=== PATIENT | female | born 1995 | race American Indian/Alaskan Native ===

== ENCOUNTER 2016-10-14 19:41 | Emergency (ER) | payer MEDICAID ==
[2016-10-14 19:52] VITALS: BP 118/74
[2016-10-14] MEDS ORDERED: Sodium Chloride 0.9% 1,000 ML IV ONE (19:52)
--- NOTE | 2016-10-14 19:59 | EDM.PDOC ---
ED HPI GENERAL MEDICAL PROBLEM - General Chief Complaint: Gastrointestinal Problem Stated Complaint: GALLBLADDER, OTHER PERSONAL Time Seen by Provider: 10/14/16 19:51 Source of Information: Reports: Patient History Limitations: Reports: No limitations - History of Present Illness INITIAL COMMENTS - FREE TEXT/NARRATIVE: 21 yo white female c/o RUQ pain since yesterday ( PMHx. GallBladder Problems) Also, patient states she passed large blood clot per vagina yesterday and she had a postitive home test Onset: gradual Onset Date: 10/09/16 Onset Time: 12:00 Duration: Day(s): Location: Reports: abdomen Quality: Reports: Ache Severity: moderate Improves with: Reports: None Worsens with: Reports: None Context: Reports: Other (PMHx. GallBladder problems) Associated Symptoms: Reports: other (vaginal blood clot) Epigastric Pain Score (Numeric/FACES): 7 - Related Data Allergies Allergy/AdvReac Type Severity Reaction Status Date / Time No Known Allergies Allergy Verified 10/14/16 19:53 Home Meds: Home Meds Acetaminophen [Tylenol] 2 tab PO Q8H 08/01/16 [History] Albuterol [IJD: Albuterol HFA] 2 puff INH Q6H 08/01/16 [History] Past Medical History - Past Health History Medical/Surgical History: Denies Medical/Surgical History HEENT History: Reports: Impaired vision Other HEENT History: HAS PRESCRIBED CORRECTIVE LENSES; DOES NOT WEAR THEM Cardiovascular History: Reports: None Respiratory History: Reports: None Gastrointestinal History: Reports: Cholelithiasis, GERD Genitourinary History: Reports: UTI, recurrent 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 Musculoskeletal History: Reports: Fracture Other Musculoskeletal History: HX OF WRIST & ANKLE FRACTURE Neurological History: Reports: Headaches, chronic, Migraines Psychiatric History: Reports: Anxiety Endocrine/Metabolic History: Reports: Obesity/BMI 30+ Hematologic History: Reports: None Immunologic History: Reports: None Oncologic (Cancer) History: Reports: None Dermatologic History: Reports: None - Infectious Disease History Infectious Disease History: Reports: Chicken pox - Past Surgical History Head Surgeries/Procedures: Reports: None HEENT Surgical History: Reports: Adenoidectomy, Oral surgery, Tonsillectomy Other HEENT Surgeries/Procedures: WISDOM TEETH EXTRACTION Cardiovascular Surgical History: Reports: None Respiratory Surgical History: Reports: None GI Surgical History: Reports: EGD Female Surgical History: Reports: Other (see below) Other Female Surgeries/Procedures: IUD INSERTION-REMOVED Endocrine Surgical History: Reports: None Neurological Surgical History: Reports: None Musculoskeletal Surgical History: Reports: None Oncologic Surgical History: Reports: None Dermatological Surgical History: Reports: None Social & Family History - Family History Family Medical History: Noncontributory - Tobacco Use Smoking Status *Q: Never Smoker Second Hand Smoke Exposure: No - Caffeine Use Caffeine Use: Reports: Coffee, Tea - Alcohol Use Days Per Week of Alcohol Use: 0 - Recreational Drug Use Recreational Drug Use: No Drug Use in Last 12 Months: No - Sexual History Sexual History: Reports: Sexually active - Living Situation & Occupation Living situation: Reports: with family Occupation: unemployed ED ROS GENERAL - Review of Systems Review Of Systems: See Below Constitutional: Reports: no symptoms HEENT: Reports: No symptoms Respiratory: Reports: No Symptoms Cardiovascular: Reports: No symptoms Endocrine: Reports: no symptoms GI/Abdominal: Reports: Abdominal pain (RUQ pain) : Reports: other (vaginal blood clot ( size of golf ball)) Musculoskeletal: Reports: no symptoms Skin: Reports: no symptoms Neurological: Reports: No Symptoms Psychiatric: Reports: No symptoms Hematologic/Lymphatic: Reports: no symptoms Immunologic: Reports: no symptoms ED EXAM, GENERAL - Physical Exam Exam: See Below Exam Limited By: No limitations General Appearance: alert, no apparent distress, obese Eye Exam: bilateral eye: PERRL Ears: normal external exam Ear Exam: bilateral ear: TM normal Nose: normal inspection Throat/Mouth: Normal inspection Head: atraumatic Neck: normal inspection Respiratory/Chest: no respiratory distress, lungs clear Cardiovascular: normal peripheral pulses, regular rate, rhythm GI/Abdominal: normal bowel sounds, tender (Right Upper Quadrant) (Female) Exam: Normal external exam, Other (min dark blood in vagina w/o active bleeding w/ mucs plug and os closed) Extremities: normal inspection Neurological: alert, oriented, CN II-XII intact Psychiatric: normal affect, normal mood Skin Exam: Warm, Intact Lymphatic: no adenopathy Course - Vital Signs Last Recorded V/S: Last Vital Signs Temp 36.0 C 10/14/16 19:49 Pulse 106 H 10/14/16 19:49 Resp 16 10/14/16 19:49 BP 118/74 10/14/16 19:49 Pulse Ox 99 10/14/16 19:49 - Orders/Labs/Meds Orders: Active Orders 24 hr Category Date Time Status CULTURE URINE [RM] Stat Lab 10/14/16 20:15 Received cefTRIAXone [Rocephin] 1 gm Med 10/14/16 21:07 Active Sodium Chloride 0.9% [Normal Saline] 50 ml IV ONETIME Medication Orders Ceftriaxone Sodium 1 gm/ (Sodium Chloride) 50 mls @ 100 mls/hr IV ONETIME ONE Stop: 10/14/16 21:36 Labs: Laboratory Tests 10/14/16 10/14/16 10/14/16 Range/Units 19:58 19:58 20:15 WBC 10.5 H (5.0-10.0) 10^3/uL RBC 4.44 (4.2-5.4) 10^6/uL Hgb 13.0 (12.0-16.0) g/dL Hct 39.2 (37.0-47.0) % MCV 88.3 (80-100) fL MCH 29.3 (27.0-34.0) pg MCHC 33.2 (33.0-35.0) g/dL Plt Count 345 (150-450) 10^3/uL Neut % (Auto) 64.2 (42.2-75.2) % Lymph % (Auto) 27.8 (20.5-50.1) % [place] % (Auto) 6.9 (2-8) % Eos % (Auto) 0.7 L (1.0-3.0) % Baso % (Auto) 0.4 (0.0-1.0) % Sodium 139 (135-145) mmol/L Potassium 3.9 (3.6-5.0) mmol/L Chloride 103 (101-111) mmol/L Carbon Dioxide 27.0 (21.0-31.0) mmol/L Anion Gap 12.9 BUN 11 (7-18) mg/dL Creatinine 0.7 (0.6-1.3) mg/dL Est Cr Clr Drug Dosing 100.55 mL/min Estimated GFR (MDRD) > 60 BUN/Creatinine Ratio 15.71 Glucose 115 H (74-105) mg/dL Calcium 9.0 (8.4-10.2) mg/dl Total Bilirubin 0.2 (0.2-1.0) mg/dL AST 29 (10-42) IU/L ALT 41 (10-60) IU/L Alkaline Phosphatase 107 (42-121) IU/L Total Protein 6.8 (6.7-8.2) g/dl Albumin 3.7 (3.2-5.5) g/dl Globulin 3.1 Albumin/Globulin Ratio 1.19 Amylase 20 L (28-100) U/L HCG, Qual Negative Urine Color Yellow (YELLOW) Urine Appearance Turbid (CLEAR) Urine pH 7.5 (5.0-9.0) Ur Specific [place] 1.020 (1.005-1.030) Urine Protein Negative (NEGATIVE) Urine Glucose (UA) Negative (NEGATIVE) Urine Ketones Negative (NEGATIVE) Urine Occult Blood Large H (NEGATIVE) Urine Nitrite Negative (NEGATIVE) Urine Bilirubin Negative (NEGATIVE) Urine Urobilinogen 2.0 H (0.2-1.0) mg/dL Ur Leukocyte Esterase Trace H (NEGATIVE) Urine RBC 0-5 /HPF Urine WBC 0-5 (0-5/HPF) /HPF Ur Epithelial Cells Few /HPF Amorphous Sediment Many H (0/HPF) /HPF Urine Bacteria Moderate H (0-FEW/HPF) /HPF Urinalysis Comment Meds: Medications Generic Name Dose Route Start Last Admin Trade Name Freq PRN Reason Stop Dose Admin Ceftriaxone Sodium 1 gm/ 50 mls @ 100 mls/hr 10/14/16 21:07 Sodium Chloride IV 10/14/16 21:36 ONETIME ONE Discontinued Medications Generic Name Dose Route Start Last Admin Trade Name Freq PRN Reason Stop Dose Admin Sodium Chloride 1,000 mls @ 999 mls/hr 10/14/16 19:52 10/14/16 20:09 Normal Saline IV 10/14/16 20:52 999 mls/hr .BOLUS ONE Administration Departure - Departure Time of Disposition: 21:16 Disposition: Home, Self-Care 01 Condition: good Clinical Impression: UTI (urinary tract infection) Qualifiers: Urinary tract infection type: acute cystitis Hematuria presence: with hematuria Qualified Code(s): N30.01 - Acute cystitis with hematuria Forms: ED Department Discharge Additional Instructions: Increase intake of Water /Cranberry Juice Take Medication as prescribed and complete: Amoxil 500mg BID # 20 Pyridium 100mg TID # 9 F/U w/ PCP - My Orders Last 24 Hours: My Active Orders 10/14/16 20:15 CULTURE URINE [RM] Stat 10/14/16 21:07 cefTRIAXone [Rocephin] 1 gm Sodium Chloride 0.9% [Normal Saline] 50 ml IV ONETIME - Assessment/Plan Last 24 Hours: My Active Orders 10/14/16 20:15 CULTURE URINE [RM] Stat 10/14/16 21:07 cefTRIAXone [Rocephin] 1 gm Sodium Chloride 0.9% [Normal Saline] 50 ml IV ONETIME
[2016-10-14 20:24] LABS: CHLORIDE,CL 103 mmol/L (101-111); SODIUM,NA 139 mmol/L (135-145)
[2016-10-14] MEDS ORDERED: cefTRIAXone 1 GM in Sodium Chloride 0.9% 50 ML IV ONE (21:07)
== END 2016-10-14 21:55 | disposition home or self-care (01) ==
LOC: DL.ED 19:41
DX: O23.40 Unspecified infection of urinary tract in pregnancy, unspecified trimester (principal); O20.9 Hemorrhage in early pregnancy, unspecified; E66.9 Obesity, unspecified; Z86.19 Personal history of other infectious and parasitic diseases; F41.9 Anxiety disorder, unspecified
CPT/HCPCS: 36415; 80053; 81001; 82150; 84703; 85025; 87086; 87210; 96361; 96365; 99284; J0696; J7030; J7050

== ENCOUNTER 2017-03-04 00:04 | Emergency (ER) | payer MEDICAID ==
[2017-03-04 01:21] LABS: CHLORIDE,CL 105 mmol/L (101-111); SODIUM,NA 139 mmol/L (135-145)
[2017-03-04] MEDS ORDERED: Iopamidol 612 MG/ML 50 ML SDV IVPUSH ONE (01:41)
[2017-03-04] MEDS ORDERED: Iopamidol 612 MG/ML 75 ML Bottle IVPUSH ONE (01:42)
--- NOTE | 2017-03-04 02:56 | EDM.PDOC ---
ED HPI GENERAL MEDICAL PROBLEM - General Chief Complaint: Gastrointestinal Problem Stated Complaint: GALLBLADDER Time Seen by Provider: 03/04/17 00:30 Source of Information: Reports: Patient History Limitations: Reports: No Limitations - History of Present Illness INITIAL COMMENTS - FREE TEXT/NARRATIVE: c/o "gall bladder pain" points mid epigastric. Notes ahs had similar episodes in past and recently seen by surgeon was told would need ultrasound. Has not heard results. Ate apporximately 1 hour prior to onset of pain. Abdominal Pain Score (Numeric/FACES): 8 - Related Data Allergies Allergy/AdvReac Type Severity Reaction Status Date / Time No Known Allergies Allergy Verified 10/14/16 19:53 Home Meds: Home Meds Acetaminophen [Tylenol] 2 tab PO Q8H 08/01/16 [History] Albuterol [IJD: Albuterol HFA] 2 puff INH Q6H 08/01/16 [History] Past Medical History - Past Health History Medical/Surgical History: Denies Medical/Surgical History HEENT History: Reports: Impaired Vision Other HEENT History: HAS PRESCRIBED CORRECTIVE LENSES; DOES NOT WEAR THEM Cardiovascular History: Reports: None Respiratory History: Reports: None Gastrointestinal History: Reports: Cholelithiasis, GERD Genitourinary History: Reports: UTI, Recurrent 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 Musculoskeletal History: Reports: Fracture Other Musculoskeletal History: HX OF WRIST & ANKLE FRACTURE Neurological History: Reports: Headaches, Chronic, Migraines Psychiatric History: Reports: Anxiety Endocrine/Metabolic History: Reports: Obesity/BMI 30+ Hematologic History: Reports: None Immunologic History: Reports: None Oncologic (Cancer) History: Reports: None Dermatologic History: Reports: None - Infectious Disease History Infectious Disease History: Reports: Chicken Pox - Past Surgical History Head Surgeries/Procedures: Reports: None HEENT Surgical History: Reports: Adenoidectomy, Oral Surgery, Tonsillectomy Cardiovascular Surgical History: Reports: None Respiratory Surgical History: Reports: None GI Surgical History: Reports: EGD Female Surgical History: Reports: Other (See Below) Endocrine Surgical History: Reports: None Musculoskeletal Surgical History: Reports: None Oncologic Surgical History: Reports: None Dermatological Surgical History: Reports: None Social & Family History - Family History Family Medical History: Noncontributory - Tobacco Use Smoking Status *Q: Never Smoker Second Hand Smoke Exposure: No - Caffeine Use Caffeine Use: Reports: Soda - Alcohol Use Days Per Week of Alcohol Use: 0 - Recreational Drug Use Recreational Drug Use: No Drug Use in Last 12 Months: No - Sexual History Sexual History: Reports: Sexually Active - Living Situation & Occupation Living situation: Reports: with Family Occupation: Unemployed ED ROS GENERAL - Review of Systems Review Of Systems: See Below Constitutional: Denies: Fever, Chills HEENT: Reports: No Symptoms Respiratory: Reports: No Symptoms Cardiovascular: Reports: No Symptoms Endocrine: Reports: No Symptoms GI/Abdominal: Reports: Abdominal Pain, Decreased Appetite, Nausea. Denies: Bloody Stool, Diarrhea, Distension, Vomiting : Reports: No Symptoms Musculoskeletal: Reports: No Symptoms Skin: Reports: No Symptoms Neurological: Reports: No Symptoms ED EXAM, GI/ABD - Physical Exam Exam: See Below Exam Limited By: No Limitations General Appearance: Alert, Mild Distress, Obese Ears: Normal External Exam, Normal Canal, Normal TMs Nose: Normal Inspection Throat/Mouth: Normal Inspection Head: Atraumatic, Normocephalic Neck: Normal Inspection Respiratory/Chest: No Respiratory Distress, Lungs Clear Cardiovascular: Normal Peripheral Pulses, Regular Rate, Rhythm, No Edema, No Murmur GI/Abdominal Exam: Normal Bowel Sounds, Soft, Non-Tender Back Exam: Normal Inspection Extremities: Normal Inspection Neurological: Alert, Oriented Psychiatric: Normal Affect, Normal Mood Skin Exam: Warm, Dry, Intact, Normal Color Course - Vital Signs Last Recorded V/S: Last Vital Signs Temp 97.6 F 03/04/17 03:03 Pulse 101 H 03/04/17 03:03 Resp 20 03/04/17 03:03 BP 118/71 03/04/17 03:03 Pulse Ox 100 03/04/17 03:03 - Orders/Labs/Meds Labs: Laboratory Tests 03/04/17 03/04/17 03/04/17 Range/Units 00:45 00:45 00:45 WBC 10.8 H (5.0-10.0) 10^3/uL RBC 4.52 (4.2-5.4) 10^6/uL Hgb 13.1 (12.0-16.0) g/dL Hct 39.8 (37.0-47.0) % MCV 88.1 (80-100) fL MCH 29.0 (27.0-34.0) pg MCHC 32.9 L (33.0-35.0) g/dL Plt Count 321 (150-450) 10^3/uL Neut % (Auto) 66.3 (42.2-75.2) % Lymph % (Auto) 26.2 (20.5-50.1) % [place] % (Auto) 6.0 (2-8) % Eos % (Auto) 1.1 (1.0-3.0) % Baso % (Auto) 0.4 (0.0-1.0) % Sodium 139 (135-145) mmol/L Potassium 3.7 (3.6-5.0) mmol/L Chloride 105 (101-111) mmol/L Carbon Dioxide 25.0 (21.0-31.0) mmol/L Anion Gap 12.7 BUN 13 (7-18) mg/dL Creatinine 0.7 (0.6-1.3) mg/dL Est Cr Clr Drug Dosing 95.93 mL/min Estimated GFR (MDRD) > 60 BUN/Creatinine Ratio 18.57 Glucose 112 H (74-105) mg/dL Lactic Acid 1.0 (0.5-2.2) mmol/L Calcium 9.0 (8.4-10.2) mg/dl Total Bilirubin 0.5 (0.2-1.0) mg/dL AST 25 (10-42) IU/L ALT 32 (10-60) IU/L Alkaline Phosphatase 89 (42-121) IU/L Total Protein 7.1 (6.7-8.2) g/dl Albumin 3.7 (3.2-5.5) g/dl Globulin 3.4 Albumin/Globulin Ratio 1.09 Amylase 18 L (28-100) U/L Lipase 18 L (22-51) U/L HCG, Qual Negative Urine Color (YELLOW) Urine Appearance (CLEAR) Urine pH (5.0-9.0) Ur Specific [place] (1.005-1.030) Urine Protein (NEGATIVE) Urine Glucose (UA) (NEGATIVE) Urine Ketones (NEGATIVE) Urine Occult Blood (NEGATIVE) Urine Nitrite (NEGATIVE) Urine Bilirubin (NEGATIVE) Urine Urobilinogen (0.2-1.0) mg/dL Ur Leukocyte Esterase (NEGATIVE) Urine RBC /HPF Urine WBC (0-5/HPF) /HPF Ur Epithelial Cells /HPF Urine Bacteria (0-FEW/HPF) /HPF Urine Mucus /LPF 03/04/17 Range/Units 02:17 WBC (5.0-10.0) 10^3/uL RBC (4.2-5.4) 10^6/uL Hgb (12.0-16.0) g/dL Hct (37.0-47.0) % MCV (80-100) fL MCH (27.0-34.0) pg MCHC (33.0-35.0) g/dL Plt Count (150-450) 10^3/uL Neut % (Auto) (42.2-75.2) % Lymph % (Auto) (20.5-50.1) % [place] % (Auto) (2-8) % Eos % (Auto) (1.0-3.0) % Baso % (Auto) (0.0-1.0) % Sodium (135-145) mmol/L Potassium (3.6-5.0) mmol/L Chloride (101-111) mmol/L Carbon Dioxide (21.0-31.0) mmol/L Anion Gap BUN (7-18) mg/dL Creatinine (0.6-1.3) mg/dL Est Cr Clr Drug Dosing mL/min Estimated GFR (MDRD) BUN/Creatinine Ratio Glucose (74-105) mg/dL Lactic Acid (0.5-2.2) mmol/L Calcium (8.4-10.2) mg/dl Total Bilirubin (0.2-1.0) mg/dL AST (10-42) IU/L ALT (10-60) IU/L Alkaline Phosphatase (42-121) IU/L Total Protein (6.7-8.2) g/dl Albumin (3.2-5.5) g/dl Globulin Albumin/Globulin Ratio Amylase (28-100) U/L Lipase (22-51) U/L HCG, Qual Urine Color Dark yellow (YELLOW) Urine Appearance Slightly cloudy (CLEAR) Urine pH 6.0 (5.0-9.0) Ur Specific [place] 1.025 (1.005-1.030) Urine Protein Negative (NEGATIVE) Urine Glucose (UA) Negative (NEGATIVE) Urine Ketones Negative (NEGATIVE) Urine Occult Blood Trace-intact H (NEGATIVE) Urine Nitrite Negative (NEGATIVE) Urine Bilirubin Small H (NEGATIVE) Urine Urobilinogen 4.0 H (0.2-1.0) mg/dL Ur Leukocyte Esterase Trace H (NEGATIVE) Urine RBC 0-5 /HPF Urine WBC 0-5 (0-5/HPF) /HPF Ur Epithelial Cells Moderate H /HPF Urine Bacteria Moderate H (0-FEW/HPF) /HPF Urine Mucus Few H /LPF Meds: Medications Discontinued Medications Generic Name Dose Route Start Last Admin Trade Name Nurys PRN Reason Stop Dose Admin Iopamidol 50 ml 03/04/17 01:41 03/04/17 01:45 Isovue-300 (61%) IVPUSH 03/04/17 01:42 50 ml ONETIME ONE Administration Iopamidol 75 ml 03/04/17 01:42 03/04/17 01:45 Isovue-300 (61%) IVPUSH 03/04/17 01:43 75 ml ONETIME ONE Administration Ondansetron HCl Confirm 03/04/17 02:59 03/04/17 03:07 Zofran Odt Administered 03/04/17 03:00 Not Given Dose 8 mg .ROUTE .STK-MED ONE Ondansetron HCl 8 mg 03/04/17 02:59 Zofran Odt PO 03/04/17 03:00 .STK-MED ONE Oxycodone/Acetaminophen Confirm 03/04/17 02:59 03/04/17 03:07 Percocet 325-5 Mg Administered 03/04/17 03:00 Not Given Dose 1 tab .ROUTE .STK-MED ONE Oxycodone/Acetaminophen 1 tab 03/04/17 02:59 Percocet 325-5 Mg PO 03/04/17 03:00 .STK-MED ONE - Radiology Interpretation Free Text/Narrative:: CT abdomen, possible gallstones, no ductal dilation Departure - Departure Time of Disposition: 02:51 Disposition: Home, Self-Care 01 Condition: Fair Clinical Impression: Nausea Abdominal pain Qualifiers: Abdominal location: right upper quadrant Qualified Code(s): R10.11 - Right upper quadrant pain - Discharge Information Instructions: Abdominal Pain, Adult, [id number] Forms: ED Department Discharge Additional Instructions: zofran 4mg ODT one at bed, may repeat one time in 4 hours Percocet 5/325 one at bed follow up in clinic in am low fat, low acid diet no soda, no caffeine
[2017-03-04] MEDS ORDERED: Acetaminophen/oxyCODONE 325-5 MG Tab PO ONE (02:59)
[2017-03-04] MEDS ORDERED: Acetaminophen/oxyCODONE 325-5 MG Tab ONE (02:59)
[2017-03-04] MEDS ORDERED: Ondansetron 4 MG Tab.DIS ONE (02:59)
[2017-03-04] MEDS ORDERED: Ondansetron 4 MG Tab.DIS PO ONE (02:59)
[2017-03-04 03:03] VITALS: BP 118/71
== END 2017-03-04 03:08 | disposition home or self-care (01) ==
LOC: DL.ED 00:04
DX: R10.11 Right upper quadrant pain (principal); R11.0 Nausea; K21.9 Gastro-esophageal reflux disease without esophagitis; E66.9 Obesity, unspecified; Z87.440 Personal history of urinary (tract) infections; Z98.890 Other specified postprocedural states; Z68.43 Body mass index [BMI] 50.0-59.9, adult
CPT/HCPCS: 36415; 74177; 80053; 81001; 82150; 83605; 83690; 84703; 85025; 99284; A9270; Q9967

== ENCOUNTER 2017-03-19 06:26 | Emergency (ER) | payer MEDICAID ==
[2017-03-19 06:38] VITALS: BP 108/63
--- NOTE | 2017-03-19 06:50 | EDM.PDOC ---
<Fernando Campuzano - Last Filed: 03/19/17 06:52> ED HPI GENERAL MEDICAL PROBLEM - General Chief Complaint: Abdominal Pain Stated Complaint: CRAMPING, VOMITING Time Seen by Provider: 03/19/17 06:47 Source of Information: Reports: Patient History Limitations: Reports: No Limitations - History of Present Illness INITIAL COMMENTS - FREE TEXT/NARRATIVE: 2 days h/o abd' pain with h/o GB problems. been vomiting now nauseous. states had GB US done and waiting for her to schedule HIDA scan but hadn't had time. Abdomen Pain Score (Numeric/FACES): 7 - Related Data Allergies Allergy/AdvReac Type Severity Reaction Status Date / Time No Known Allergies Allergy Verified 03/19/17 06:38 Home Meds: Home Meds Acetaminophen [Tylenol] 2 tab PO Q8H 08/01/16 [History] Albuterol [IJD: Albuterol HFA] 2 puff INH Q6H 08/01/16 [History] Past Medical History - Past Health History Medical/Surgical History: Denies Medical/Surgical History HEENT History: Reports: Impaired Vision Other HEENT History: HAS PRESCRIBED CORRECTIVE LENSES; DOES NOT WEAR THEM Cardiovascular History: Reports: None Respiratory History: Reports: None Gastrointestinal History: Reports: Cholelithiasis, GERD Genitourinary History: Reports: UTI, Recurrent 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 Musculoskeletal History: Reports: Fracture Other Musculoskeletal History: HX OF WRIST & ANKLE FRACTURE Neurological History: Reports: Headaches, Chronic, Migraines Psychiatric History: Reports: Anxiety Endocrine/Metabolic History: Reports: Obesity/BMI 30+ Hematologic History: Reports: None Immunologic History: Reports: None Oncologic (Cancer) History: Reports: None Dermatologic History: Reports: None - Infectious Disease History Infectious Disease History: Reports: Chicken Pox - Past Surgical History Head Surgeries/Procedures: Reports: None HEENT Surgical History: Reports: Adenoidectomy, Oral Surgery, Tonsillectomy Cardiovascular Surgical History: Reports: None Respiratory Surgical History: Reports: None GI Surgical History: Reports: EGD Female Surgical History: Reports: Other (See Below) Endocrine Surgical History: Reports: None Musculoskeletal Surgical History: Reports: None Oncologic Surgical History: Reports: None Dermatological Surgical History: Reports: None Social & Family History - Family History Family Medical History: Noncontributory - Tobacco Use Smoking Status *Q: Never Smoker Second Hand Smoke Exposure: No - Caffeine Use Caffeine Use: Reports: Soda, Tea - Alcohol Use Days Per Week of Alcohol Use: 0 - Recreational Drug Use Recreational Drug Use: No Drug Use in Last 12 Months: No - Sexual History Sexual History: Reports: Sexually Active - Living Situation & Occupation Living situation: Reports: with Family Occupation: Unemployed ED ROS GENERAL - Review of Systems Review Of Systems: ROS reveals no pertinent complaints other than HPI. ED EXAM, GI/ABD - Physical Exam Exam: See Below Exam Limited By: No Limitations General Appearance: Alert, WD/WN, Mild Distress, Other (discomfort) Ears: Hearing Grossly Normal Throat/Mouth: Normal Voice, No Airway Compromise Head: Atraumatic Neck: Non-Tender, Full Range of Motion Respiratory/Chest: No Respiratory Distress Cardiovascular: Regular Rate, Rhythm GI/Abdominal Exam: Soft, Tender, Other (epiG region). No: Guarding, Rigid, Rebound Neurological: Alert, Oriented, Normal Cognition, Normal Gait, No Motor/Sensory Deficits Psychiatric: Normal Affect, Normal Mood Skin Exam: Warm, Dry, Normal Color Lymphatic: No Adenopathy Course - Vital Signs Last Recorded V/S: Last Vital Signs Temp 36.1 C 03/19/17 06:30 Pulse 109 H 03/19/17 06:30 Resp 19 03/19/17 06:30 BP 108/63 03/19/17 06:30 Pulse Ox 100 03/19/17 06:30 - Orders/Labs/Meds Orders: Active Orders 24 hr Category Date Time Status HCG QUALITATIVE,URINE [URCHEM] Stat Lab 03/19/17 06:39 Uncollected UA W/MICROSCOPIC [URIN] Stat Lab 03/19/17 06:39 Uncollected Sodium Chloride 0.9% [Normal Saline] 1,000 ml Med 03/19/17 07:14 Active IV .BOLUS Medication Orders Sodium Chloride (Normal Saline) 1,000 mls @ 999 mls/hr IV .BOLUS ONE Stop: 03/19/17 08:14 Last Admin: 03/19/17 07:22 Dose: 999 mls/hr Labs: Laboratory Tests 03/19/17 03/19/17 Range/Units 07:04 07:04 WBC 12.9 H (5.0-10.0) 10^3/uL RBC 4.59 (4.2-5.4) 10^6/uL Hgb 13.1 (12.0-16.0) g/dL Hct 40.0 (37.0-47.0) % MCV 87.1 (80-100) fL MCH 28.5 (27.0-34.0) pg MCHC 32.8 L (33.0-35.0) g/dL Plt Count 347 (150-450) 10^3/uL Neut % (Auto) 68.9 (42.2-75.2) % Lymph % (Auto) 23.0 (20.5-50.1) % [place] % (Auto) 6.3 (2-8) % Eos % (Auto) 1.4 (1.0-3.0) % Baso % (Auto) 0.4 (0.0-1.0) % Sodium 141 (135-145) mmol/L Potassium 3.5 L (3.6-5.0) mmol/L Chloride 106 (101-111) mmol/L Carbon Dioxide 22.0 (21.0-31.0) mmol/L Anion Gap 16.5 BUN 13 (7-18) mg/dL Creatinine 0.7 (0.6-1.3) mg/dL Est Cr Clr Drug Dosing 95.93 mL/min Estimated GFR (MDRD) > 60 BUN/Creatinine Ratio 18.57 Glucose 139 H (74-105) mg/dL Calcium 9.0 (8.4-10.2) mg/dl Total Bilirubin 0.4 (0.2-1.0) mg/dL AST 41 (10-42) IU/L ALT 69 H (10-60) IU/L Alkaline Phosphatase 106 (42-121) IU/L Total Protein 7.2 (6.7-8.2) g/dl Albumin 3.9 (3.2-5.5) g/dl Globulin 3.3 Albumin/Globulin Ratio 1.18 Amylase 18 L (28-100) U/L Lipase 17 L (22-51) U/L HCG, Qual Positive Meds: Medications Generic Name Dose Route Start Last Admin Trade Name Freq PRN Reason Stop Dose Admin Sodium Chloride 1,000 mls @ 999 mls/hr 03/19/17 07:14 03/19/17 07:22 Normal Saline IV 03/19/17 08:14 999 mls/hr .BOLUS ONE Administration Discontinued Medications Generic Name Dose Route Start Last Admin Trade Name Nurys PRN Reason Stop Dose Admin Ondansetron HCl 4 mg 03/19/17 07:14 03/19/17 07:22 Zofran IV 03/19/17 07:15 4 mg ONETIME ONE Administration Departure - Departure Disposition: Home, Self-Care 01 Clinical Impression: state, incidental, Recurrent biliary colic - Discharge Information Forms: ED Department Discharge Additional Instructions: Follow up in clinic with Dr. Rodriguez for evaluation. Low fat diet to avoid gallbladder pain. - My Orders Last 24 Hours: My Active Orders 03/19/17 07:14 Sodium Chloride 0.9% [Normal Saline] 1,000 ml IV .BOLUS - Assessment/Plan Last 24 Hours: My Active Orders 03/19/17 07:14 Sodium Chloride 0.9% [Normal Saline] 1,000 ml IV .BOLUS <Rasheed Shaver - Last Filed: 03/19/17 07:54> ED HPI GENERAL MEDICAL PROBLEM - History of Present Illness INITIAL COMMENTS - FREE TEXT/NARRATIVE: Assumed care of pt at 0700HR shift change with lab results pending. Pt reports feeling better. Duration: Recurring Location: Reports: Abdomen, Generalized Quality: Reports: Ache Severity: Moderate Improves with: Reports: None Worsens with: Reports: Eating Associated Symptoms: Reports: No Other Symptoms ED EXAM, GI/ABD - Physical Exam Text/Narrative:: No changes to exam as documented by Dr. Campuzano for this encounter. Departure - Departure Time of Disposition: 07:52 Condition: Good
[2017-03-19] MEDS ORDERED: Ondansetron 4 MG/2 ML SDV IV ONE (07:14)
[2017-03-19] MEDS ORDERED: Sodium Chloride 0.9% 1,000 ML IV ONE (07:14)
[2017-03-19 07:32] LABS: CHLORIDE,CL 106 mmol/L (101-111); SODIUM,NA 141 mmol/L (135-145)
== END 2017-03-19 08:17 | disposition home or self-care (01) ==
LOC: DL.ED 06:26
DX: Z33.1 Pregnant state, incidental (principal); K80.51 Calculus of bile duct without cholangitis or cholecystitis with obstruction; K21.9 Gastro-esophageal reflux disease without esophagitis; G43.909 Migraine, unspecified, not intractable, without status migrainosus; E66.9 Obesity, unspecified; Z98.890 Other specified postprocedural states; Z87.440 Personal history of urinary (tract) infections
CPT/HCPCS: 36415; 80053; 82150; 83690; 84703; 85025; 96365; 99284; J2405; J7030

== ENCOUNTER 2017-03-30 01:53 | Emergency (ER) | payer MEDICAID ==
[2017-03-30 04:25] LABS: CHLORIDE,CL 104 mmol/L (101-111); SODIUM,NA 142 mmol/L (135-145)
== END 2017-03-30 04:12 | disposition home or self-care (01) ==
LOC: DL.ED 01:53
DX: O99.89 Other specified diseases and conditions complicating pregnancy, childbirth and the puerperium (principal); R10.9 Unspecified abdominal pain
CPT/HCPCS: 36415; 80053; 84702; 84703; 85025; 99283

== ENCOUNTER 2017-04-04 00:20 | Emergency (ER) | payer MEDICAID ==
[2017-04-04 00:30] VITALS: BP 125/72
--- NOTE | 2017-04-04 00:38 | EDM.PDOC ---
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 Time Seen by Provider: 04/04/17 00:35 Source of Information: Reports: Patient History Limitations: Reports: No Limitations - History of Present Illness INITIAL COMMENTS - FREE TEXT/NARRATIVE: told was but not how far along and been having serial hcg told to go to ER for any problems. 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 Pain Score (Numeric/FACES): 6 - Related Data Allergies Allergy/AdvReac Type Severity Reaction Status Date / Time No Known Allergies Allergy Verified 04/04/17 00:30 Home Meds: Home Meds Acetaminophen [Tylenol] 2 tab PO Q8H 08/01/16 [History] PNV95/Ferrous Fumarate/FA [ Formula] 1 each PO DAILY 04/04/17 [History] Ranitidine HCl 150 mg PO BID 04/04/17 [History] Past Medical History - Past Health History Medical/Surgical History: Denies Medical/Surgical History HEENT History: Reports: Impaired Vision Other HEENT History: HAS PRESCRIBED CORRECTIVE LENSES; DOES NOT WEAR THEM Cardiovascular History: Reports: None Respiratory History: Reports: None Gastrointestinal History: Reports: Cholelithiasis, GERD Genitourinary History: Reports: UTI, Recurrent Other Genitourinary History: [employer] 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 Musculoskeletal History: Reports: Fracture Other Musculoskeletal History: HX OF WRIST & ANKLE FRACTURE Neurological History: Reports: Headaches, Chronic, Migraines Psychiatric History: Reports: Anxiety Endocrine/Metabolic History: Reports: Obesity/BMI 30+ Hematologic History: Reports: None Immunologic History: Reports: None Oncologic (Cancer) History: Reports: None Dermatologic History: Reports: None - Infectious Disease History Infectious Disease History: Reports: Chicken Pox - Past Surgical History Head Surgeries/Procedures: Reports: None HEENT Surgical History: Reports: Adenoidectomy, Oral Surgery, Tonsillectomy Cardiovascular Surgical History: Reports: None Respiratory Surgical History: Reports: None GI Surgical History: Reports: EGD Female Surgical History: Reports: Other (See Below) Endocrine Surgical History: Reports: None Musculoskeletal Surgical History: Reports: None Oncologic Surgical History: Reports: None Dermatological Surgical History: Reports: None Social & Family History - Family History Family Medical History: Noncontributory - Tobacco Use Smoking Status *Q: Never Smoker Second Hand Smoke Exposure: No - Caffeine Use Caffeine Use: Reports: Soda, Tea - Alcohol Use Days Per Week of Alcohol Use: 0 - Recreational Drug Use Recreational Drug Use: No Drug Use in Last 12 Months: No - Sexual History Sexual History: Reports: Sexually Active - Living Situation & Occupation Living situation: Reports: with Family Occupation: Unemployed ED ROS GENERAL - Review of Systems Review Of Systems: ROS reveals no pertinent complaints other than HPI. ED EXAM - Physical Exam Exam: See Below Exam Limited By: No Limitations General Appearance: Alert, WD/WN, Mild Distress, Other (distraught) Ears: Hearing Grossly Normal Throat/Mouth: Normal Voice, No Airway Compromise Head: Atraumatic Neck: Non-Tender, Full Range of Motion Respiratory/Chest: No Respiratory Distress Cardiovascular: Regular Rate, Rhythm GI/Abdominal Exam: Soft, Non-Tender Neurological: Alert, Oriented, Normal Cognition, Normal Gait, No Motor/Sensory Deficits Psychiatric: Tearful Skin Exam: Warm, Dry, Normal Color Lymphatic: No Adenopathy Course - Vital Signs Last Recorded V/S: Last Vital Signs Temp 35.8 C 04/04/17 00:24 Pulse 83 04/04/17 00:24 Resp 18 04/04/17 00:24 BP 125/72 04/04/17 00:24 Pulse Ox 99 04/04/17 00:24 - Orders/Labs/Meds Orders: Active Orders 24 hr Category Date Time Status Acetaminophen/HYDROcodone [[place] 325-10 MG] Med 04/04/17 01:49 Once 1 tab PO ONETIME ONE Medication Orders Hydrocodone Bitart/Acetaminophen ([place] 325-10 Mg) 1 tab PO ONETIME ONE Stop: 04/04/17 01:50 Labs: Laboratory Tests 04/04/17 04/04/17 04/04/17 Range/Units 00:41 00:41 00:41 WBC 10.3 H (5.0-10.0) 10^3/uL RBC 4.46 (4.2-5.4) 10^6/uL Hgb 13.0 (12.0-16.0) g/dL Hct 39.6 (37.0-47.0) % MCV 88.8 (80-100) fL MCH 29.1 (27.0-34.0) pg MCHC 32.8 L (33.0-35.0) g/dL Plt Count 338 (150-450) 10^3/uL Neut % (Auto) 60.3 (42.2-75.2) % Lymph % (Auto) 31.7 (20.5-50.1) % [place] % (Auto) 5.9 (2-8) % Eos % (Auto) 1.8 (1.0-3.0) % Baso % (Auto) 0.3 (0.0-1.0) % Sodium 141 (135-145) mmol/L Potassium 3.9 (3.6-5.0) mmol/L Chloride 105 (101-111) mmol/L Carbon Dioxide 25.0 (21.0-31.0) mmol/L Anion Gap 14.9 BUN 11 (7-18) mg/dL Creatinine 0.6 (0.6-1.3) mg/dL Est Cr Clr Drug Dosing 111.92 mL/min Estimated GFR (MDRD) > 60 BUN/Creatinine Ratio 18.33 Glucose 106 H (74-105) mg/dL Calcium 8.9 (8.4-10.2) mg/dl Total Bilirubin 0.3 (0.2-1.0) mg/dL AST 29 (10-42) IU/L ALT 43 (10-60) IU/L Alkaline Phosphatase 90 (42-121) IU/L Total Protein 6.8 (6.7-8.2) g/dl Albumin 3.6 (3.2-5.5) g/dl Globulin 3.2 Albumin/Globulin Ratio 1.13 HCG, Quant 15 (0-25) mIU/ml Beta HCG, Quant TNP Meds: Medications Generic Name Dose Route Start Last Admin Trade Name Freq PRN Reason Stop Dose Admin Hydrocodone Bitart/Acetaminophen 1 tab 04/04/17 01:49 [place] 325-10 Mg PO 04/04/17 01:50 ONETIME ONE - Re-Assessments/Exams Free Text/Narrative Re-Assessment/Exam: 04/04/17 01:50 case discussed with Pt. Departure - Departure Time of Disposition: 01:50 Disposition: Home, Self-Care 01 Condition: Good Clinical Impression: Incomplete - Discharge Information Forms: ED Department Discharge Additional Instructions: 1) rest 2) avoid bending lifting straining 3) follow up with Dr Rodriguez Wednesday 4) recheck if there is any change or concern - My Orders Last 24 Hours: My Active Orders 04/04/17 01:49 Acetaminophen/HYDROcodone [[place] 325-10 MG] 1 tab PO ONETIME ONE - Assessment/Plan Last 24 Hours: My Active Orders 04/04/17 01:49 Acetaminophen/HYDROcodone [[place] 325-10 MG] 1 tab PO ONETIME ONE
[2017-04-04 01:13] LABS: CHLORIDE,CL 105 mmol/L (101-111); SODIUM,NA 141 mmol/L (135-145)
[2017-04-04] MEDS ORDERED: Acetaminophen/HYDROcodone 325-10 MG Tab PO ONE (01:49)
== END 2017-04-04 02:00 | disposition home or self-care (01) ==
LOC: DL.ED 00:20
DX: O03.4 Incomplete spontaneous abortion without complication (principal); Z98.890 Other specified postprocedural states; E66.9 Obesity, unspecified; Z68.43 Body mass index [BMI] 50.0-59.9, adult
CPT/HCPCS: 36415; 80053; 84702; 85025; 99284; A9270

== ENCOUNTER 2017-04-08 22:46 | Emergency (ER) | payer MEDICAID ==
[2017-04-08 22:54] VITALS: BP 110/62
[2017-04-09] LABS: CHLORIDE,CL 102 mmol/L (101-111); SODIUM,NA 138 mmol/L (135-145)
[2017-04-09] MEDS ORDERED: Ondansetron 4 MG Tab.DIS PO ONE (00:37)
--- NOTE | 2017-04-09 00:41 | EDM.PDOC ---
ED HPI GENERAL MEDICAL PROBLEM - General Chief Complaint: Abdominal Pain Stated Complaint: GALLBLADDER Time Seen by Provider: 04/09/17 00:37 Source of Information: Reports: Patient History Limitations: Reports: No Limitations - History of Present Illness INITIAL COMMENTS - FREE TEXT/NARRATIVE: c/o 2 days h/o on off N/V been Dx with GB problem was suppose to have HIDA but since being she can't. 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 - Related Data Allergies Allergy/AdvReac Type Severity Reaction Status Date / Time No Known Allergies Allergy Verified 04/08/17 22:50 Home Meds: Home Meds Acetaminophen [Tylenol] 2 tab PO Q8H 08/01/16 [History] PNV95/Ferrous Fumarate/FA [ Formula] 1 each PO DAILY 04/04/17 [History] Ranitidine HCl 150 mg PO BID 04/04/17 [History] Past Medical History - Past Health History Medical/Surgical History: Denies Medical/Surgical History HEENT History: Reports: Impaired Vision Other HEENT History: HAS PRESCRIBED CORRECTIVE LENSES; DOES NOT WEAR THEM Cardiovascular History: Reports: None Respiratory History: Reports: None Gastrointestinal History: Reports: Cholelithiasis, GERD Genitourinary History: Reports: UTI, Recurrent Other Genitourinary History: [employer] History: Reports: None Musculoskeletal History: Reports: Fracture Other Musculoskeletal History: HX OF WRIST & ANKLE FRACTURE Neurological History: Reports: Headaches, Chronic, Migraines Psychiatric History: Reports: Anxiety Endocrine/Metabolic History: Reports: Obesity/BMI 30+ Hematologic History: Reports: None Immunologic History: Reports: None Oncologic (Cancer) History: Reports: None Dermatologic History: Reports: None - Infectious Disease History Infectious Disease History: Reports: Chicken Pox - Past Surgical History Head Surgeries/Procedures: Reports: None HEENT Surgical History: Reports: Adenoidectomy, Oral Surgery, Tonsillectomy Cardiovascular Surgical History: Reports: None Respiratory Surgical History: Reports: None GI Surgical History: Reports: EGD Endocrine Surgical History: Reports: None Musculoskeletal Surgical History: Reports: None Oncologic Surgical History: Reports: None Dermatological Surgical History: Reports: None Social & Family History - Family History Family Medical History: Noncontributory - Tobacco Use Smoking Status *Q: Never Smoker Second Hand Smoke Exposure: No - Caffeine Use Caffeine Use: Reports: Tea - Alcohol Use Days Per Week of Alcohol Use: 0 - Recreational Drug Use Recreational Drug Use: No Drug Use in Last 12 Months: No - Sexual History Sexual History: Reports: Sexually Active - Living Situation & Occupation Living situation: Reports: with Family Occupation: Unemployed ED ROS GENERAL - Review of Systems Review Of Systems: ROS reveals no pertinent complaints other than HPI. ED EXAM, GI/ABD - Physical Exam Exam: See Below Exam Limited By: No Limitations General Appearance: Alert, WD/WN, Mild Distress, Other (upset) Ears: Hearing Grossly Normal Throat/Mouth: Normal Voice, No Airway Compromise Head: Atraumatic Neck: Non-Tender, Full Range of Motion Respiratory/Chest: No Respiratory Distress Cardiovascular: Regular Rate, Rhythm GI/Abdominal Exam: Soft, Other (minimal epiG discomfort, Pt feeloing better presently). No: Distended, Guarding, Rigid, Rebound, Tender Neurological: Alert, Oriented, Normal Cognition, Normal Gait, No Motor/Sensory Deficits Psychiatric: Normal Affect, Normal Mood Skin Exam: Warm, Dry, Normal Color Lymphatic: No Adenopathy Course - Vital Signs Last Recorded V/S: Last Vital Signs Temp 36.3 C 04/08/17 22:56 Pulse 94 04/08/17 22:56 Resp 20 04/08/17 22:56 BP 110/62 04/08/17 22:56 Pulse Ox 98 04/08/17 22:56 - Orders/Labs/Meds Orders: Active Orders 24 hr Category Date Time Status UA W/MICROSCOPIC [URIN] Stat Lab 04/09/17 00:07 Received Ondansetron [Zofran ODT] Med 04/09/17 00:37 Once 4 mg PO ONETIME ONE Labs: Laboratory Tests 04/08/17 04/08/17 04/09/17 Range/Units 23:20 23:20 00:00 WBC 11.0 H (5.0-10.0) 10^3/uL RBC 4.53 (4.2-5.4) 10^6/uL Hgb 13.1 (12.0-16.0) g/dL Hct 40.2 (37.0-47.0) % MCV 88.7 (80-100) fL MCH 28.9 (27.0-34.0) pg MCHC 32.6 L (33.0-35.0) g/dL Plt Count 351 (150-450) 10^3/uL Neut % (Auto) 62.2 (42.2-75.2) % Lymph % (Auto) 30.1 (20.5-50.1) % [place] % (Auto) 6.1 (2-8) % Eos % (Auto) 1.3 (1.0-3.0) % Baso % (Auto) 0.3 (0.0-1.0) % Sodium 138 (135-145) mmol/L Potassium 4.0 (3.6-5.0) mmol/L Chloride 102 (101-111) mmol/L Carbon Dioxide 24.0 (21.0-31.0) mmol/L Anion Gap 16.0 BUN 17 (7-18) mg/dL Creatinine 0.7 (0.6-1.3) mg/dL Est Cr Clr Drug Dosing TNP Estimated GFR (MDRD) > 60 BUN/Creatinine Ratio 24.28 Glucose 124 H (74-105) mg/dL Calcium 8.9 (8.4-10.2) mg/dl Total Bilirubin 0.5 (0.2-1.0) mg/dL AST 33 (10-42) IU/L ALT 44 (10-60) IU/L Alkaline Phosphatase 95 (42-121) IU/L Total Protein 7.3 (6.7-8.2) g/dl Albumin 3.8 (3.2-5.5) g/dl Globulin 3.5 Albumin/Globulin Ratio 1.09 Amylase 17 L (28-100) U/L Lipase 20 L (22-51) U/L HCG, Qual Positive Departure - Departure Time of Disposition: 00:39 Disposition: Home, Self-Care 01 Condition: Good Clinical Impression: Recurrent biliary colic Abdominal pain Qualifiers: Abdominal location: right upper quadrant Qualified Code(s): R10.11 - Right upper quadrant pain - Discharge Information Instructions: Cholelithiasis, [id number] Additional Instructions: 1) follow up with family doctor 2) recheck as needed rx given; zofran 4mg ODT bid prn x 6 - My Orders Last 24 Hours: My Active Orders 04/09/17 00:07 UA W/MICROSCOPIC [URIN] Stat 04/09/17 00:37 Ondansetron [Zofran ODT] 4 mg PO ONETIME ONE - Assessment/Plan Last 24 Hours: My Active Orders 04/09/17 00:07 UA W/MICROSCOPIC [URIN] Stat 04/09/17 00:37 Ondansetron [Zofran ODT] 4 mg PO ONETIME ONE
== END 2017-04-09 00:51 | disposition home or self-care (01) ==
LOC: DL.ED 22:46
DX: K80.50 Calculus of bile duct without cholangitis or cholecystitis without obstruction (principal); K21.9 Gastro-esophageal reflux disease without esophagitis; E66.9 Obesity, unspecified; Z87.440 Personal history of urinary (tract) infections
CPT/HCPCS: 36415; 80053; 81001; 82150; 83690; 84703; 85025; 99284; A9270

== ENCOUNTER 2017-04-24 20:47 | Emergency (ER) | payer MEDICAID ==
--- NOTE | 2017-04-24 21:21 | EDM.PDOC ---
ED HPI GENERAL MEDICAL PROBLEM - General Stated Complaint: 6 WEEKS BLEADING [id number] Time Seen by Provider: 04/24/17 21:04 Source of Information: Reports: Patient History Limitations: Reports: No Limitations - History of Present Illness INITIAL COMMENTS - FREE TEXT/NARRATIVE: Ed with c/o vaginal bleeding, one episode prior to arrival , saturated on epad then stopped. Estimates approximately 7 weeks with LMP 8/19. Notes hx of PCOS and periords irregular. Has had HCG quant in past that were low noting with first also low with #'s never reaching above 600. Reports no pain or craming. Nothing in vagina in last 24 hours. No urinary sx. Patient has been in previously for spotting. Has not seen OB yet was planning to go to [facility] in am for US. Onset: Today Duration: Resolved Prior to Arrival - Related Data Allergies Allergy/AdvReac Type Severity Reaction Status Date / Time No Known Allergies Allergy Verified 04/08/17 22:50 Home Meds: Home Meds Acetaminophen [Tylenol] 2 tab PO Q8H 08/01/16 [History] PNV95/Ferrous Fumarate/FA [ Formula] 1 each PO DAILY 04/04/17 [History] Ranitidine HCl 150 mg PO BID 04/04/17 [History] Past Medical History - Past Health History Medical/Surgical History: Denies Medical/Surgical History HEENT History: Reports: Impaired Vision Other HEENT History: HAS PRESCRIBED CORRECTIVE LENSES; DOES NOT WEAR THEM Cardiovascular History: Reports: None Respiratory History: Reports: None Gastrointestinal History: Reports: Cholelithiasis, GERD Genitourinary History: Reports: UTI, Recurrent 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 Musculoskeletal History: Reports: Fracture Other Musculoskeletal History: HX OF WRIST & ANKLE FRACTURE Neurological History: Reports: Headaches, Chronic, Migraines Psychiatric History: Reports: Anxiety Endocrine/Metabolic History: Reports: Obesity/BMI 30+ Hematologic History: Reports: None Immunologic History: Reports: None Oncologic (Cancer) History: Reports: None Dermatologic History: Reports: None - Infectious Disease History Infectious Disease History: Reports: Chicken Pox - Past Surgical History Head Surgeries/Procedures: Reports: None HEENT Surgical History: Reports: Adenoidectomy, Oral Surgery, Tonsillectomy Cardiovascular Surgical History: Reports: None Respiratory Surgical History: Reports: None GI Surgical History: Reports: EGD Endocrine Surgical History: Reports: None Musculoskeletal Surgical History: Reports: None Oncologic Surgical History: Reports: None Dermatological Surgical History: Reports: None Social & Family History - Family History Family Medical History: Noncontributory - Tobacco Use Smoking Status *Q: Never Smoker Second Hand Smoke Exposure: No - Caffeine Use Caffeine Use: Reports: Tea - Alcohol Use Days Per Week of Alcohol Use: 0 - Recreational Drug Use Recreational Drug Use: No Drug Use in Last 12 Months: No - Sexual History Sexual History: Reports: Sexually Active - Living Situation & Occupation Living situation: Reports: with Family Occupation: Unemployed ED ROS GENERAL - Review of Systems Review Of Systems: ROS reveals no pertinent complaints other than HPI. ED EXAM - Physical Exam Exam: See Below Exam Limited By: No Limitations General Appearance: Alert, No Apparent Distress, Obese Eye Exam: Bilateral Eye: EOMI Ears: Normal External Exam Throat/Mouth: Normal Inspection Head: Atraumatic Neck: Normal Inspection Respiratory/Chest: No Respiratory Distress, Lungs Clear Cardiovascular: Normal Peripheral Pulses, Regular Rate, Rhythm GI/Abdominal Exam: Soft (Female) Exam: Deferred for Placenta Previa Back Exam: Normal Inspection Extremities: Normal Inspection Neurological: Oriented, Normal Cognition Psychiatric: Normal Affect, Normal Mood Skin Exam: Warm, Dry, Intact, Normal Color Course - Vital Signs Last Recorded V/S: Last Vital Signs Temp 96.5 F 04/24/17 22:57 Pulse 86 04/24/17 22:57 Resp 14 04/24/17 22:57 BP 114/49 L 04/24/17 22:57 Pulse Ox 99 04/24/17 22:57 - Orders/Labs/Meds Labs: Laboratory Tests 04/24/17 04/24/17 Range/Units 21:10 21:13 HCG, Quant 10 (0-25) mIU/ml Beta HCG, Quant < 1050 mIU/ml Urine Color Yellow (YELLOW) Urine Appearance Slightly cloudy (CLEAR) Urine pH 6.0 (5.0-9.0) Ur Specific [place] >= 1.030 (1.005-1.030) Urine Protein Trace H (NEGATIVE) Urine Glucose (UA) Negative (NEGATIVE) Urine Ketones Negative (NEGATIVE) Urine Occult Blood Trace-intact H (NEGATIVE) Urine Nitrite Negative (NEGATIVE) Urine Bilirubin Negative (NEGATIVE) Urine Urobilinogen 0.2 (0.2-1.0) mg/dL Ur Leukocyte Esterase Trace H (NEGATIVE) Urine RBC 0-5 /HPF Urine WBC 5-10 H (0-5/HPF) /HPF Ur Epithelial Cells Many H /HPF Urine Bacteria Many H (0-FEW/HPF) /HPF Urine Mucus Moderate H /LPF Urine Other See note Urine Yeast Few H (0/HPF) /HPF - Radiology Interpretation Free Text/Narrative:: OB: No product of conception or pole noted. Departure - Departure Time of Disposition: 22:48 Disposition: Home, Self-Care 01 Condition: Good Clinical Impression: Vaginal bleeding, Low maternal serum human chorionic gonadotropin (hCG) - Discharge Information Instructions: Vaginal Bleeding During , First Trimester Forms: ED Department Discharge Additional Instructions: rest follow up with PCP this week Recommend repeat ultrasound 2-3 weeks
[2017-04-24 22:58] VITALS: BP 114/49
== END 2017-04-24 23:00 | disposition home or self-care (01) ==
LOC: DL.ED 20:47
DX: O20.9 Hemorrhage in early pregnancy, unspecified (principal); O99.89 Other specified diseases and conditions complicating pregnancy, childbirth and the puerperium; R79.89 Other specified abnormal findings of blood chemistry; O99.211 Obesity complicating pregnancy, first trimester; Z90.49 Acquired absence of other specified parts of digestive tract; Z98.890 Other specified postprocedural states; Z87.440 Personal history of urinary (tract) infections; Z3A.01 Less than 8 weeks gestation of pregnancy
CPT/HCPCS: 36415; 76817; 81001; 84702; 99284

== ENCOUNTER 2017-10-03 01:18 | Emergency (ER) | payer MEDICAID ==
[2017-10-03] MEDS ORDERED: Ondansetron 4 MG/2 ML SDV IV ONE (01:39)
[2017-10-03] MEDS ORDERED: Ketorolac 30 MG/ML SDV IVPUSH ONE (01:39)
[2017-10-03] MEDS ORDERED: Sodium Chloride 0.9% 1,000 ML IV ONE (01:39)
--- NOTE | 2017-10-03 01:43 | EDM.PDOC ---
ED HPI GENERAL MEDICAL PROBLEM - General Chief Complaint: Gastrointestinal Problem Stated Complaint: RIVER [id number] Time Seen by Provider: 10/03/17 01:40 Source of Information: Reports: Patient History Limitations: Reports: No Limitations - History of Present Illness INITIAL COMMENTS - FREE TEXT/NARRATIVE: onset abd pain yesterday been vomiting all day only had small amount liquids. h/ o GB problems. Right Upper Abdomen Pain Score (Numeric/FACES): 9 - Related Data Allergies Allergy/AdvReac Type Severity Reaction Status Date / Time No Known Allergies Allergy Verified 10/03/17 01:33 Home Meds: Home Meds Acetaminophen [Tylenol] 2 tab PO Q8H 08/01/16 [History] Ranitidine HCl 150 mg PO BID 04/04/17 [History] Past Medical History - Past Health History Medical/Surgical History: Denies Medical/Surgical History HEENT History: Reports: Impaired Vision Other HEENT History: HAS PRESCRIBED CORRECTIVE LENSES; DOES NOT WEAR THEM Cardiovascular History: Reports: None Respiratory History: Reports: None Gastrointestinal History: Reports: Cholelithiasis, GERD Genitourinary History: Reports: UTI, Recurrent 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 Musculoskeletal History: Reports: Fracture Other Musculoskeletal History: HX OF WRIST & ANKLE FRACTURE Neurological History: Reports: Headaches, Chronic, Migraines Psychiatric History: Reports: Anxiety Endocrine/Metabolic History: Reports: Obesity/BMI 30+ Hematologic History: Reports: None Immunologic History: Reports: None Oncologic (Cancer) History: Reports: None Dermatologic History: Reports: None - Infectious Disease History Infectious Disease History: Reports: Chicken Pox - Past Surgical History Head Surgeries/Procedures: Reports: None HEENT Surgical History: Reports: Adenoidectomy, Oral Surgery, Tonsillectomy Cardiovascular Surgical History: Reports: None Respiratory Surgical History: Reports: None GI Surgical History: Reports: EGD Endocrine Surgical History: Reports: None Musculoskeletal Surgical History: Reports: None Oncologic Surgical History: Reports: None Dermatological Surgical History: Reports: None Social & Family History - Family History Family Medical History: Noncontributory - Tobacco Use Smoking Status *Q: Never Smoker Second Hand Smoke Exposure: No - Caffeine Use Caffeine Use: Reports: None - Alcohol Use Days Per Week of Alcohol Use: 0 - Recreational Drug Use Recreational Drug Use: No Drug Use in Last 12 Months: No - Sexual History Sexual History: Reports: Sexually Active - Living Situation & Occupation Living situation: Reports: with Family Occupation: Unemployed ED ROS GENERAL - Review of Systems Review Of Systems: ROS reveals no pertinent complaints other than HPI. ED EXAM, GI/ABD - Physical Exam Exam: See Below Exam Limited By: No Limitations General Appearance: Alert, WD/WN, Mild Distress, Other (pain) Ears: Hearing Grossly Normal Throat/Mouth: Normal Voice, No Airway Compromise Head: Atraumatic Neck: Non-Tender, Full Range of Motion Respiratory/Chest: No Respiratory Distress Cardiovascular: Regular Rate, Rhythm GI/Abdominal Exam: Tender, Other (epiG-RUQ). No: Guarding, Rigid, Rebound (Female) Exam: Normal External Exam (epiG-RQU area) Neurological: Alert, Oriented, Normal Cognition, Normal Gait, No Motor/Sensory Deficits Psychiatric: Flat Affect Skin Exam: Warm, Dry, Normal Color Lymphatic: No Adenopathy Course - Vital Signs Last Recorded V/S: Last Vital Signs Temp 37.1 C 10/03/17 01:27 Pulse 72 10/03/17 01:27 Resp 16 10/03/17 01:27 BP 85/68 L 10/03/17 01:27 Pulse Ox 99 10/03/17 01:27 - Orders/Labs/Meds Orders: Active Orders 24 hr Category Date Time Status Sodium Chloride 0.9% [Normal Saline] 1,000 ml Med 10/03/17 01:39 Active IV .BOLUS Medication Orders Sodium Chloride (Normal Saline) 1,000 mls @ 999 mls/hr IV .BOLUS ONE Stop: 10/03/17 02:39 Last Admin: 10/03/17 01:56 Dose: 999 mls/hr Labs: Laboratory Tests 10/03/17 10/03/17 Range/Units 01:55 01:55 WBC 11.1 H (5.0-10.0) 10^3/uL RBC 4.24 (4.2-5.4) 10^6/uL Hgb 12.2 (12.0-16.0) g/dL Hct 37.0 (37.0-47.0) % MCV 87.3 (80-100) fL MCH 28.8 (27.0-34.0) pg MCHC 33.0 (33.0-35.0) g/dL Plt Count 336 (150-450) 10^3/uL Neut % (Auto) 57.8 (42.2-75.2) % Lymph % (Auto) 33.7 (20.5-50.1) % [place] % (Auto) 7.0 (2-8) % Eos % (Auto) 1.2 (1.0-3.0) % Baso % (Auto) 0.3 (0.0-1.0) % Sodium 136 (135-145) mmol/L Potassium 3.3 L (3.6-5.0) mmol/L Chloride 103 (101-111) mmol/L Carbon Dioxide 25.0 (21.0-31.0) mmol/L Anion Gap 11.3 BUN 11 (7-18) mg/dL Creatinine 0.7 (0.6-1.3) mg/dL Est Cr Clr Drug Dosing 90.55 mL/min Estimated GFR (MDRD) > 60 BUN/Creatinine Ratio 15.71 Glucose 109 H (74-105) mg/dL Calcium 8.4 (8.4-10.2) mg/dl Total Bilirubin 0.3 (0.2-1.0) mg/dL AST 26 (10-42) IU/L ALT 32 (10-60) IU/L Alkaline Phosphatase 83 (42-121) IU/L Total Protein 6.5 L (6.7-8.2) g/dl Albumin 3.2 (3.2-5.5) g/dl Globulin 3.3 Albumin/Globulin Ratio 0.97 Amylase 21 L (28-100) U/L Lipase 11 L (22-51) U/L Meds: Medications Generic Name Dose Route Start Last Admin Trade Name Freq PRN Reason Stop Dose Admin Sodium Chloride 1,000 mls @ 999 mls/hr 10/03/17 01:39 10/03/17 01:56 Normal Saline IV 10/03/17 02:39 999 mls/hr .BOLUS ONE Administration Discontinued Medications Generic Name Dose Route Start Last Admin Trade Name Freq PRN Reason Stop Dose Admin Ketorolac Tromethamine 15 mg 10/03/17 01:39 10/03/17 01:59 Toradol IVPUSH 10/03/17 01:40 15 mg ONETIME ONE Administration Ondansetron HCl 4 mg 10/03/17 01:39 10/03/17 01:57 Zofran IV 10/03/17 01:40 4 mg ONETIME ONE Administration - Re-Assessments/Exams Free Text/Narrative Re-Assessment/Exam: 10/03/17 02:38 results discussed with pt who is better s/p IV Rx. Departure - Departure Time of Disposition: 02:39 Disposition: Home, Self-Care 01 Condition: Good Clinical Impression: Abdominal pain in female patient - Discharge Information Instructions: Abdominal Pain, Adult, [id number] Forms: ED Department Discharge Additional Instructions: 1) avoid solid foods next 48 hours 2) have liquids, jello, broth 3) see clinic Wednesday for GALL BLADDER ULTRASOUND 4) recheck as needed rx given; zofran 4mg ODT bid prn x 6 - My Orders Last 24 Hours: My Active Orders 10/03/17 01:39 Sodium Chloride 0.9% [Normal Saline] 1,000 ml IV .BOLUS - Assessment/Plan Last 24 Hours: My Active Orders 10/03/17 01:39 Sodium Chloride 0.9% [Normal Saline] 1,000 ml IV .BOLUS
[2017-10-03 02:25] LABS: ANION GAP 11.3; CHLORIDE,CL 103 mmol/L (101-111); SODIUM,NA 136 mmol/L (135-145)
[2017-10-03] MEDS ORDERED: LORazepam 1 MG Tab PO ONE (02:45)
[2017-10-03 02:57] VITALS: BP 122/63
== END 2017-10-03 02:53 | disposition home or self-care (01) ==
LOC: DL.ED 01:18
DX: R10.11 Right upper quadrant pain (principal)
CPT/HCPCS: 36415; 80053; 82150; 83690; 85025; 96361; 96374; 99284; A9270; J1885; J2405; J7030

== ENCOUNTER 2017-10-15 00:24 | Emergency (ER) | payer MEDICAID ==
[2017-10-15] MEDS ORDERED: LORazepam 1 MG Tab PO ONE (00:25)
[2017-10-15] MEDS ORDERED: Ondansetron 4 MG/2 ML SDV IV ONE (00:35)
[2017-10-15] MEDS ORDERED: Ketorolac 30 MG/ML SDV IVPUSH ONE (00:35)
[2017-10-15] MEDS ORDERED: Sodium Chloride 0.9% 1,000 ML IV ONE (00:35)
--- NOTE | 2017-10-15 00:38 | EDM.PDOC ---
ED HPI GENERAL MEDICAL PROBLEM - General Chief Complaint: Abdominal Pain Stated Complaint: GALLBLADDER PAINS [id number] Time Seen by Provider: 10/15/17 00:36 Source of Information: Reports: Patient History Limitations: Reports: No Limitations - History of Present Illness INITIAL COMMENTS - FREE TEXT/NARRATIVE: GUILLERMO flared up tonight. been trying to get appt by it always conflicted with her work schedule which is more important right now. Abdomen Pain Score (Numeric/FACES): 9 - Related Data Allergies Allergy/AdvReac Type Severity Reaction Status Date / Time No Known Allergies Allergy Verified 10/03/17 01:33 Home Meds: Home Meds Acetaminophen [Tylenol] 2 tab PO Q8H 08/01/16 [History] Ranitidine HCl 150 mg PO BID 04/04/17 [History] Past Medical History - Past Health History Medical/Surgical History: Denies Medical/Surgical History HEENT History: Reports: Impaired Vision Other HEENT History: HAS PRESCRIBED CORRECTIVE LENSES; DOES NOT WEAR THEM Cardiovascular History: Reports: None Respiratory History: Reports: None Gastrointestinal History: Reports: Cholelithiasis, GERD Genitourinary History: Reports: UTI, Recurrent 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 Musculoskeletal History: Reports: Fracture Other Musculoskeletal History: HX OF WRIST & ANKLE FRACTURE Neurological History: Reports: Headaches, Chronic, Migraines Psychiatric History: Reports: Anxiety Endocrine/Metabolic History: Reports: Obesity/BMI 30+ Hematologic History: Reports: None Immunologic History: Reports: None Oncologic (Cancer) History: Reports: None Dermatologic History: Reports: None - Infectious Disease History Infectious Disease History: Reports: Chicken Pox - Past Surgical History Head Surgeries/Procedures: Reports: None HEENT Surgical History: Reports: Adenoidectomy, Oral Surgery, Tonsillectomy Cardiovascular Surgical History: Reports: None Respiratory Surgical History: Reports: None GI Surgical History: Reports: EGD Endocrine Surgical History: Reports: None Musculoskeletal Surgical History: Reports: None Oncologic Surgical History: Reports: None Dermatological Surgical History: Reports: None Social & Family History - Family History Family Medical History: Noncontributory - Tobacco Use Smoking Status *Q: Never Smoker Second Hand Smoke Exposure: No - Caffeine Use Caffeine Use: Reports: None - Alcohol Use Days Per Week of Alcohol Use: 0 - Recreational Drug Use Recreational Drug Use: No Drug Use in Last 12 Months: No - Sexual History Sexual History: Reports: Sexually Active - Living Situation & Occupation Living situation: Reports: with Family Occupation: Unemployed ED ROS GENERAL - Review of Systems Review Of Systems: ROS reveals no pertinent complaints other than HPI. ED EXAM, GI/ABD - Physical Exam Exam: See Below Exam Limited By: No Limitations General Appearance: Alert, WD/WN, Mild Distress, Other (discomfort) Ears: Hearing Grossly Normal Throat/Mouth: Normal Voice, No Airway Compromise Head: Atraumatic Neck: Non-Tender, Full Range of Motion Respiratory/Chest: No Respiratory Distress Cardiovascular: Regular Rate, Rhythm GI/Abdominal Exam: Tender, Other (RUQ). No: Guarding, Rigid, Rebound Neurological: Alert, Oriented, Normal Cognition, Normal Gait, No Motor/Sensory Deficits Psychiatric: Tearful Skin Exam: Warm, Dry, Normal Color Lymphatic: No Adenopathy Course - Vital Signs Last Recorded V/S: Last Vital Signs Temp 36.6 C 10/15/17 00:40 Pulse 93 10/15/17 00:40 Resp 20 10/15/17 00:40 BP 117/65 10/15/17 00:40 Pulse Ox 100 10/15/17 00:40 - Orders/Labs/Meds Labs: Laboratory Tests 10/15/17 10/15/17 10/15/17 Range/Units 00:54 00:54 01:58 WBC 12.3 H (5.0-10.0) 10^3/uL RBC 4.50 (4.2-5.4) 10^6/uL Hgb 13.1 (12.0-16.0) g/dL Hct 39.3 (37.0-47.0) % MCV 87.3 (80-100) fL MCH 29.1 (27.0-34.0) pg MCHC 33.3 (33.0-35.0) g/dL Plt Count 358 (150-450) 10^3/uL Neut % (Auto) 60.8 (42.2-75.2) % Lymph % (Auto) 31.2 (20.5-50.1) % [place] % (Auto) 6.7 (2-8) % Eos % (Auto) 1.0 (1.0-3.0) % Baso % (Auto) 0.3 (0.0-1.0) % Sodium 138 (135-145) mmol/L Potassium 3.4 L (3.6-5.0) mmol/L Chloride 102 (101-111) mmol/L Carbon Dioxide 27.0 (21.0-31.0) mmol/L Anion Gap 12.4 BUN 11 (7-18) mg/dL Creatinine 0.7 (0.6-1.3) mg/dL Est Cr Clr Drug Dosing 95.13 mL/min Estimated GFR (MDRD) > 60 BUN/Creatinine Ratio 15.71 Glucose 91 (74-105) mg/dL Calcium 8.6 (8.4-10.2) mg/dl Total Bilirubin 0.3 (0.2-1.0) mg/dL AST 27 (10-42) IU/L ALT 31 (10-60) IU/L Alkaline Phosphatase 96 (42-121) IU/L Total Protein 7.4 (6.7-8.2) g/dl Albumin 3.7 (3.2-5.5) g/dl Globulin 3.7 Albumin/Globulin Ratio 1.00 Amylase 20 L (28-100) U/L Lipase 8 L (22-51) U/L Urine Color Yellow (YELLOW) Urine Appearance Slightly cloudy (CLEAR) Urine pH 7.0 (5.0-9.0) Ur Specific [place] 1.010 (1.005-1.030) Urine Protein Negative (NEGATIVE) Urine Glucose (UA) Negative (NEGATIVE) Urine Ketones Negative (NEGATIVE) Urine Occult Blood Negative (NEGATIVE) Urine Nitrite Negative (NEGATIVE) Urine Bilirubin Negative (NEGATIVE) Urine Urobilinogen 0.2 (0.2-1.0) mg/dL Ur Leukocyte Esterase Small H (NEGATIVE) Urine HCG, Qual Urine Opiates Screen (NEGATIVE) Ur Oxycodone Screen (NEGATIVE) Urine Methadone Screen (NEGATIVE) Ur Barbiturates Screen (NEGATIVE) U Tricyclic Antidepress (NEGATIVE) Ur Phencyclidine Scrn (NEGATIVE) Ur Amphetamine Screen (NEGATIVE) U Methamphetamines Scrn (NEGATIVE) Urine MDMA Screen (NEGATIVE) U Benzodiazepines Scrn (NEGATIVE) Urine Cocaine Screen (NEGATIVE) U Marijuana (THC) Screen (NEGATIVE) 10/15/17 10/15/17 Range/Units 01:58 01:58 WBC (5.0-10.0) 10^3/uL RBC (4.2-5.4) 10^6/uL Hgb (12.0-16.0) g/dL Hct (37.0-47.0) % MCV (80-100) fL MCH (27.0-34.0) pg MCHC (33.0-35.0) g/dL Plt Count (150-450) 10^3/uL Neut % (Auto) (42.2-75.2) % Lymph % (Auto) (20.5-50.1) % [place] % (Auto) (2-8) % Eos % (Auto) (1.0-3.0) % Baso % (Auto) (0.0-1.0) % Sodium (135-145) mmol/L Potassium (3.6-5.0) mmol/L Chloride (101-111) mmol/L Carbon Dioxide (21.0-31.0) mmol/L Anion Gap BUN (7-18) mg/dL Creatinine (0.6-1.3) mg/dL Est Cr Clr Drug Dosing mL/min Estimated GFR (MDRD) BUN/Creatinine Ratio Glucose (74-105) mg/dL Calcium (8.4-10.2) mg/dl Total Bilirubin (0.2-1.0) mg/dL AST (10-42) IU/L ALT (10-60) IU/L Alkaline Phosphatase (42-121) IU/L Total Protein (6.7-8.2) g/dl Albumin (3.2-5.5) g/dl Globulin Albumin/Globulin Ratio Amylase (28-100) U/L Lipase (22-51) U/L Urine Color (YELLOW) Urine Appearance (CLEAR) Urine pH (5.0-9.0) Ur Specific [place] (1.005-1.030) Urine Protein (NEGATIVE) Urine Glucose (UA) (NEGATIVE) Urine Ketones (NEGATIVE) Urine Occult Blood (NEGATIVE) Urine Nitrite (NEGATIVE) Urine Bilirubin (NEGATIVE) Urine Urobilinogen (0.2-1.0) mg/dL Ur Leukocyte Esterase (NEGATIVE) Urine HCG, Qual Negative Urine Opiates Screen Negative (NEGATIVE) Ur Oxycodone Screen Negative (NEGATIVE) Urine Methadone Screen Negative (NEGATIVE) Ur Barbiturates Screen Negative (NEGATIVE) U Tricyclic Antidepress Negative (NEGATIVE) Ur Phencyclidine Scrn Negative (NEGATIVE) Ur Amphetamine Screen Negative (NEGATIVE) U Methamphetamines Scrn Negative (NEGATIVE) Urine MDMA Screen Negative (NEGATIVE) U Benzodiazepines Scrn Negative (NEGATIVE) Urine Cocaine Screen Negative (NEGATIVE) U Marijuana (THC) Screen Negative (NEGATIVE) Meds: Medications Discontinued Medications Generic Name Dose Route Start Last Admin Trade Name Nurys PRN Reason Stop Dose Admin Sodium Chloride 1,000 mls @ 999 mls/hr 10/15/17 00:35 10/15/17 00:56 Normal Saline IV 10/15/17 01:35 999 mls/hr .BOLUS ONE Administration Ketorolac Tromethamine 15 mg 10/15/17 00:35 10/15/17 00:59 Toradol IVPUSH 10/15/17 00:36 15 mg ONETIME ONE Administration Ondansetron HCl 4 mg 10/15/17 00:35 10/15/17 00:57 Zofran IV 10/15/17 00:36 4 mg ONETIME ONE Administration - Re-Assessments/Exams Free Text/Narrative Re-Assessment/Exam: 10/15/17 02:26 results discussed with pt Departure - Departure Time of Disposition: 02:26 Disposition: Home, Self-Care 01 Condition: Good Clinical Impression: Abdominal pain Qualifiers: Abdominal location: right upper quadrant Qualified Code(s): R10.11 - Right upper quadrant pain - Discharge Information Instructions: Abdominal Pain, Adult, [id number] Forms: ED Department Discharge Additional Instructions: 1) avoid fried fatty oily foods 2) see family doctor or clinic tomorrow for SURGICAL REFERRAL for GALL BLADDER PROBLEM
[2017-10-15 00:46] VITALS: BP 117/65
[2017-10-15 01:48] LABS: CHLORIDE,CL 102 mmol/L (101-111); SODIUM,NA 138 mmol/L (135-145)
[2017-10-15] MEDS ORDERED: LORazepam 1 MG Tab ONE (02:28)
== END 2017-10-15 02:44 | disposition home or self-care (01) ==
LOC: DL.ED 00:24
DX: R10.11 Right upper quadrant pain (principal); Z79.899 Other long term (current) drug therapy
CPT/HCPCS: 36415; 80053; 80305; 81003; 81025; 82150; 83690; 85025; 96361; 96374; 96375; 99284; A9270; J1885; J2405; J7030

== ENCOUNTER 2017-10-15 20:33 | Emergency (ER) | payer MEDICAID ==
[2017-10-15] MEDS ORDERED: LORazepam 1 MG Tab PO ONE (20:34)
[2017-10-15 20:47] VITALS: BP 113/62
[2017-10-15] MEDS ORDERED: Ondansetron 4 MG Tab.DIS PO ONE (21:03)
--- NOTE | 2017-10-15 21:12 | EDM.PDOC ---
ED HPI GENERAL MEDICAL PROBLEM - General Chief Complaint: Abdominal Pain Stated Complaint: [id number] GALBLADDER Time Seen by Provider: 10/15/17 21:07 Source of Information: Reports: Patient History Limitations: Reports: No Limitations - History of Present Illness INITIAL COMMENTS - FREE TEXT/NARRATIVE: returned crying states gall bladder pain came back today and called PMD but never got return call. unable to eat anything due to nausea & pain. - Related Data Allergies Allergy/AdvReac Type Severity Reaction Status Date / Time No Known Allergies Allergy Verified 10/15/17 20:47 Home Meds: Home Meds Acetaminophen [Tylenol] 2 tab PO Q8H 08/01/16 [History] Ranitidine HCl 150 mg PO BID 04/04/17 [History] Past Medical History - Past Health History Medical/Surgical History: Denies Medical/Surgical History HEENT History: Reports: Impaired Vision Other HEENT History: HAS PRESCRIBED CORRECTIVE LENSES; DOES NOT WEAR THEM Cardiovascular History: Reports: None Respiratory History: Reports: None Gastrointestinal History: Reports: Cholelithiasis, GERD Genitourinary History: Reports: UTI, Recurrent 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 Musculoskeletal History: Reports: Fracture Other Musculoskeletal History: HX OF WRIST & ANKLE FRACTURE Neurological History: Reports: Headaches, Chronic, Migraines Psychiatric History: Reports: Anxiety Endocrine/Metabolic History: Reports: Obesity/BMI 30+ Hematologic History: Reports: None Immunologic History: Reports: None Oncologic (Cancer) History: Reports: None Dermatologic History: Reports: None - Infectious Disease History Infectious Disease History: Reports: Chicken Pox - Past Surgical History Head Surgeries/Procedures: Reports: None HEENT Surgical History: Reports: Adenoidectomy, Oral Surgery, Tonsillectomy Cardiovascular Surgical History: Reports: None Respiratory Surgical History: Reports: None GI Surgical History: Reports: EGD Endocrine Surgical History: Reports: None Musculoskeletal Surgical History: Reports: None Oncologic Surgical History: Reports: None Dermatological Surgical History: Reports: None Social & Family History - Family History Family Medical History: Noncontributory - Tobacco Use Smoking Status *Q: Never Smoker Second Hand Smoke Exposure: No - Caffeine Use Caffeine Use: Reports: None - Alcohol Use Days Per Week of Alcohol Use: 0 - Recreational Drug Use Recreational Drug Use: No Drug Use in Last 12 Months: No - Sexual History Sexual History: Reports: Sexually Active - Living Situation & Occupation Living situation: Reports: with Family Occupation: Unemployed ED ROS GENERAL - Review of Systems Review Of Systems: ROS reveals no pertinent complaints other than HPI. ED EXAM, GI/ABD - Physical Exam Exam: See Below Exam Limited By: No Limitations General Appearance: Alert, WD/WN, Mild Distress, Other (crying) Ears: Hearing Grossly Normal Throat/Mouth: Normal Voice, No Airway Compromise Head: Atraumatic Neck: Non-Tender, Full Range of Motion Respiratory/Chest: No Respiratory Distress Cardiovascular: Regular Rate, Rhythm GI/Abdominal Exam: Tender, Other (RUQ discomfort). No: Distended, Guarding, Rigid, Rebound Neurological: Alert, Oriented, Normal Cognition, Normal Gait, No Motor/Sensory Deficits Psychiatric: Tearful Skin Exam: Warm, Dry, Normal Color Lymphatic: No Adenopathy Course - Vital Signs Last Recorded V/S: Last Vital Signs Temp 36.6 C 10/15/17 20:44 Pulse 111 H 10/15/17 20:44 Resp 18 10/15/17 20:44 BP 113/62 10/15/17 20:44 Pulse Ox 99 10/15/17 20:44 - Orders/Labs/Meds Labs: Laboratory Tests 10/15/17 10/15/17 Range/Units 21:15 21:15 WBC 9.6 (5.0-10.0) 10^3/uL RBC 4.30 (4.2-5.4) 10^6/uL Hgb 12.4 (12.0-16.0) g/dL Hct 37.9 (37.0-47.0) % MCV 88.1 (80-100) fL MCH 28.8 (27.0-34.0) pg MCHC 32.7 L (33.0-35.0) g/dL Plt Count 343 (150-450) 10^3/uL Neut % (Auto) 61.3 (42.2-75.2) % Lymph % (Auto) 30.4 (20.5-50.1) % [place] % (Auto) 7.0 (2-8) % Eos % (Auto) 1.0 (1.0-3.0) % Baso % (Auto) 0.3 (0.0-1.0) % Sodium 139 (135-145) mmol/L Potassium 3.7 (3.6-5.0) mmol/L Chloride 104 (101-111) mmol/L Carbon Dioxide 28.0 (21.0-31.0) mmol/L Anion Gap 10.7 BUN 8 (7-18) mg/dL Creatinine 0.6 (0.6-1.3) mg/dL Est Cr Clr Drug Dosing 110.98 mL/min Estimated GFR (MDRD) > 60 BUN/Creatinine Ratio 13.33 Glucose 117 H (74-105) mg/dL Calcium 8.5 (8.4-10.2) mg/dl Total Bilirubin 0.3 (0.2-1.0) mg/dL AST 25 (10-42) IU/L ALT 32 (10-60) IU/L Alkaline Phosphatase 97 (42-121) IU/L Total Protein 6.9 (6.7-8.2) g/dl Albumin 3.4 (3.2-5.5) g/dl Globulin 3.5 Albumin/Globulin Ratio 0.97 Amylase 18 L (28-100) U/L Lipase 19 L (22-51) U/L HCG, Qual Negative Meds: Medications Discontinued Medications Generic Name Dose Route Start Last Admin Trade Name Freq PRN Reason Stop Dose Admin Lorazepam Confirm 10/15/17 22:12 Ativan Administered 10/15/17 22:13 Dose 1 mg .ROUTE .STK-MED ONE Ondansetron HCl 4 mg 10/15/17 21:03 10/15/17 21:07 Zofran Odt PO 10/15/17 21:04 4 mg ONETIME ONE Administration - Re-Assessments/Exams Free Text/Narrative Re-Assessment/Exam: 10/15/17 22:09 results discussed with pt Departure - Departure Time of Disposition: 22:10 Disposition: Home, Self-Care 01 Condition: Good Clinical Impression: Abdominal pain Qualifiers: Abdominal location: right upper quadrant Qualified Code(s): R10.11 - Right upper quadrant pain - Discharge Information Instructions: Abdominal Pain, Adult, [id number] Forms: ED Department Discharge Additional Instructions: 1) follow up at clinic or recheck as needed rx togo; ativan 1.0mg x 1
[2017-10-15 21:41] LABS: CHLORIDE,CL 104 mmol/L (101-111); SODIUM,NA 139 mmol/L (135-145)
[2017-10-15] MEDS ORDERED: LORazepam 1 MG Tab ONE (22:12)
== END 2017-10-15 22:39 | disposition home or self-care (01) ==
LOC: DL.ED 20:33
DX: R10.11 Right upper quadrant pain (principal); Z79.899 Other long term (current) drug therapy
CPT/HCPCS: 36415; 80053; 82150; 83690; 84703; 85025; 99284; A9270

== ENCOUNTER 2017-11-21 00:28 | Emergency (ER) | payer MEDICAID ==
[2017-11-21 00:48] VITALS: BP 119/71
[2017-11-21] MEDS ORDERED: Acetaminophen/HYDROcodone 325-10 MG Tab PO ONE (01:46)
--- NOTE | 2017-11-21 01:54 | EDM.PDOC ---
ED HPI GENERAL MEDICAL PROBLEM - General Chief Complaint: Abdominal Pain Stated Complaint: ABD CRAMPING [id number] Time Seen by Provider: 11/21/17 01:46 Source of Information: Reports: Patient History Limitations: Reports: No Limitations - History of Present Illness INITIAL COMMENTS - FREE TEXT/NARRATIVE: onset low abd pain 3 days had 4x pos preg tests then started period and preg test turned neg. denies dysuria. Lower Abdomen Pain Score (Numeric/FACES): 7 - Related Data Allergies Allergy/AdvReac Type Severity Reaction Status Date / Time No Known Allergies Allergy Verified 11/21/17 00:48 Home Meds: Home Meds Ranitidine HCl 150 mg PO BID 04/04/17 [History] Past Medical History - Past Health History Medical/Surgical History: Denies Medical/Surgical History HEENT History: Reports: Impaired Vision Other HEENT History: HAS PRESCRIBED CORRECTIVE LENSES; DOES NOT WEAR THEM Cardiovascular History: Reports: None Respiratory History: Reports: None Gastrointestinal History: Reports: Cholelithiasis, GERD Genitourinary History: Reports: UTI, Recurrent 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 Musculoskeletal History: Reports: Fracture Other Musculoskeletal History: HX OF WRIST & ANKLE FRACTURE Neurological History: Reports: Headaches, Chronic, Migraines Psychiatric History: Reports: Anxiety Endocrine/Metabolic History: Reports: Obesity/BMI 30+ Hematologic History: Reports: None Immunologic History: Reports: None Oncologic (Cancer) History: Reports: None Dermatologic History: Reports: None - Infectious Disease History Infectious Disease History: Reports: Chicken Pox - Past Surgical History Head Surgeries/Procedures: Reports: None HEENT Surgical History: Reports: Adenoidectomy, Oral Surgery, Tonsillectomy Cardiovascular Surgical History: Reports: None Respiratory Surgical History: Reports: None GI Surgical History: Reports: EGD Endocrine Surgical History: Reports: None Musculoskeletal Surgical History: Reports: None Oncologic Surgical History: Reports: None Dermatological Surgical History: Reports: None Social & Family History - Family History Family Medical History: Noncontributory - Tobacco Use Smoking Status *Q: Never Smoker Second Hand Smoke Exposure: No - Caffeine Use Caffeine Use: Reports: None - Alcohol Use Days Per Week of Alcohol Use: 0 - Recreational Drug Use Recreational Drug Use: No Drug Use in Last 12 Months: No - Sexual History Sexual History: Reports: Sexually Active - Living Situation & Occupation Living situation: Reports: with Family Occupation: Unemployed ED ROS GENERAL - Review of Systems Review Of Systems: ROS reveals no pertinent complaints other than HPI. ED EXAM, GI/ABD - Physical Exam Exam: See Below Exam Limited By: No Limitations General Appearance: Alert, WD/WN, No Apparent Distress, Anxious Ears: Hearing Grossly Normal Throat/Mouth: Normal Voice, No Airway Compromise Head: Atraumatic Neck: Non-Tender, Full Range of Motion Respiratory/Chest: No Respiratory Distress Cardiovascular: Regular Rate, Rhythm GI/Abdominal Exam: Soft, Non-Tender, Other (minimal suprapub discomfort) Neurological: Alert, Oriented, Normal Cognition, Normal Gait, No Motor/Sensory Deficits Psychiatric: Flat Affect Skin Exam: Warm, Dry, Normal Color Lymphatic: No Adenopathy Course - Vital Signs Last Recorded V/S: Last Vital Signs Temp 36.3 C 11/21/17 00:43 Pulse 93 11/21/17 00:43 Resp 16 11/21/17 00:43 BP 119/71 11/21/17 00:43 Pulse Ox 99 11/21/17 00:43 - Orders/Labs/Meds Labs: Laboratory Tests 11/21/17 11/21/17 Range/Units 01:10 01:10 Urine Color Yellow (YELLOW) Urine Appearance Clear (CLEAR) Urine pH 7.0 (5.0-9.0) Ur Specific [place] 1.020 (1.005-1.030) Urine Protein 30 H (NEGATIVE) Urine Glucose (UA) Negative (NEGATIVE) Urine Ketones Negative (NEGATIVE) Urine Occult Blood Negative (NEGATIVE) Urine Nitrite Negative (NEGATIVE) Urine Bilirubin Negative (NEGATIVE) Urine Urobilinogen 4.0 H (0.2-1.0) mg/dL Ur Leukocyte Esterase Negative (NEGATIVE) Urine RBC Not seen /HPF Urine WBC 0-5 (0-5/HPF) /HPF Ur Epithelial Cells Occasional /HPF Urine Bacteria Few (0-FEW/HPF) /HPF Urine Mucus Moderate H /LPF Urine HCG, Qual Negative Departure - Departure Time of Disposition: 01:48 Disposition: Home, Self-Care 01 Clinical Impression: Dysmenorrhea - Discharge Information Instructions: Dysmenorrhea, [id number] Additional Instructions: 1) rest 2) see clinic Wednesday for pelvic ultrasound 3) recheck as needed 4) take tylenol or motrin as needed for discomfort
== END 2017-11-21 02:03 | disposition home or self-care (01) ==
LOC: DL.ED 00:28
DX: N94.6 Dysmenorrhea, unspecified (principal)
CPT/HCPCS: 81001; 81025; 99284; A9270

== ENCOUNTER 2018-01-11 10:15 | Emergency (ER) | payer MEDICAID ==
[2018-01-11] MEDS ORDERED: Sodium Chloride 0.9% 1,000 ML IV ONE (10:57)
[2018-01-11 11:39] LABS: CHLORIDE,CL 103 mmol/L (101-111); SODIUM,NA 137 mmol/L (135-145)
[2018-01-11] MEDS ORDERED: Ketorolac 30 MG/ML SDV IVPUSH ONE (12:32)
--- NOTE | 2018-01-11 12:36 | EDM.PDOC ---
ED HPI GENERAL MEDICAL PROBLEM - General Chief Complaint: Headache Stated Complaint: MIGRAINE Time Seen by Provider: 01/11/18 11:20 Source of Information: Reports: Patient History Limitations: Reports: No Limitations - History of Present Illness INITIAL COMMENTS - FREE TEXT/NARRATIVE: This 22 yo female patient reports to the ED with a 3 day history of a headache. The patient reports that she has tried "everything in the books" for her headache with no relief. The patient states she took Tylenol, Tylenol PM, Ibuprofen and Excedrin with no symptom relief. 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: Acetaminophen, Aspirin, NSAIDS Bilateral Upper Face Pain Score (Numeric/FACES): 9 - Related Data Allergies Allergy/AdvReac Type Severity Reaction Status Date / Time No Known Allergies Allergy Verified 11/21/17 00:48 Past Medical History - Past Health History Medical/Surgical History: Denies Medical/Surgical History HEENT History: Reports: Impaired Vision Other HEENT History: HAS PRESCRIBED CORRECTIVE LENSES; DOES NOT WEAR THEM Cardiovascular History: Reports: None Respiratory History: Reports: None Gastrointestinal History: Reports: Cholelithiasis, GERD Genitourinary History: Reports: UTI, Recurrent Other Genitourinary History: CHLAMYDIA GOLD MINER History: Reports: None, , Other (See Below) Other OB/BYN History: 2 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 Musculoskeletal History: Reports: Fracture Other Musculoskeletal History: HX OF WRIST & ANKLE FRACTURE Neurological History: Reports: Headaches, Chronic, Migraines Psychiatric History: Reports: Anxiety Endocrine/Metabolic History: Reports: Obesity/BMI 30+ Hematologic History: Reports: None Immunologic History: Reports: None Oncologic (Cancer) History: Reports: None Dermatologic History: Reports: None - Infectious Disease History Infectious Disease History: Reports: Chicken Pox - Past Surgical History Head Surgeries/Procedures: Reports: None HEENT Surgical History: Reports: Adenoidectomy, Oral Surgery, Tonsillectomy Cardiovascular Surgical History: Reports: None Respiratory Surgical History: Reports: None GI Surgical History: Reports: EGD Endocrine Surgical History: Reports: None Musculoskeletal Surgical History: Reports: None Oncologic Surgical History: Reports: None Dermatological Surgical History: Reports: None Social & Family History - Family History Family Medical History: Noncontributory - Tobacco Use Smoking Status *Q: Never Smoker - Caffeine Use Caffeine Use: Reports: Coffee, Soda - Recreational Drug Use Recreational Drug Use: No - Sexual History Sexual History: Reports: Sexually Active - Living Situation & Occupation Living situation: Reports: with Family Occupation: Unemployed ED ROS GENERAL - Review of Systems Review Of Systems: ROS reveals no pertinent complaints other than HPI. - Physical Exam Exam: See Below Exam Limited By: No Limitations General Appearance: Alert, WD/WN, Moderate Distress, Obese Eye Exam: Bilateral Eye: EOMI, Normal Inspection, PERRL Ears: Normal External Exam, Normal Canal, Hearing Grossly Normal, Normal TMs Nose: Normal Inspection, Normal Mucosa, No Blood Throat/Mouth: Normal Inspection, Normal Lips, Normal Teeth, Normal Gums, Normal Oropharynx, Normal Voice, No Airway Compromise Head Exam: Atraumatic, Normocephalic Neck: Normal Inspection, Supple, Non-Tender, Full Range of Motion Respiratory/Chest: No Respiratory Distress, Lungs Clear, Normal Breath Sounds, No Accessory Muscle Use, Chest Non-Tender Cardiovascular: Normal Peripheral Pulses, Regular Rate, Rhythm, No Edema, No Gallop, No JVD, No Murmur, No Rub GI/Abdominal: Normal Bowel Sounds, Soft, Non-Tender, No Organomegaly, No Distention, No Abnormal Bruit, No Mass, Other (obese) (Female) Exam: Deferred Rectal (Female) Exam: Deferred Neuro Exam (Abbreviated): Alert, Oriented, CN II-XII Intact, Normal Cognition, Normal Gait Back Exam: Normal Inspection, Full Range of Motion, NT Extremities: Normal Inspection, Normal Range of Motion, Non-Tender, No Pedal Edema, Normal Capillary Refill Psychiatric: Normal Affect, Normal Mood Skin Exam: Warm, Dry, Intact, Normal Color, No Rash Course - Vital Signs Last Recorded V/S: Last Vital Signs Temp 36.8 C 01/11/18 10:30 Pulse 91 01/11/18 12:44 Resp 18 01/11/18 12:44 BP 104/51 L 01/11/18 12:44 Pulse Ox 99 01/11/18 12:44 - Orders/Labs/Meds Orders: Active Orders 24 hr Category Date Time Status DRUG SCREEN URINE BIORAD [URCHEM] Stat Lab 01/11/18 10:54 Ordered HCG QUALITATIVE,URINE [URCHEM] Stat Lab 01/11/18 10:54 Ordered UA W/MICROSCOPIC [URIN] Stat Lab 01/11/18 10:54 Ordered Labs: Laboratory Tests 01/11/18 01/11/18 01/11/18 Range/Units 10:54 10:54 10:54 WBC (5.0-10.0) 10^3/uL RBC (4.2-5.4) 10^6/uL Hgb (12.0-16.0) g/dL Hct (37.0-47.0) % MCV (80-100) fL MCH (27.0-34.0) pg MCHC (33.0-35.0) g/dL Plt Count (150-450) 10^3/uL Neut % (Auto) (42.2-75.2) % Lymph % (Auto) (20.5-50.1) % [place] % (Auto) (2-8) % Eos % (Auto) (1.0-3.0) % Baso % (Auto) (0.0-1.0) % Sodium (135-145) mmol/L Potassium (3.6-5.0) mmol/L Chloride (101-111) mmol/L Carbon Dioxide (21.0-31.0) mmol/L Anion Gap BUN (7-18) mg/dL Creatinine (0.6-1.3) mg/dL Est Cr Clr Drug Dosing mL/min Estimated GFR (MDRD) BUN/Creatinine Ratio Glucose (74-105) mg/dL Calcium (8.4-10.2) mg/dl Total Bilirubin (0.2-1.0) mg/dL AST (10-42) IU/L ALT (10-60) IU/L Alkaline Phosphatase (42-121) IU/L Total Protein (6.7-8.2) g/dl Albumin (3.2-5.5) g/dl Globulin Albumin/Globulin Ratio Urine Color Yellow (YELLOW) Urine Appearance Slightly cloudy (CLEAR) Urine pH 7.0 (5.0-9.0) Ur Specific Thorpe 1.010 (1.005-1.030) Urine Protein Negative (NEGATIVE) Urine Glucose (UA) Negative (NEGATIVE) Urine Ketones Negative (NEGATIVE) Urine Occult Blood Negative (NEGATIVE) Urine Nitrite Negative (NEGATIVE) Urine Bilirubin Negative (NEGATIVE) Urine Urobilinogen 0.2 (0.2-1.0) mg/dL Ur Leukocyte Esterase Negative (NEGATIVE) Urine RBC Not seen /HPF Urine WBC 0-5 (0-5/HPF) /HPF Ur Epithelial Cells Occasional /HPF Urine Bacteria Occasional (0-FEW/HPF) /HPF Urine HCG, Qual Negative Urine Opiates Screen Negative (NEGATIVE) Ur Oxycodone Screen Negative (NEGATIVE) Urine Methadone Screen Negative (NEGATIVE) Ur Barbiturates Screen Negative (NEGATIVE) U Tricyclic Antidepress Negative (NEGATIVE) Ur Phencyclidine Scrn Negative (NEGATIVE) Ur Amphetamine Screen Negative (NEGATIVE) U Methamphetamines Scrn Negative (NEGATIVE) Urine MDMA Screen Negative (NEGATIVE) U Benzodiazepines Scrn Negative (NEGATIVE) Urine Cocaine Screen Negative (NEGATIVE) U Marijuana (THC) Screen Negative (NEGATIVE) 01/11/18 01/11/18 Range/Units 11:14 11:14 WBC 9.6 (5.0-10.0) 10^3/uL RBC 4.46 (4.2-5.4) 10^6/uL Hgb 12.9 (12.0-16.0) g/dL Hct 39.2 (37.0-47.0) % MCV 87.9 (80-100) fL MCH 28.9 (27.0-34.0) pg MCHC 32.9 L (33.0-35.0) g/dL Plt Count 330 (150-450) 10^3/uL Neut % (Auto) 65.8 (42.2-75.2) % Lymph % (Auto) 26.7 (20.5-50.1) % [place] % (Auto) 5.7 (2-8) % Eos % (Auto) 1.5 (1.0-3.0) % Baso % (Auto) 0.3 (0.0-1.0) % Sodium 137 (135-145) mmol/L Potassium 3.9 (3.6-5.0) mmol/L Chloride 103 (101-111) mmol/L Carbon Dioxide 25.0 (21.0-31.0) mmol/L Anion Gap 12.9 BUN 10 (7-18) mg/dL Creatinine 0.6 (0.6-1.3) mg/dL Est Cr Clr Drug Dosing 110.98 mL/min Estimated GFR (MDRD) > 60 BUN/Creatinine Ratio 16.66 Glucose 119 H (74-105) mg/dL Calcium 8.9 (8.4-10.2) mg/dl Total Bilirubin 0.5 (0.2-1.0) mg/dL AST 27 (10-42) IU/L ALT 32 (10-60) IU/L Alkaline Phosphatase 82 (42-121) IU/L Total Protein 6.9 (6.7-8.2) g/dl Albumin 3.5 (3.2-5.5) g/dl Globulin 3.4 Albumin/Globulin Ratio 1.03 Urine Color (YELLOW) Urine Appearance (CLEAR) Urine pH (5.0-9.0) Ur Specific Thor[place] (1.005-1.030) Urine Protein (NEGATIVE) Urine Glucose (UA) (NEGATIVE) Urine Ketones (NEGATIVE) Urine Occult Blood (NEGATIVE) Urine Nitrite (NEGATIVE) Urine Bilirubin (NEGATIVE) Urine Urobilinogen (0.2-1.0) mg/dL Ur Leukocyte Esterase (NEGATIVE) Urine RBC /HPF Urine WBC (0-5/HPF) /HPF Ur Epithelial Cells /HPF Urine Bacteria (0-FEW/HPF) /HPF Urine HCG, Qual Urine Opiates Screen (NEGATIVE) Ur Oxycodone Screen (NEGATIVE) Urine Methadone Screen (NEGATIVE) Ur Barbiturates Screen (NEGATIVE) U Tricyclic Antidepress (NEGATIVE) Ur Phencyclidine Scrn (NEGATIVE) Ur Amphetamine Screen (NEGATIVE) U Methamphetamines Scrn (NEGATIVE) Urine MDMA Screen (NEGATIVE) U Benzodiazepines Scrn (NEGATIVE) Urine Cocaine Screen (NEGATIVE) U Marijuana (THC) Screen (NEGATIVE) Meds: Medications Discontinued Medications Generic Name Dose Route Start Last Admin Trade Name Freq PRN Reason Stop Dose Admin Butorphanol Tartrate 2 mg 01/11/18 13:19 Stadol IVPUSH 01/11/18 13:20 ONETIME ONE Sodium Chloride 1,000 mls @ 999 mls/hr 01/11/18 10:57 01/11/18 11:31 Normal Saline IV 01/11/18 11:57 999 mls/hr .BOLUS ONE Administration Ketorolac Tromethamine 30 mg 01/11/18 12:32 01/11/18 12:44 Toradol IVPUSH 01/11/18 12:33 30 mg ONETIME ONE Administration Departure - Departure Time of Disposition: 13:57 Disposition: Home, Self-Care 01 Condition: Fair Clinical Impression: Migraine - Discharge Information Instructions: Migraine Headache, [id number] Forms: ED Department Discharge Care Plan Goals: The patient was advised of the examination and lab results during the visit. The patient was encouraged to increase her oral fluid intake. If the patient has any additional symptoms or concerns, the patient should follow-up with her primary care facility or return to the emergency department. - My Orders Last 24 Hours: My Active Orders 01/11/18 10:54 DRUG SCREEN URINE BIORAD [URCHEM] Stat HCG QUALITATIVE,URINE [URCHEM] Stat UA W/MICROSCOPIC [URIN] Stat - Assessment/Plan Last 24 Hours: My Active Orders 01/11/18 10:54 DRUG SCREEN URINE BIORAD [URCHEM] Stat HCG QUALITATIVE,URINE [URCHEM] Stat UA W/MICROSCOPIC [URIN] Stat
[2018-01-11 12:45] VITALS: BP 104/51
[2018-01-11] MEDS ORDERED: Butorphanol 2 MG/ML SDV IVPUSH ONE (13:19)
== END 2018-01-11 14:09 | disposition home or self-care (01) ==
LOC: DL.ED 10:15
DX: G43.909 Migraine, unspecified, not intractable, without status migrainosus (principal)
CPT/HCPCS: 36415; 80053; 80305; 81001; 81025; 85025; 96361; 96374; 96375; 99282; J0595; J1885; J7030

== ENCOUNTER 2018-01-16 01:57 | Emergency (ER) | payer MEDICAID ==
[2018-01-16 02:02] VITALS: BP 124/90
[2018-01-16] MEDS ORDERED: Promethazine 25 MG/ML SDV IM ONE (02:17)
[2018-01-16] MEDS ORDERED: Butorphanol 2 MG/ML SDV IM ONE (02:17)
--- NOTE | 2018-01-16 02:21 | EDM.PDOC ---
ED HPI GENERAL MEDICAL PROBLEM - General Chief Complaint: Headache Stated Complaint: EYE PAIN [id number] Time Seen by Provider: 01/16/18 02:18 Source of Information: Reports: Patient History Limitations: Reports: No Limitations - History of Present Illness INITIAL COMMENTS - FREE TEXT/NARRATIVE: gives h/o migraines been doing well for a long time then was [place] [employer] yesterday and it jolted her neck and had some neck spasms which went away then developed migraine with throbbing pain and even noise and light made her worse. Headache Pain Score (Numeric/FACES): 8 - Related Data Allergies Allergy/AdvReac Type Severity Reaction Status Date / Time No Known Allergies Allergy Verified 01/16/18 02:02 Home Meds: Home Meds . [No Known Home Meds] 01/16/18 [History] Past Medical History - Past Health History Medical/Surgical History: Denies Medical/Surgical History HEENT History: Reports: Impaired Vision Other HEENT History: HAS PRESCRIBED CORRECTIVE LENSES; DOES NOT WEAR THEM Cardiovascular History: Reports: None Respiratory History: Reports: None Gastrointestinal History: Reports: Cholelithiasis, GERD Genitourinary History: Reports: UTI, Recurrent Other Genitourinary History: CHLAMYDIA EMT INTERMEDIATE History: Reports: None, , Other (See Below) Other EMT INTERMEDIATE History: 2 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 Musculoskeletal History: Reports: Fracture Other Musculoskeletal History: HX OF WRIST & ANKLE FRACTURE Neurological History: Reports: Headaches, Chronic, Migraines Psychiatric History: Reports: Anxiety Endocrine/Metabolic History: Reports: Obesity/BMI 30+ Hematologic History: Reports: None Immunologic History: Reports: None Oncologic (Cancer) History: Reports: None Dermatologic History: Reports: None - Infectious Disease History Infectious Disease History: Reports: Chicken Pox - Past Surgical History Head Surgeries/Procedures: Reports: None HEENT Surgical History: Reports: Adenoidectomy, Oral Surgery, Tonsillectomy Cardiovascular Surgical History: Reports: None Respiratory Surgical History: Reports: None GI Surgical History: Reports: EGD Endocrine Surgical History: Reports: None Musculoskeletal Surgical History: Reports: None Oncologic Surgical History: Reports: None Dermatological Surgical History: Reports: None Social & Family History - Family History Family Medical History: Noncontributory - Tobacco Use Smoking Status *Q: Never Smoker Second Hand Smoke Exposure: No - Caffeine Use Caffeine Use: Reports: Coffee, Soda - Recreational Drug Use Recreational Drug Use: No - Sexual History Sexual History: Reports: Sexually Active - Living Situation & Occupation Living situation: Reports: with Family Occupation: Unemployed ED ROS GENERAL - Review of Systems Review Of Systems: ROS reveals no pertinent complaints other than HPI. - Physical Exam Exam: See Below Exam Limited By: No Limitations General Appearance: Alert, WD/WN, Mild Distress, Other (headache) Eye Exam: Bilateral Eye: PERRL (pupils ER @ 4mm) Ears: Hearing Grossly Normal Throat/Mouth: Normal Voice, No Airway Compromise Head Exam: Atraumatic Neck: Non-Tender, Full Range of Motion Respiratory/Chest: No Respiratory Distress Cardiovascular: Regular Rate, Rhythm GI/Abdominal: Soft, Non-Tender Neuro Exam (Abbreviated): Alert, Oriented, Normal Cognition, Normal Gait, No Motor/Sensory Deficits Psychiatric: Tearful Skin Exam: Warm, Dry, Normal Color Course - Vital Signs Last Recorded V/S: Last Vital Signs Temp 36.9 C 01/16/18 01:59 Pulse 100 01/16/18 01:59 Resp 18 01/16/18 01:59 BP 124/90 01/16/18 01:59 Pulse Ox 99 01/16/18 01:59 - Orders/Labs/Meds Orders: Active Orders 24 hr Category Date Time Status UA W/MICROSCOPIC [URIN] Stat Lab 01/16/18 02:10 Results Labs: Laboratory Tests 01/16/18 01/16/18 01/16/18 Range/Units 02:10 02:10 02:10 Urine Color Yellow (YELLOW) Urine Appearance Slightly cloudy (CLEAR) Urine pH 6.0 (5.0-9.0) Ur Specific Justin 1.025 (1.005-1.030) Urine Protein Negative (NEGATIVE) Urine Glucose (UA) Negative (NEGATIVE) Urine Ketones Negative (NEGATIVE) Urine Occult Blood Moderate H (NEGATIVE) Urine Nitrite Negative (NEGATIVE) Urine Bilirubin Negative (NEGATIVE) Urine Urobilinogen 1.0 (0.2-1.0) mg/dL Ur Leukocyte Esterase Trace H (NEGATIVE) Urine HCG, Qual Negative Urine Opiates Screen Negative (NEGATIVE) Ur Oxycodone Screen Negative (NEGATIVE) Urine Methadone Screen Negative (NEGATIVE) Ur Barbiturates Screen Negative (NEGATIVE) U Tricyclic Antidepress Negative (NEGATIVE) Ur Phencyclidine Scrn Negative (NEGATIVE) Ur Amphetamine Screen Negative (NEGATIVE) U Methamphetamines Scrn Negative (NEGATIVE) Urine MDMA Screen Negative (NEGATIVE) U Benzodiazepines Scrn Negative (NEGATIVE) Urine Cocaine Screen Negative (NEGATIVE) U Marijuana (THC) Screen Negative (NEGATIVE) Meds: Medications Discontinued Medications Generic Name Dose Route Start Last Admin Trade Name Nurys PRN Reason Stop Dose Admin Butorphanol Tartrate 2 mg 01/16/18 02:17 01/16/18 02:26 Stadol IM 01/16/18 02:18 2 mg ONETIME ONE Administration Promethazine HCl 25 mg 01/16/18 02:17 01/16/18 02:28 Phenergan IM 01/16/18 02:18 25 mg ONETIME ONE Administration - Re-Assessments/Exams Free Text/Narrative Re-Assessment/Exam: 01/16/18 02:32 results discussed with pt. Departure - Departure Time of Disposition: 02:32 Disposition: Home, Self-Care 01 Condition: Good Clinical Impression: Migraine Qualifiers: Migraine type: without aura Status migrainosus presence: without status migrainosus Intractability: not intractable Qualified Code(s): G43.009 - Migraine without aura, not intractable, without status migrainosus - Discharge Information Instructions: Migraine Headache, [id number] Forms: ED Department Discharge Additional Instructions: 1) rest as much as possible 2) follow up at clinic - My Orders Last 24 Hours: My Active Orders 01/16/18 02:10 UA W/MICROSCOPIC [URIN] Stat - Assessment/Plan Last 24 Hours: My Active Orders 01/16/18 02:10 UA W/MICROSCOPIC [URIN] Stat
== END 2018-01-16 02:41 | disposition home or self-care (01) ==
LOC: DL.ED 01:57
DX: G43.009 Migraine without aura, not intractable, without status migrainosus (principal); K21.9 Gastro-esophageal reflux disease without esophagitis
CPT/HCPCS: 80305; 81001; 81025; 96372; 99283; J0595; J2550

== ENCOUNTER 2018-02-05 02:06 | Emergency (ER) | payer MEDICAID ==
[2018-02-05 02:15] VITALS: BP 118/98
[2018-02-05] MEDS ORDERED: Promethazine 25 MG/ML SDV IM ONE (02:32)
[2018-02-05] MEDS ORDERED: Butorphanol 2 MG/ML SDV IM ONE (02:32)
--- NOTE | 2018-02-05 02:37 | EDM.PDOC ---
ED HPI GENERAL MEDICAL PROBLEM - General Chief Complaint: ENT Problem Stated Complaint: EAR ISSUES, DIZZY, HEADACHES, NAUSEA [id number] Time Seen by Provider: 02/05/18 02:32 Source of Information: Reports: Patient History Limitations: Reports: No Limitations - History of Present Illness INITIAL COMMENTS - FREE TEXT/NARRATIVE: onset both ear hurting past 3 days got worse tonight with nausea and exac her migraine problem. Bilateral Ear Pain Score (Numeric/FACES): 8 - Related Data Allergies Allergy/AdvReac Type Severity Reaction Status Date / Time No Known Allergies Allergy Verified 02/05/18 02:16 Home Meds: Home Meds . 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 Musculoskeletal History: Reports: Fracture Other Musculoskeletal History: HX OF WRIST & ANKLE FRACTURE Neurological History: Reports: Headaches, Chronic, Migraines Psychiatric History: Reports: Anxiety Endocrine/Metabolic History: Reports: Obesity/BMI 30+ Hematologic History: Reports: None Immunologic History: Reports: None Oncologic (Cancer) History: Reports: None Dermatologic History: Reports: None - Infectious Disease History Infectious Disease History: Reports: Chicken Pox - Past Surgical History Head Surgeries/Procedures: Reports: None HEENT Surgical History: Reports: Adenoidectomy, Oral Surgery, Tonsillectomy Cardiovascular Surgical History: Reports: None Respiratory Surgical History: Reports: None GI Surgical History: Reports: EGD Endocrine Surgical History: Reports: None Musculoskeletal Surgical History: Reports: None Oncologic Surgical History: Reports: None Dermatological Surgical History: Reports: None Social & Family History - Family History Family Medical History: Noncontributory - Tobacco Use Smoking Status *Q: Never Smoker - Caffeine Use Caffeine Use: Reports: None - Recreational Drug Use Recreational Drug Use: No - Sexual History Sexual History: Reports: Sexually Active - Living Situation & Occupation Living situation: Reports: with Family Occupation: Unemployed ED ROS ENT - Review of Systems Review Of Systems: ROS reveals no pertinent complaints other than HPI. ED EXAM, ENT - Physical Exam Exam: See Below Exam Limited By: No Limitations General Appearance: Alert, WD/WN, Mild Distress, Other (discomfort) Eye Exam: Bilateral Eye: PERRL (pupils ER @ 4mm) Ears: Normal External Exam, Normal Canal, Hearing Grossly Normal, Normal TMs Nose: Normal Inspection Mouth/Throat: Normal Inspection, Other (palpable tenderness @ TMJ) Head: Atraumatic Neck: Non-Tender, Full Range of Motion Respiratory/Chest: No Respiratory Distress Cardiovascular: Regular Rate, Rhythm GI/Abdominal: Soft, Non-Tender Neurological: Alert, Oriented, Normal Cognition, No Motor/Sensory Deficits Psychiatric: Tearful Skin: Warm, Dry, Normal Color Lymphatic: No Adenopathy Course - Vital Signs Last Recorded V/S: Last Vital Signs Temp 37.1 C 02/05/18 02:10 Pulse 118 H 02/05/18 02:10 Resp 16 02/05/18 02:10 BP 118/98 H 02/05/18 02:10 Pulse Ox 99 02/05/18 02:10 - Orders/Labs/Meds Meds: Medications Discontinued Medications Generic Name Dose Route Start Last Admin Trade Name Freq PRN Reason Stop Dose Admin Butorphanol Tartrate 2 mg 02/05/18 02:32 02/05/18 02:39 Stadol IM 02/05/18 02:33 2 mg ONETIME ONE Administration Promethazine HCl 25 mg 02/05/18 02:32 02/05/18 02:38 Phenergan IM 02/05/18 02:33 25 mg ONETIME ONE Administration Departure - Departure Time of Disposition: 03:00 Disposition: Home, Self-Care 01 Condition: Good Clinical Impression: Migraine Qualifiers: Migraine type: without aura Status migrainosus presence: without status migrainosus Intractability: not intractable Qualified Code(s): G43.009 - Migraine without aura, not intractable, without status migrainosus TMJ arthralgia Qualifiers: Laterality: bilateral Qualified Code(s): M26.623 - Arthralgia of bilateral temporomandibular joint - Discharge Information Instructions: Temporomandibular Joint Syndrome Forms: ED Department Discharge Additional Instructions: 1) avoid solid foods next 48 hours 2) see DENTIST and ENT REFERRAL Wednesday
== END 2018-02-05 03:02 | disposition home or self-care (01) ==
LOC: DL.ED 02:06
DX: G43.009 Migraine without aura, not intractable, without status migrainosus (principal); M26.623 Arthralgia of bilateral temporomandibular joint
CPT/HCPCS: 96372; 99283; J0595; J2550

== ENCOUNTER 2018-03-01 03:18 | Emergency (ER) | payer MEDICAID ==
[2018-03-01] MEDS ORDERED: Promethazine 25 MG/ML SDV IM ONE (03:41)
[2018-03-01] MEDS ORDERED: Butorphanol 2 MG/ML SDV IM ONE (03:41)
== END 2018-03-01 03:55 | disposition home or self-care (01) ==
LOC: DL.ED 03:18
DX: G43.909 Migraine, unspecified, not intractable, without status migrainosus (principal)
CPT/HCPCS: 96372; 99283; J0595; J2550

== ENCOUNTER 2018-04-01 00:29 | Emergency (ER) | payer MEDICAID ==
[2018-04-01 01:40] LABS: ANION GAP 12.4; CHLORIDE,CL 104 mmol/L (101-111); SODIUM,NA 137 mmol/L (135-145)
[2018-04-01] MEDS ORDERED: Dicyclomine 10 MG Cap PO ONE (03:46)
--- NOTE | 2018-04-01 03:51 | EDM.PDOC ---
ED HPI GENERAL MEDICAL PROBLEM - General Chief Complaint: Abdominal Pain Stated Complaint: BURNING PAIN IN STOMACH [id number] Time Seen by Provider: 04/01/18 03:47 Source of Information: Reports: Patient History Limitations: Reports: No Limitations - History of Present Illness INITIAL COMMENTS - FREE TEXT/NARRATIVE: c/o recurrent epig-RUQ pain with h/o gall stones. Right Upper Abdominal Pain Score (Numeric/FACES): 8 - Related Data Allergies Allergy/AdvReac Type Severity Reaction Status Date / Time No Known Allergies Allergy Verified 04/01/18 00:45 Home Meds: Home Meds Ibuprofen [Ibu] 600 mg PO BID PRN 02/12/18 [History] Omeprazole 20 mg PO DAILY 04/01/18 [History] Past Medical History - Past Health History Medical/Surgical History: Denies Medical/Surgical History HEENT History: Reports: Impaired Vision Other HEENT History: HAS PRESCRIBED CORRECTIVE LENSES; DOES NOT WEAR THEM Cardiovascular History: Reports: None Respiratory History: Reports: None Gastrointestinal History: Reports: Cholelithiasis, GERD Genitourinary History: Reports: UTI, Recurrent Other Genitourinary History: 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 Musculoskeletal History: Reports: Fracture Other Musculoskeletal History: HX OF WRIST & ANKLE FRACTURE Neurological History: Reports: Headaches, Chronic, Migraines Psychiatric History: Reports: Anxiety Endocrine/Metabolic History: Reports: Obesity/BMI 30+ Hematologic History: Reports: None Immunologic History: Reports: None Oncologic (Cancer) History: Reports: None Dermatologic History: Reports: None - Infectious Disease History Infectious Disease History: Reports: Chicken Pox - Past Surgical History Head Surgeries/Procedures: Reports: None HEENT Surgical History: Reports: Adenoidectomy, Oral Surgery, Tonsillectomy Cardiovascular Surgical History: Reports: None Respiratory Surgical History: Reports: None GI Surgical History: Reports: EGD Endocrine Surgical History: Reports: None Musculoskeletal Surgical History: Reports: None Oncologic Surgical History: Reports: None Dermatological Surgical History: Reports: None Social & Family History - Family History Family Medical History: Noncontributory - Tobacco Use Smoking Status *Q: Current Every Day Smoker Years of Tobacco use: 7 Packs/Tins Daily: 0.5 - Caffeine Use Caffeine Use: Reports: Coffee, Soda - Recreational Drug Use Recreational Drug Use: No - Sexual History Sexual History: Reports: Sexually Active - Living Situation & Occupation Living situation: Reports: with Family Occupation: Unemployed ED ROS GENERAL - Review of Systems Review Of Systems: ROS reveals no pertinent complaints other than HPI. ED EXAM, GI/ABD - Physical Exam Exam: See Below Exam Limited By: No Limitations General Appearance: Alert, WD/WN, Mild Distress, Other (discomfort) Ears: Hearing Grossly Normal Throat/Mouth: Normal Voice, No Airway Compromise Head: Atraumatic Neck: Non-Tender, Full Range of Motion Respiratory/Chest: No Respiratory Distress Cardiovascular: Regular Rate, Rhythm GI/Abdominal Exam: Tender, Other (epiG-RUQ). No: Distended, Guarding, Rigid, Rebound Neurological: Alert, Oriented, Normal Cognition, Normal Gait, No Motor/Sensory Deficits Psychiatric: Normal Affect, Normal Mood Skin Exam: Warm, Dry, Normal Color Lymphatic: No Adenopathy Course - Vital Signs Last Recorded V/S: Last Vital Signs Temp 36.4 C 04/01/18 00:46 Pulse 97 04/01/18 00:46 Resp 18 04/01/18 00:46 BP 108/69 04/01/18 00:46 Pulse Ox 99 04/01/18 00:46 - Orders/Labs/Meds Orders: Active Orders 24 hr Category Date Time Status Dicyclomine [Bentyl] Med 04/01/18 03:46 Once 20 mg PO ONETIME ONE Labs: Laboratory Tests 04/01/18 04/01/18 Range/Units 01:11 01:11 WBC 9.4 (5.0-10.0) 10^3/uL RBC 4.38 (4.2-5.4) 10^6/uL Hgb 12.3 (12.0-16.0) g/dL Hct 38.7 (37.0-47.0) % MCV 88.4 (80-100) fL MCH 28.1 (27.0-34.0) pg MCHC 31.8 L (33.0-35.0) g/dL Plt Count 307 (150-450) 10^3/uL Neut % (Auto) 61.1 (42.2-75.2) % Lymph % (Auto) 29.2 (20.5-50.1) % [place] % (Auto) 7.1 (2-8) % Eos % (Auto) 2.3 (1.0-3.0) % Baso % (Auto) 0.3 (0.0-1.0) % Sodium 137 (135-145) mmol/L Potassium 3.4 L (3.6-5.0) mmol/L Chloride 104 (101-111) mmol/L Carbon Dioxide 24.0 (21.0-31.0) mmol/L Anion Gap 12.4 BUN 12 (7-18) mg/dL Creatinine 0.7 (0.6-1.3) mg/dL Est Cr Clr Drug Dosing 95.13 mL/min Estimated GFR (MDRD) > 60 BUN/Creatinine Ratio 17.14 Glucose 117 H (74-105) mg/dL Calcium 8.7 (8.4-10.2) mg/dl Total Bilirubin 0.4 (0.2-1.0) mg/dL AST 28 (10-42) IU/L ALT 34 (10-60) IU/L Alkaline Phosphatase 74 (42-121) IU/L Total Protein 6.9 (6.7-8.2) g/dl Albumin 3.5 (3.2-5.5) g/dl Globulin 3.4 Albumin/Globulin Ratio 1.03 Amylase 20 L (28-100) U/L Lipase 19 L (22-51) U/L HCG, Qual Negative - Re-Assessments/Exams Free Text/Narrative Re-Assessment/Exam: 04/01/18 03:48 results discussed with pt and case consulted with Dr Thapa. Departure - Departure Time of Disposition: 03:49 Disposition: Home, Self-Care 01 Condition: Good Clinical Impression: Abdominal pain Qualifiers: Abdominal location: right upper quadrant Qualified Code(s): R10.11 - Right upper quadrant pain Cholelithiases Qualifiers: Cholelithiasis location: gallbladder Cholecystitis presence: without cholecystitis Biliary obstruction: without biliary obstruction Qualified Code(s) : K80.20 - Calculus of gallbladder without cholecystitis without obstruction - Discharge Information Instructions: Gallbladder Eating Plan Additional Instructions: 1) CALL "[facility]" FOR APPOINTMENT TO SEE DR THAPA ON April FOR GALL BLADDER SURGERY. 2) avoid fatty fried foods 3) recheck as needed - My Orders Last 24 Hours: My Active Orders 04/01/18 03:46 Dicyclomine [Bentyl] 20 mg PO ONETIME ONE - Assessment/Plan Last 24 Hours: My Active Orders 04/01/18 03:46 Dicyclomine [Bentyl] 20 mg PO ONETIME ONE
[2018-04-01 04:01] VITALS: BP 125/61
== END 2018-04-01 04:02 | disposition home or self-care (01) ==
LOC: DL.ED 00:29
DX: K80.20 Calculus of gallbladder without cholecystitis without obstruction (principal); E66.9 Obesity, unspecified; F17.210 Nicotine dependence, cigarettes, uncomplicated
CPT/HCPCS: 36415; 80053; 82150; 83690; 84703; 85025; 99284; A9270

== ENCOUNTER 2018-04-05 18:10 | Emergency (ER) | payer MEDICAID ==
[2018-04-05 18:22] VITALS: BP 130/61
--- NOTE | 2018-04-05 18:39 | EDM.PDOC ---
ED HPI GENERAL MEDICAL PROBLEM - General Chief Complaint: Abdominal Pain Stated Complaint: GALLBLADDER/SOB [phone] Time Seen by Provider: 04/05/18 18:33 Source of Information: Reports: Patient History Limitations: Reports: No Limitations - History of Present Illness INITIAL COMMENTS - FREE TEXT/NARRATIVE: This 22 yo female patient reports to the ED with intermittent right sided abdominal pain and left lower rib pain. The patient reports her left lower rib pain started after she was decorating for Halloween. The patient reports she has gallbladder surgery scheduled for next month. The patient reports she started to get more worried with the pain starting on the left lower ribs. The patient reports that she ate Mac and Cheese today. Onset: Today Duration: Getting Worse, Intermittent Location: Reports: Chest (left lower ribs), Abdomen (right upper abdomen) Quality: Reports: Ache, Sharp Severity: Moderate Improves with: Reports: None Worsens with: Reports: None Left Lower Chest Pain Score (Numeric/FACES): 8 - Related Data Allergies Allergy/AdvReac Type Severity Reaction Status Date / Time No Known Allergies Allergy Verified 04/05/18 18:13 Home Meds: Home Meds Ibuprofen [Ibu] 600 mg PO BID PRN 02/12/18 [History] Omeprazole 20 mg PO DAILY 04/01/18 [History] Acetaminophen/Caffeine [Excedrin Tension Headache Cplt] 1 tab PO ASDIRECTED PRN 04/05/18 [History] Past Medical History - Past Health History Medical/Surgical History: Denies Medical/Surgical History HEENT History: Reports: Impaired Vision Other HEENT History: HAS PRESCRIBED CORRECTIVE LENSES; DOES NOT WEAR THEM Cardiovascular History: Reports: None Respiratory History: Reports: None Gastrointestinal History: Reports: Cholelithiasis, GERD Genitourinary History: Reports: UTI, Recurrent Other Genitourinary History: 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 Musculoskeletal History: Reports: Fracture Other Musculoskeletal History: HX OF WRIST & ANKLE FRACTURE Neurological History: Reports: Headaches, Chronic, Migraines Psychiatric History: Reports: Anxiety Endocrine/Metabolic History: Reports: Obesity/BMI 30+ Hematologic History: Reports: None Immunologic History: Reports: None Oncologic (Cancer) History: Reports: None Dermatologic History: Reports: None - Infectious Disease History Infectious Disease History: Reports: Chicken Pox - Past Surgical History Head Surgeries/Procedures: Reports: None HEENT Surgical History: Reports: Adenoidectomy, Oral Surgery, Tonsillectomy Cardiovascular Surgical History: Reports: None Respiratory Surgical History: Reports: None GI Surgical History: Reports: EGD Endocrine Surgical History: Reports: None Musculoskeletal Surgical History: Reports: None Oncologic Surgical History: Reports: None Dermatological Surgical History: Reports: None Social & Family History - Family History Family Medical History: Noncontributory - Tobacco Use Smoking Status *Q: Unknown Ever Smoked - Caffeine Use Caffeine Use: Reports: Coffee, Soda - Recreational Drug Use Recreational Drug Use: No - Sexual History Sexual History: Reports: Sexually Active - Living Situation & Occupation Living situation: Reports: with Family Occupation: Unemployed ED ROS GENERAL - Review of Systems Review Of Systems: ROS reveals no pertinent complaints other than HPI. ED EXAM, GI/ABD - Physical Exam Exam: See Below Exam Limited By: No Limitations General Appearance: Alert, WD/WN, Moderate Distress Eyes: Bilateral: Normal Appearance, EOMI Ears: Normal External Exam, Normal Canal, Hearing Grossly Normal, Normal TMs Nose: Normal Inspection, Normal Mucosa, No Blood Throat/Mouth: Normal Inspection, Normal Lips, Normal Teeth, Normal Gums, Normal Oropharynx, Normal Voice, No Airway Compromise Head: Atraumatic, Normocephalic Neck: Normal Inspection, Supple, Non-Tender, Full Range of Motion Respiratory/Chest: No Respiratory Distress, Lungs Clear, Normal Breath Sounds, No Accessory Muscle Use, Chest Non-Tender Cardiovascular: Normal Peripheral Pulses, Regular Rate, Rhythm, No Edema, No Gallop, No JVD, No Murmur, No Rub GI/Abdominal Exam: Normal Bowel Sounds, Soft, No Organomegaly, No Distention, No Abnormal Bruit, No Mass, Pelvis Stable, Tender (RUQ), Other (morbid obesity) (Female) Exam: Deferred Rectal (Female) Exam: Deferred Back Exam: Normal Inspection, Full Range of Motion, NT Extremities: Normal Inspection, Normal Range of Motion, Non-Tender, Normal Capillary Refill, No Pedal Edema Neurological: Alert, Oriented, CN II-XII Intact, Normal Cognition, Normal Gait, Normal Reflexes, No Motor/Sensory Deficits Psychiatric: Normal Affect, Normal Mood Skin Exam: Warm, Dry, Intact, Normal Color, No Rash Lymphatic: No Adenopathy Course - Vital Signs Last Recorded V/S: Last Vital Signs Temp 36.0 C 04/05/18 18:18 Pulse 98 04/05/18 18:18 Resp 16 04/05/18 18:18 BP 130/61 04/05/18 18:18 Pulse Ox 99 04/05/18 18:18 - Orders/Labs/Meds Labs: Laboratory Tests 04/05/18 04/05/18 04/05/18 Range/Units 18:34 18:34 18:38 WBC 11.2 H (5.0-10.0) 10^3/uL RBC 4.51 (4.2-5.4) 10^6/uL Hgb 12.9 (12.0-16.0) g/dL Hct 39.9 (37.0-47.0) % MCV 88.5 (80-100) fL MCH 28.6 (27.0-34.0) pg MCHC 32.3 L (33.0-35.0) g/dL Plt Count 337 (150-450) 10^3/uL Neut % (Auto) 71.6 (42.2-75.2) % Lymph % (Auto) 20.8 (20.5-50.1) % [place] % (Auto) 5.5 (2-8) % Eos % (Auto) 1.7 (1.0-3.0) % Baso % (Auto) 0.4 (0.0-1.0) % Sodium 138 (135-145) mmol/L Potassium 3.6 (3.6-5.0) mmol/L Chloride 104 (101-111) mmol/L Carbon Dioxide 26.0 (21.0-31.0) mmol/L Anion Gap 11.6 BUN 8 (7-18) mg/dL Creatinine 0.6 (0.6-1.3) mg/dL Est Cr Clr Drug Dosing 116.32 mL/min Estimated GFR (MDRD) > 60 BUN/Creatinine Ratio 13.33 Glucose 108 H (74-105) mg/dL Calcium 8.7 (8.4-10.2) mg/dl Total Bilirubin 0.4 (0.2-1.0) mg/dL AST 31 (10-42) IU/L ALT 42 (10-60) IU/L Alkaline Phosphatase 93 (42-121) IU/L Total Protein 6.9 (6.7-8.2) g/dl Albumin 3.6 (3.2-5.5) g/dl Globulin 3.3 Albumin/Globulin Ratio 1.09 Amylase 17 L (28-100) U/L Lipase 17 L (22-51) U/L Urine Color Yellow (YELLOW) Urine Appearance Slightly cloudy (CLEAR) Urine pH 7.0 (5.0-9.0) Ur Specific [place] 1.020 (1.005-1.030) Urine Protein Negative (NEGATIVE) Urine Glucose (UA) Negative (NEGATIVE) Urine Ketones Negative (NEGATIVE) Urine Occult Blood Moderate H (NEGATIVE) Urine Nitrite Negative (NEGATIVE) Urine Bilirubin Negative (NEGATIVE) Urine Urobilinogen 0.2 (0.2-1.0) mg/dL Ur Leukocyte Esterase Trace H (NEGATIVE) Urine RBC 5-10 H /HPF Urine WBC 0-5 (0-5/HPF) /HPF Ur Epithelial Cells Few /HPF Amorphous Sediment Few (0/HPF) /HPF Urine Bacteria Few (0-FEW/HPF) /HPF Urine Mucus Rare /LPF Urine Opiates Screen (NEGATIVE) Ur Oxycodone Screen (NEGATIVE) Urine Methadone Screen (NEGATIVE) Ur Barbiturates Screen (NEGATIVE) U Tricyclic Antidepress (NEGATIVE) Ur Phencyclidine Scrn (NEGATIVE) Ur Amphetamine Screen (NEGATIVE) U Methamphetamines Scrn (NEGATIVE) Urine MDMA Screen (NEGATIVE) U Benzodiazepines Scrn (NEGATIVE) Urine Cocaine Screen (NEGATIVE) U Marijuana (THC) Screen (NEGATIVE) 04/05/18 Range/Units 18:38 WBC (5.0-10.0) 10^3/uL RBC (4.2-5.4) 10^6/uL Hgb (12.0-16.0) g/dL Hct (37.0-47.0) % MCV (80-100) fL MCH (27.0-34.0) pg MCHC (33.0-35.0) g/dL Plt Count (150-450) 10^3/uL Neut % (Auto) (42.2-75.2) % Lymph % (Auto) (20.5-50.1) % [place] % (Auto) (2-8) % Eos % (Auto) (1.0-3.0) % Baso % (Auto) (0.0-1.0) % Sodium (135-145) mmol/L Potassium (3.6-5.0) mmol/L Chloride (101-111) mmol/L Carbon Dioxide (21.0-31.0) mmol/L Anion Gap BUN (7-18) mg/dL Creatinine (0.6-1.3) mg/dL Est Cr Clr Drug Dosing mL/min Estimated GFR (MDRD) BUN/Creatinine Ratio Glucose (74-105) mg/dL Calcium (8.4-10.2) mg/dl Total Bilirubin (0.2-1.0) mg/dL AST (10-42) IU/L ALT (10-60) IU/L Alkaline Phosphatase (42-121) IU/L Total Protein (6.7-8.2) g/dl Albumin (3.2-5.5) g/dl Globulin Albumin/Globulin Ratio Amylase (28-100) U/L Lipase (22-51) U/L Urine Color (YELLOW) Urine Appearance (CLEAR) Urine pH (5.0-9.0) Ur Specific [place] (1.005-1.030) Urine Protein (NEGATIVE) Urine Glucose (UA) (NEGATIVE) Urine Ketones (NEGATIVE) Urine Occult Blood (NEGATIVE) Urine Nitrite (NEGATIVE) Urine Bilirubin (NEGATIVE) Urine Urobilinogen (0.2-1.0) mg/dL Ur Leukocyte Esterase (NEGATIVE) Urine RBC /HPF Urine WBC (0-5/HPF) /HPF Ur Epithelial Cells /HPF Amorphous Sediment (0/HPF) /HPF Urine Bacteria (0-FEW/HPF) /HPF Urine Mucus /LPF Urine Opiates Screen Negative (NEGATIVE) Ur Oxycodone Screen Negative (NEGATIVE) Urine Methadone Screen Negative (NEGATIVE) Ur Barbiturates Screen Negative (NEGATIVE) U Tricyclic Antidepress Negative (NEGATIVE) Ur Phencyclidine Scrn Negative (NEGATIVE) Ur Amphetamine Screen Negative (NEGATIVE) U Methamphetamines Scrn Negative (NEGATIVE) Urine MDMA Screen Negative (NEGATIVE) U Benzodiazepines Scrn Negative (NEGATIVE) Urine Cocaine Screen Negative (NEGATIVE) U Marijuana (THC) Screen Positive H (NEGATIVE) Departure - Departure Time of Disposition: 19:18 Disposition: Home, Self-Care 01 Condition: Fair Clinical Impression: Cholelithiases Qualifiers: Cholelithiasis location: gallbladder Cholecystitis presence: without cholecystitis Biliary obstruction: without biliary obstruction Qualified Code(s) : K80.20 - Calculus of gallbladder without cholecystitis without obstruction Intercostal muscle strain Qualifiers: Encounter type: initial encounter Qualified Code(s): S29.011A - Strain of muscle and tendon of front wall of thorax, initial encounter - Discharge Information *PRESCRIPTION DRUG MONITORING PROGRAM REVIEWED*: Not Applicable *COPY OF PRESCRIPTION DRUG MONITORING REPORT IN PATIENT RILEY: Not Applicable Instructions: Gallbladder Eating Plan Forms: ED Department Discharge Care Plan Goals: The patient was advised of the examination and lab results during the visit. The patient was given a list of foods that would be appropriate for gallbladder problems. The patient may continue to take Tylenol or ibuprofen as directed for temporary symptom relief. If the patient has any additional symptoms or concerns , the patient should visit her primary care facility or return to the emergency department.
[2018-04-05 18:58] LABS: ANION GAP 11.6; CHLORIDE,CL 104 mmol/L (101-111); SODIUM,NA 138 mmol/L (135-145)
== END 2018-04-05 19:30 | disposition home or self-care (01) ==
LOC: DL.ED 18:10
DX: K80.20 Calculus of gallbladder without cholecystitis without obstruction (principal); S29.011A Strain of muscle and tendon of front wall of thorax, initial encounter; Z79.899 Other long term (current) drug therapy; X50.9XXA Other and unspecified overexertion or strenuous movements or postures, initial encounter
CPT/HCPCS: 36415; 80053; 80305-QW; 81001; 82150; 83690; 85025; 99283

== ENCOUNTER 2018-08-13 00:07 | Emergency (ER) | payer MEDICAID | END 2018-08-13 00:43 | disposition left against medical advice (07) | LOC: DL.ED 00:07 | DX: Z53.21 Procedure and treatment not carried out due to patient leaving prior to being seen by health care provider (principal) ==

== ENCOUNTER 2018-08-20 21:12 | Emergency (ER) | payer MEDICAID ==
[2018-08-20] MEDS ORDERED: Amoxicillin/Clavulanate K 500-125 MG Tab PO ONE (21:13)
[2018-08-20 22:00] VITALS: BP 125/79
[2018-08-20] MEDS ORDERED: Amoxicillin/Clavulanate K 875-125 MG Tab PO ONE (23:23)
[2018-08-20] MEDS ORDERED: Amoxicillin/Clavulanate K 500-125 MG Tab ONE (23:27)
--- NOTE | 2018-08-20 23:28 | EDM.PDOC ---
ED HPI GENERAL MEDICAL PROBLEM - General Chief Complaint: Headache Stated Complaint: SINUS PAIN/CHEST PAINS/HEADACHE Time Seen by Provider: 08/20/18 23:20 Source of Information: Reports: Patient History Limitations: Reports: No Limitations - History of Present Illness INITIAL COMMENTS - FREE TEXT/NARRATIVE: This 22 yo female patient reports to the ED with a 1 week history of sinus pressure. The patient reports she attempted to be seen earlier, but has not gotten into the clinic yet. Duration: Week(s):, Constant, Getting Worse Location: Reports: Head, Face Quality: Reports: Ache, Dull Severity: Moderate Improves with: Reports: None Worsens with: Reports: None Associated Symptoms: Reports: No Other Symptoms Face/Facial Pain Score (Numeric/FACES): 9 - Related Data Allergies Allergy/AdvReac Type Severity Reaction Status Date / Time fentanyl Allergy Rash Verified 07/12/18 23:11 Home Meds: Home Meds Omeprazole 20 mg PO DAILY 04/01/18 [History] Acetaminophen/Caffeine [Excedrin Tension Headache Cplt] 1 tab PO ASDIRECTED PRN 04/05/18 [History] Cholecalciferol (Vitamin D3) [Vitamin D] 5,000 unit PO DAILY 04/25/18 [History] metFORMIN HCl [Metformin HCl] 1 tab PO DAILY 05/05/18 [History] Past Medical History - Past Health History Medical/Surgical History: Denies Medical/Surgical History HEENT History: Reports: Impaired Vision Other HEENT History: HAS PRESCRIBED CORRECTIVE LENSES; DOES NOT WEAR THEM Cardiovascular History: Reports: None Respiratory History: Reports: None Gastrointestinal History: Reports: Cholelithiasis, GERD Genitourinary History: Reports: UTI, Recurrent Other 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 Musculoskeletal History: Reports: Fracture Other Musculoskeletal History: HX OF WRIST & ANKLE FRACTURE Neurological History: Reports: Headaches, Chronic, Migraines Psychiatric History: Reports: Anxiety Endocrine/Metabolic History: Reports: Obesity/BMI 30+ Hematologic History: Reports: None Immunologic History: Reports: None Oncologic (Cancer) History: Reports: None Dermatologic History: Reports: None - Infectious Disease History Infectious Disease History: Reports: Chicken Pox - Past Surgical History Head Surgeries/Procedures: Reports: None HEENT Surgical History: Reports: Adenoidectomy, Oral Surgery, Tonsillectomy Other HEENT Surgeries/Procedures: WISDOM TEETH EXTRACTION Cardiovascular Surgical History: Reports: None Respiratory Surgical History: Reports: None GI Surgical History: Reports: EGD Female Surgical History: Reports: Other (See Below) Other Female Surgeries/Procedures: IUD INSERTION-REMOVED; PATIENT STATES IT WAS EXPELLED FROM BODY Endocrine Surgical History: Reports: None Neurological Surgical History: Reports: None Musculoskeletal Surgical History: Reports: None Oncologic Surgical History: Reports: None Dermatological Surgical History: Reports: None Social & Family History - Family History Family Medical History: Noncontributory - Tobacco Use Smoking Status *Q: Never Smoker - Caffeine Use Caffeine Use: Reports: None - Recreational Drug Use Recreational Drug Use: No - Sexual History Sexual History: Reports: Sexually Active - Living Situation & Occupation Living situation: Reports: with Family Occupation: Unemployed ED ROS ENT - Review of Systems Review Of Systems: ROS reveals no pertinent complaints other than HPI. ED EXAM, ENT - Physical Exam Exam: See Below Exam Limited By: No Limitations General Appearance: Alert, WD/WN, Moderate Distress Eye Exam: Bilateral Eye: EOMI, Normal Inspection, PERRL Ears: Normal External Exam, Normal Canal, Hearing Grossly Normal, Normal TMs Nose: Normal Inspection, Normal Mucousa, No Blood Mouth/Throat: Normal Inspection, Normal Gums, Normal Lips, Normal Oropharynx, Normal Teeth Head: Sinus Tenderness Neck: Normal Inspection, Supple, Non-Tender, Full Range of Motion Respiratory/Chest: No Respiratory Distress, Lungs Clear, Normal Breath Sounds, No Accessory Muscle Use, Chest Non-Tender Cardiovascular: Normal Peripheral Pulses, Regular Rate, Rhythm, No Edema, No Gallop, No JVD, No Murmur, No Rub GI/Abdominal: Normal Bowel Sounds, Other (morbid obesity) (Female) Exam: Deferred Rectal (Female) Exam: Deferred Back: Normal Inspection, Full Range of Motion Extremities: Normal Inspection, Normal Range of Motion, Non-Tender, No Pedal Edema, Normal Capillary Refill Neurological: Alert, Oriented, CN II-XII Intact, Normal Cognition, Normal Gait, Normal Reflexes, No Motor/Sensory Deficits Psychiatric: Normal Affect, Normal Mood Skin: Warm, Dry, Intact, Normal Color, No Rash Lymphatic: No Adenopathy Course - Vital Signs Last Recorded V/S: Last Vital Signs Temp 37.3 C 02/02/19 22:00 Pulse 101 H 08/20/18 22:00 Resp 18 08/20/18 22:00 BP 125/79 08/20/18 22:00 Pulse Ox 99 08/20/18 22:00 - Orders/Labs/Meds Meds: Medications Discontinued Medications Generic Name Dose Route Start Last Admin Trade Name Nurys PRN Reason Stop Dose Admin Amoxicillin/Clavulanate Potassium 1 tab 08/20/18 23:23 Augmentin 875 Mg/125 Mg PO 08/20/18 23:24 ONETIME ONE Departure - Departure Time of Disposition: 23:25 Disposition: Home, Self-Care 01 Condition: Fair Clinical Impression: Acute sinusitis Qualifiers: Sinusitis location: maxillary Recurrence: non-recurrent Qualified Code(s): J01.00 - Acute maxillary sinusitis, unspecified - Discharge Information *PRESCRIPTION DRUG MONITORING PROGRAM REVIEWED*: Not Applicable *COPY OF PRESCRIPTION DRUG MONITORING REPORT IN PATIENT RILEY: Not Applicable Instructions: Sinusitis, Adult, [id number] Forms: ED Department Discharge Care Plan Goals: The patient was advised of the examination results during the visit. The patient was given an oral dose of Augmentin while in the ED. The patient was discharged with a dose of Augmentin (500/125) to take in the morning and a script for Augmentin (500/125) to take 1 by mouth 2 times per day for 10 days. If the patient has any additional symptoms or concerns, the patient should either return to the emergency department or visit his primary care facility.
== END 2018-08-20 23:33 | disposition home or self-care (01) ==
LOC: DL.ED 21:12
DX: J01.00 Acute maxillary sinusitis, unspecified (principal); K21.9 Gastro-esophageal reflux disease without esophagitis; Z79.899 Other long term (current) drug therapy; Z88.8 Allergy status to other drugs, medicaments and biological substances
CPT/HCPCS: 99282; A9270

== ENCOUNTER 2018-09-11 21:09 | Emergency (ER) | payer MEDICAID ==
[2018-09-11 21:22] VITALS: BP 126/87
[2018-09-11] MEDS ORDERED: Ketorolac 30 MG/ML SDV IVPUSH ONE (21:34)
[2018-09-11] MEDS ORDERED: Sodium Chloride 0.9% 10 ML Syringe FLUSH PRN (21:34)
[2018-09-11] MEDS ORDERED: Dexamethasone 4 MG/ML SDV IVPUSH ONE (21:34)
[2018-09-11] MEDS ORDERED: diphenhydrAMINE 50 MG/ML SDV IVPUSH ONE ×2 (21:34→22:05)
[2018-09-11] MEDS ORDERED: Lactated Ringers 1,000 ML IV ONE (21:34)
[2018-09-11] MEDS ORDERED: Metoclopramide 10 MG/2 ML SDV IVPUSH ONE (21:34)
--- NOTE | 2018-09-11 21:39 | EDM.PDOC ---
ED HPI GENERAL MEDICAL PROBLEM - General Chief Complaint: Headache Stated Complaint: MIGRAINE Time Seen by Provider: 09/11/18 21:30 Source of Information: Reports: Patient History Limitations: Reports: No Limitations - History of Present Illness INITIAL COMMENTS - FREE TEXT/NARRATIVE: Controversy department today with complaints of a migraine. She has a migraine almost every day. This is typical for her migraines. No recent falls or head trauma. No fever no chills. No neck pain. This is not the worst migraine she ever had. She uses Excedrin migraine Tylenol or ibuprofen every day for her migraines. Otherwise she is a regular in the emergency department for her migraine management. She does not see her primary care for chronic management of her migraines. She does complain of photophobia no phonophobia. No weakness dizziness lightheadedness. No paresthesias. No change in the functionality of her upper or lower extremities. No chest pain no shortness of breath weakness dizziness lightheadedness. Headache Pain Score (Numeric/FACES): 8 - Related Data Allergies Allergy/AdvReac Type Severity Reaction Status Date / Time fentanyl Allergy Rash Verified 09/11/18 21:17 Home Meds: Home Meds Omeprazole 20 mg PO DAILY 04/01/18 [History] Acetaminophen/Caffeine [Excedrin Tension Headache Cplt] 1 tab PO ASDIRECTED PRN 04/05/18 [History] Cholecalciferol (Vitamin D3) [Vitamin D] 5,000 unit PO DAILY 04/25/18 [History] metFORMIN HCl [Metformin HCl] 1 tab PO DAILY 05/05/18 [History] Past Medical History - Past Health History Medical/Surgical History: Denies Medical/Surgical History HEENT History: Reports: Impaired Vision Other HEENT History: HAS PRESCRIBED CORRECTIVE LENSES; DOES NOT WEAR THEM Cardiovascular History: Reports: None Respiratory History: Reports: None Gastrointestinal History: Reports: Cholelithiasis, GERD Genitourinary History: Reports: UTI, Recurrent Other Genitourinary History: 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 Musculoskeletal History: Reports: Fracture Other Musculoskeletal History: HX OF WRIST & ANKLE FRACTURE Neurological History: Reports: Headaches, Chronic, Migraines Psychiatric History: Reports: Anxiety Endocrine/Metabolic History: Reports: Obesity/BMI 30+ Hematologic History: Reports: None Immunologic History: Reports: None Oncologic (Cancer) History: Reports: None Dermatologic History: Reports: None - Infectious Disease History Infectious Disease History: Reports: Chicken Pox - Past Surgical History Head Surgeries/Procedures: Reports: None HEENT Surgical History: Reports: Adenoidectomy, Oral Surgery, Tonsillectomy Other HEENT Surgeries/Procedures: WISDOM TEETH EXTRACTION Cardiovascular Surgical History: Reports: None Respiratory Surgical History: Reports: None GI Surgical History: Reports: EGD Female Surgical History: Reports: Other (See Below) Other Female Surgeries/Procedures: IUD INSERTION-REMOVED; PATIENT STATES IT WAS EXPELLED FROM BODY Endocrine Surgical History: Reports: None Neurological Surgical History: Reports: None Musculoskeletal Surgical History: Reports: None Oncologic Surgical History: Reports: None Dermatological Surgical History: Reports: None Social & Family History - Family History Family Medical History: Noncontributory - Tobacco Use Smoking Status *Q: Never Smoker - Caffeine Use Caffeine Use: Reports: None - Recreational Drug Use Recreational Drug Use: No - Sexual History Sexual History: Reports: Sexually Active - Living Situation & Occupation Living situation: Reports: with Family Occupation: Unemployed ED ROS GENERAL - Review of Systems Review Of Systems: ROS reveals no pertinent complaints other than HPI. - Physical Exam Exam: See Below Exam Limited By: No Limitations General Appearance: Alert, WD/WN, No Apparent Distress Eye Exam: Bilateral Eye: EOMI, Normal Inspection, PERRL Ears: Normal External Exam, Normal TMs Nose: Normal Inspection, Normal Mucosa, No Blood Throat/Mouth: Normal Inspection, Normal Lips, Normal Oropharynx Head Exam: Atraumatic, Normocephalic Neck: Normal Inspection, Supple, Non-Tender Respiratory/Chest: No Respiratory Distress, Lungs Clear, Normal Breath Sounds, No Accessory Muscle Use Cardiovascular: Normal Peripheral Pulses, Regular Rate, Rhythm GI/Abdominal: Normal Bowel Sounds, Soft (Female) Exam: Deferred Rectal (Female) Exam: Deferred Neuro Exam (Abbreviated): Alert, Oriented, CN II-XII Intact, Normal Cognition, No Motor/Sensory Deficits Back Exam: Normal Inspection Extremities: Normal Inspection, Normal Capillary Refill Psychiatric: Normal Affect Skin Exam: Warm, Dry, Intact, Normal Color Course - Vital Signs Last Recorded V/S: Last Vital Signs Temp 35.9 C 09/11/18 21:21 Pulse 89 09/11/18 21:21 Resp 16 09/11/18 21:21 BP 126/87 09/11/18 21:21 Pulse Ox 100 09/11/18 21:21 - Orders/Labs/Meds Orders: Active Orders 24 hr Category Date Time Status Peripheral IV Care [RC] . DIRECTED Care 09/11/18 21:34 Active Sodium Chloride 0.9% [Saline Flush] Med 09/11/18 21:34 Active 10 ml FLUSH ASDIRECTED PRN Peripheral IV Insertion Adult [OM.PC] Stat Oth 09/11/18 21:34 Ordered Medication Orders Sodium Chloride (Saline Flush) 10 ml FLUSH ASDIRECTED PRN PRN Reason: Keep Vein Open Last Admin: 09/11/18 21:52 Dose: 10 ml Meds: Medications Generic Name Dose Route Start Last Admin Trade Name Freq PRN Reason Stop Dose Admin Sodium Chloride 10 ml 09/11/18 21:34 09/11/18 21:52 Saline Flush FLUSH 10 ml ASDIRECTED PRN Administration Keep Vein Open Discontinued Medications Generic Name Dose Route Start Last Admin Trade Name Freq PRN Reason Stop Dose Admin Dexamethasone 10 mg 09/11/18 21:34 09/11/18 21:49 Dexamethasone IVPUSH 09/11/18 21:35 10 mg ONETIME ONE Administration Diphenhydramine HCl 25 mg 09/11/18 21:34 09/11/18 21:50 Benadryl IVPUSH 09/11/18 21:35 25 mg ONETIME ONE Administration Diphenhydramine HCl 25 mg 09/11/18 22:05 09/11/18 22:09 Benadryl IVPUSH 09/11/18 22:06 25 mg ONETIME ONE Administration Lactated Ringer's 1,000 mls @ 1,000 mls/hr 09/11/18 21:34 09/11/18 21:49 Ringers, Lactated IV 09/11/18 22:33 1,000 mls/hr .BOLUS ONE Administration Ketorolac Tromethamine 30 mg 09/11/18 21:34 09/11/18 21:51 Toradol IVPUSH 09/11/18 21:35 30 mg ONETIME ONE Administration Metoclopramide HCl 10 mg 09/11/18 21:34 09/11/18 21:52 Reglan IVPUSH 09/11/18 21:35 10 mg ONETIME ONE Administration - Re-Assessments/Exams Free Text/Narrative Re-Assessment/Exam: 09/11/18 21:40 IV LR 1 L. Ketorolac 30 mg IV push. Benadryl 25 mg IV push. Metoclopramide 10 mg IV push. Dexamethasone 10 mg IV I did speak at length with the patient at length about my concerns of medication overuse headache. Someone that has has migraines more than 15 days a month meets daily prophylaxis for migraine. She really needs to see her primary care provider for long-term management of her migraines. I really do have concerns as narcotics and butalbital and Excedrin Migraine have been well studied and proven to cause recurrent migraines on their use on a frequent basis. She uses Excedrin Migraine Tylenol and ibuprofen almost every day she reports. 09/11/18 22:43 Patient did develop some dystonia most likely from the Reglan. We repeated the Benadryl her dystonia resolved. She is observed over the next period of time and she feels much better. Her headache is resolved. Her nausea is resolved as well as the photophobia. We'll discharge her home today. I did once again reminded her the importance of medication overuse headaches and to try to refrain from overusage of sedative medications. I will send her home with some Phenergan which has been well proven to not cause medication overuse migraines or headaches. She is comfortable with this plan and her questions are answered. She must see her primary care provider for the chronic management of this chronic illness. Departure - Departure Time of Disposition: 22:30 Disposition: Home, Self-Care 01 Clinical Impression: Chronic migraine, Medication overuse headache - Discharge Information Instructions: Recurrent Migraine Headache, [id number] Forms: ED Department Discharge Additional Instructions: REALLY TRY TO DECREASE THE USAGE OF OTC headache medication especially the Excedrin migraine these have been well proven when used daily to cause recurrence of migraine. In the mean time, Time phenergan, 1 tablet every 6 hrs as needed for migraine. Will cause drowsiness. No driving or drinking alcohol while taking. RX given to the patient. Go home rest your brain and decrease stimulation. No Ipads phones or TVs for tonight and especially before going to bed to decrease stimulation. Return to the ED if new or worsening symptoms. YOU MUST FOLLOW UP WITH YOUR PCP in the next week to discuss [facility] management of your migraines. - My Orders Last 24 Hours: My Active Orders 09/11/18 21:34 Peripheral IV Care [RC] . DIRECTED Sodium Chloride 0.9% [Saline Flush] 10 ml FLUSH ASDIRECTED PRN Peripheral IV Insertion Adult [OM.PC] Stat - Assessment/Plan Last 24 Hours: My Active Orders 09/11/18 21:34 Peripheral IV Care [RC] . DIRECTED Sodium Chloride 0.9% [Saline Flush] 10 ml FLUSH ASDIRECTED PRN Peripheral IV Insertion Adult [OM.PC] Stat Assessment:: Chronic migraine, Medication overuse migraine Plan: REALLY TRY TO DECREASE THE USAGE OF OTC headache medication especially the Excedrin migraine these have been well proven when used daily to cause recurrence of migraine. In the mean time, Time phenergan, 1 tablet every 6 hrs as needed for migraine. Will cause drowsiness. No driving or drinking alcohol while taking. RX given to the patient. Go home rest your brain and decrease stimulation. No Ipads phones or TVs for tonight and especially before going to bed to decrease stimulation. Return to the ED if new or worsening symptoms. YOU MUST FOLLOW UP WITH YOUR PCP in the next week to discuss chcf management of your migraines.
== END 2018-09-11 22:48 | disposition home or self-care (01) ==
LOC: DL.ED 21:09
DX: G43.909 Migraine, unspecified, not intractable, without status migrainosus (principal); T39.1X5A Adverse effect of 4-Aminophenol derivatives, initial encounter; Z98.890 Other specified postprocedural states; E66.9 Obesity, unspecified; Z79.84 Long term (current) use of oral hypoglycemic drugs; Z88.8 Allergy status to other drugs, medicaments and biological substances; Z79.899 Other long term (current) drug therapy
CPT/HCPCS: 96365; 96375; 99283; J1100; J1200; J1885; J2765; J7120

== ENCOUNTER 2018-09-28 22:08 | Emergency (ER) | payer MEDICAID ==
[2018-09-28] MEDS ORDERED: Amoxicillin/Clavulanate K 875-125 MG Tab PO ONE (22:09)
[2018-09-28] MEDS ORDERED: diphenhydrAMINE 50 MG Cap PO ONE (22:09)
[2018-09-28] MEDS ORDERED: Acetaminophen/HYDROcodone 325-10 MG Tab PO ONE (22:09)
[2018-09-28] MEDS ORDERED: Acetaminophen/HYDROcodone 325-10 MG Tab ONE (23:26)
[2018-09-28] MEDS ORDERED: diphenhydrAMINE 50 MG Cap ONE (23:27)
[2018-09-28] MEDS ORDERED: Amoxicillin/Clavulanate K 875-125 MG Tab ONE (23:27)
--- NOTE | 2018-09-28 23:28 | EDM.PDOC ---
ED HPI GENERAL MEDICAL PROBLEM - General Chief Complaint: ENT Problem Stated Complaint: BAD EAR INFECTION,HEADACHE [id number] Time Seen by Provider: 09/28/18 22:30 Source of Information: Reports: Patient History Limitations: Reports: No Limitations - History of Present Illness INITIAL COMMENTS - FREE TEXT/NARRATIVE: c/o frontal headache unable to sleep sinus pressure posterior drainage, yellow, chills. Recent hospitalization in , discharged earlier today for otitis externa Ear drops prescribed, unavailable today at pharmacy. On IV antibiotics in hospital. Throat sore, Able to drink. No nausea. Right ear pain and pain behind ear. 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 Right Ear Pain Score (Numeric/FACES): 6 - Related Data Allergies Allergy/AdvReac Type Severity Reaction Status Date / Time fentanyl Allergy Rash Verified 09/28/18 22:48 Home Meds: Home Meds Omeprazole 20 mg PO DAILY 04/01/18 [History] Acetaminophen/Caffeine [Excedrin Tension Headache Cplt] 1 tab PO ASDIRECTED PRN 04/05/18 [History] Cholecalciferol (Vitamin D3) [Vitamin D] 5,000 unit PO DAILY 04/25/18 [History] metFORMIN HCl [Metformin HCl] 1 tab PO DAILY 05/05/18 [History] Past Medical History - Past Health History Medical/Surgical History: Denies Medical/Surgical History HEENT History: Reports: Impaired Vision Other HEENT History: HAS PRESCRIBED CORRECTIVE LENSES; DOES NOT WEAR THEM Cardiovascular History: Reports: None Respiratory History: Reports: None Gastrointestinal History: Reports: Cholelithiasis, GERD Genitourinary History: Reports: UTI, Recurrent Other Genitourinary History: 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 Musculoskeletal History: Reports: Fracture Other Musculoskeletal History: HX OF WRIST & ANKLE FRACTURE Neurological History: Reports: Headaches, Chronic, Migraines Psychiatric History: Reports: Anxiety Endocrine/Metabolic History: Reports: Obesity/BMI 30+ Hematologic History: Reports: None Immunologic History: Reports: None Oncologic (Cancer) History: Reports: None Dermatologic History: Reports: None - Infectious Disease History Infectious Disease History: Reports: Chicken Pox - Past Surgical History Head Surgeries/Procedures: Reports: None HEENT Surgical History: Reports: Adenoidectomy, Oral Surgery, Tonsillectomy Other HEENT Surgeries/Procedures: WISDOM TEETH EXTRACTION Cardiovascular Surgical History: Reports: None Respiratory Surgical History: Reports: None GI Surgical History: Reports: EGD Female Surgical History: Reports: Other (See Below) Other Female Surgeries/Procedures: IUD INSERTION-REMOVED; PATIENT STATES IT WAS EXPELLED FROM BODY Endocrine Surgical History: Reports: None Neurological Surgical History: Reports: None Musculoskeletal Surgical History: Reports: None Oncologic Surgical History: Reports: None Dermatological Surgical History: Reports: None Social & Family History - Family History Family Medical History: Noncontributory - Tobacco Use Smoking Status *Q: Never Smoker Second Hand Smoke Exposure: No - Caffeine Use Caffeine Use: Reports: Soda, Tea - Recreational Drug Use Recreational Drug Use: No - Sexual History Sexual History: Reports: Sexually Active - Living Situation & Occupation Living situation: Reports: with Family Occupation: Unemployed ED ROS ENT - Review of Systems Review Of Systems: ROS reveals no pertinent complaints other than HPI. ED EXAM, ENT - Physical Exam Exam: See Below Exam Limited By: No Limitations General Appearance: Alert, Mild Distress, Obese Eye Exam: Bilateral Eye: EOMI Ears: Normal Canal (left,), Normal TMs (left), Mastoid Tenderness (right), Other (right ear canal swollen unable to visualize right TM ) Nose: Normal Inspection Mouth/Throat: Normal Inspection, Tonsillar Swelling Head: Normocephalic, Sinus Tenderness (frontal, maxillary ethmoid) Respiratory/Chest: No Respiratory Distress, Lungs Clear Cardiovascular: Normal Peripheral Pulses, Regular Rate, Rhythm Extremities: Normal Range of Motion Neurological: Alert, Oriented, Normal Cognition Psychiatric: Normal Affect, Normal Mood Skin: Warm, Dry, Intact, Normal Color Course - Vital Signs Last Recorded V/S: Last Vital Signs Temp 98 F 09/28/18 23:35 Pulse 99 09/28/18 23:35 Resp 19 09/28/18 23:35 BP 120/89 09/28/18 23:35 Pulse Ox 99 09/28/18 23:35 - Orders/Labs/Meds Orders: Active Orders 24 hr Category Date Time Status CULTURE STREP A CONFIRMATION [RM] Stat Lab 09/28/18 22:18 Results STREP SCRN A RAPID W CULT CONF [RM] Stat Lab 09/28/18 22:18 Results Meds: Medications Discontinued Medications Generic Name Dose Route Start Last Admin Trade Name Freq PRN Reason Stop Dose Admin Hydrocodone Bitart/Acetaminophen Confirm 09/28/18 23:26 09/28/18 23:34 Aurora 325-10 Mg Administered 09/28/18 23:27 Not Given Dose 2 tab .ROUTE .STK-MED ONE Amoxicillin/Clavulanate Potassium Confirm 09/28/18 23:27 09/28/18 23:34 Augmentin 875 Mg/125 Mg Administered 09/28/18 23:28 Not Given Dose 3 tab .ROUTE .STK-MED ONE Diphenhydramine HCl Confirm 09/28/18 23:27 09/28/18 23:34 Benadryl Administered 09/28/18 23:28 Not Given Dose 50 mg .ROUTE .STK-MED ONE Departure - Departure Time of Disposition: 23:24 Disposition: Home, Self-Care 01 Condition: Good Clinical Impression: Headache in front of head Otitis externa Qualifiers: Otitis externa type: unspecified type Chronicity: acute Laterality: right Qualified Code(s): H60.501 - Unspecified acute noninfective otitis externa, right ear Sinusitis Qualifiers: Sinusitis location: pansinusitis Chronicity: acute Recurrence: not specified as recurrent Qualified Code(s): J01.40 - Acute pansinusitis, unspecified Mastoid pain Qualifiers: Laterality: right Qualified Code(s): H92.01 - Otalgia, right ear - Discharge Information *PRESCRIPTION DRUG MONITORING PROGRAM REVIEWED*: Yes *COPY OF PRESCRIPTION DRUG MONITORING REPORT IN PATIENT RILEY: No Instructions: Sinusitis, Adult, [id number] Referrals: Lowell Rodriguez MD [Primary Care Provider] - Forms: ED Department Discharge Additional Instructions: increase fluid intake benadryl 50mg at bedtime as needed hydrocodone 10/325 one at bed nightly as needed #2 augmentin 875mg one twice daily for 10 days follow up in clinic with primary care on wednesday for recheck ENT follow up as scheduled - My Orders Last 24 Hours: My Active Orders 09/28/18 22:18 CULTURE STREP A CONFIRMATION [RM] Stat STREP SCRN A RAPID W CULT CONF [] Stat - Assessment/Plan Last 24 Hours: My Active Orders 09/28/18 22:18 CULTURE STREP A CONFIRMATION [RM] Stat STREP SCRN A RAPID W CULT CONF [RM] Stat
[2018-09-28 23:36] VITALS: BP 120/89
== END 2018-09-28 23:35 | disposition home or self-care (01) ==
LOC: DL.ED 22:08
DX: J01.40 Acute pansinusitis, unspecified (principal); H92.01 Otalgia, right ear; H60.501 Unspecified acute noninfective otitis externa, right ear; Z88.8 Allergy status to other drugs, medicaments and biological substances; Z79.899 Other long term (current) drug therapy
CPT/HCPCS: 87081; 87430; 99283; A9270; Q0163

== ENCOUNTER 2018-10-05 22:18 | Emergency (ER) | payer MEDICAID ==
[2018-10-05 22:29] VITALS: BP 108/85
[2018-10-06] MEDS ORDERED: Codeine/guaiFENesin 100-10 MG/5 ML Syrup 5 ML Cup PO ONE (00:25)
[2018-10-06] MEDS ORDERED: methylPREDNISolone Sodium Succinate 125 MG/2 ML SDV IM ONE (00:25)
--- NOTE | 2018-10-06 00:37 | EDM.PDOC ---
ED HPI GENERAL MEDICAL PROBLEM - General Chief Complaint: Respiratory Problem Stated Complaint: SICK [id number] Time Seen by Provider: 10/06/18 00:25 Source of Information: Reports: Patient History Limitations: Reports: No Limitations - History of Present Illness INITIAL COMMENTS - FREE TEXT/NARRATIVE: This 23 yo female patient reports to the ED with an increased cough since she was discharged from [facility] in [place]. The patient reports she was in [facility] for an ear infection, but began to develop a cough just prior to discharge. The patient is currently on cipro ear drops and levaquin. Duration: Day(s):, Constant, Getting Worse Location: Reports: Chest Quality: Reports: Other Severity: Moderate Improves with: Reports: None Worsens with: Reports: None Associated Symptoms: Reports: Cough, Nausea/Vomiting Chest Pain Score (Numeric/FACES): 7 - Related Data Allergies Allergy/AdvReac Type Severity Reaction Status Date / Time fentanyl Allergy Rash Verified 10/05/18 22:24 Home Meds: Home Meds Omeprazole 20 mg PO DAILY 04/01/18 [History] Acetaminophen/Caffeine [Excedrin Tension Headache Cplt] 1 tab PO ASDIRECTED PRN 04/05/18 [History] Cholecalciferol (Vitamin D3) [Vitamin D] 5,000 unit PO DAILY 04/25/18 [History] metFORMIN HCl [Metformin HCl] 1 tab PO DAILY 05/05/18 [History] Past Medical History - Past Health History Medical/Surgical History: Denies Medical/Surgical History HEENT History: Reports: Impaired Vision, Otitis Media Other HEENT History: HAS PRESCRIBED CORRECTIVE LENSES; DOES NOT WEAR THEM Cardiovascular History: Reports: None Respiratory History: Reports: None Gastrointestinal History: Reports: Cholelithiasis, GERD Genitourinary History: Reports: UTI, Recurrent Other Genitourinary History: 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 Musculoskeletal History: Reports: Fracture Other Musculoskeletal History: HX OF WRIST & ANKLE FRACTURE Neurological History: Reports: Headaches, Chronic, Migraines Psychiatric History: Reports: Anxiety Endocrine/Metabolic History: Reports: Obesity/BMI 30+ Hematologic History: Reports: None Immunologic History: Reports: None Oncologic (Cancer) History: Reports: None Dermatologic History: Reports: None - Infectious Disease History Infectious Disease History: Reports: Chicken Pox - Past Surgical History Head Surgeries/Procedures: Reports: None HEENT Surgical History: Reports: Adenoidectomy, Oral Surgery, Tonsillectomy Other HEENT Surgeries/Procedures: WISDOM TEETH EXTRACTION Cardiovascular Surgical History: Reports: None Respiratory Surgical History: Reports: None GI Surgical History: Reports: EGD Female Surgical History: Reports: Other (See Below) Other Female Surgeries/Procedures: IUD INSERTION-REMOVED; PATIENT STATES IT WAS EXPELLED FROM BODY Endocrine Surgical History: Reports: None Neurological Surgical History: Reports: None Musculoskeletal Surgical History: Reports: None Oncologic Surgical History: Reports: None Dermatological Surgical History: Reports: None Social & Family History - Family History Family Medical History: Noncontributory - Tobacco Use Smoking Status *Q: Never Smoker - Caffeine Use Caffeine Use: Reports: Soda, Tea - Recreational Drug Use Recreational Drug Use: No - Sexual History Sexual History: Reports: Sexually Active - Living Situation & Occupation Living situation: Reports: with Family Occupation: Unemployed ED ROS GENERAL - Review of Systems Review Of Systems: ROS reveals no pertinent complaints other than HPI. ED EXAM, GENERAL - Physical Exam Exam: See Below Exam Limited By: No Limitations General Appearance: Alert, WD/WN, Moderate Distress, Obese (morbid) Eye Exam: Bilateral Eye: EOMI, Normal Inspection, PERRL Ears: Normal External Exam, Other (canals are partially occluded with cerumen) Nose: Normal Inspection, Normal Mucosa, No Blood Head: Atraumatic, Normocephalic Neck: Normal Inspection, Supple, Non-Tender, Full Range of Motion Respiratory/Chest: No Respiratory Distress, Lungs Clear, Normal Breath Sounds, No Accessory Muscle Use, Chest Non-Tender Cardiovascular: Normal Peripheral Pulses, Regular Rate, Rhythm, No Edema, No Gallop, No JVD, No Murmur, No Rub GI/Abdominal: Normal Bowel Sounds, Soft, Non-Tender, No Organomegaly, No Distention, No Abnormal Bruit, No Mass, Pelvis Stable, Other (obese) (Female) Exam: Deferred Rectal (Female) Exam: Deferred Back Exam: Normal Inspection, Full Range of Motion, NT Extremities: Normal Inspection, Normal Range of Motion, Non-Tender, Normal Capillary Refill, No Pedal Edema Neurological: Alert, Oriented, CN II-XII Intact, Normal Cognition, Normal Gait, Normal Reflexes, No Motor/Sensory Deficits Psychiatric: Normal Affect, Normal Mood Skin Exam: Warm, Dry, Intact, Normal Color, No Rash Lymphatic: No Adenopathy Course - Vital Signs Last Recorded V/S: Last Vital Signs Temp 37.1 C 10/05/18 22:25 Pulse 100 10/05/18 22:25 Resp 22 H 10/05/18 22:25 BP 108/85 10/05/18 22:25 Pulse Ox 99 10/05/18 22:25 - Orders/Labs/Meds Labs: Laboratory Tests 10/05/18 10/05/18 Range/Units 22:57 22:57 WBC 10.0 (5.0-10.0) 10^3/uL RBC 4.59 (4.2-5.4) 10^6/uL Hgb 13.1 (12.0-16.0) g/dL Hct 40.4 (37.0-47.0) % MCV 88.0 (80-100) fL MCH 28.5 (27.0-34.0) pg MCHC 32.4 L (33.0-35.0) g/dL Plt Count 319 D (150-450) 10^3/uL Neut % (Auto) 65.0 (42.2-75.2) % Lymph % (Auto) 27.5 (20.5-50.1) % Arthur % (Auto) 5.3 (2-8) % Eos % (Auto) 1.8 (1.0-3.0) % Baso % (Auto) 0.4 (0.0-1.0) % Monoscreen Negative Meds: Medications Discontinued Medications Generic Name Dose Route Start Last Admin Trade Name Nobleq PRN Reason Stop Dose Admin Guaifenesin/Codeine Phosphate 5 ml 10/06/18 00:25 Robitussin Ac PO 10/06/18 00:26 ONETIME ONE Methylprednisolone Sodium Succinate 125 mg 10/06/18 00:25 Solu-Medrol IM 10/06/18 00:26 ONETIME ONE Departure - Departure Time of Disposition: 00:31 Disposition: Home, Self-Care 01 Condition: Fair Clinical Impression: Bronchitis - Discharge Information *PRESCRIPTION DRUG MONITORING PROGRAM REVIEWED*: Not Applicable *COPY OF PRESCRIPTION DRUG MONITORING REPORT IN PATIENT RILEY: Not Applicable Instructions: Upper Respiratory Infection, Adult, [id number] Forms: ED Department Discharge Care Plan Goals: The patient was advised of the examination and lab results during the visit. The patient was given an oral dose of Robitussin AC and an injection of SoluMedrol while in the ED. The patient was discharged with a script for Robitussin AC #100 mL to take 10 mL by mouth at bedtime and Prednisone (20 mg) # 10 to take 2 by mouth daily for 5 days. The patient was encouraged to finish her current antibiotics as prescribed. The patient was also encouraged to use a humidifier in her bedroom. If the patient has any additional symptoms or concerns, the patient should either return to the emergency department or visit her primary care facility.
== END 2018-10-06 01:00 | disposition home or self-care (01) ==
LOC: DL.ED 22:18
DX: J40 Bronchitis, not specified as acute or chronic (principal); K21.9 Gastro-esophageal reflux disease without esophagitis; F41.9 Anxiety disorder, unspecified; Z79.899 Other long term (current) drug therapy; Z88.8 Allergy status to other drugs, medicaments and biological substances
CPT/HCPCS: 36415; 85025; 86308; 87804; 96372; 99283; A9270; J2930

== ENCOUNTER 2018-10-12 19:17 | Emergency (ER) | payer MEDICAID | END 2018-10-12 20:54 | disposition left against medical advice (07) | LOC: DL.ED 19:17 | DX: Z53.21 Procedure and treatment not carried out due to patient leaving prior to being seen by health care provider (principal) ==

== ENCOUNTER 2018-10-23 21:55 | Emergency (ER) | payer MEDICAID ==
[2018-10-23 22:29] VITALS: BP 158/94
[2018-10-24 00:23] LABS: CHLORIDE,CL 100 mmol/L (101-111); SODIUM,NA 136 mmol/L (135-145)
[2018-10-24] MEDS ORDERED: Benzonatate 100 MG Cap PO ONE (00:41)
[2018-10-24] MEDS ORDERED: Ketorolac 30 MG/ML SDV IM ONE (00:41)
[2018-10-24] MEDS ORDERED: Levofloxacin 500 MG Tab PO ONE (00:41)
--- NOTE | 2018-10-24 00:47 | EDM.PDOC ---
ED HPI GENERAL MEDICAL PROBLEM - General Chief Complaint: Abdominal Pain Stated Complaint: SHORTNESS OF BREATH [id number] Time Seen by Provider: 10/24/18 00:30 Source of Information: Reports: Patient History Limitations: Reports: No Limitations - History of Present Illness INITIAL COMMENTS - FREE TEXT/NARRATIVE: This 23 yo female patient reports to the ED with a cough, fever/chills and left posterior rib pain. The patient reports she has had this cough for the past month and has been on antibiotics, but continues to cough and feel terrible. 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 Left Flank Pain Score (Numeric/FACES): 4 - Related Data Allergies Allergy/AdvReac Type Severity Reaction Status Date / Time fentanyl Allergy Rash Verified 10/05/18 22:24 Home Meds: Home Meds Omeprazole 20 mg PO DAILY 04/01/18 [History] Acetaminophen/Caffeine [Excedrin Tension Headache Cplt] 1 tab PO ASDIRECTED PRN 04/05/18 [History] Cholecalciferol (Vitamin D3) [Vitamin D] 5,000 unit PO DAILY 04/25/18 [History] metFORMIN HCl [Metformin HCl] 1 tab PO DAILY 05/05/18 [History] Past Medical History - Past Health History Medical/Surgical History: Denies Medical/Surgical History HEENT History: Reports: Impaired Vision, Otitis Media Other HEENT History: HAS PRESCRIBED CORRECTIVE LENSES; DOES NOT WEAR THEM Cardiovascular History: Reports: None Respiratory History: Reports: None Gastrointestinal History: Reports: Cholelithiasis, GERD Genitourinary History: Reports: UTI, Recurrent Other Genitourinary History: 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 Musculoskeletal History: Reports: Fracture Other Musculoskeletal History: HX OF WRIST & ANKLE FRACTURE Neurological History: Reports: Headaches, Chronic, Migraines Psychiatric History: Reports: Anxiety Endocrine/Metabolic History: Reports: Obesity/BMI 30+ Hematologic History: Reports: None Immunologic History: Reports: None Oncologic (Cancer) History: Reports: None Dermatologic History: Reports: None - Infectious Disease History Infectious Disease History: Reports: Chicken Pox - Past Surgical History Head Surgeries/Procedures: Reports: None HEENT Surgical History: Reports: Adenoidectomy, Oral Surgery, Tonsillectomy Other HEENT Surgeries/Procedures: WISDOM TEETH EXTRACTION Cardiovascular Surgical History: Reports: None Respiratory Surgical History: Reports: None GI Surgical History: Reports: EGD Female Surgical History: Reports: Other (See Below) Other Female Surgeries/Procedures: IUD INSERTION-REMOVED; PATIENT STATES IT WAS EXPELLED FROM BODY Endocrine Surgical History: Reports: None Neurological Surgical History: Reports: None Musculoskeletal Surgical History: Reports: None Oncologic Surgical History: Reports: None Dermatological Surgical History: Reports: None Social & Family History - Family History Family Medical History: Noncontributory - Caffeine Use Caffeine Use: Reports: Coffee, Soda - Recreational Drug Use Recreational Drug Use: No - Sexual History Sexual History: Reports: Sexually Active - Living Situation & Occupation Living situation: Reports: with Family Occupation: Unemployed ED ROS GENERAL - Review of Systems Review Of Systems: ROS reveals no pertinent complaints other than HPI. ED EXAM, GENERAL - Physical Exam Exam: See Below Exam Limited By: No Limitations General Appearance: Alert, WD/WN, Moderate Distress Eye Exam: Bilateral Eye: EOMI, Normal Inspection, PERRL Ears: Normal External Exam, Normal Canal, Hearing Grossly Normal, Normal TMs Nose: Normal Inspection, Normal Mucosa, No Blood Throat/Mouth: Normal Inspection, Normal Lips, Normal Teeth, Normal Gums, Normal Oropharynx, Normal Voice, No Airway Compromise Head: Atraumatic, Normocephalic Neck: Normal Inspection, Supple, Non-Tender, Full Range of Motion Respiratory/Chest: Rhonchi (diffuse lower lobes) Cardiovascular: Normal Peripheral Pulses, Regular Rate, Rhythm, No Edema, No Gallop, No JVD, No Murmur, No Rub GI/Abdominal: Normal Bowel Sounds, Soft, Non-Tender, No Organomegaly, No Distention, No Abnormal Bruit, No Mass, Other (morbid obesity) (Female) Exam: Deferred Rectal (Female) Exam: Deferred Back Exam: Normal Inspection, Full Range of Motion, NT Extremities: Normal Inspection, Normal Range of Motion, Non-Tender, Normal Capillary Refill, No Pedal Edema Neurological: Alert, Oriented, CN II-XII Intact, Normal Cognition, Normal Gait, Normal Reflexes, No Motor/Sensory Deficits Psychiatric: Normal Affect, Normal Mood Skin Exam: Warm, Dry, Intact, Normal Color, No Rash Lymphatic: No Adenopathy Course - Vital Signs Last Recorded V/S: Last Vital Signs Temp 36.2 C 10/23/18 22:25 Pulse 116 H 10/23/18 22:25 Resp 22 H 10/23/18 22:25 BP 158/94 H 10/23/18 22:25 Pulse Ox 100 10/23/18 22:25 - Orders/Labs/Meds Orders: Active Orders 24 hr Category Date Time Status CBC WITH AUTO DIFF [HEME] Urgent Lab 10/24/18 00:29 Ordered Benzonatate [Tessalon Perles] Med 10/24/18 00:41 Once 200 mg PO ONETIME ONE Ketorolac [Toradol] Med 10/24/18 00:41 Once 30 mg IM ONETIME ONE levoFLOXacin [Levaquin] Med 10/24/18 00:41 Once 500 mg PO ONETIME ONE Medication Orders Benzonatate (Tessalon Perles) 200 mg PO ONETIME ONE Stop: 10/24/18 00:42 Ketorolac Tromethamine (Toradol) 30 mg IM ONETIME ONE Stop: 10/24/18 00:42 Levofloxacin (Levaquin) 500 mg PO ONETIME ONE Stop: 10/24/18 00:42 Labs: Laboratory Tests 10/23/18 10/23/18 10/23/18 Range/Units 23:55 23:55 23:55 WBC Cancelled 13.0 H RBC Cancelled 4.78 Hgb Cancelled 13.9 Hct Cancelled 42.7 MCV Cancelled 89.3 MCH Cancelled 29.1 MCHC Cancelled 32.6 L Plt Count Cancelled 283 Neut % (Auto) 67.9 (42.2-75.2) % Lymph % (Auto) 24.9 (20.5-50.1) % [place] % (Auto) 5.3 (2-8) % Eos % (Auto) 1.5 (1.0-3.0) % Baso % (Auto) 0.4 (0.0-1.0) % Add Manual Diff Yes Sodium 136 (135-145) mmol/L Potassium 4.0 (3.6-5.0) mmol/L Chloride 100 L (101-111) mmol/L Carbon Dioxide 23.0 (21.0-31.0) mmol/L Anion Gap 17.0 BUN 10 (7-18) mg/dL Creatinine 0.7 (0.6-1.3) mg/dL Est Cr Clr Drug Dosing 98.86 mL/min Estimated GFR (MDRD) > 60 BUN/Creatinine Ratio 14.28 Glucose 167 H (74-105) mg/dL Calcium 9.3 (8.4-10.2) mg/dl Total Bilirubin 0.4 (0.2-1.0) mg/dL AST 49 H (10-42) IU/L ALT 49 (10-60) IU/L Alkaline Phosphatase 86 (42-121) IU/L Total Protein 7.2 (6.7-8.2) g/dl Albumin 3.5 (3.2-5.5) g/dl Globulin 3.7 Albumin/Globulin Ratio 0.95 Meds: Medications Generic Name Dose Route Start Last Admin Trade Name Freq PRN Reason Stop Dose Admin Benzonatate 200 mg 10/24/18 00:41 Tessalon Perles PO 10/24/18 00:42 ONETIME ONE Ketorolac Tromethamine 30 mg 10/24/18 00:41 Toradol IM 10/24/18 00:42 ONETIME ONE Levofloxacin 500 mg 10/24/18 00:41 Levaquin PO 10/24/18 00:42 ONETIME ONE Departure - Departure Time of Disposition: 00:47 Disposition: Home, Self-Care 01 Condition: Fair Clinical Impression: Acute bronchitis Qualifiers: Bronchitis organism: unspecified organism Qualified Code(s): J20.9 - Acute bronchitis, unspecified Chest wall muscle strain Qualifiers: Encounter type: initial encounter Qualified Code(s): S29.011A - Strain of muscle and tendon of front wall of thorax, initial encounter - Discharge Information *PRESCRIPTION DRUG MONITORING PROGRAM REVIEWED*: Not Applicable *COPY OF PRESCRIPTION DRUG MONITORING REPORT IN PATIENT RILEY: Not Applicable Instructions: Acute Bronchitis, Adult, [id number], Muscle Strain, Easy-to- Read Referrals: Lowell Rodriguez MD [Primary Care Provider] - Care Plan Goals: The patient was advised of the examination, lab and x-ray results during the visit. The patient was given an injection of Toradol, an oral dose of Levaquin and an oral dose of Tessalon Pearles while in the ED. The patient was discharged with a script for Levaquin (500 mg) #6 to take 1 by mouth daily and Tessalon Pearles (200 mg) #30 to take 1 by mouth 4 times per day as needed. If the patient has any additional symptoms or concerns, the patient should either return to the emergency department or visit her primary care facility. - My Orders Last 24 Hours: My Active Orders 10/24/18 00:29 CBC WITH AUTO DIFF [HEME] Urgent 10/24/18 00:41 Benzonatate [Tessalon Perles] 200 mg PO ONETIME ONE Ketorolac [Toradol] 30 mg IM ONETIME ONE levoFLOXacin [Levaquin] 500 mg PO ONETIME ONE - Assessment/Plan Last 24 Hours: My Active Orders 10/24/18 00:29 CBC WITH AUTO DIFF [HEME] Urgent 10/24/18 00:41 Benzonatate [Tessalon Perles] 200 mg PO ONETIME ONE Ketorolac [Toradol] 30 mg IM ONETIME ONE levoFLOXacin [Levaquin] 500 mg PO ONETIME ONE
== END 2018-10-24 00:55 | disposition home or self-care (01) ==
LOC: DL.ED 21:55
DX: J20.9 Acute bronchitis, unspecified (principal); S29.011A Strain of muscle and tendon of front wall of thorax, initial encounter; F41.9 Anxiety disorder, unspecified; K21.9 Gastro-esophageal reflux disease without esophagitis; Z79.899 Other long term (current) drug therapy; Z88.8 Allergy status to other drugs, medicaments and biological substances; X58.XXXA Exposure to other specified factors, initial encounter
CPT/HCPCS: 36415; 71046; 80053; 85025; 96372; 99283; A9270; J1885

== ENCOUNTER 2018-10-30 23:51 | Emergency (ER) | payer MEDICAID ==
[2018-10-31 00:12] VITALS: BP 137/93
[2018-10-31] MEDS ORDERED: Ketorolac 30 MG/ML SDV IVPUSH ONE (00:36)
[2018-10-31] MEDS ORDERED: Promethazine 25 MG/ML SDV IM ONE (00:36)
--- NOTE | 2018-10-31 00:42 | EDM.PDOC ---
ED HPI GENERAL MEDICAL PROBLEM - General Chief Complaint: Back Pain or Injury Stated Complaint: MUSCLE SPASMS [id number] Time Seen by Provider: 10/31/18 00:37 Source of Information: Reports: Patient History Limitations: Reports: No Limitations - History of Present Illness INITIAL COMMENTS - FREE TEXT/NARRATIVE: c/o pain under left rib area of back for a month. been getting more and more uncomfortable, tried ice/heat but '0'. tonight it suddenly went into spasm. denies injury. states is localized and doesn't radiate. 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, Cold Therapy, NSAIDS, Other (see below) Other Treatments REFINERY SUPERINTENDENT: icy-hot, heating pack Left Middle Posterior Chest Pain Score (Numeric/FACES): 10 - Related Data Allergies Allergy/AdvReac Type Severity Reaction Status Date / Time fentanyl Allergy Rash Verified 10/31/18 00:36 Home Meds: Home Meds Omeprazole 20 mg PO DAILY 04/01/18 [History] Acetaminophen/Caffeine [Excedrin Tension Headache Cplt] 1 tab PO ASDIRECTED PRN 04/05/18 [History] Cholecalciferol (Vitamin D3) [Vitamin D] 5,000 unit PO DAILY 04/25/18 [History] metFORMIN HCl [Metformin HCl] 1 tab PO DAILY 05/05/18 [History] Past Medical History - Past Health History Medical/Surgical History: Denies Medical/Surgical History HEENT History: Reports: Impaired Vision, Otitis Media Other HEENT History: HAS PRESCRIBED CORRECTIVE LENSES; DOES NOT WEAR THEM Cardiovascular History: Reports: None Respiratory History: Reports: None Gastrointestinal History: Reports: Cholelithiasis, GERD Genitourinary History: Reports: UTI, Recurrent Other Genitourinary History: 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 Musculoskeletal History: Reports: Fracture Other Musculoskeletal History: HX OF WRIST & ANKLE FRACTURE Neurological History: Reports: Headaches, Chronic, Migraines Psychiatric History: Reports: Anxiety Endocrine/Metabolic History: Reports: Obesity/BMI 30+ Hematologic History: Reports: None Immunologic History: Reports: None Oncologic (Cancer) History: Reports: None Dermatologic History: Reports: None - Infectious Disease History Infectious Disease History: Reports: Chicken Pox - Past Surgical History Head Surgeries/Procedures: Reports: None HEENT Surgical History: Reports: Adenoidectomy, Oral Surgery, Tonsillectomy Other HEENT Surgeries/Procedures: WISDOM TEETH EXTRACTION Cardiovascular Surgical History: Reports: None Respiratory Surgical History: Reports: None GI Surgical History: Reports: EGD Female Surgical History: Reports: Other (See Below) Other Female Surgeries/Procedures: IUD INSERTION-REMOVED; PATIENT STATES IT WAS EXPELLED FROM BODY Endocrine Surgical History: Reports: None Neurological Surgical History: Reports: None Musculoskeletal Surgical History: Reports: None Oncologic Surgical History: Reports: None Dermatological Surgical History: Reports: None Social & Family History - Family History Family Medical History: Noncontributory - Tobacco Use Smoking Status *Q: Never Smoker Second Hand Smoke Exposure: No - Caffeine Use Caffeine Use: Reports: None - Recreational Drug Use Recreational Drug Use: No - Sexual History Sexual History: Reports: Sexually Active - Living Situation & Occupation Living situation: Reports: with Family Occupation: Unemployed ED ROS GENERAL - Review of Systems Review Of Systems: ROS reveals no pertinent complaints other than HPI. ED EXAM,LOWER BACK PAIN/INJURY - Physical Exam Exam: See Below Exam Limited By: No Limitations General Appearance: Alert, WD/WN, Mild Distress, Other (crying) Ears: Hearing Grossly Normal Throat/Mouth: Normal Voice, No Airway Compromise Head: Atraumatic Neck: Non-Tender, Full Range of Motion Respiratory/Chest: No Respiratory Distress, Lungs Clear, Normal Breath Sounds Cardiovascular: Regular Rate, Rhythm GI/Abdominal: Soft, Non-Tender Back Exam: Muscle Spasm, Paraspinal Tenderness, Other (left L2-3-4 region without radiculitis, gait limted to pain.). No: CVA Tenderness (L), CVA Tenderness (R) Neurological: Alert, No Motor/Sensory Deficits, Oriented x 3 Psychiatric: Tearful Skin Exam: Warm, Dry, Normal Color Lymphatic: No Adenopathy Course - Vital Signs Last Recorded V/S: Last Vital Signs Temp 37.1 C 10/31/18 00:05 Pulse 138 H 10/31/18 00:05 Resp 32 H 10/31/18 00:05 BP 137/93 H 10/31/18 00:05 Pulse Ox 100 10/31/18 00:05 - Orders/Labs/Meds Meds: Medications Discontinued Medications Generic Name Dose Route Start Last Admin Trade Name Freq PRN Reason Stop Dose Admin Ketorolac Tromethamine 30 mg 10/31/18 00:36 10/31/18 00:46 Toradol IVPUSH 10/31/18 00:37 30 mg ONETIME ONE Administration Orphenadrine Citrate 60 mg 10/31/18 00:45 10/31/18 00:48 Norflex IM Not Given Q12H LEROY Orphenadrine Citrate 60 mg 10/31/18 00:40 10/31/18 00:47 Norflex IM 10/31/18 00:41 60 mg ONETIME ONE Administration Promethazine HCl 25 mg 10/31/18 00:36 10/31/18 00:46 Phenergan IM 10/31/18 00:37 25 mg ONETIME ONE Administration - Re-Assessments/Exams Free Text/Narrative Re-Assessment/Exam: 10/31/18 00:59 re-exam; s/p IM Rx = much better. Departure - Departure Time of Disposition: 00:59 Disposition: Home, Self-Care 01 Condition: Good Clinical Impression: Lumbar paraspinal muscle spasm - Discharge Information Instructions: Muscle Cramps and Spasms, [id number] Forms: ED Department Discharge Additional Instructions: 1) avoid bending lifting straining 2) follow up at clinic rx given; flexeril 10mg bid prn x 12
== END 2018-10-31 01:05 | disposition home or self-care (01) ==
LOC: DL.ED 23:51
DX: M62.830 Muscle spasm of back (principal); K21.9 Gastro-esophageal reflux disease without esophagitis; Z88.8 Allergy status to other drugs, medicaments and biological substances; Z79.899 Other long term (current) drug therapy; Z79.84 Long term (current) use of oral hypoglycemic drugs
CPT/HCPCS: 96372; 99282; J1885; J2360; J2550

== ENCOUNTER 2018-11-06 20:57 | Emergency (ER) | payer MEDICAID ==
[2018-11-06 21:14] VITALS: BP 119/74
[2018-11-06] MEDS ORDERED: traMADol 50 MG Tab PO ONE (22:19)
--- NOTE | 2018-11-06 22:24 | EDM.PDOC ---
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 Left Posterior Back Pain Score (Numeric/FACES): 8 - Related Data Allergies Allergy/AdvReac Type Severity Reaction Status Date / Time fentanyl Allergy Rash Verified 10/31/18 00:36 Home Meds: Home Meds Omeprazole 20 mg PO DAILY 04/01/18 [History] Acetaminophen/Caffeine [Excedrin Tension Headache Cplt] 1 tab PO ASDIRECTED PRN 04/05/18 [History] Cholecalciferol (Vitamin D3) [Vitamin D] 5,000 unit PO DAILY 04/25/18 [History] metFORMIN HCl [Metformin HCl] 1 tab PO DAILY 05/05/18 [History] Past Medical History - Past Health History Medical/Surgical History: Denies Medical/Surgical History HEENT History: Reports: Impaired Vision, Otitis Media Other HEENT History: HAS PRESCRIBED CORRECTIVE LENSES; DOES NOT WEAR THEM Cardiovascular History: Reports: None Respiratory History: Reports: None Gastrointestinal History: Reports: Cholelithiasis, GERD Genitourinary History: Reports: UTI, Recurrent Other Genitourinary History: 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 Musculoskeletal History: Reports: Fracture Other Musculoskeletal History: HX OF WRIST & ANKLE FRACTURE Neurological History: Reports: Headaches, Chronic, Migraines Psychiatric History: Reports: Anxiety Endocrine/Metabolic History: Reports: Obesity/BMI 30+ Hematologic History: Reports: None Immunologic History: Reports: None Oncologic (Cancer) History: Reports: None Dermatologic History: Reports: None - Infectious Disease History Infectious Disease History: Reports: Chicken Pox - Past Surgical History Head Surgeries/Procedures: Reports: None HEENT Surgical History: Reports: Adenoidectomy, Oral Surgery, Tonsillectomy Other HEENT Surgeries/Procedures: WISDOM TEETH EXTRACTION Cardiovascular Surgical History: Reports: None Respiratory Surgical History: Reports: None GI Surgical History: Reports: EGD Female Surgical History: Reports: Other (See Below) Other Female Surgeries/Procedures: IUD INSERTION-REMOVED; PATIENT STATES IT WAS EXPELLED FROM BODY Endocrine Surgical History: Reports: None Neurological Surgical History: Reports: None Musculoskeletal Surgical History: Reports: None Oncologic Surgical History: Reports: None Dermatological Surgical History: Reports: None Social & Family History - Family History Family Medical History: Noncontributory - Caffeine Use Caffeine Use: Reports: None - Sexual History Sexual History: Reports: Sexually Active - Living Situation & Occupation Living situation: Reports: with Family Occupation: Unemployed Review of Systems - Review of Systems Review Of Systems: ROS reveals no pertinent complaints other than HPI. ED EXAM, GENERAL - Physical Exam Exam: See Below Exam Limited By: No Limitations General Appearance: Alert, WD/WN, Mild Distress, Other (tearful) Ears: Hearing Grossly Normal Throat/Mouth: Normal Voice, No Airway Compromise Head: Atraumatic Neck: Non-Tender, Full Range of Motion Respiratory/Chest: No Respiratory Distress, No Accessory Muscle Use, Other ( tender right subcoatal, no E/C) Cardiovascular: Regular Rate, Rhythm GI/Abdominal: Soft, Non-Tender Neurological: Alert, Oriented, Normal Cognition, Normal Gait, No Motor/Sensory Deficits Psychiatric: Tearful Skin Exam: Warm, Dry, Normal Color Lymphatic: No Adenopathy Course - Vital Signs Last Recorded V/S: Last Vital Signs Temp 37.1 C 11/06/18 21:11 Pulse 104 H 11/06/18 21:11 Resp 19 11/06/18 21:11 BP 119/74 11/06/18 21:11 Pulse Ox 97 11/06/18 21:11 - Orders/Labs/Meds Orders: Active Orders 24 hr Category Date Time Status Ribs 2V w Chest Lt [CR] Urgent Exams 11/06/18 21:16 Taken traMADol [Ultram] Med 11/06/18 22:19 Once 50 mg PO ONETIME ONE Departure - Departure Time of Disposition: 22:22 Disposition: Home, Self-Care 01 Condition: Good Clinical Impression: Intercostal muscle strain Qualifiers: Encounter type: initial encounter Qualified Code(s): S29.011A - Strain of muscle and tendon of front wall of thorax, initial encounter - Discharge Information Instructions: Muscle Strain, [id number] Additional Instructions: 1) rest 2) avoid bending lifting straining next 48 hours 3) try ice or heat to sore areas 4) follow up at clinic - My Orders Last 24 Hours: My Active Orders 11/06/18 21:16 Ribs 2V w Chest Lt [CR] Urgent 11/06/18 22:19 traMADol [Ultram] 50 mg PO ONETIME ONE - Assessment/Plan Last 24 Hours: My Active Orders 11/06/18 21:16 Ribs 2V w Chest Lt [CR] Urgent 11/06/18 22:19 traMADol [Ultram] 50 mg PO ONETIME ONE
== END 2018-11-06 22:28 | disposition home or self-care (01) ==
LOC: DL.ED 20:57
DX: S29.011A Strain of muscle and tendon of front wall of thorax, initial encounter (principal); E66.9 Obesity, unspecified; Z88.5 Allergy status to narcotic agent; Z79.899 Other long term (current) drug therapy; Z79.84 Long term (current) use of oral hypoglycemic drugs; X50.9XXA Other and unspecified overexertion or strenuous movements or postures, initial encounter; Z68.43 Body mass index [BMI] 50.0-59.9, adult
CPT/HCPCS: 71101; 99283; A9270

== ENCOUNTER 2018-12-12 23:50 | Emergency (ER) | payer MEDICAID, OTHER ==
[2018-12-13 02:00] VITALS: BP 115/53; PULSE 88
[2018-12-13] MEDS ORDERED: Ketorolac 30 MG/ML SDV IM ONE (02:10)
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
== END 2018-12-13 02:20 | disposition home or self-care (01) ==
LOC: DL.ED 23:50
DX: R51 Headache (principal); K21.9 Gastro-esophageal reflux disease without esophagitis; Z79.899 Other long term (current) drug therapy; Z88.8 Allergy status to other drugs, medicaments and biological substances; V86.99XA Unspecified occupant of other special all-terrain or other off-road motor vehicle injured in nontraffic accident, initial encounter
CPT/HCPCS: 96372; 99283; J1885

== ENCOUNTER 2019-04-06 08:23 | Emergency (ER) | payer MEDICAID ==
[2019-04-06 08:46] VITALS: BP 116/78; PULSE 84
[2019-04-06] MEDS ORDERED: Ketorolac 30 MG/ML SDV IM ONE (08:58)
[2019-04-06] MEDS ORDERED: Promethazine 25 MG/ML SDV IM ONE (08:59)
--- NOTE | 2019-04-06 09:15 | EDM.PDOC ---
ED HPI GENERAL MEDICAL PROBLEM - General Chief Complaint: Headache Stated Complaint: MIGRAINE Time Seen by Provider: 04/06/19 09:00 Source of Information: Reports: Patient, RN, RN Notes Reviewed History Limitations: Reports: No Limitations - History of Present Illness INITIAL COMMENTS - FREE TEXT/NARRATIVE: Pt to ER with c/o migraine headache. States she normally goes to the clinic for her migraines, but she is unable to get in until late afternoon today. States the headache began about 7pm last night. Was up all night. States she cut some of her hair to relieve the pressure. States sensitivity to light and sound. States she was nauseated last night, but not this morning. Admits to hx of migraines. No recent trauma or hitting her head. Used Tylenol at home with minimal relief. Onset: Gradual Duration: Constant, Getting Worse Location: Reports: Head Treatments CONCRETE TESTER: Reports: Acetaminophen, NSAIDS Headache Pain Score (Numeric/FACES): 8 - Related Data Allergies Allergy/AdvReac Type Severity Reaction Status Date / Time fentanyl Allergy Rash Verified 04/06/19 09:08 Home Meds: Home Meds Omeprazole 20 mg PO DAILY 04/01/18 [History] Acetaminophen/Caffeine [Excedrin Tension Headache Cplt] 1 tab PO ASDIRECTED PRN 04/05/18 [History] Past Medical History - Past Health History Medical/Surgical History: Denies Medical/Surgical History HEENT History: Reports: Impaired Vision, Otitis Media Other HEENT History: HAS PRESCRIBED CORRECTIVE LENSES; DOES NOT WEAR THEM Cardiovascular History: Reports: None Respiratory History: Reports: None Gastrointestinal History: Reports: Cholelithiasis, GERD Genitourinary History: Reports: STD, UTI, Recurrent Other Genitourinary History: CHLAMYDIA MENTAL HEALTH COUNSELOR History: Reports: , Other (See Below) Other MENTAL HEALTH COUNSELOR History: 2 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 Musculoskeletal History: Reports: Fracture, Other (See Below) Other Musculoskeletal History: HX OF WRIST & ANKLE FRACTURE. history of carpal tunnel - states has had nerve stimulation for this Neurological History: Reports: Headaches, Chronic, Migraines Psychiatric History: Reports: Anxiety Endocrine/Metabolic History: Reports: Obesity/BMI 30+ Hematologic History: Reports: None Immunologic History: Reports: None Oncologic (Cancer) History: Reports: None Dermatologic History: Reports: None - Infectious Disease History Infectious Disease History: Reports: Chicken Pox - Past Surgical History Head Surgeries/Procedures: Reports: None HEENT Surgical History: Reports: Adenoidectomy, Oral Surgery, Tonsillectomy Other HEENT Surgeries/Procedures: WISDOM TEETH EXTRACTION Cardiovascular Surgical History: Reports: None Respiratory Surgical History: Reports: None GI Surgical History: Reports: EGD, Other (See Below) Other GI Surgeries/Procedures: Gallbladder surgery Female Surgical History: Reports: Other (See Below) Other Female Surgeries/Procedures: IUD INSERTION-REMOVED; PATIENT STATES IT WAS EXPELLED FROM BODY Endocrine Surgical History: Reports: None Neurological Surgical History: Reports: None Musculoskeletal Surgical History: Reports: None Oncologic Surgical History: Reports: None Dermatological Surgical History: Reports: None Social & Family History - Family History Family Medical History: Noncontributory - Tobacco Use Smoking Status *Q: Never Smoker Second Hand Smoke Exposure: No - Caffeine Use Caffeine Use: Reports: Tea - Recreational Drug Use Recreational Drug Use: No - Sexual History Sexual History: Reports: Sexually Active - Living Situation & Occupation Living situation: Reports: with Family Occupation: Unemployed ED ROS GENERAL - Review of Systems Review Of Systems: ROS reveals no pertinent complaints other than HPI. - Physical Exam Exam: See Below Exam Limited By: No Limitations General Appearance: Alert, WD/WN, No Apparent Distress Eye Exam: Bilateral Eye: EOMI, Normal Inspection Ears: Normal External Exam, Hearing Grossly Normal Nose: Normal Inspection Throat/Mouth: Normal Inspection, Normal Voice, No Airway Compromise Head Exam: Atraumatic, Normocephalic Neck: Normal Inspection, Supple, Non-Tender, Full Range of Motion Respiratory/Chest: No Respiratory Distress, Lungs Clear, Normal Breath Sounds, No Accessory Muscle Use, Chest Non-Tender Cardiovascular: Normal Peripheral Pulses, Regular Rate, Rhythm, No Edema, No Gallop, No JVD, No Murmur, No Rub GI/Abdominal: Normal Bowel Sounds, Soft, Non-Tender (Female) Exam: Deferred Rectal (Female) Exam: Deferred Neuro Exam (Abbreviated): Alert, Oriented, CN II-XII Intact, Normal Cognition, Normal Gait, Normal Reflexes, No Motor/Sensory Deficits Back Exam: Normal Inspection, Full Range of Motion, NT Extremities: Normal Inspection, Normal Range of Motion, Non-Tender, No Pedal Edema, Normal Capillary Refill Psychiatric: Normal Affect, Normal Mood Skin Exam: Warm, Dry, Intact, Normal Color, No Rash Course - Vital Signs Last Recorded V/S: Last Vital Signs Temp 96.9 F 04/06/19 08:40 Pulse 84 04/06/19 08:40 Resp 16 04/06/19 08:40 BP 116/78 04/06/19 08:40 Pulse Ox 100 04/06/19 08:40 - Orders/Labs/Meds Meds: Medications Discontinued Medications Generic Name Dose Route Start Last Admin Trade Name Nurys PRN Reason Stop Dose Admin Ketorolac Tromethamine 30 mg 04/06/19 08:58 04/06/19 09:10 Toradol IM 04/06/19 08:59 30 mg ONETIME ONE Administration Promethazine HCl 25 mg 04/06/19 08:59 04/06/19 09:10 Phenergan IM 04/06/19 09:00 25 mg ONETIME ONE Administration Departure - Departure Time of Disposition: 09:14 Disposition: Home, Self-Care 01 Condition: Fair Clinical Impression: Migraine - Discharge Information *PRESCRIPTION DRUG MONITORING PROGRAM REVIEWED*: No *COPY OF PRESCRIPTION DRUG MONITORING REPORT IN PATIENT RILEY: No Instructions: Migraine Headache, [id number], Recurrent Migraine Headache, [id number] Additional Instructions: Drink plenty of fluids Rest in a quiet, dark room Follow up with your primary care facility if no improvement May use Tylenol and/or Ibuprofen as directed for pain
== END 2019-04-06 09:19 | disposition home or self-care (01) ==
LOC: DL.ED 08:23
DX: G43.909 Migraine, unspecified, not intractable, without status migrainosus (principal); E66.9 Obesity, unspecified; Z98.890 Other specified postprocedural states; Z88.8 Allergy status to other drugs, medicaments and biological substances
CPT/HCPCS: 96372; 99282; J1885; J2550

== ENCOUNTER 2019-07-09 21:05 | Emergency (ER) | payer SELFPAY ==
[2019-07-09 21:21] VITALS: BP 128/42; PULSE 112
--- NOTE | 2019-07-09 21:56 | EDM.PDOC ---
ED HPI GENERAL MEDICAL PROBLEM - General Chief Complaint: Back Pain or Injury Stated Complaint: PAIN IN RIB CAGE AND BY STOMACH. BAD COUGH Time Seen by Provider: 07/09/19 21:51 Source of Information: Reports: Patient History Limitations: Reports: No Limitations - History of Present Illness INITIAL COMMENTS - FREE TEXT/NARRATIVE: gives 1 month h/o on-off mid back pain. last night sat up from sitting with baby and felt sharp pain mid back which finally went away then happen again tonight. states gets hot and sweaty and SOB when the pain comes on. right now feels ok but back still hurts. denies injury to area. states been coughing on- off past week. no known fever but feels hot and sweaty sometimes. hadn't taken anything for it since it goes away. - Related Data Allergies Allergy/AdvReac Type Severity Reaction Status Date / Time fentanyl Allergy Rash Verified 07/09/19 21:24 Home Meds: Home Meds Omeprazole 20 mg PO DAILY 04/01/18 [History] Acetaminophen/Caffeine [Excedrin Tension Headache Cplt] 1 tab PO ASDIRECTED PRN 04/05/18 [History] Past Medical History - Past Health History Medical/Surgical History: Denies Medical/Surgical History HEENT History: Reports: Impaired Vision, Otitis Media Other HEENT History: HAS PRESCRIBED CORRECTIVE LENSES; DOES NOT WEAR THEM Cardiovascular History: Reports: None Respiratory History: Reports: None Gastrointestinal History: Reports: Cholelithiasis, GERD Genitourinary History: Reports: STD, UTI, Recurrent Other Genitourinary History: CHLAMYDIA PEARL PELLER History: Reports: , Other (See Below) Other PEARL PELLER History: 2 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 Musculoskeletal History: Reports: Fracture, Other (See Below) Other Musculoskeletal History: HX OF WRIST & ANKLE FRACTURE. history of carpal tunnel - states has had nerve stimulation for this Neurological History: Reports: Headaches, Chronic, Migraines Psychiatric History: Reports: Anxiety Endocrine/Metabolic History: Reports: Obesity/BMI 30+ Hematologic History: Reports: None Immunologic History: Reports: None Oncologic (Cancer) History: Reports: None Dermatologic History: Reports: None - Infectious Disease History Infectious Disease History: Reports: Chicken Pox - Past Surgical History Head Surgeries/Procedures: Reports: None HEENT Surgical History: Reports: Adenoidectomy, Oral Surgery, Tonsillectomy Other HEENT Surgeries/Procedures: WISDOM TEETH EXTRACTION Cardiovascular Surgical History: Reports: None Respiratory Surgical History: Reports: None GI Surgical History: Reports: EGD, Other (See Below) Other GI Surgeries/Procedures: Gallbladder surgery Female Surgical History: Reports: Other (See Below) Other Female Surgeries/Procedures: IUD INSERTION-REMOVED; PATIENT STATES IT WAS EXPELLED FROM BODY Endocrine Surgical History: Reports: None Neurological Surgical History: Reports: None Musculoskeletal Surgical History: Reports: None Oncologic Surgical History: Reports: None Dermatological Surgical History: Reports: None Social & Family History - Family History Family Medical History: Noncontributory - Tobacco Use Smoking Status *Q: Never Smoker Second Hand Smoke Exposure: No - Caffeine Use Caffeine Use: Reports: Tea - Recreational Drug Use Recreational Drug Use: No - Sexual History Sexual History: Reports: Sexually Active - Living Situation & Occupation Living situation: Reports: with Family Occupation: Unemployed ED ROS GENERAL - Review of Systems Review Of Systems: Comprehensive ROS is negative, except as noted in HPI. ED EXAM, UPPER BACK/NECK PAIN - Physical Exam Exam: See Below Exam Limited By: No Limitations General Appearance: Alert, WD/WN, Mild Distress, Other (upset) Ears Exam: Hearing Grossly Normal Throat/Mouth Exam: Normal Voice, No Airway Compromise Head Exam: Atraumatic Neck Exam: Non-Tender, Full Range of Motion Nexus Criteria: No: Posterior, Midline Cervical Tenderness, Evidence of Intoxication, Altered Level of Consciousness, Focal Neurological Deficit, Painful Distraction Injuries Cardiovascular/Respiratory: Regular Rate, Rhythm, No Respiratory Distress GI/Abdominal: Soft, Non-Tender Back Exam: CVA Tenderness (L), CVA Tenderness (R), Muscle Spasm, Paraspinal Tenderness, Other ([id number] region without radiculitis). No: Decreased Range of Motion Neurologic: No Motor/Sensory Deficits, Alert, Normal Mood/Affect, Oriented x 3 Psychiatric: Flat Affect Skin Exam: Normal Color, Warm/Dry Lymphatic: No Adenopathy Course - Vital Signs Last Recorded V/S: Last Vital Signs Temp 36.3 C 07/09/19 21:18 Pulse 112 H 07/09/19 21:18 Resp 18 07/09/19 21:18 BP 128/42 L 07/09/19 21:18 Pulse Ox 98 07/09/19 21:18 - Orders/Labs/Meds Orders: Active Orders 24 hr Category Date Time Status LORazepam [Ativan] Med 07/09/19 23:01 Once 1 mg PO ONETIME ONE Labs: Laboratory Tests 07/09/19 07/09/19 07/09/19 Range/Units 21:37 21:37 21:37 WBC (5.0-10.0) 10^3/uL RBC (4.2-5.4) 10^6/uL Hgb (12.0-16.0) g/dL Hct (37.0-47.0) % MCV (80-100) fL MCH (27.0-34.0) pg MCHC (33.0-35.0) g/dL Plt Count (150-450) 10^3/uL Neut % (Auto) (42.2-75.2) % Lymph % (Auto) (20.5-50.1) % [place] % (Auto) (2-8) % Eos % (Auto) (1.0-3.0) % Baso % (Auto) (0.0-1.0) % Sodium (135-145) mmol/L Potassium (3.6-5.0) mmol/L Chloride (101-111) mmol/L Carbon Dioxide (21.0-31.0) mmol/L Anion Gap BUN (7-18) mg/dL Creatinine (0.6-1.3) mg/dL Est Cr Clr Drug Dosing mL/min Estimated GFR (MDRD) BUN/Creatinine Ratio Glucose (74-105) mg/dL Calcium (8.4-10.2) mg/dl Total Bilirubin (0.2-1.0) mg/dL AST (10-42) IU/L ALT (10-60) IU/L Alkaline Phosphatase (42-121) IU/L Total Protein (6.7-8.2) g/dl Albumin (3.2-5.5) g/dl Globulin Albumin/Globulin Ratio Urine Color Yellow (YELLOW) Urine Appearance Clear (CLEAR) Urine pH 5.5 (5.0-9.0) Ur Specific Jerome >= 1.030 (1.005-1.030) Urine Protein 30 H (NEGATIVE) Urine Glucose (UA) Negative (NEGATIVE) Urine Ketones Negative (NEGATIVE) Urine Occult Blood Trace-lysed H (NEGATIVE) Urine Nitrite Negative (NEGATIVE) Urine Bilirubin Negative (NEGATIVE) Urine Urobilinogen 1.0 (0.2-1.0) mg/dL Ur Leukocyte Esterase Negative (NEGATIVE) Urine RBC 5-10 H /HPF Urine WBC 5-10 H (0-5/HPF) /HPF Ur Epithelial Cells Moderate H (NOT SEEN) /HPF Calcium Oxalate Crystal Few H (NOT SEEN) /HPF Urine Bacteria Moderate H (0-FEW/HPF) /HPF Urine Mucus Few H (NOT SEEN) /LPF Urine HCG, Qual Negative Urine Opiates Screen Negative (NEGATIVE) Ur Oxycodone Screen Negative (NEGATIVE) Urine Methadone Screen Negative (NEGATIVE) Ur Barbiturates Screen Negative (NEGATIVE) U Tricyclic Antidepress Negative (NEGATIVE) Ur Phencyclidine Scrn Negative (NEGATIVE) Ur Amphetamine Screen Negative (NEGATIVE) U Methamphetamines Scrn Negative (NEGATIVE) Urine MDMA Screen Negative (NEGATIVE) U Benzodiazepines Scrn Negative (NEGATIVE) Urine Cocaine Screen Negative (NEGATIVE) U Marijuana (THC) Screen Positive H (NEGATIVE) 07/09/19 07/09/19 Range/Units 22:08 22:08 WBC 13.6 H (5.0-10.0) 10^3/uL RBC 4.85 (4.2-5.4) 10^6/uL Hgb 13.6 (12.0-16.0) g/dL Hct 41.7 (37.0-47.0) % MCV 86.0 (80-100) fL MCH 28.0 (27.0-34.0) pg MCHC 32.6 L (33.0-35.0) g/dL Plt Count 367 (150-450) 10^3/uL Neut % (Auto) 74.2 (42.2-75.2) % Lymph % (Auto) 19.6 L (20.5-50.1) % [place] % (Auto) 4.9 (2-8) % Eos % (Auto) 1.0 (1.0-3.0) % Baso % (Auto) 0.3 (0.0-1.0) % Sodium 137 (135-145) mmol/L Potassium 3.8 (3.6-5.0) mmol/L Chloride 101 (101-111) mmol/L Carbon Dioxide 27.0 (21.0-31.0) mmol/L Anion Gap 12.8 BUN 11 (7-18) mg/dL Creatinine 0.7 (0.6-1.3) mg/dL Est Cr Clr Drug Dosing 94.32 mL/min Estimated GFR (MDRD) > 60 BUN/Creatinine Ratio 15.71 Glucose 109 H (74-105) mg/dL Calcium 8.9 (8.4-10.2) mg/dl Total Bilirubin 0.6 (0.2-1.0) mg/dL AST 42 (10-42) IU/L ALT 57 (10-60) IU/L Alkaline Phosphatase 96 (42-121) IU/L Total Protein 7.6 (6.7-8.2) g/dl Albumin 3.8 (3.2-5.5) g/dl Globulin 3.8 Albumin/Globulin Ratio 1.00 Urine Color (YELLOW) Urine Appearance (CLEAR) Urine pH (5.0-9.0) Ur Specific Jerome (1.005-1.030) Urine Protein (NEGATIVE) Urine Glucose (UA) (NEGATIVE) Urine Ketones (NEGATIVE) Urine Occult Blood (NEGATIVE) Urine Nitrite (NEGATIVE) Urine Bilirubin (NEGATIVE) Urine Urobilinogen (0.2-1.0) mg/dL Ur Leukocyte Esterase (NEGATIVE) Urine RBC /HPF Urine WBC (0-5/HPF) /HPF Ur Epithelial Cells (NOT SEEN) /HPF Calcium Oxalate Crystal (NOT SEEN) /HPF Urine Bacteria (0-FEW/HPF) /HPF Urine Mucus (NOT SEEN) /LPF Urine HCG, Qual Urine Opiates Screen (NEGATIVE) Ur Oxycodone Screen (NEGATIVE) Urine Methadone Screen (NEGATIVE) Ur Barbiturates Screen (NEGATIVE) U Tricyclic Antidepress (NEGATIVE) Ur Phencyclidine Scrn (NEGATIVE) Ur Amphetamine Screen (NEGATIVE) U Methamphetamines Scrn (NEGATIVE) Urine MDMA Screen (NEGATIVE) U Benzodiazepines Scrn (NEGATIVE) Urine Cocaine Screen (NEGATIVE) U Marijuana (THC) Screen (NEGATIVE) - Re-Assessments/Exams Free Text/Narrative Re-Assessment/Exam: 07/09/19 23:01 results discussed with pt. Departure - Departure Time of Disposition: 23:02 Disposition: Home, Self-Care 01 Condition: Good Clinical Impression: Thoracolumbar back pain - Discharge Information Instructions: Thoracic Strain, [id number] Forms: ED Department Discharge Additional Instructions: 1) avoid bending lifting straining 2) try ice or heat to sore areas 3) take tylenol or motrin as needed for discomfort 4) follow up at clinic for possible MRI SCAN Sepsis Event Note - Evaluation Sepsis Screening Result: No Definite Risk - Focused Exam Vital Signs: Vital Signs Temp Pulse Resp BP Pulse Ox 07/09/19 21:18 36.3 C 112 H 18 128/42 L 98 Date Exam was Performed: 07/09/19 Time Exam was Performed: 23:01 - My Orders Last 24 Hours: My Active Orders 07/09/19 23:01 LORazepam [Ativan] 1 mg PO ONETIME ONE - Assessment/Plan Last 24 Hours: My Active Orders 07/09/19 23:01 LORazepam [Ativan] 1 mg PO ONETIME ONE
[2019-07-09 22:41] LABS: ANION GAP 12.8; CHLORIDE,CL 101 mmol/L (101-111); SODIUM,NA 137 mmol/L (135-145)
[2019-07-09] MEDS ORDERED: LORazepam 1 MG Tab PO ONE (23:01)
== END 2019-07-09 23:15 | disposition home or self-care (01) ==
LOC: DL.ED 21:05
DX: M54.6 Pain in thoracic spine (principal); M54.5 Low back pain; K21.9 Gastro-esophageal reflux disease without esophagitis; G43.909 Migraine, unspecified, not intractable, without status migrainosus; E66.9 Obesity, unspecified; Z68.44 Body mass index [BMI] 60.0-69.9, adult; Z88.5 Allergy status to narcotic agent; Z79.899 Other long term (current) drug therapy
CPT/HCPCS: 36415; 71046; 80053; 80305; 81001; 81025; 85025; 99285; A9270

== ENCOUNTER 2019-07-20 17:04 | Emergency (ER) | payer MEDICAID ==
[2019-07-20 17:39] VITALS: BP 131/69; PULSE 90
[2019-07-20] MEDS ORDERED: Ketorolac 30 MG/ML SDV IM ONE (18:17)
[2019-07-20] MEDS ORDERED: Promethazine 25 MG/ML SDV IM ONE (18:17)
--- NOTE | 2019-07-20 18:48 | EDM.PDOC ---
Scribed by Hailey Cordero 07/20/19 [id number] for Rasheed Shaver MD ED HPI GENERAL MEDICAL PROBLEM - General Chief Complaint: Headache Stated Complaint: MIGRANE/PAIN IN NECK Time Seen by Provider: 07/20/19 18:00 Source of Information: Reports: Patient, RN, RN Notes Reviewed History Limitations: Reports: No Limitations - History of Present Illness INITIAL COMMENTS - FREE TEXT/NARRATIVE: Patient presents to the ER with migraine. She took medication at home that is not helping. She does have some nausea. Light sensitive. The symptoms are exactly the same as her usual migraine headaches. Onset: Today Duration: Getting Worse Location: Reports: Head Quality: Reports: Ache Severity: Moderate Improves with: Reports: None Worsens with: Reports: None Associated Symptoms: Reports: No Other Symptoms Headache Pain Score (Numeric/FACES): 8 - Related Data Allergies Allergy/AdvReac Type Severity Reaction Status Date / Time fentanyl Allergy Rash Verified 07/20/19 17:35 Home Meds: Home Meds Omeprazole 20 mg PO DAILY 04/01/18 [History] Acetaminophen/Caffeine [Excedrin Tension Headache Cplt] 1 tab PO ASDIRECTED PRN 04/05/18 [History] Past Medical History - Past Health History Medical/Surgical History: Denies Medical/Surgical History HEENT History: Reports: Impaired Vision, Otitis Media Other HEENT History: HAS PRESCRIBED CORRECTIVE LENSES; DOES NOT WEAR THEM Cardiovascular History: Reports: None Respiratory History: Reports: None Gastrointestinal History: Reports: Cholelithiasis, GERD Genitourinary History: Reports: STD, UTI, Recurrent Other Genitourinary History: CHLAMYDIA PMP History: Reports: , Other (See Below) Other PMP History: 2 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 Musculoskeletal History: Reports: Fracture, Other (See Below) Other Musculoskeletal History: HX OF WRIST & ANKLE FRACTURE. history of carpal tunnel - states has had nerve stimulation for this Neurological History: Reports: Headaches, Chronic, Migraines Psychiatric History: Reports: Anxiety Endocrine/Metabolic History: Reports: Obesity/BMI 30+ Hematologic History: Reports: None Immunologic History: Reports: None Oncologic (Cancer) History: Reports: None Dermatologic History: Reports: None - Infectious Disease History Infectious Disease History: Reports: Chicken Pox - Past Surgical History Head Surgeries/Procedures: Reports: None HEENT Surgical History: Reports: Adenoidectomy, Oral Surgery, Tonsillectomy Other HEENT Surgeries/Procedures: WISDOM TEETH EXTRACTION Cardiovascular Surgical History: Reports: None Respiratory Surgical History: Reports: None GI Surgical History: Reports: EGD, Other (See Below) Other GI Surgeries/Procedures: Gallbladder surgery Female Surgical History: Reports: Other (See Below) Other Female Surgeries/Procedures: IUD INSERTION-REMOVED; PATIENT STATES IT WAS EXPELLED FROM BODY Endocrine Surgical History: Reports: None Neurological Surgical History: Reports: None Musculoskeletal Surgical History: Reports: None Oncologic Surgical History: Reports: None Dermatological Surgical History: Reports: None Social & Family History - Family History Family Medical History: Noncontributory - Tobacco Use Smoking Status *Q: Never Smoker Second Hand Smoke Exposure: No - Caffeine Use Caffeine Use: Reports: Energy Drinks, Tea - Recreational Drug Use Recreational Drug Use: No - Sexual History Sexual History: Reports: Sexually Active - Living Situation & Occupation Living situation: Reports: with Family Occupation: Unemployed ED ROS GENERAL - Review of Systems Review Of Systems: Comprehensive ROS is negative, except as noted in HPI. - Physical Exam Exam: See Below Exam Limited By: No Limitations General Appearance: Alert, WD/WN, No Apparent Distress Eye Exam: Bilateral Eye: EOMI, PERRL, Other (mild photophobia) Ears: Normal External Exam, Normal Canal, Hearing Grossly Normal, Normal TMs Nose: Normal Inspection, Normal Mucosa, No Blood Throat/Mouth: Normal Inspection, Normal Lips, Normal Teeth, Normal Gums, Normal Oropharynx, Normal Voice, No Airway Compromise Head Exam: Atraumatic, Normocephalic Neck: Normal Inspection, Supple, Non-Tender, Full Range of Motion, Other (No nuchal rigidity). No: Lymphadenopathy (L), Lymphadenopathy (R) Respiratory/Chest: No Respiratory Distress, Lungs Clear, Normal Breath Sounds, No Accessory Muscle Use, Chest Non-Tender Cardiovascular: Regular Rate, Rhythm GI/Abdominal: Normal Bowel Sounds, Other (benign obese abdomen) (Female) Exam: Deferred Rectal (Female) Exam: Deferred Neuro Exam (Abbreviated): Alert, Oriented, CN II-XII Intact, Normal Cognition, Normal Gait, Normal Reflexes, No Motor/Sensory Deficits Back Exam: Normal Inspection, Full Range of Motion. No: CVA Tenderness (L), CVA Tenderness (R) Extremities: Normal Inspection, Normal Range of Motion, Non-Tender, No Pedal Edema, Normal Capillary Refill Psychiatric: Normal Affect, Normal Mood Skin Exam: Warm, Dry, Intact, Normal Color, No Rash Course - Vital Signs Last Recorded V/S: Last Vital Signs Temp 96.7 F 07/20/19 17:36 Pulse 90 07/20/19 17:36 Resp 18 07/20/19 17:36 BP 131/69 07/20/19 17:36 Pulse Ox 99 07/20/19 17:36 - Orders/Labs/Meds Meds: Medications Discontinued Medications Generic Name Dose Route Start Last Admin Trade Name Nurys PRN Reason Stop Dose Admin Ketorolac Tromethamine 60 mg 07/20/19 18:17 Toradol IM 07/20/19 18:18 ONETIME ONE Promethazine HCl 25 mg 07/20/19 18:17 Phenergan IM 07/20/19 18:18 ONETIME ONE Departure - Departure Time of Disposition: 18:47 Disposition: Home, Self-Care 01 Condition: Good Clinical Impression: Migraine Qualifiers: Migraine type: without aura Status migrainosus presence: without status migrainosus Intractability: not intractable Qualified Code(s): G43.009 - Migraine without aura, not intractable, without status migrainosus - Discharge Information *PRESCRIPTION DRUG MONITORING PROGRAM REVIEWED*: No *COPY OF PRESCRIPTION DRUG MONITORING REPORT IN PATIENT RILEY: No Instructions: Migraine Headache, [id number] Forms: ED Department Discharge Additional Instructions: Follow up in clinic if any further problems. Sepsis Event Note - Evaluation Sepsis Screening Result: No Definite Risk - Focused Exam Vital Signs: Vital Signs Temp Pulse Resp BP Pulse Ox 07/20/19 17:36 96.7 F 90 18 131/69 99 Date Exam was Performed: 07/20/19 Time Exam was Performed: 18:46 I have read and agree with the documentation that has been completed regarding this visit. By signing this record, I attest that the documentation was completed in my physical presence and is an accurate record of the encounter.
== END 2019-07-20 21:00 | disposition home or self-care (01) ==
LOC: DL.ED 17:04
DX: G43.009 Migraine without aura, not intractable, without status migrainosus (principal); K21.9 Gastro-esophageal reflux disease without esophagitis; E66.9 Obesity, unspecified; Z79.899 Other long term (current) drug therapy; Z98.890 Other specified postprocedural states; Z88.8 Allergy status to other drugs, medicaments and biological substances
CPT/HCPCS: 96372; 99283; J1885; J2550

== ENCOUNTER 2019-08-19 20:55 | Emergency (ER) | payer MEDICAID, OTHER ==
[2019-08-19 22:06] VITALS: BP 131/81; PULSE 107
[2019-08-19 22:44] LABS: ANION GAP 11.9; CHLORIDE,CL 102 mmol/L (101-111); SODIUM,NA 138 mmol/L (135-145)
[2019-08-19] MEDS ORDERED: diphenhydrAMINE 50 MG/ML SDV IVPUSH ONE (23:20)
[2019-08-19] MEDS ORDERED: HYDROmorphone 0.5 MG/0.5 ML Syringe IVPUSH ONE (23:20)
[2019-08-19] MEDS ORDERED: Lactated Ringers 1,000 ML IV ONE (23:20)
[2019-08-19] MEDS ORDERED: Sodium Chloride 0.9% 10 ML Syringe FLUSH PRN (23:20)
[2019-08-20] MEDS ORDERED: GI Cocktail Oral Solution 30 ML PO ONE (00:20)
[2019-08-20] MEDS ORDERED: HYDROmorphone 0.5 MG/0.5 ML Syringe IVPUSH ONE (00:20)
[2019-08-20] MEDS ORDERED: cefTRIAXone 1 GM in Sodium Chloride 0.9% 50 ML IV ONE (00:37)
[2019-08-20] MEDS ORDERED: Pantoprazole 40 MG Vial IVPUSH ONE (01:23)
--- NOTE | 2019-08-20 01:23 | EDM.PDOC ---
ED HPI GENERAL MEDICAL PROBLEM - General Chief Complaint: Abdominal Pain Stated Complaint: GULLBLADDER Time Seen by Provider: 08/19/19 22:04 Source of Information: Reports: Patient History Limitations: Reports: No Limitations - History of Present Illness INITIAL COMMENTS - FREE TEXT/NARRATIVE: SHE COMES EMERGENCY DEPARTMENT TODAY WITH COMPLAINTS OF EPIGASTRIC AND RIGHT UPPER QUADRANT PAIN. This patient has a long-standing history approximately 2 years of right upper quadrant pain. She has been told that she needs her gallbladder out. She did at one time have a procedure where they were going to remove her gallbladder but they were unable to. This was approximately 1-1/2 years ago. She has regular reoccurrence of the right upper quadrant abdominal pain. She has been seeing her primary care provider and has not been referred back to surgery. Today she developed right upper quadrant abdominal pain that is burning. She could barely eat anything at home with no vomiting. No fever no chills. No pain in her back. No flank pain. Urinary frequency without dysuria. No hematuria. No diarrhea. The patient has had a positive HIDA scan in the past for a dysfunctional gallbladder. Right Upper Abdomen Pain Score (Numeric/FACES): 8 - Related Data Allergies Allergy/AdvReac Type Severity Reaction Status Date / Time fentanyl Allergy Rash Verified 08/19/19 21:58 Home Meds: Home Meds Omeprazole 20 mg PO DAILY 04/01/18 [History] Acetaminophen/Caffeine [Excedrin Tension Headache Cplt] 1 tab PO ASDIRECTED PRN 04/05/18 [History] Past Medical History - Past Health History Medical/Surgical History: Denies Medical/Surgical History HEENT History: Reports: Impaired Vision, Otitis Media Other HEENT History: HAS PRESCRIBED CORRECTIVE LENSES; DOES NOT WEAR THEM Cardiovascular History: Reports: None Respiratory History: Reports: None Gastrointestinal History: Reports: Cholelithiasis, GERD Genitourinary History: Reports: STD, UTI, Recurrent Other Genitourinary History: CHLAMYDIA ADMISSIONS SPECIALIST History: Reports: , Other (See Below) Other ADMISSIONS SPECIALIST History: 2 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 Musculoskeletal History: Reports: Fracture, Other (See Below) Other Musculoskeletal History: HX OF WRIST & ANKLE FRACTURE. history of carpal tunnel - states has had nerve stimulation for this Neurological History: Reports: Headaches, Chronic, Migraines Psychiatric History: Reports: Anxiety Endocrine/Metabolic History: Reports: Obesity/BMI 30+ Hematologic History: Reports: None Immunologic History: Reports: None Oncologic (Cancer) History: Reports: None Dermatologic History: Reports: None - Infectious Disease History Infectious Disease History: Reports: Chicken Pox - Past Surgical History Head Surgeries/Procedures: Reports: None HEENT Surgical History: Reports: Adenoidectomy, Oral Surgery, Tonsillectomy Other HEENT Surgeries/Procedures: WISDOM TEETH EXTRACTION Cardiovascular Surgical History: Reports: None Respiratory Surgical History: Reports: None GI Surgical History: Reports: EGD, Other (See Below) Other GI Surgeries/Procedures: Gallbladder surgery Female Surgical History: Reports: Other (See Below) Other Female Surgeries/Procedures: IUD INSERTION-REMOVED; PATIENT STATES IT WAS EXPELLED FROM BODY Endocrine Surgical History: Reports: None Neurological Surgical History: Reports: None Musculoskeletal Surgical History: Reports: None Oncologic Surgical History: Reports: None Dermatological Surgical History: Reports: None Social & Family History - Family History Family Medical History: Noncontributory - Tobacco Use Smoking Status *Q: Never Smoker Second Hand Smoke Exposure: No - Caffeine Use Caffeine Use: Reports: Energy Drinks, Tea - Recreational Drug Use Recreational Drug Use: No - Sexual History Sexual History: Reports: Sexually Active - Living Situation & Occupation Living situation: Reports: with Family Occupation: Unemployed ED ROS GENERAL - Review of Systems Review Of Systems: Comprehensive ROS is negative, except as noted in HPI. ED EXAM, GI/ABD - Physical Exam Exam: See Below Exam Limited By: No Limitations General Appearance: Alert, WD/WN, No Apparent Distress, Obese (morbidly) Respiratory/Chest: No Respiratory Distress, Lungs Clear, No Accessory Muscle Use Cardiovascular: Normal Peripheral Pulses, Regular Rate, Rhythm, No Edema GI/Abdominal Exam: Normal Bowel Sounds, Soft, Tender (at upper quadrant without rebound some guarding.) Back Exam: Normal Inspection, Full Range of Motion. No: CVA Tenderness (L), CVA Tenderness (R) Extremities: Normal Inspection, Normal Range of Motion, Non-Tender Neurological: Alert, Oriented, Normal Cognition, No Motor/Sensory Deficits Psychiatric: Normal Affect, Normal Mood Skin Exam: Warm, Dry, Intact, Normal Color, No Rash Lymphatic: No Adenopathy Course - Vital Signs Last Recorded V/S: Last Vital Signs Temp 36.7 C 08/19/19 22:03 Pulse 107 H 08/19/19 22:03 Resp 22 H 08/19/19 22:03 BP 131/81 08/19/19 22:03 Pulse Ox 98 08/19/19 22:03 - Orders/Labs/Meds Orders: Active Orders 24 hr Category Date Time Status Peripheral IV Care [RC] . DIRECTED Care 08/19/19 23:20 Active CULTURE URINE [RM] Stat Lab 08/20/19 00:36 Received Sodium Chloride 0.9% [Saline Flush] Med 08/19/19 23:20 Active 10 ml FLUSH ASDIRECTED PRN Peripheral IV Insertion Adult [OM.PC] Stat Oth 08/19/19 23:20 Ordered Medication Orders Sodium Chloride (Saline Flush) 10 ml FLUSH ASDIRECTED PRN PRN Reason: Keep Vein Open Last Admin: 08/19/19 23:35 Dose: 10 ml Labs: Laboratory Tests 08/19/19 08/19/19 08/19/19 Range/Units 22:17 22:17 23:00 WBC 11.9 H (5.0-10.0) 10^3/uL RBC 4.89 (4.2-5.4) 10^6/uL Hgb 13.9 (12.0-16.0) g/dL Hct 42.3 (37.0-47.0) % MCV 86.5 (80-100) fL MCH 28.4 (27.0-34.0) pg MCHC 32.9 L (33.0-35.0) g/dL Plt Count 360 (150-450) 10^3/uL Neut % (Auto) 61.7 (42.2-75.2) % Lymph % (Auto) 30.7 (20.5-50.1) % [place] % (Auto) 5.7 (2-8) % Eos % (Auto) 1.6 (1.0-3.0) % Baso % (Auto) 0.3 (0.0-1.0) % Sodium 138 (135-145) mmol/L Potassium 3.9 (3.6-5.0) mmol/L Chloride 102 (101-111) mmol/L Carbon Dioxide 28.0 (21.0-31.0) mmol/L Anion Gap 11.9 BUN 10 (7-18) mg/dL Creatinine 0.6 (0.6-1.3) mg/dL Est Cr Clr Drug Dosing 115.33 mL/min Estimated GFR (MDRD) > 60 BUN/Creatinine Ratio 16.66 Glucose 94 (74-105) mg/dL Calcium 9.1 (8.4-10.2) mg/dl Total Bilirubin 0.5 (0.2-1.0) mg/dL AST 35 (10-42) IU/L ALT 53 (10-60) IU/L Alkaline Phosphatase 94 (42-121) IU/L Total Protein 7.4 (6.7-8.2) g/dl Albumin 4.0 (3.2-5.5) g/dl Globulin 3.4 Albumin/Globulin Ratio 1.18 Lipase 27 (22-51) U/L Urine Color Yellow (YELLOW) Urine Appearance Slightly cloudy (CLEAR) Urine pH 7.0 (5.0-9.0) Ur Specific [place] 1.020 (1.005-1.030) Urine Protein Negative (NEGATIVE) Urine Glucose (UA) Negative (NEGATIVE) Urine Ketones Negative (NEGATIVE) Urine Occult Blood Trace-lysed H (NEGATIVE) Urine Nitrite Negative (NEGATIVE) Urine Bilirubin Negative (NEGATIVE) Urine Urobilinogen 1.0 (0.2-1.0) mg/dL Ur Leukocyte Esterase Small H (NEGATIVE) Urine RBC 0-5 /HPF Urine WBC 10-20 H (0-5/HPF) /HPF Ur Epithelial Cells Moderate H (NOT SEEN) /HPF Amorphous Sediment Rare (NOT SEEN) /HPF Urine Bacteria Few (0-FEW/HPF) /HPF Urine Mucus Few H (NOT SEEN) /LPF Urine HCG, Qual 08/19/19 Range/Units 23:00 WBC (5.0-10.0) 10^3/uL RBC (4.2-5.4) 10^6/uL Hgb (12.0-16.0) g/dL Hct (37.0-47.0) % MCV (80-100) fL MCH (27.0-34.0) pg MCHC (33.0-35.0) g/dL Plt Count (150-450) 10^3/uL Neut % (Auto) (42.2-75.2) % Lymph % (Auto) (20.5-50.1) % [place] % (Auto) (2-8) % Eos % (Auto) (1.0-3.0) % Baso % (Auto) (0.0-1.0) % Sodium (135-145) mmol/L Potassium (3.6-5.0) mmol/L Chloride (101-111) mmol/L Carbon Dioxide (21.0-31.0) mmol/L Anion Gap BUN (7-18) mg/dL Creatinine (0.6-1.3) mg/dL Est Cr Clr Drug Dosing mL/min Estimated GFR (MDRD) BUN/Creatinine Ratio Glucose (74-105) mg/dL Calcium (8.4-10.2) mg/dl Total Bilirubin (0.2-1.0) mg/dL AST (10-42) IU/L ALT (10-60) IU/L Alkaline Phosphatase (42-121) IU/L Total Protein (6.7-8.2) g/dl Albumin (3.2-5.5) g/dl Globulin Albumin/Globulin Ratio Lipase (22-51) U/L Urine Color (YELLOW) Urine Appearance (CLEAR) Urine pH (5.0-9.0) Ur Specific [place] (1.005-1.030) Urine Protein (NEGATIVE) Urine Glucose (UA) (NEGATIVE) Urine Ketones (NEGATIVE) Urine Occult Blood (NEGATIVE) Urine Nitrite (NEGATIVE) Urine Bilirubin (NEGATIVE) Urine Urobilinogen (0.2-1.0) mg/dL Ur Leukocyte Esterase (NEGATIVE) Urine RBC /HPF Urine WBC (0-5/HPF) /HPF Ur Epithelial Cells (NOT SEEN) /HPF Amorphous Sediment (NOT SEEN) /HPF Urine Bacteria (0-FEW/HPF) /HPF Urine Mucus (NOT SEEN) /LPF Urine HCG, Qual Negative Meds: Medications Generic Name Dose Route Start Last Admin Trade Name Freq PRN Reason Stop Dose Admin Sodium Chloride 10 ml 08/19/19 23:20 08/19/19 23:35 Saline Flush FLUSH 10 ml ASDIRECTED PRN Administration Keep Vein Open Discontinued Medications Generic Name Dose Route Start Last Admin Trade Name Freq PRN Reason Stop Dose Admin Al Hydroxide/Mg Hydroxide 30 ml 08/20/19 00:20 08/20/19 00:27 Gi Cocktail PO 08/20/19 00:21 30 ml ONETIME ONE Administration Diphenhydramine HCl 25 mg 08/19/19 23:20 08/19/19 23:35 Benadryl IVPUSH 08/19/19 23:21 25 mg ONETIME ONE Administration Hydromorphone HCl 0.5 mg 08/19/19 23:20 08/19/19 23:35 Dilaudid IVPUSH 08/19/19 23:21 0.5 mg ONETIME ONE Administration Hydromorphone HCl 0.5 mg 08/20/19 00:20 08/20/19 00:27 Dilaudid IVPUSH 08/20/19 00:21 0.5 mg ONETIME ONE Administration Lactated Ringer's 1,000 mls @ 1,000 mls/hr 08/19/19 23:20 08/19/19 23:34 Ringers, Lactated IV 08/20/19 00:19 1,000 mls/hr .BOLUS ONE Administration Ceftriaxone Sodium 1 gm/ 50 mls @ 50 mls/hr 08/20/19 00:37 08/20/19 00:53 Sodium Chloride IV 08/20/19 01:36 50 mls/hr ONETIME ONE Administration Pantoprazole Sodium 40 mg 08/20/19 01:23 08/20/19 01:30 Protonix Iv IVPUSH 08/20/19 01:24 40 mg ONETIME ONE Administration - Re-Assessments/Exams Free Text/Narrative Re-Assessment/Exam: 08/20/19 fluid bolus as well as benadryl for nausea and Dilaudid for pain. Which resolved the nausea sensation and the sharp shooting pain but she still had a burning sensation in the epigastric region. She was given a GI cocktail with much improvement of the burning sensation. I reviewed her laboratory evaluationwhich is really unremarkable other than a urinary tract infection. She has no elevated white blood cell count she has a normal T bili as well as liver enzymes. she has had an abnormal HIDA scan in the past. She was started on Rocephin for urinary tract infection. Her pain was much improved. This really could be either biliary colic which is chronic for her or GERD or peptic ulcer disease. I will send her home with pain medicine as well as omeprazole. she agrees to seeing her primary care provider on Wednesday and taking a personal stance for her own health to get her gallbladder out. There is no indication at this time for hospitalization or need for emergent gallbladder removal. she is understanding this comfortable with this plan and her questions are answered. She was able to eat and drink prior to discharge without nausea vomiting or pain. 08/20/19 01:40 Departure - Departure Time of Disposition: 01:30 Disposition: Home, Self-Care 01 Clinical Impression: Biliary colic GERD (gastroesophageal reflux disease) Qualifiers: Esophagitis presence: esophagitis presence not specified Qualified Code(s): K21.9 - Gastro-esophageal reflux disease without esophagitis UTI (urinary tract infection) Qualifiers: Urinary tract infection type: acute cystitis Hematuria presence: with hematuria Qualified Code(s): N30.01 - Acute cystitis with hematuria - Discharge Information Instructions: Food Choices for Gastroesophageal Reflux Disease, Adult, Easy-to- Read, Urinary Tract Infection, Adult, [id number], Gallbladder Eating Plan, Gastroesophageal Reflux Disease, Adult, [id number] Forms: ED Department Discharge Additional Instructions: Carafate 1 tablet 4 times a day before meals and bedtime RX given to the patient. Omeprazole 1 capsule daily for the next 28 days. RX given to the patient. Low fat diet see discharge instruction sheet. Zofran 1 tablet every 6 hrs as needed for nausea or vomiting. RX given to the patient. Cefdinir 1 capsule twice daily for the next 5 days. RX given to the patient. If pain not controlled with above. Arnold 1 tablet every 6 hrs as needed for pain. Caution sedation RX given to the patient #12. SEE YOUR PCP ON WEDNESDAY. You need a referral to surgery to get your gallbladder out. You have had a positive HIDA scan and that is enough to get your gallbladder out. Return to the ED if new or worsening symptoms. Sepsis Event Note - Evaluation Sepsis Screening Result: No Definite Risk - Focused Exam Vital Signs: Vital Signs Temp Pulse Resp BP Pulse Ox 08/19/19 22:03 36.7 C 107 H 22 H 131/81 98 Date Exam was Performed: 08/20/19 Time Exam was Performed: 01:40 - My Orders Last 24 Hours: My Active Orders 08/19/19 23:20 Peripheral IV Care [RC] . DIRECTED Sodium Chloride 0.9% [Saline Flush] 10 ml FLUSH ASDIRECTED PRN Peripheral IV Insertion Adult [OM.PC] Stat 08/20/19 00:36 CULTURE URINE [RM] Stat - Assessment/Plan Last 24 Hours: My Active Orders 08/19/19 23:20 Peripheral IV Care [RC] . DIRECTED Sodium Chloride 0.9% [Saline Flush] 10 ml FLUSH ASDIRECTED PRN Peripheral IV Insertion Adult [OM.PC] Stat 08/20/19 00:36 CULTURE URINE [RM] Stat Assessment:: Biliary colic acute on chronic GERD UTI Morbid obesity. Plan: Carafate 1 tablet 4 times a day before meals and bedtime RX given to the patient. Omeprazole 1 capsule daily for the next 28 days. RX given to the patient. Low fat diet see discharge instruction sheet. Zofran 1 tablet every 6 hrs as needed for nausea or vomiting. RX given to the patient. Cefdinir 1 capsule twice daily for the next 5 days. RX given to the patient. If pain not controlled with above. Arnold 1 tablet every 6 hrs as needed for pain. Caution sedation RX given to the patient #12. SEE YOUR PCP ON WEDNESDAY. You need a referral to surgery to get your gallbladder out. You have had a positive HIDA scan and that is enough to get your gallbladder out. Return to the ED if new or worsening symptoms.
== END 2019-08-20 01:50 | disposition home or self-care (01) ==
LOC: DL.ED 20:55
DX: K80.50 Calculus of bile duct without cholangitis or cholecystitis without obstruction (principal); K21.9 Gastro-esophageal reflux disease without esophagitis; N30.01 Acute cystitis with hematuria; E66.01 Morbid (severe) obesity due to excess calories; Z79.899 Other long term (current) drug therapy; Z68.44 Body mass index [BMI] 60.0-69.9, adult; Z88.5 Allergy status to narcotic agent
CPT/HCPCS: 36415; 80053; 81001; 81025; 83690; 85025; 87086; 96361; 96365; 96375; 96376; 99284; A9270; C9113; J0696; J1170; J1200; J7050; J7120

== ENCOUNTER 2019-08-20 21:14 | Emergency (ER) | payer MEDICAID ==
[2019-08-20] MEDS ORDERED: diphenhydrAMINE 50 MG Cap PO ONE (21:15)
[2019-08-20] MEDS ORDERED: GI Cocktail Oral Solution 30 ML PO ONE ×2 (21:15→22:45)
[2019-08-20 21:22] VITALS: BP 138/77; PULSE 88
[2019-08-20] MEDS ORDERED: Ondansetron 4 MG/2 ML SDV IVPUSH ONE (21:31)
[2019-08-20] MEDS ORDERED: Famotidine 20 MG/2 ML SDV IVPUSH ONE (21:31)
[2019-08-20] MEDS ORDERED: HYDROmorphone 1 MG/ML Syringe IVPUSH ONE (21:31)
[2019-08-20] MEDS ORDERED: Sodium Chloride 0.9% 1,000 ML IV ONE (21:31)
[2019-08-20] MEDS ORDERED: Iopamidol 612 MG/ML 100 ML Bottle IVPUSH ONE (22:04)
[2019-08-20] MEDS ORDERED: Iopamidol 612 MG/ML 50 ML SDV IVPUSH ONE (22:12)
[2019-08-20 22:23] LABS: ANION GAP 11.5; CHLORIDE,CL 104 mmol/L (101-111); SODIUM,NA 138 mmol/L (135-145)
--- NOTE | 2019-08-20 23:31 | EDM.PDOC ---
"ED HPI GENERAL MEDICAL PROBLEM - General Chief Complaint: Abdominal Pain Stated Complaint: GALLBLADDER ISSUES Time Seen by Provider: 08/20/19 21:25 Source of Information: Reports: Patient History Limitations: Reports: No Limitations - History of Present Illness INITIAL COMMENTS - FREE TEXT/NARRATIVE: C/o RUQ pain vomiting and diarrhea x 4 today., Seen in Ed last night with similar c/o. Notes sx seemed worse after drinking cranberry juice.. Tried norco , only made her sleepy but didn't really help with pain, describes a burning sensation. Abdomen Pain Score (Numeric/FACES): 8 - Related Data Allergies Allergy/AdvReac Type Severity Reaction Status Date / Time fentanyl Allergy Rash Verified 08/20/19 21:22 Home Meds: Home Meds Omeprazole 20 mg PO DAILY 04/01/18 [History] Acetaminophen/Caffeine [Excedrin Tension Headache Cplt] 1 tab PO ASDIRECTED PRN 04/05/18 [History] Past Medical History - Past Health History Medical/Surgical History: Denies Medical/Surgical History HEENT History: Reports: Impaired Vision, Otitis Media Other HEENT History: HAS PRESCRIBED CORRECTIVE LENSES; DOES NOT WEAR THEM Cardiovascular History: Reports: None Respiratory History: Reports: None Gastrointestinal History: Reports: Cholelithiasis, GERD Genitourinary History: Reports: STD, UTI, Recurrent Other Genitourinary History: 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 Musculoskeletal History: Reports: Fracture, Other (See Below) Other Musculoskeletal History: HX OF WRIST & ANKLE FRACTURE. history of carpal tunnel - states has had nerve stimulation for this Neurological History: Reports: Headaches, Chronic, Migraines Psychiatric History: Reports: Anxiety Endocrine/Metabolic History: Reports: Obesity/BMI 30+ Hematologic History: Reports: None Immunologic History: Reports: None Oncologic (Cancer) History: Reports: None Dermatologic History: Reports: None - Infectious Disease History Infectious Disease History: Reports: Chicken Pox - Past Surgical History Head Surgeries/Procedures: Reports: None HEENT Surgical History: Reports: Adenoidectomy, Oral Surgery, Tonsillectomy Other HEENT Surgeries/Procedures: WISDOM TEETH EXTRACTION Cardiovascular Surgical History: Reports: None Respiratory Surgical History: Reports: None GI Surgical History: Reports: EGD, Other (See Below) Other GI Surgeries/Procedures: Gallbladder surgery Female Surgical History: Reports: Other (See Below) Other Female Surgeries/Procedures: IUD INSERTION-REMOVED; PATIENT STATES IT WAS EXPELLED FROM BODY Endocrine Surgical History: Reports: None Neurological Surgical History: Reports: None Musculoskeletal Surgical History: Reports: None Oncologic Surgical History: Reports: None Dermatological Surgical History: Reports: None Social & Family History - Family History Family Medical History: Noncontributory - Tobacco Use Smoking Status *Q: Never Smoker - Caffeine Use Caffeine Use: Reports: Energy Drinks, Tea - Recreational Drug Use Recreational Drug Use: No - Sexual History Sexual History: Reports: Sexually Active - Living Situation & Occupation Living situation: Reports: with Family Occupation: Unemployed ED ROS GENERAL - Review of Systems Review Of Systems: Comprehensive ROS is negative, except as noted in HPI. ED EXAM, GI/ABD - Physical Exam Exam: See Below Exam Limited By: No Limitations General Appearance: Alert, Mild Distress, Obese Eyes: Bilateral: EOMI Ears: Normal External Exam Nose: Normal Inspection Throat/Mouth: Normal Inspection, No Airway Compromise Head: Atraumatic, Normocephalic Neck: Normal Inspection Respiratory/Chest: No Respiratory Distress, Lungs Clear Cardiovascular: Normal Peripheral Pulses, Regular Rate, Rhythm GI/Abdominal Exam: Normal Bowel Sounds, Soft, Tender (RUQ) Back Exam: Full Range of Motion Extremities: Normal Inspection, Normal Range of Motion Psychiatric: Flat Affect Skin Exam: Warm, Dry, Intact Course - Vital Signs Last Recorded V/S: Last Vital Signs Temp 97.7 F 08/20/19 21:21 Pulse 88 08/20/19 21:21 Resp 16 08/20/19 21:21 BP 138/77 08/20/19 21:21 Pulse Ox 100 08/20/19 21:21 - Orders/Labs/Meds Labs: Laboratory Tests 08/20/19 08/20/19 Range/Units 21:54 21:54 WBC 11.6 H (5.0-10.0) 10^3/uL RBC 4.58 (4.2-5.4) 10^6/uL Hgb 12.9 (12.0-16.0) g/dL Hct 39.5 (37.0-47.0) % MCV 86.2 (80-100) fL MCH 28.2 (27.0-34.0) pg MCHC 32.7 L (33.0-35.0) g/dL Plt Count 354 (150-450) 10^3/uL Neut % (Auto) 62.8 (42.2-75.2) % Lymph % (Auto) 29.8 (20.5-50.1) % [place] % (Auto) 5.6 (2-8) % Eos % (Auto) 1.5 (1.0-3.0) % Baso % (Auto) 0.3 (0.0-1.0) % Sodium 138 (135-145) mmol/L Potassium 3.5 L (3.6-5.0) mmol/L Chloride 104 (101-111) mmol/L Carbon Dioxide 26.0 (21.0-31.0) mmol/L Anion Gap 11.5 BUN 10 (7-18) mg/dL Creatinine 0.7 (0.6-1.3) mg/dL Est Cr Clr Drug Dosing 98.86 mL/min Estimated GFR (MDRD) > 60 BUN/Creatinine Ratio 14.28 Glucose 107 H (74-105) mg/dL Calcium 8.8 (8.4-10.2) mg/dl Total Bilirubin 0.4 (0.2-1.0) mg/dL AST 38 (10-42) IU/L ALT 51 (10-60) IU/L Alkaline Phosphatase 89 (42-121) IU/L Total Protein 7.0 (6.7-8.2) g/dl Albumin 3.7 (3.2-5.5) g/dl Globulin 3.3 Albumin/Globulin Ratio 1.12 Amylase 18 L (28-100) U/L Lipase 26 (22-51) U/L Meds: Medications Discontinued Medications Generic Name Dose Route Start Last Admin Trade Name Freq PRN Reason Stop Dose Admin Al Hydroxide/Mg Hydroxide 30 ml 08/20/19 22:45 08/20/19 22:50 Gi Cocktail PO 08/20/19 22:46 30 ml ONETIME ONE Administration Famotidine 20 mg 08/20/19 21:31 08/20/19 22:03 Pepcid IVPUSH 08/20/19 21:32 20 mg ONETIME ONE Administration Hydromorphone HCl 1 mg 08/20/19 21:31 08/20/19 21:58 Dilaudid IVPUSH 08/20/19 21:32 1 mg ONETIME ONE Administration Sodium Chloride 1,000 mls @ 999 mls/hr 08/20/19 21:31 08/20/19 21:55 Normal Saline IV 08/20/19 22:31 999 mls/hr .BOLUS ONE Administration Iopamidol 100 ml 08/20/19 22:04 08/20/19 22:14 Isovue-300 (61%) IVPUSH 08/20/19 22:05 100 ml ONETIME ONE Administration Iopamidol 50 ml 08/20/19 22:12 08/20/19 22:14 Isovue-300 (61%) IVPUSH 08/20/19 22:13 50 ml ONETIME ONE Administration Ondansetron HCl 4 mg 08/20/19 21:31 08/20/19 22:00 Zofran IVPUSH 08/20/19 21:32 4 mg ONETIME ONE Administration - Radiology Interpretation Free Text/Narrative:: [facility] Final Radiology Report Call: [phone] assistance Online chat: [email or web address] Name: ERVIN CHADWICK Age: 23Years F Date: 08/20/2019 SSN: -- : [id number] Study: CT ABDOMEN/PELVIS W Requesting Physician: LUKE TANNER Images: [id number] Addl Studies: Provided Clinical History: Contrast: With Contrast Medium: [id number] Contrast Amount: 125 mL Contrast Method: left hand Page 1 of 2 PROCEDURE INFORMATION: Exam: CT Abdomen And Pelvis With Contrast Exam date and time: 08/20/2019 10:29 PM Age: 23 years old Clinical indication: Vomiting and other: Ruq pain, wbc 11,600 TECHNIQUE: Imaging protocol: Computed tomography of the abdomen and pelvis with intravenous contrast. Radiation optimization: All CT scans at this facility use at least one of these dose optimization techniques: automated exposure control; mA and/or kV adjustment per patient size (includes targeted exams where dose is matched to clinical indication); or iterative reconstruction. Contrast material: [id number]; Contrast volume: 125 ml; Contrast route: LEFT HAND ; COMPARISON: CT Abdomen Pelvis w Cont 03/04/2017 1:42 AM FINDINGS: Liver: Hepatomegaly, hepatic steatosis. Gallbladder and bile ducts: Normal. No calcified stones. No ductal dilation. Pancreas: Normal. No ductal dilation. Spleen: Normal. No splenomegaly. Adrenals: Normal. No mass. Kidneys and ureters: Normal. No hydronephrosis. Stomach and bowel: Unremarkable. No obstruction. No mucosal thickening. Appendix: No evidence of appendicitis. Intraperitoneal space: Unremarkable. No free air. No significant fluid collection. Vasculature: Unremarkable. No abdominal aortic aneurysm. Lymph nodes: Unremarkable. No enlarged lymph nodes. ERVIN CHADWICK | Final Radiology Report CONFIDENTIALITY STATEMENT This report is intended only for use by the referring physician, and only in accordance with law. If you received this in error, call [phone]. Page 2 of 2 Bladder: Unremarkable as visualized. Reproductive: Unremarkable as visualized. Bones/joints: Unremarkable. No acute fracture. Soft tissues: Unremarkable. IMPRESSION: 1. No acute finding. 2. Hepatomegaly, hepatic steatosis. Thank you for allowing us to participate in the care of your patient. Dictated and Authenticated by: Paty Lieberman MD 08/20/2019 11:19 PM Central Time ([place] & [place]) Departure - Departure Time of Disposition: 23:26 Disposition: Home, Self-Care 01 Condition: Good Clinical Impression: Abdominal pain Qualifiers: Abdominal location: right upper quadrant Qualified Code(s): R10.11 - Right upper quadrant pain Vomiting Qualifiers: Vomiting type: bilious vomiting Nausea presence: with nausea Qualified Code(s) : R11.14 - Bilious vomiting - Discharge Information *PRESCRIPTION DRUG MONITORING PROGRAM REVIEWED*: Not Applicable *COPY OF PRESCRIPTION DRUG MONITORING REPORT IN PATIENT RILEY: Not Applicable Instructions: Abdominal Pain, Adult, [id number] Additional Instructions: bland diet - low acid continue home medications clinic follow up this week Sepsis Event Note - Evaluation Sepsis Screening Result: No Definite Risk - Focused Exam Vital Signs: Vital Signs Temp Pulse Resp BP Pulse Ox 08/20/19 21:21 97.7 F 88 16 138/77 100 Date Exam was Performed: 08/20/19 Time Exam was Performed: 23:26"
[2019-08-20] MEDS ORDERED: GI Cocktail Oral Solution 30 ML ONE (23:32)
[2019-08-20] MEDS ORDERED: diphenhydrAMINE 50 MG Cap ONE (23:34)
== END 2019-08-20 23:39 | disposition home or self-care (01) ==
LOC: DL.ED 21:14
DX: R11.14 Bilious vomiting (principal); R10.11 Right upper quadrant pain; K21.9 Gastro-esophageal reflux disease without esophagitis; E66.9 Obesity, unspecified; Z68.44 Body mass index [BMI] 60.0-69.9, adult; Z79.899 Other long term (current) drug therapy; Z88.6 Allergy status to analgesic agent
CPT/HCPCS: 36415; 74177; 80053; 82150; 83690; 85025; 96361; 96374; 96375; 99284; A9270; J1170; J2405; J3490; J7030; Q0163; Q9967

== ENCOUNTER 2019-08-27 22:57 | Emergency (ER) | payer MEDICAID ==
[2019-08-27 23:07] VITALS: BP 124/67; PULSE 106
[2019-08-27] MEDS ORDERED: Ondansetron 4 MG/2 ML SDV IVPUSH ONE (23:28)
[2019-08-27] MEDS ORDERED: Pantoprazole 40 MG Vial IVPUSH ONE (23:28)
--- NOTE | 2019-08-27 23:34 | EDM.PDOC ---
ED HPI GENERAL MEDICAL PROBLEM - General Chief Complaint: Abdominal Pain Stated Complaint: GULLBLADDER Time Seen by Provider: 08/27/19 23:20 Source of Information: Reports: Patient History Limitations: Reports: No Limitations - History of Present Illness INITIAL COMMENTS - FREE TEXT/NARRATIVE: This 23 yo female patient reports to the ED with right upper quadrant abdominal pain. The patient reports her symptoms have been getting worse over the past 2- 3 days. The patient reports she has an appointment with Dr. Appiah on Wednesday to reassess the need for surgery on her gallbladder. The patient has been seen in the ED multiple times with similar symptoms. The patient reports she has not been able to keep anything down today. The patient reports she did drink some apple juice, cranberry juice and eat some crackers, but believes all of that came up shortly after ingesting it. The patient reports she also has an appointment on September 05 with surgery in [place] to look at removing her gallbladder. Onset Date: 08/25/19 Duration: Constant, Getting Worse Location: Reports: Abdomen (Right upper quadrant) Quality: Reports: Ache, Burning, Sharp Severity: Severe Improves with: Reports: None Worsens with: Reports: None Context: Reports: Other Associated Symptoms: Reports: Nausea/Vomiting Abdomen Pain Score (Numeric/FACES): 8 - Related Data Allergies Allergy/AdvReac Type Severity Reaction Status Date / Time fentanyl Allergy Rash Verified 08/27/19 23:05 Home Meds: Home Meds Omeprazole 20 mg PO DAILY 04/01/18 [History] Acetaminophen/Caffeine [Excedrin Tension Headache Cplt] 1 tab PO ASDIRECTED PRN 04/05/18 [History] Cefdinir [Omnicef] 1 tab PO BID 08/27/19 [History] Hydrocodone/Acetaminophen [Hydrocodon-Acetaminophen 5-325] 1 each PO Q4HR PRN [History] Sucralfate 1 gm PO DAILY 08/27/19 [History] Past Medical History - Past Health History Medical/Surgical History: Denies Medical/Surgical History HEENT History: Reports: Impaired Vision, Otitis Media Other HEENT History: HAS PRESCRIBED CORRECTIVE LENSES; DOES NOT WEAR THEM Cardiovascular History: Reports: None Respiratory History: Reports: None Gastrointestinal History: Reports: Cholelithiasis, GERD Genitourinary History: Reports: STD, UTI, Recurrent Other Genitourinary History: 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 Musculoskeletal History: Reports: Fracture, Other (See Below) Other Musculoskeletal History: HX OF WRIST & ANKLE FRACTURE. history of carpal tunnel - states has had nerve stimulation for this Neurological History: Reports: Headaches, Chronic, Migraines Psychiatric History: Reports: Anxiety Endocrine/Metabolic History: Reports: Obesity/BMI 30+ Hematologic History: Reports: None Immunologic History: Reports: None Oncologic (Cancer) History: Reports: None Dermatologic History: Reports: None - Infectious Disease History Infectious Disease History: Reports: Chicken Pox - Past Surgical History Head Surgeries/Procedures: Reports: None HEENT Surgical History: Reports: Adenoidectomy, Oral Surgery, Tonsillectomy Other HEENT Surgeries/Procedures: WISDOM TEETH EXTRACTION Cardiovascular Surgical History: Reports: None Respiratory Surgical History: Reports: None GI Surgical History: Reports: EGD, Other (See Below) Other GI Surgeries/Procedures: Gallbladder surgery Female Surgical History: Reports: Other (See Below) Other Female Surgeries/Procedures: IUD INSERTION-REMOVED; PATIENT STATES IT WAS EXPELLED FROM BODY Endocrine Surgical History: Reports: None Neurological Surgical History: Reports: None Musculoskeletal Surgical History: Reports: None Oncologic Surgical History: Reports: None Dermatological Surgical History: Reports: None Social & Family History - Family History Family Medical History: Noncontributory - Tobacco Use Smoking Status *Q: Never Smoker Second Hand Smoke Exposure: No - Caffeine Use Caffeine Use: Reports: Energy Drinks, Tea - Recreational Drug Use Recreational Drug Use: No - Sexual History Sexual History: Reports: Sexually Active - Living Situation & Occupation Living situation: Reports: with Family Occupation: Unemployed ED ROS GENERAL - Review of Systems Review Of Systems: Comprehensive ROS is negative, except as noted in HPI. ED EXAM, GI/ABD - Physical Exam Exam: See Below Exam Limited By: No Limitations General Appearance: Alert, WD/WN, Mild Distress, Obese (Morbid obesity) Eyes: Bilateral: Normal Appearance, EOMI Ears: Normal External Exam, Normal Canal, Hearing Grossly Normal, Normal TMs Nose: Normal Inspection, Normal Mucosa, No Blood Throat/Mouth: Normal Inspection, Normal Lips, Normal Teeth, Normal Gums, Normal Oropharynx, Normal Voice, No Airway Compromise Head: Atraumatic, Normocephalic Neck: Normal Inspection, Supple, Non-Tender, Full Range of Motion Respiratory/Chest: No Respiratory Distress, Lungs Clear, Normal Breath Sounds, No Accessory Muscle Use, Chest Non-Tender Cardiovascular: Normal Peripheral Pulses, Regular Rate, Rhythm, No Edema, No Gallop, No JVD, No Murmur, No Rub GI/Abdominal Exam: Normal Bowel Sounds, No Organomegaly, No Distention, No Abnormal Bruit, No Mass, Pelvis Stable, Tender (RUQ and epigastric areas), Other (Obese) (Female) Exam: Deferred Rectal (Female) Exam: Deferred Back Exam: Normal Inspection, Full Range of Motion, NT Extremities: Normal Inspection, Normal Range of Motion, Non-Tender, Normal Capillary Refill, No Pedal Edema Neurological: Alert, Oriented, CN II-XII Intact, Normal Cognition, Normal Gait, Normal Reflexes, No Motor/Sensory Deficits Psychiatric: Normal Affect, Normal Mood Skin Exam: Warm, Dry, Intact, Normal Color, No Rash Lymphatic: No Adenopathy Course - Vital Signs Last Recorded V/S: Last Vital Signs Temp 37.6 C 08/27/19 23:00 Pulse 106 H 08/27/19 23:00 Resp 18 08/27/19 23:00 BP 124/67 08/27/19 23:00 Pulse Ox 98 08/27/19 23:00 - Orders/Labs/Meds Labs: Laboratory Tests 08/27/19 08/27/19 Range/Units 23:35 23:35 WBC 12.7 H (5.0-10.0) 10^3/uL RBC 4.50 (4.2-5.4) 10^6/uL Hgb 12.9 (12.0-16.0) g/dL Hct 38.9 (37.0-47.0) % MCV 86.4 (80-100) fL MCH 28.7 (27.0-34.0) pg MCHC 33.2 (33.0-35.0) g/dL Plt Count 352 (150-450) 10^3/uL Neut % (Auto) 70.5 (42.2-75.2) % Lymph % (Auto) 22.5 (20.5-50.1) % [place] % (Auto) 5.5 (2-8) % Eos % (Auto) 1.2 (1.0-3.0) % Baso % (Auto) 0.3 (0.0-1.0) % Sodium 137 (135-145) mmol/L Potassium 3.5 L (3.6-5.0) mmol/L Chloride 103 (101-111) mmol/L Carbon Dioxide 26.0 (21.0-31.0) mmol/L Anion Gap 11.5 BUN 13 (7-18) mg/dL Creatinine 0.6 (0.6-1.3) mg/dL Est Cr Clr Drug Dosing 115.33 mL/min Estimated GFR (MDRD) > 60 BUN/Creatinine Ratio 21.66 Glucose 116 H (74-105) mg/dL Calcium 8.8 (8.4-10.2) mg/dl Total Bilirubin 0.5 (0.2-1.0) mg/dL AST 27 (10-42) IU/L ALT 39 (10-60) IU/L Alkaline Phosphatase 91 (42-121) IU/L Total Protein 6.8 (6.7-8.2) g/dl Albumin 3.5 (3.2-5.5) g/dl Globulin 3.3 Albumin/Globulin Ratio 1.06 Meds: Medications Discontinued Medications Generic Name Dose Route Start Last Admin Trade Name Freq PRN Reason Stop Dose Admin Al Hydroxide/Mg Hydroxide 30 ml 08/27/19 23:53 08/28/19 00:33 Gi Cocktail PO 08/27/19 23:54 30 ml ONETIME ONE Administration Ondansetron HCl 4 mg 08/27/19 23:28 08/27/19 23:40 Zofran IVPUSH 08/27/19 23:29 4 mg ONETIME ONE Administration Pantoprazole Sodium 40 mg 08/27/19 23:28 08/27/19 23:41 Protonix Iv IVPUSH 08/27/19 23:29 40 mg ONETIME ONE Administration - Re-Assessments/Exams Free Text/Narrative Re-Assessment/Exam: 08/27/19 23:53 The patient reports her nausea is better at this time, but she continues to have burning from her stomach up into her throat. A GI Cocktail was ordered. Departure - Departure Time of Disposition: 00:50 Disposition: Home, Self-Care 01 Condition: Fair Clinical Impression: Nausea Abdominal pain Qualifiers: Abdominal location: right upper quadrant Qualified Code(s): R10.11 - Right upper quadrant pain - Discharge Information *PRESCRIPTION DRUG MONITORING PROGRAM REVIEWED*: Not Applicable *COPY OF PRESCRIPTION DRUG MONITORING REPORT IN PATIENT RILEY: Not Applicable Instructions: Nausea and Vomiting, Adult, [id number], Abdominal Pain, Adult, [id number] Forms: ED Department Discharge Care Plan Goals: The patient was advised of the examination and lab results during the visit. The patient was given IV protonix, IV Zofran and a GI cocktail while in the ED. The patient was encouraged to follow-up with the specialists as arranged. If the patient has any additional symptoms or concerns, the patient should either return to the emergency department or visit her primary care facility. Sepsis Event Note - Evaluation Sepsis Screening Result: No Definite Risk - Focused Exam Vital Signs: Vital Signs Temp Pulse Resp BP Pulse Ox 08/27/19 23:00 37.6 C 106 H 18 124/67 98 Date Exam was Performed: 08/28/19 Time Exam was Performed: 00:50
[2019-08-27] MEDS ORDERED: GI Cocktail Oral Solution 30 ML PO ONE (23:53)
[2019-08-28 00:01] LABS: ANION GAP 11.5; CHLORIDE,CL 103 mmol/L (101-111); SODIUM,NA 137 mmol/L (135-145)
== END 2019-08-28 00:55 | disposition home or self-care (01) ==
LOC: DL.ED 22:57
DX: R10.11 Right upper quadrant pain (principal); R11.0 Nausea; K21.9 Gastro-esophageal reflux disease without esophagitis; E66.9 Obesity, unspecified; Z68.44 Body mass index [BMI] 60.0-69.9, adult; Z88.8 Allergy status to other drugs, medicaments and biological substances; Z79.899 Other long term (current) drug therapy
CPT/HCPCS: 36415; 80053; 85025; 96374; 96375; 99284; A9270; C9113; J2405

== ENCOUNTER 2019-08-29 08:27 | Emergency (ER) | payer MEDICAID ==
[2019-08-29 08:35] VITALS: BP 139/69; PULSE 76
[2019-08-29] MEDS ORDERED: HYDROmorphone 1 MG/ML Syringe IM ONE (08:53)
[2019-08-29] MEDS ORDERED: Promethazine 25 MG/ML SDV IM ONE (08:53)
--- NOTE | 2019-08-29 08:58 | EDM.PDOC ---
<Anatoliy Xie - Last Filed: 08/29/19 09:13> ED HPI GENERAL MEDICAL PROBLEM - General Chief Complaint: Abdominal Pain Stated Complaint: GALLBLADDER Time Seen by Provider: 08/29/19 08:53 Source of Information: Reports: Patient, RN, RN Notes Reviewed History Limitations: Reports: No Limitations - History of Present Illness INITIAL COMMENTS - FREE TEXT/NARRATIVE: 24 y.o F present with RUQ pain that worsened since last night. Patient reports HX of gallbladder issues ongoing x 4 years. Reports having an ultrasound done at the clinic this morning on gallbladder. Patient reports that she was recently seen here in the ER and sent home with medications but she feels like they're not helping. Patient reports nausea, reports some emesis last night. She reports no fevers/chills. Reports diarrhea. She had a workup for similar complaints 2 days ago with all pertinent lab work and imaging, so no lab work was performed today. She has had a laparoscopic procedure to remove her gallbladder in the past but with her obesity it was too hard to visualize the gallbladder and lift the liver and her gallbladder was not removed. She has a consult with a surgeon at 3pm today and an appointment with on Sep 05. Duration: Chronic Location: Reports: Abdomen (RUQ) Quality: Reports: Ache Severity: Moderate Improves with: Reports: None Worsens with: Reports: None Associated Symptoms: Reports: Loss of Appetite, Nausea/Vomiting. Denies: Chest Pain, Cough, Fever/Chills, Headaches, Shortness of Breath, Syncope Right Upper Abdominal Pain Score (Numeric/FACES): 8 - Related Data Allergies Allergy/AdvReac Type Severity Reaction Status Date / Time fentanyl Allergy Rash Verified 08/29/19 08:35 Home Meds: Home Meds Omeprazole 20 mg PO DAILY 04/01/18 [History] Acetaminophen/Caffeine [Excedrin Tension Headache Cplt] 1 tab PO ASDIRECTED PRN 04/05/18 [History] Cefdinir [Omnicef] 1 tab PO BID 08/27/19 [History] Hydrocodone/Acetaminophen [Hydrocodon-Acetaminophen 5-325] 1 each PO Q4HR PRN [History] Sucralfate 1 gm PO DAILY 08/27/19 [History] Ondansetron [Zofran ODT] 4 mg PO ASDIRECTED 08/29/19 [History] Past Medical History - Past Health History Medical/Surgical History: Denies Medical/Surgical History HEENT History: Reports: Impaired Vision, Otitis Media Other HEENT History: HAS PRESCRIBED CORRECTIVE LENSES; DOES NOT WEAR THEM Cardiovascular History: Reports: None Respiratory History: Reports: None Gastrointestinal History: Reports: Cholelithiasis, GERD Genitourinary History: Reports: STD, UTI, Recurrent Other Genitourinary History: CHLAMYDIA 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 Musculoskeletal History: Reports: Fracture, Other (See Below) Other Musculoskeletal History: HX OF WRIST & ANKLE FRACTURE. history of carpal tunnel - states has had nerve stimulation for this Neurological History: Reports: Headaches, Chronic, Migraines Psychiatric History: Reports: Anxiety Endocrine/Metabolic History: Reports: Obesity/BMI 30+ Hematologic History: Reports: None Immunologic History: Reports: None Oncologic (Cancer) History: Reports: None Dermatologic History: Reports: None - Infectious Disease History Infectious Disease History: Reports: Chicken Pox - Past Surgical History Head Surgeries/Procedures: Reports: None HEENT Surgical History: Reports: Adenoidectomy, Oral Surgery, Tonsillectomy Other HEENT Surgeries/Procedures: WISDOM TEETH EXTRACTION Cardiovascular Surgical History: Reports: None Respiratory Surgical History: Reports: None GI Surgical History: Reports: EGD, Other (See Below) Other GI Surgeries/Procedures: Gallbladder surgery Female Surgical History: Reports: Other (See Below) Other Female Surgeries/Procedures: IUD INSERTION-REMOVED; PATIENT STATES IT WAS EXPELLED FROM BODY Endocrine Surgical History: Reports: None Neurological Surgical History: Reports: None Musculoskeletal Surgical History: Reports: None Oncologic Surgical History: Reports: None Dermatological Surgical History: Reports: None Social & Family History - Family History Family Medical History: Noncontributory - Tobacco Use Smoking Status *Q: Never Smoker Second Hand Smoke Exposure: No - Caffeine Use Caffeine Use: Reports: Tea - Recreational Drug Use Recreational Drug Use: No - Sexual History Sexual History: Reports: Sexually Active - Living Situation & Occupation Living situation: Reports: with Family Occupation: Unemployed ED ROS GENERAL - Review of Systems Review Of Systems: See Below Constitutional: Reports: Decreased Appetite. Denies: Fever, Chills, Fatigue HEENT: Reports: No Symptoms Respiratory: Reports: No Symptoms Cardiovascular: Reports: No Symptoms Endocrine: Reports: No Symptoms GI/Abdominal: Reports: Abdominal Pain (RUQ), Diarrhea, Decreased Appetite, Nausea, Vomiting. Denies: Constipation : Reports: No Symptoms Musculoskeletal: Reports: No Symptoms Skin: Reports: No Symptoms Neurological: Reports: No Symptoms Psychiatric: Reports: No Symptoms Hematologic/Lymphatic: Reports: No Symptoms Immunologic: Reports: No Symptoms ED EXAM, GI/ABD - Physical Exam Exam: See Below Exam Limited By: No Limitations General Appearance: Alert, WD/WN, No Apparent Distress Neck: Normal Inspection, Supple, Non-Tender, Full Range of Motion Respiratory/Chest: No Respiratory Distress, Lungs Clear, Normal Breath Sounds, No Accessory Muscle Use, Chest Non-Tender Cardiovascular: Normal Peripheral Pulses, Regular Rate, Rhythm, No Edema, No Gallop, No JVD, No Murmur, No Rub GI/Abdominal Exam: Normal Bowel Sounds, No Distention, No Mass, Guarding, Tender (RUQ). No: Distended, Rebound (Female) Exam: Deferred Rectal (Female) Exam: Deferred Extremities: Normal Inspection, Normal Range of Motion, Non-Tender, Normal Capillary Refill, No Pedal Edema Neurological: Alert, Oriented, CN II-XII Intact, Normal Cognition, Normal Gait, Normal Reflexes, No Motor/Sensory Deficits Psychiatric: Normal Affect, Normal Mood Skin Exam: Warm, Dry, Intact, Normal Color, No Rash Lymphatic: No Adenopathy Course - Vital Signs Last Recorded V/S: Last Vital Signs Temp 95.7 F 08/29/19 08:32 Pulse 76 08/29/19 08:32 Resp 20 08/29/19 08:32 BP 139/69 08/29/19 08:32 Pulse Ox 96 08/29/19 08:32 - Orders/Labs/Meds Meds: Medications Discontinued Medications Generic Name Dose Route Start Last Admin Trade Name Freq PRN Reason Stop Dose Admin Hydromorphone HCl 1 mg 08/29/19 08:53 08/29/19 09:07 Dilaudid IM 08/29/19 08:54 1 mg ONETIME ONE Administration Promethazine HCl 25 mg 08/29/19 08:53 08/29/19 09:07 Phenergan IM 08/29/19 08:54 25 mg ONETIME ONE Administration Departure - Departure Disposition: Home, Self-Care 01 Clinical Impression: Recurrent biliary colic, Chronic cholecystitis, Chronic GERD - Discharge Information Instructions: Biliary Colic, Adult, Gallbladder Eating Plan, Gastroesophageal Reflux Disease, Adult, [id number] Forms: ED Department Discharge Additional Instructions: Follow up with Dr. Appiah today as scheduled. Follow up with your surgeon as planned. Sepsis Event Note - Evaluation Sepsis Screening Result: No Definite Risk - Focused Exam Vital Signs: Vital Signs Temp Pulse Resp BP Pulse Ox 08/29/19 08:32 95.7 F 76 20 139/69 96 Date Exam was Performed: 08/29/19 Time Exam was Performed: 09:13 <Rasheed Shaver - Last Filed: 08/29/19 09:14> Departure - Departure Time of Disposition: 09:09 Condition: Fair - Discharge Information *PRESCRIPTION DRUG MONITORING PROGRAM REVIEWED*: No *COPY OF PRESCRIPTION DRUG MONITORING REPORT IN PATIENT RILEY: No Sepsis Event Note - Focused Exam Date Exam was Performed: 08/29/19 Time Exam was Performed: 09:14
== END 2019-08-29 09:21 | disposition home or self-care (01) ==
LOC: DL.ED 08:27
DX: K80.44 Calculus of bile duct with chronic cholecystitis without obstruction (principal); K21.9 Gastro-esophageal reflux disease without esophagitis; Z88.8 Allergy status to other drugs, medicaments and biological substances; Z98.890 Other specified postprocedural states
CPT/HCPCS: 96372; 99283; J1170; J2550

== ENCOUNTER 2019-08-31 06:27 | Day surgery (SDC) | payer MEDICAID ==
[~2019-08-31 06:27] MED LIST: Dextrose 5%-0.45% NaCl 1,000 ML IV SCH; Midazolam 1 MG/ML 2 ML SDV ONE; Sodium Chloride 0.9% 10 ML Syringe FLUSH PRN
[2019-08-31] MEDS ORDERED: Midazolam 1 MG/ML 2 ML SDV IV ONE ×3 (06:28→07:26)
[2019-08-31] MEDS ORDERED: HYDROmorphone 1 MG/ML Syringe IV ONE ×2 (07:00→07:24)
[2019-08-31] MEDS ORDERED: HYDROmorphone 1 MG/ML Syringe ONE (07:17)
--- NOTE | 2019-08-31 08:26 | OR ---
DATE: 08/31/2019 PROCEDURE: Esophagogastroduodenoscopy and multiple pinch biopsies. INSTRUMENT USED: [id number]-HQ190 Olympus video panendoscope. PREMEDICATIONS: No oral or topical anesthesia used. Dilaudid 0.25 mg intravenous, Versed 2 mg intravenous, nasal O2 cannula. The procedure was done under pulse oximetry, BP recording, and environmental monitoring technician. INDICATION: The patient with persistent upper abdominal pain, unexplained and not responsive to medical measures, on high-dose PPI. Esophagogastroduodenoscopy is performed for detection of any active erosive lesions, Davis esophagus, and/or malignancy also under consideration, H pylori status to be determined, endoscopic hemostasis therapy if needed. DESCRIPTION OF PROCEDURE: The scope was passed with ease. Adequate visualization of the esophagus was made from proximal to distal areas. No upper esophageal lesions identified. No distal esophageal stricture. No uphill or downhill esophageal varices. No Sera-Allan tear. No evidence of erosive esophagitis by Colome criteria. No esophageal polyp or tumor mass identified. Z-line was seen at around 40 cm distal to the oral verge, configuration consistent with grade 1 by ZAP classification. No proximal gastric varices noted. Gastric fundus examination by retroflexion showed no polypoid lesions. No gastric ulcer, malignant mass, or vascular ectasia identified. Duodenal bulb showed no ulcer. Visualized second part of the duodenum was unremarkable. Multiple pinch biopsies were taken from the gastric antrum and proximal body and sent for PyloriTek test for H pylori, and if negative in an hour, the tissue is to be sent for histopathology. No bleeding was noted from any of the visualized areas at the completion of examination. Photographs were taken of the duodenal bulb, gastric antrum, fundus, and distal esophagus. IMPRESSION: Normal study. The patient tolerated the procedure well. [facility] [place] /[id number]
[2019-08-31 15:18] VITALS: BP 137/95; PULSE 94
== END 2019-08-31 09:42 | disposition home or self-care (01) ==
LOC: DL.ENDO 06:27
PROVIDERS: ATTEND Internal Medicine Gastroenterology
DX: R10.10 Upper abdominal pain, unspecified (principal); K21.9 Gastro-esophageal reflux disease without esophagitis; E66.01 Morbid (severe) obesity due to excess calories; Z79.899 Other long term (current) drug therapy; Z68.44 Body mass index [BMI] 60.0-69.9, adult
CPT/HCPCS: 43239; 87077; J1170; J2250; J7042

== ENCOUNTER 2019-08-31 10:09 | Emergency (ER) | payer MEDICAID | END 2019-08-31 12:08 | disposition left against medical advice (07) | LOC: DL.ED 10:09 | DX: Z53.21 Procedure and treatment not carried out due to patient leaving prior to being seen by health care provider (principal) ==

== ENCOUNTER 2019-08-31 12:55 | Emergency (ER) | payer MEDICAID ==
[2019-08-31] MEDS ORDERED: GI Cocktail Oral Solution 30 ML PO ONE ×2 (12:56→17:12)
[2019-08-31 15:26] VITALS: BP 132/99; PULSE 98
[2019-08-31] MEDS ORDERED: Ondansetron 4 MG Tab.DIS PO ONE (17:12)
--- NOTE | 2019-08-31 17:17 | EDM.PDOC ---
<Anatoliy Xie - Last Filed: 08/31/19 17:13> ED HPI GENERAL MEDICAL PROBLEM - General Chief Complaint: Abdominal Pain Stated Complaint: BURNING PAIN IN RUQ Time Seen by Provider: 08/31/19 17:13 Source of Information: Reports: Patient, RN, RN Notes Reviewed History Limitations: Reports: No Limitations - History of Present Illness INITIAL COMMENTS - FREE TEXT/NARRATIVE: Patient arrived today ambulatory stating she had an EGD completed this morning, the procedure and everything was done at 1000. She stated that she was awake for the whole EGD procedure and could feel everything and was gagging during. Patient was triaged here earlier but reports that she didn't want to wait because the ER was really busy so she decided to go to [facility] and get some Mylanta for the burning abdominal pain on the right side which is what the [facility] nurses requested. While in [facility] patient states she became lightheaded and dizzy and decided she should come back to the ED. Patient states she has been nauseated for quite some time does have Zofran at home but took the last dose yesterday. Reports she is afraid to eat or drink anything because she is afraid she will throw up. Patient states after her EGD today she became red in the face with a rash from cheeks to her forehead, denies SOB. VSS. Onset: Today Duration: Constant Location: Reports: Abdomen Quality: Reports: Burning Severity: Moderate Improves with: Reports: None Worsens with: Reports: None Associated Symptoms: Reports: Loss of Appetite, Nausea/Vomiting. Denies: Chest Pain, cough w sputum, Diaphoresis, Headaches, Shortness of Breath, Syncope, Weakness Right Abdomen Pain Score (Numeric/FACES): 8 - Related Data Allergies Allergy/AdvReac Type Severity Reaction Status Date / Time fentanyl Allergy Rash Verified 08/31/19 15:10 Home Meds: Home Meds Omeprazole 20 mg PO DAILY 04/01/18 [History] Acetaminophen/Caffeine [Excedrin Tension Headache Cplt] 1 tab PO Q8HR PRN [History] Cefdinir [Omnicef] 300 mg PO BID 08/27/19 [History] Hydrocodone/Acetaminophen [Hydrocodon-Acetaminophen 5-325] 1 each PO Q4HR PRN [History] Ondansetron [Zofran ODT] 4 mg PO Q6H PRN 08/29/19 [History] Albuterol [Ventolin HFA] 1 - 2 puff INH Q6H PRN 08/30/19 [History] Ibuprofen 600 mg PO Q6H PRN 08/30/19 [History] Past Medical History - Past Health History Medical/Surgical History: Denies Medical/Surgical History HEENT History: Reports: Impaired Vision, Otitis Media Other HEENT History: HAS PRESCRIBED CORRECTIVE LENSES; DOES NOT WEAR THEM Cardiovascular History: Reports: None Respiratory History: Reports: Bronchitis, Recurrent Gastrointestinal History: Reports: Cholelithiasis, Chronic Diarrhea, GERD, Other (See Below) Other Gastrointestinal History: FATTY LIVER. 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 Musculoskeletal History: Reports: Fracture, Other (See Below) Other Musculoskeletal History: HX OF WRIST & ANKLE FRACTURE. history of carpal tunnel - states has had nerve stimulation for this Neurological History: Reports: Headaches, Chronic, Migraines Psychiatric History: Reports: Anxiety Endocrine/Metabolic History: Reports: Obesity/BMI 30+, Other (See Below) Other Endocrine/Metabolic History: HX OF ACIDOSIS Hematologic History: Reports: None Immunologic History: Reports: None Oncologic (Cancer) History: Reports: None Dermatologic History: Reports: None - Infectious Disease History Infectious Disease History: Reports: None - Past Surgical History Head Surgeries/Procedures: Reports: None HEENT Surgical History: Reports: Adenoidectomy, Oral Surgery, Tonsillectomy Other HEENT Surgeries/Procedures: WISDOM TEETH EXTRACTION Cardiovascular Surgical History: Reports: None Respiratory Surgical History: Reports: None GI Surgical History: Reports: Colonoscopy, EGD, Other (See Below) Other GI Surgeries/Procedures: ATTEMPTED GALLBLADDER REMOVAL Female Surgical History: Reports: Other (See Below) Other Female Surgeries/Procedures: IUD INSERTION-REMOVED; PATIENT STATES IT WAS EXPELLED FROM BODY Endocrine Surgical History: Reports: None Neurological Surgical History: Reports: None Musculoskeletal Surgical History: Reports: None Oncologic Surgical History: Reports: None Dermatological Surgical History: Reports: None Social & Family History - Family History Family Medical History: Noncontributory - Tobacco Use Smoking Status *Q: Never Smoker - Caffeine Use Caffeine Use: Reports: Soda Caffeine Use Comment: 20 oz daily - Recreational Drug Use Recreational Drug Use: No - Sexual History Sexual History: Reports: Sexually Active - Living Situation & Occupation Living situation: Reports: with Family Occupation: Unemployed ED ROS GENERAL - Review of Systems Review Of Systems: See Below Constitutional: Reports: No Symptoms HEENT: Reports: No Symptoms Respiratory: Reports: No Symptoms Cardiovascular: Reports: No Symptoms Endocrine: Reports: No Symptoms GI/Abdominal: Reports: Abdominal Pain (RUQ), Diarrhea, Decreased Appetite, Nausea, Vomiting. Denies: Constipation : Reports: No Symptoms Musculoskeletal: Reports: No Symptoms Skin: Reports: No Symptoms Neurological: Reports: Dizziness. Denies: Headache, Syncope, Weakness Psychiatric: Reports: No Symptoms Hematologic/Lymphatic: Reports: No Symptoms Immunologic: Reports: No Symptoms ED EXAM, GI/ABD - Physical Exam Exam: See Below Exam Limited By: No Limitations General Appearance: Alert, Anxious, Mild Distress Throat/Mouth: Normal Inspection, Normal Lips, Normal Teeth, Normal Gums, Normal Oropharynx, Normal Voice, No Airway Compromise Neck: Normal Inspection, Supple, Non-Tender, Full Range of Motion Respiratory/Chest: No Respiratory Distress, Lungs Clear, Normal Breath Sounds, No Accessory Muscle Use, Chest Non-Tender Cardiovascular: Normal Peripheral Pulses, Regular Rate, Rhythm, No Edema, No Gallop, No JVD, No Murmur, No Rub GI/Abdominal Exam: Normal Bowel Sounds, Soft, No Organomegaly, No Distention, No Abnormal Bruit, No Mass, Pelvis Stable, Guarding (RUQ), Tender (RUQ pain with palpation). No: Rigid, Rebound Neurological: Alert, Oriented, CN II-XII Intact, Normal Cognition, Normal Gait, Normal Reflexes, No Motor/Sensory Deficits Psychiatric: Normal Affect, Normal Mood Course - Vital Signs Last Recorded V/S: Last Vital Signs Temp 98.6 F 08/31/19 15:17 Pulse 98 08/31/19 15:17 Resp 20 08/31/19 15:17 BP 132/99 H 08/31/19 15:17 Pulse Ox 99 08/31/19 15:17 - Orders/Labs/Meds Meds: Medications Discontinued Medications Generic Name Dose Route Start Last Admin Trade Name Freq PRN Reason Stop Dose Admin Al Hydroxide/Mg Hydroxide 30 ml 08/31/19 17:12 08/31/19 17:21 Gi Cocktail PO 08/31/19 17:13 30 ml ONETIME ONE Administration Al Hydroxide/Mg Hydroxide Confirm 08/31/19 18:04 Gi Cocktail Administered 08/31/19 18:05 Dose 30 ml .ROUTE .STK-MED ONE Ondansetron HCl 4 mg 08/31/19 17:12 08/31/19 17:21 Zofran Odt PO 08/31/19 17:13 4 mg ONETIME ONE Administration Departure - Departure Disposition: Home, Self-Care 01 Clinical Impression: Recurrent biliary colic - Discharge Information Instructions: Abdominal Pain, Adult, [id number], Gallbladder Eating Plan Forms: ED Department Discharge Additional Instructions: RX: GI Cocktail as needed for burning pain, DO NOT USE TODAY Continue medicine regimen at home Follow up with Dr. Lazo on Wednesday Drink plenty of water [place], soft diet Sepsis Event Note - Evaluation Sepsis Screening Result: No Definite Risk - Focused Exam Date Exam was Performed: 08/31/19 Time Exam was Performed: 17:13 <Lanny Hall - Last Filed: 09/01/19 07:58> Course - Radiology Interpretation Free Text/Narrative:: I personally performed or re-performed the physical examination and medical decision making. I have verified all student documentation or findings, including history, physical exam and/or medical decision making. Departure - Departure Time of Disposition: 17:51 Condition: Fair - Discharge Information *PRESCRIPTION DRUG MONITORING PROGRAM REVIEWED*: No *COPY OF PRESCRIPTION DRUG MONITORING REPORT IN PATIENT RILEY: No Sepsis Event Note - Focused Exam Date Exam was Performed: 09/01/19 Time Exam was Performed: 07:53
[2019-08-31] MEDS ORDERED: GI Cocktail Oral Solution 30 ML ONE (18:04)
== END 2019-08-31 18:10 | disposition home or self-care (01) ==
LOC: DL.ED 12:55
DX: K80.50 Calculus of bile duct without cholangitis or cholecystitis without obstruction (principal); E66.9 Obesity, unspecified; K21.9 Gastro-esophageal reflux disease without esophagitis; Z68.44 Body mass index [BMI] 60.0-69.9, adult; Z88.6 Allergy status to analgesic agent; Z79.899 Other long term (current) drug therapy
CPT/HCPCS: 99283; A9270

== ENCOUNTER 2019-09-30 20:59 | Emergency (ER) | payer MEDICAID ==
[2019-09-30 21:28] VITALS: BP 111/61; PULSE 96
--- NOTE | 2019-09-30 21:38 | EDM.PDOC ---
ED HPI GENERAL MEDICAL PROBLEM - General Chief Complaint: Back Pain or Injury Stated Complaint: LOWER RIGHT SIDE ABOVE BUTTOCKS Time Seen by Provider: 09/30/19 21:40 Source of Information: Reports: Patient History Limitations: Reports: No Limitations - History of Present Illness INITIAL COMMENTS - FREE TEXT/NARRATIVE: ED with c/o right mid to low back pain worse with cough, No SOB Pain since Wednesday. No fever or chills no vomiting. no pain with urination no increased frequency. Recent lap kandice 2 weeks ago. Right Lower Back Pain Score (Numeric/FACES): 7 - Related Data Allergies Allergy/AdvReac Type Severity Reaction Status Date / Time fentanyl Allergy Rash Verified 08/31/19 15:10 Home Meds: Home Meds Omeprazole 20 mg PO DAILY 04/01/18 [History] Acetaminophen/Caffeine [Excedrin Tension Headache Cplt] 1 tab PO Q8HR PRN [History] Cefdinir [Omnicef] 300 mg PO BID 08/27/19 [History] Hydrocodone/Acetaminophen [Hydrocodon-Acetaminophen 5-325] 1 each PO Q4HR PRN [History] Ondansetron [Zofran ODT] 4 mg PO Q6H PRN 08/29/19 [History] Albuterol [Ventolin HFA] 1 - 2 puff INH Q6H PRN 08/30/19 [History] Ibuprofen 600 mg PO Q6H PRN 08/30/19 [History] Past Medical History - Past Health History Medical/Surgical History: Denies Medical/Surgical History HEENT History: Reports: Impaired Vision, Otitis Media Other HEENT History: HAS PRESCRIBED CORRECTIVE LENSES; DOES NOT WEAR THEM Cardiovascular History: Reports: None Respiratory History: Reports: Bronchitis, Recurrent Gastrointestinal History: Reports: Cholelithiasis, Chronic Diarrhea, GERD, Other (See Below) Other Gastrointestinal History: FATTY LIVER. 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 Musculoskeletal History: Reports: Fracture, Other (See Below) Other Musculoskeletal History: HX OF WRIST & ANKLE FRACTURE. history of carpal tunnel - states has had nerve stimulation for this Neurological History: Reports: Headaches, Chronic, Migraines Psychiatric History: Reports: Anxiety Endocrine/Metabolic History: Reports: Obesity/BMI 30+, Other (See Below) Other Endocrine/Metabolic History: HX OF ACIDOSIS Hematologic History: Reports: None Immunologic History: Reports: None Oncologic (Cancer) History: Reports: None Dermatologic History: Reports: None - Infectious Disease History Infectious Disease History: Reports: None - Past Surgical History Head Surgeries/Procedures: Reports: None HEENT Surgical History: Reports: Adenoidectomy, Oral Surgery, Tonsillectomy Other HEENT Surgeries/Procedures: WISDOM TEETH EXTRACTION Cardiovascular Surgical History: Reports: None Respiratory Surgical History: Reports: None GI Surgical History: Reports: Cholecystectomy, Colonoscopy, EGD, Other (See Below) Female Surgical History: Reports: Other (See Below) Other Female Surgeries/Procedures: IUD INSERTION-REMOVED; PATIENT STATES IT WAS EXPELLED FROM BODY Endocrine Surgical History: Reports: None Neurological Surgical History: Reports: None Musculoskeletal Surgical History: Reports: None Oncologic Surgical History: Reports: None Dermatological Surgical History: Reports: None Social & Family History - Family History Family Medical History: Noncontributory - Tobacco Use Smoking Status *Q: Never Smoker Second Hand Smoke Exposure: No - Caffeine Use Caffeine Use: Reports: Tea Caffeine Use Comment: 20 oz daily - Recreational Drug Use Recreational Drug Use: No - Sexual History Sexual History: Reports: Sexually Active - Living Situation & Occupation Living situation: Reports: with Family Occupation: Unemployed ED ROS GENERAL - Review of Systems Review Of Systems: Comprehensive ROS is negative, except as noted in HPI. ED EXAM,LOWER BACK PAIN/INJURY - Physical Exam Exam: See Below Exam Limited By: No Limitations General Appearance: Alert, No Apparent Distress, Obese Eye Exam: Bilateral Eye: EOMI Ears: Normal External Exam, Hearing Grossly Normal Nose: Normal Inspection Throat/Mouth: Normal Inspection Head: Atraumatic, Normocephalic Neck: Normal Inspection Respiratory/Chest: No Respiratory Distress, Lungs Clear, Normal Breath Sounds Cardiovascular: Normal Peripheral Pulses, Regular Rate, Rhythm GI/Abdominal: Normal Bowel Sounds, Soft, Other (surgical incisions healing) Back Exam: Full Range of Motion, Paraspinal Tenderness (right upper lumbar), Vertebral Tenderness. No: CVA Tenderness (L), CVA Tenderness (R) Extremities: Normal Inspection, Normal Range of Motion Neurological: Alert, Normal Mood/Affect Psychiatric: Normal Affect, Normal Mood Skin Exam: Warm, Dry, Intact, Normal Color Course - Vital Signs Last Recorded V/S: Last Vital Signs Temp 96.8 F L 09/30/19 21:21 Pulse 96 09/30/19 21:21 Resp 16 09/30/19 21:21 BP 111/61 09/30/19 21:21 Pulse Ox 100 09/30/19 21:21 Departure - Departure Time of Disposition: 21:35 Disposition: Home, Self-Care 01 Condition: Good Clinical Impression: Muscle spasm, Back pain of thoracolumbar region Back pain Qualifiers: Back pain location: thoracic back pain Chronicity: unspecified Back pain laterality: right Qualified Code(s): M54.6 - Pain in thoracic spine - Discharge Information *PRESCRIPTION DRUG MONITORING PROGRAM REVIEWED*: No *COPY OF PRESCRIPTION DRUG MONITORING REPORT IN PATIENT RILEY: No Instructions: Muscle Cramps and Spasms Referrals: PCP,Unobtain [Primary Care Provider] - Forms: ED Department Discharge Additional Instructions: increase activity humidifier deep breathing exercises continue low fat diet, avoid milk products x 24 hours tylenol for discomfort follow up in clinic next week for recheck Sepsis Event Note - Evaluation Sepsis Screening Result: No Definite Risk - Focused Exam Vital Signs: Vital Signs Temp Pulse Resp BP Pulse Ox 09/30/19 21:21 96.8 F L 96 16 111/61 100 Date Exam was Performed: 10/01/19 Time Exam was Performed: 05:46
== END 2019-09-30 21:42 | disposition home or self-care (01) ==
LOC: DL.ED 20:59
DX: M62.830 Muscle spasm of back (principal); E66.9 Obesity, unspecified; Z88.8 Allergy status to other drugs, medicaments and biological substances; Z79.899 Other long term (current) drug therapy; Z68.44 Body mass index [BMI] 60.0-69.9, adult
CPT/HCPCS: 99283

== ENCOUNTER 2019-10-17 11:10 | Emergency (ER) | payer MEDICAID ==
[2019-10-17 11:19] VITALS: BP 142/87; PULSE 84
--- NOTE | 2019-10-17 11:30 | EDM.PDOC ---
ED HPI GENERAL MEDICAL PROBLEM - General Chief Complaint: Gastrointestinal Problem Stated Complaint: ABDOMINAL PAIN,BLOOD IN STOOL Time Seen by Provider: 10/17/19 11:22 Source of Information: Reports: Patient, Old Records, RN, RN Notes Reviewed History Limitations: Reports: No Limitations - History of Present Illness INITIAL COMMENTS - FREE TEXT/NARRATIVE: Pt presents to ER with c/o diarrhea and abdominal cramping, especially after eating. Pt had a cholecystectomy on 09/21/19 and reports that she has had diarrhea since that time. Pt states she has called the surgeon's office. She came to the ER today because she noticed a small amount of red blood on her stool. Denies fever, chills, N/V, or dysuria. Duration: Week(s): (3+), Constant Location: Reports: Abdomen Quality: Reports: Other (Cramping) Severity: Moderate Improves with: Reports: None Worsens with: Reports: Eating Associated Symptoms: Reports: No Other Symptoms Abdomen Pain Score (Numeric/FACES): 3 - Related Data Allergies Allergy/AdvReac Type Severity Reaction Status Date / Time fentanyl Allergy Rash Verified 08/31/19 15:10 Home Meds: Home Meds Omeprazole 20 mg PO DAILY 04/01/18 [History] Acetaminophen/Caffeine [Excedrin Tension Headache Cplt] 1 tab PO Q8HR PRN [History] Cefdinir [Omnicef] 300 mg PO BID 08/27/19 [History] Hydrocodone/Acetaminophen [Hydrocodon-Acetaminophen 5-325] 1 each PO Q4HR PRN [History] Ondansetron [Zofran ODT] 4 mg PO Q6H PRN 08/29/19 [History] Albuterol [Ventolin HFA] 1 - 2 puff INH Q6H PRN 08/30/19 [History] Ibuprofen 600 mg PO Q6H PRN 08/30/19 [History] Past Medical History - Past Health History Medical/Surgical History: Denies Medical/Surgical History HEENT History: Reports: Impaired Vision, Otitis Media Other HEENT History: HAS PRESCRIBED CORRECTIVE LENSES; DOES NOT WEAR THEM Cardiovascular History: Reports: None Respiratory History: Reports: Bronchitis, Recurrent Gastrointestinal History: Reports: Cholelithiasis, Chronic Diarrhea, GERD, Other (See Below) Other Gastrointestinal History: FATTY LIVER. 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 Musculoskeletal History: Reports: Fracture, Other (See Below) Other Musculoskeletal History: HX OF WRIST & ANKLE FRACTURE. history of carpal tunnel - states has had nerve stimulation for this Neurological History: Reports: Headaches, Chronic, Migraines Psychiatric History: Reports: Anxiety Endocrine/Metabolic History: Reports: Obesity/BMI 30+, Other (See Below) Other Endocrine/Metabolic History: HX OF ACIDOSIS Hematologic History: Reports: None Immunologic History: Reports: None Oncologic (Cancer) History: Reports: None Dermatologic History: Reports: None - Infectious Disease History Infectious Disease History: Reports: None - Past Surgical History Head Surgeries/Procedures: Reports: None HEENT Surgical History: Reports: Adenoidectomy, Oral Surgery, Tonsillectomy Other HEENT Surgeries/Procedures: WISDOM TEETH EXTRACTION Cardiovascular Surgical History: Reports: None Respiratory Surgical History: Reports: None GI Surgical History: Reports: Cholecystectomy, Colonoscopy, EGD, Other (See Below) Female Surgical History: Reports: Other (See Below) Other Female Surgeries/Procedures: IUD INSERTION-REMOVED; PATIENT STATES IT WAS EXPELLED FROM BODY Endocrine Surgical History: Reports: None Neurological Surgical History: Reports: None Musculoskeletal Surgical History: Reports: None Oncologic Surgical History: Reports: None Dermatological Surgical History: Reports: None Social & Family History - Family History Family Medical History: Noncontributory - Tobacco Use Smoking Status *Q: Never Smoker Second Hand Smoke Exposure: No - Caffeine Use Caffeine Use: Reports: Tea Caffeine Use Comment: 20 oz daily - Recreational Drug Use Recreational Drug Use: No - Sexual History Sexual History: Reports: Sexually Active - Living Situation & Occupation Living situation: Reports: with Family Occupation: Unemployed ED ROS GENERAL - Review of Systems Review Of Systems: Comprehensive ROS is negative, except as noted in HPI. ED EXAM, GI/ABD - Physical Exam Exam: See Below Exam Limited By: No Limitations General Appearance: Alert, No Apparent Distress, Obese Eyes: Bilateral: Normal Appearance (No scleral icterus) Nose: Normal Inspection, No Blood Throat/Mouth: Normal Inspection Head: Atraumatic, Normocephalic Neck: Normal Inspection Respiratory/Chest: No Respiratory Distress, Lungs Clear, Normal Breath Sounds, No Accessory Muscle Use, Chest Non-Tender Cardiovascular: Regular Rate, Rhythm GI/Abdominal Exam: Normal Bowel Sounds, Soft, Other (Morbidly obese abdomen) (Female) Exam: Deferred Back Exam: Normal Inspection Extremities: Normal Inspection Neurological: Alert, Oriented, No Motor/Sensory Deficits Psychiatric: Normal Mood Skin Exam: Warm, Dry, Intact, Normal Color, No Rash Course - Vital Signs Last Recorded V/S: Last Vital Signs Temp 96.3 F L 10/17/19 11:15 Pulse 84 10/17/19 11:15 Resp 18 10/17/19 11:15 BP 142/87 H 10/17/19 11:15 Pulse Ox 95 10/17/19 11:15 - Orders/Labs/Meds Orders: Active Orders 24 hr Category Date Time Status CULTURE STOOL [RM] Stat Lab 10/17/19 11:35 Received SHIGA TOXIN 1 & 2 [MREF] Stat Lab 10/17/19 11:35 Received Labs: Laboratory Tests 10/17/19 10/17/19 10/17/19 Range/Units 11:43 11:43 11:43 WBC 11.5 H (5.0-10.0) 10^3/uL RBC 5.07 (4.2-5.4) 10^6/uL Hgb 14.0 (12.0-16.0) g/dL Hct 43.2 (37.0-47.0) % MCV 85.2 (80-100) fL MCH 27.6 (27.0-34.0) pg MCHC 32.4 L (33.0-35.0) g/dL Plt Count 353 (150-450) 10^3/uL Neut % (Auto) 79.9 H (42.2-75.2) % Lymph % (Auto) 14.6 L (20.5-50.1) % [place] % (Auto) 4.5 (2-8) % Eos % (Auto) 0.7 L (1.0-3.0) % Baso % (Auto) 0.3 (0.0-1.0) % Sodium 139 (136-145) mmol/L Potassium 4.1 (3.5-5.1) mmol/L Chloride 101 (98-107) mmol/L Carbon Dioxide 26 (21-32) mmol/L Anion Gap 16.1 H (7-13) mEq/L BUN 11 (7-18) mg/dL Creatinine 0.73 (0.55-1.02) mg/dL Est Cr Clr Drug Dosing 93.98 mL/min Estimated GFR (MDRD) > 60 BUN/Creatinine Ratio 15.1 (No establ ref range) Glucose 117 H (74-99) mg/dL Calcium 8.6 (8.5-10.1) mg/dL Total Bilirubin 0.4 (0.2-1.0) mg/dL AST 36 (15-37) U/L ALT 70 H (14-59) U/L Alkaline Phosphatase 138 H (46-116) U/L Total Protein 7.3 (6.4-8.2) g/dL Albumin 3.5 (3.4-5.0) g/dL Globulin 3.8 Albumin/Globulin Ratio 0.9 HCG, Qual Negative Meds: Medications Discontinued Medications Generic Name Dose Route Start Last Admin Trade Name Freq PRN Reason Stop Dose Admin Dicyclomine HCl 20 mg 10/17/19 11:50 10/17/19 11:56 Bentyl IM 10/17/19 11:51 20 mg ONETIME ONE Administration Ondansetron HCl 8 mg 10/17/19 11:50 10/17/19 11:56 Zofran Odt PO 10/17/19 11:51 8 mg ONETIME ONE Administration - Re-Assessments/Exams Free Text/Narrative Re-Assessment/Exam: 10/17/19 12:20 Given the Hx, exam, and lab findings I see no indication for further studies or imaging in this case. Pt will be educated about Dumping Syndrome following cholecystectomy, and treated conservatively with diet change, antiemetic Rx, Pepcid for the refractory acid reflux, and Bentyl for abdominal cramping. Pt is informed that her stool is heme negative. She is advised to f/u in clinic if she sees any further rectal bleeding. Departure - Departure Time of Disposition: 12:23 Disposition: Home, Self-Care 01 Condition: Good Clinical Impression: Dumping syndrome Nausea & vomiting Qualifiers: Vomiting type: unspecified Vomiting Intractability: non-intractable Qualified Code(s): R11.2 - Nausea with vomiting, unspecified GERD (gastroesophageal reflux disease) Qualifiers: Esophagitis presence: esophagitis presence not specified Qualified Code(s): K21.9 - Gastro-esophageal reflux disease without esophagitis - Discharge Information *PRESCRIPTION DRUG MONITORING PROGRAM REVIEWED*: Not Applicable *COPY OF PRESCRIPTION DRUG MONITORING REPORT IN PATIENT RILEY: Not Applicable Instructions: Dumping Syndrome, Eating Plan for Dumping Syndrome Forms: ED Department Discharge Additional Instructions: Rx: Reglan 10mg (for nausea/vomiting) Rx: Dicyclomine 20mg (for abdominal pain or cramping) Rx: Famotidine 20mg (for acid reflux/heartburn) Follow up in clinic within the next week for recheck if needed. Sepsis Event Note - Evaluation Sepsis Screening Result: No Definite Risk - Focused Exam Vital Signs: Vital Signs Temp Pulse Resp BP Pulse Ox 10/17/19 11:15 96.3 F L 84 18 142/87 H 95 Date Exam was Performed: 10/17/19 Time Exam was Performed: 12:20 - My Orders Last 24 Hours: My Active Orders 10/17/19 11:35 CULTURE STOOL [RM] Stat SHIGA TOXIN 1 & 2 [MREF] Stat - Assessment/Plan Last 24 Hours: My Active Orders 10/17/19 11:35 CULTURE STOOL [RM] Stat SHIGA TOXIN 1 & 2 [MREF] Stat
[2019-10-17] MEDS ORDERED: Dicyclomine 20 MG/2 ML SDV IM ONE (11:50)
[2019-10-17] MEDS ORDERED: Ondansetron 4 MG Tab.DIS PO ONE (11:50)
[2019-10-17 12:12] LABS: ANION GAP 16.1 mEq/L (7-13); CHLORIDE,CL 101 mmol/L (98-107); SODIUM,NA 139 mmol/L (136-145)
== END 2019-10-17 12:31 | disposition home or self-care (01) ==
LOC: DL.ED 11:10
DX: K91.1 Postgastric surgery syndromes (principal); K21.9 Gastro-esophageal reflux disease without esophagitis; E66.9 Obesity, unspecified; Z88.8 Allergy status to other drugs, medicaments and biological substances; Z79.899 Other long term (current) drug therapy; Z68.44 Body mass index [BMI] 60.0-69.9, adult
CPT/HCPCS: 36415; 80053; 82272; 84703; 85025; 87045; 87046; 87899; 96372; 99284; A9270; J0500

== ENCOUNTER 2020-02-12 04:37 | Emergency (ER) | payer MEDICAID ==
[2020-02-12] MEDS ORDERED: Cyclobenzaprine 10 MG Tab PO ONE (04:38)
[2020-02-12 04:50] VITALS: PULSE 82
[2020-02-12] MEDS ORDERED: Acetaminophen/HYDROcodone 325-10 MG Tab PO ONE (04:56)
[2020-02-12] MEDS ORDERED: Cyclobenzaprine 10 MG Tab ONE (04:59)
--- NOTE | 2020-02-12 05:02 | EDM.PDOC ---
ED HPI GENERAL MEDICAL PROBLEM - General Chief Complaint: Back Pain or Injury Stated Complaint: SEVER BACK PAIN AND PAIN THROUGH LEGS Time Seen by Provider: 02/12/20 04:58 Source of Information: Reports: Patient History Limitations: Reports: No Limitations - History of Present Illness INITIAL COMMENTS - FREE TEXT/NARRATIVE: onset LBP few days ago gotten worse after going to [place] yesterday, tonight unable to sleep. denies trauma. 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, Cold Therapy, Heat Therapy, NSAIDS Lower Back Pain Score (Numeric/FACES): 8 - Related Data Allergies Allergy/AdvReac Type Severity Reaction Status Date / Time fentanyl Allergy Rash Verified 02/12/20 04:55 Home Meds: Home Meds Omeprazole 20 mg PO DAILY 04/01/18 [History] Acetaminophen/Caffeine [Excedrin Tension Headache Cplt] 1 tab PO Q8HR PRN 04/05/18 [History] Cefdinir [Omnicef] 300 mg PO BID 08/27/19 [History] Hydrocodone/Acetaminophen [Hydrocodon-Acetaminophen 5-325] 1 each PO Q4HR PRN 08/27/19 [History] Ondansetron [Zofran ODT] 4 mg PO Q6H PRN 08/29/19 [History] Albuterol [Ventolin HFA] 1 - 2 puff INH Q6H PRN 08/30/19 [History] Ibuprofen 600 mg PO Q6H PRN 08/30/19 [History] Past Medical History - Past Health History Medical/Surgical History: Denies Medical/Surgical History HEENT History: Reports: Impaired Vision, Otitis Media Other HEENT History: HAS PRESCRIBED CORRECTIVE LENSES; DOES NOT WEAR THEM Cardiovascular History: Reports: None Respiratory History: Reports: Bronchitis, Recurrent Gastrointestinal History: Reports: Cholelithiasis, Chronic Diarrhea, GERD, Other (See Below) Other Gastrointestinal History: FATTY LIVER. 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 Musculoskeletal History: Reports: Fracture, Other (See Below) Other Musculoskeletal History: HX OF WRIST & ANKLE FRACTURE. history of carpal tunnel - states has had nerve stimulation for this Neurological History: Reports: Headaches, Chronic, Migraines Psychiatric History: Reports: Anxiety Endocrine/Metabolic History: Reports: Obesity/BMI 30+, Other (See Below) Other Endocrine/Metabolic History: HX OF ACIDOSIS Hematologic History: Reports: None Immunologic History: Reports: None Oncologic (Cancer) History: Reports: None Dermatologic History: Reports: None - Infectious Disease History Infectious Disease History: Reports: None - Past Surgical History Head Surgeries/Procedures: Reports: None HEENT Surgical History: Reports: Adenoidectomy, Oral Surgery, Tonsillectomy Other HEENT Surgeries/Procedures: WISDOM TEETH EXTRACTION Cardiovascular Surgical History: Reports: None Respiratory Surgical History: Reports: None GI Surgical History: Reports: Cholecystectomy, Colonoscopy, EGD, Other (See Below) Female Surgical History: Reports: Other (See Below) Other Female Surgeries/Procedures: IUD INSERTION-REMOVED; PATIENT STATES IT WAS EXPELLED FROM BODY Endocrine Surgical History: Reports: None Neurological Surgical History: Reports: None Musculoskeletal Surgical History: Reports: None Oncologic Surgical History: Reports: None Dermatological Surgical History: Reports: None Social & Family History - Family History Family Medical History: Noncontributory - Tobacco Use Smoking Status *Q: Never Smoker Second Hand Smoke Exposure: No - Caffeine Use Caffeine Use: Reports: Soda Caffeine Use Comment: 20 oz daily - Recreational Drug Use Recreational Drug Use: No - Sexual History Sexual History: Reports: Sexually Active - Living Situation & Occupation Living situation: Reports: with Family Occupation: Unemployed ED ROS GENERAL - Review of Systems Review Of Systems: Comprehensive ROS is negative, except as noted in HPI. ED EXAM,LOWER BACK PAIN/INJURY - Physical Exam Exam: See Below Exam Limited By: No Limitations General Appearance: Alert, WD/WN, Mild Distress, Other (tearful) Ears: Hearing Grossly Normal Throat/Mouth: Normal Voice, No Airway Compromise Head: Atraumatic Neck: Non-Tender, Full Range of Motion Respiratory/Chest: No Respiratory Distress Cardiovascular: Regular Rate, Rhythm GI/Abdominal: Soft, Non-Tender Back Exam: Muscle Spasm, Paraspinal Tenderness, Other (L4-5-S1 region with radiculitis, gait limited to pain) Neurological: Alert, No Motor/Sensory Deficits, Oriented x 3 Psychiatric: Tearful Skin Exam: Warm, Dry, Normal Color Lymphatic: No Adenopathy Course - Vital Signs Last Recorded V/S: Last Vital Signs Temp 36.6 C 07/27/20 04:44 Pulse 82 02/12/20 04:44 Resp 19 02/12/20 04:44 BP 134/87 02/12/20 05:02 Pulse Ox 100 02/12/20 04:44 - Orders/Labs/Meds Meds: Medications Discontinued Medications Generic Name Dose Route Start Last Admin Trade Name Nurys PRN Reason Stop Dose Admin Hydrocodone Bitart/Acetaminophen 1 tab 02/12/20 04:56 02/12/20 05:01 Melvern 325-10 Mg PO 02/12/20 04:57 1 tab ONETIME ONE Administration Cyclobenzaprine HCl Confirm 02/12/20 04:59 02/12/20 05:02 Flexeril Administered 02/12/20 05:00 Not Given Dose 10 mg .ROUTE .STK-MED ONE Departure - Departure Time of Disposition: 05:00 Disposition: Home, Self-Care 01 Condition: Good Clinical Impression: Lumbar paraspinal muscle spasm - Discharge Information Instructions: Muscle Strain, [id number] Forms: ED Department Discharge Additional Instructions: 1) see clinic tomorrow for MRI SCAN OF LOWER BACK 2) avoid bending lifting straining 3) use ice or heat to sore areas Sepsis Event Note (ED) - Evaluation Sepsis Screening Result: No Definite Risk - Focused Exam Vital Signs: Vital Signs Temp Pulse Resp BP Pulse Ox 02/12/20 05:02 134/87 02/12/20 04:44 36.6 C 82 19 121/103 H 100
[2020-02-12 05:03] VITALS: BP 134/87
== END 2020-02-12 05:05 | disposition home or self-care (01) ==
LOC: DL.ED 04:37
DX: M62.830 Muscle spasm of back (principal); K21.9 Gastro-esophageal reflux disease without esophagitis; E66.9 Obesity, unspecified; Z90.49 Acquired absence of other specified parts of digestive tract; Z98.890 Other specified postprocedural states; Z88.4 Allergy status to anesthetic agent; Z79.899 Other long term (current) drug therapy
CPT/HCPCS: 99283; A9270

== ENCOUNTER 2020-02-17 21:41 | Emergency (ER) | payer MEDICAID ==
[2020-02-17] MEDS ORDERED: Amoxicillin/Clavulanate K 500-125 MG Tab PO ONE ×2 (21:42→22:42)
[2020-02-17 21:56] VITALS: BP 126/80; PULSE 109
--- NOTE | 2020-02-17 22:45 | EDM.PDOC ---
ED HPI GENERAL MEDICAL PROBLEM - General Chief Complaint: Headache Stated Complaint: MIGRAINE, LEFT EAR SWALLON Time Seen by Provider: 02/17/20 22:30 Source of Information: Reports: Patient History Limitations: Reports: No Limitations - History of Present Illness INITIAL COMMENTS - FREE TEXT/NARRATIVE: This 24 yo female patient reports to the ED with left ear pain for 2 days and a headache that also started 2 days ago. The patient has taken Tylenol and ibuprofen as well as used OTC otic drops in her left ear with no symptom relief. 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 Left Ear Pain Score (Numeric/FACES): 8 - Related Data Allergies Allergy/AdvReac Type Severity Reaction Status Date / Time fentanyl Allergy Unknown Rash Verified 02/17/20 22:11 Home Meds: Home Meds Omeprazole 20 mg PO DAILY 04/01/18 [History] Ondansetron [Zofran ODT] 4 mg PO Q6H PRN 08/29/19 [History] Albuterol [Ventolin HFA] 1 - 2 puff INH Q6H PRN 08/30/19 [History] Ibuprofen 600 mg PO Q6H PRN 08/30/19 [History] Past Medical History - Past Health History Medical/Surgical History: Denies Medical/Surgical History HEENT History: Reports: Impaired Vision, Otitis Media Other HEENT History: HAS PRESCRIBED CORRECTIVE LENSES; DOES NOT WEAR THEM Cardiovascular History: Reports: None Respiratory History: Reports: Bronchitis, Recurrent Gastrointestinal History: Reports: Cholelithiasis, Chronic Diarrhea, GERD, Other (See Below) Other Gastrointestinal History: FATTY LIVER. 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 Musculoskeletal History: Reports: Fracture, Other (See Below) Other Musculoskeletal History: HX OF WRIST & ANKLE FRACTURE. history of carpal tunnel - states has had nerve stimulation for this Neurological History: Reports: Headaches, Chronic, Migraines Psychiatric History: Reports: Anxiety Endocrine/Metabolic History: Reports: Obesity/BMI 30+, Other (See Below) Other Endocrine/Metabolic History: HX OF ACIDOSIS Hematologic History: Reports: None Immunologic History: Reports: None Oncologic (Cancer) History: Reports: None Dermatologic History: Reports: None - Infectious Disease History Infectious Disease History: Reports: None - Past Surgical History Head Surgeries/Procedures: Reports: None HEENT Surgical History: Reports: Adenoidectomy, Oral Surgery, Tonsillectomy Other HEENT Surgeries/Procedures: WISDOM TEETH EXTRACTION Cardiovascular Surgical History: Reports: None Respiratory Surgical History: Reports: None GI Surgical History: Reports: Cholecystectomy, Colonoscopy, EGD, Other (See Below) Female Surgical History: Reports: Other (See Below) Other Female Surgeries/Procedures: IUD INSERTION-REMOVED; PATIENT STATES IT WAS EXPELLED FROM BODY Endocrine Surgical History: Reports: None Neurological Surgical History: Reports: None Musculoskeletal Surgical History: Reports: None Oncologic Surgical History: Reports: None Dermatological Surgical History: Reports: None Social & Family History - Family History Family Medical History: Noncontributory - Tobacco Use Smoking Status *Q: Never Smoker Second Hand Smoke Exposure: No - Caffeine Use Caffeine Use: Reports: Tea Caffeine Use Comment: 20 oz daily - Recreational Drug Use Recreational Drug Use: No - Sexual History Sexual History: Reports: Sexually Active - Living Situation & Occupation Living situation: Reports: with Family Occupation: Unemployed ED ROS ENT - Review of Systems Review Of Systems: Comprehensive ROS is negative, except as noted in HPI. ED EXAM, ENT - Physical Exam Exam: See Below Exam Limited By: No Limitations General Appearance: Alert, WD/WN, Mild Distress, Obese Eye Exam: Bilateral Eye: EOMI, Normal Inspection, PERRL Ears: Canal Swelling, TM Bulging, TM Erythema Nose: Normal Inspection, Normal Mucousa, No Blood Mouth/Throat: Normal Inspection, Normal Gums, Normal Lips, Normal Oropharynx, Normal Teeth Head: Atraumatic, Normocephalic Neck: Normal Inspection, Supple, Non-Tender, Full Range of Motion Respiratory/Chest: No Respiratory Distress, Lungs Clear, Normal Breath Sounds, No Accessory Muscle Use, Chest Non-Tender GI/Abdominal: Normal Bowel Sounds, Soft, Non-Tender, No Organomegaly, No Distention, No Abnormal Bruit, No Mass (Female) Exam: Deferred Rectal (Female) Exam: Deferred Back: Normal Inspection, Full Range of Motion Extremities: Normal Inspection, Normal Range of Motion, Non-Tender, No Pedal Edema, Normal Capillary Refill Neurological: Alert, Oriented, CN II-XII Intact, Normal Cognition, Normal Gait, Normal Reflexes, No Motor/Sensory Deficits Psychiatric: Normal Affect, Normal Mood Skin: Warm, Dry, Intact, Normal Color, No Rash Lymphatic: No Adenopathy Course - Vital Signs Last Recorded V/S: Last Vital Signs Temp 36.8 C 02/17/20 21:55 Pulse 109 H 02/17/20 21:55 Resp 16 02/17/20 21:55 BP 126/80 02/17/20 21:55 Pulse Ox 99 02/17/20 21:55 Departure - Departure Time of Disposition: 22:42 Disposition: Home, Self-Care 01 Condition: Fair Clinical Impression: Otitis media of left ear - Discharge Information Instructions: Otitis Media, Adult, [id number] Care Plan Goals: The patient was advised of the examination results during the visit. The patient was given an oral dose of Augmentin (500/125) while in the ED. The patient was discharged with 1 dose of Augmentin (5000/125) to take in the morning and a script for Augmentin (500/125) #14 to take 1 by mouth 2 times per day for 7 days. The patient may take Tylenol or ibuprofen as directed for temporary symptom relief. If the patient has any additional symptoms or concerns, the patient should visit her primary care facility or return to the emergency department. Sepsis Event Note (ED) - Evaluation Sepsis Screening Result: No Definite Risk - Focused Exam Vital Signs: Vital Signs Temp Pulse Resp BP Pulse Ox 02/17/20 21:55 36.8 C 109 H 16 126/80 99
[2020-02-17] MEDS ORDERED: Amoxicillin/Clavulanate K 500-125 MG Tab ONE (22:47)
== END 2020-02-17 22:54 | disposition home or self-care (01) ==
LOC: DL.ED 21:41
DX: H66.92 Otitis media, unspecified, left ear (principal); K21.9 Gastro-esophageal reflux disease without esophagitis; E66.9 Obesity, unspecified; Z90.49 Acquired absence of other specified parts of digestive tract; Z98.890 Other specified postprocedural states; Z68.44 Body mass index [BMI] 60.0-69.9, adult; Z88.4 Allergy status to anesthetic agent; Z79.899 Other long term (current) drug therapy
CPT/HCPCS: 99283; A9270

== ENCOUNTER 2020-04-19 18:11 | Emergency (ER) | payer MEDICAID ==
[2020-04-19] MEDS ORDERED: Sodium Chloride 0.9% 10 ML Syringe FLUSH PRN (18:23)
[2020-04-19 18:26] VITALS: BP 124/67; PULSE 101
[2020-04-19 19:04] LABS: ANION GAP 15.7 mEq/L (7-13); CHLORIDE,CL 103 mmol/L (98-107); SODIUM,NA 141 mmol/L (136-145)
--- NOTE | 2020-04-19 19:29 | EDM.PDOC ---
ED HPI GENERAL MEDICAL PROBLEM - General Chief Complaint: Flank Pain Stated Complaint: SEVERE PAINS IN RIGHT SIDE Time Seen by Provider: 04/19/20 19:15 Source of Information: Reports: Patient, RN, RN Notes Reviewed History Limitations: Reports: No Limitations - History of Present Illness INITIAL COMMENTS - FREE TEXT/NARRATIVE: Patient presents to ER with complaint of right flank pain that began a couple days ago and has progressively gotten worse. Denies fever chills, admits to nausea, vomiting, diarrhea. LMP mid March, unknown status. No urinary symptoms, frequency, urgency, burning with urination, no blood in urine. Patient states she has had her gallbladder removed, states she still does have her appendix. Onset: Gradual Right Flank Pain Score (Numeric/FACES): 8 - Related Data Allergies Allergy/AdvReac Type Severity Reaction Status Date / Time No Known Allergies Allergy Verified 04/19/20 18:27 Home Meds: Home Meds Omeprazole 20 mg PO DAILY 04/19/20 [History] Pantoprazole Sodium [Protonix] 20 mg PO DAILY 04/19/20 [History] Past Medical History - Past Health History Medical/Surgical History: Denies Medical/Surgical History HEENT History: Reports: Impaired Vision, Otitis Media Other HEENT History: HAS PRESCRIBED CORRECTIVE LENSES; DOES NOT WEAR THEM Cardiovascular History: Reports: None Respiratory History: Reports: Bronchitis, Recurrent Gastrointestinal History: Reports: Cholelithiasis, Chronic Diarrhea, GERD, Other (See Below) Other Gastrointestinal History: FATTY LIVER. 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 Musculoskeletal History: Reports: Fracture, Other (See Below) Other Musculoskeletal History: HX OF WRIST & ANKLE FRACTURE. history of carpal tunnel - states has had nerve stimulation for this Neurological History: Reports: Headaches, Chronic, Migraines Psychiatric History: Reports: Anxiety Endocrine/Metabolic History: Reports: Obesity/BMI 30+, Other (See Below) Other Endocrine/Metabolic History: HX OF ACIDOSIS Hematologic History: Reports: None Immunologic History: Reports: None Oncologic (Cancer) History: Reports: None Dermatologic History: Reports: None - Infectious Disease History Infectious Disease History: Reports: None - Past Surgical History Head Surgeries/Procedures: Reports: None HEENT Surgical History: Reports: Adenoidectomy, Oral Surgery, Tonsillectomy Other HEENT Surgeries/Procedures: WISDOM TEETH EXTRACTION Cardiovascular Surgical History: Reports: None Respiratory Surgical History: Reports: None GI Surgical History: Reports: Cholecystectomy, Colonoscopy, EGD, Other (See Below) Female Surgical History: Reports: Other (See Below) Other Female Surgeries/Procedures: IUD INSERTION-REMOVED; PATIENT STATES IT WAS EXPELLED FROM BODY Endocrine Surgical History: Reports: None Neurological Surgical History: Reports: None Musculoskeletal Surgical History: Reports: None Oncologic Surgical History: Reports: None Dermatological Surgical History: Reports: None Social & Family History - Family History Family Medical History: Noncontributory - Tobacco Use Smoking Status *Q: Never Smoker Second Hand Smoke Exposure: No - Caffeine Use Caffeine Use: Reports: Tea Caffeine Use Comment: 20 oz daily - Recreational Drug Use Recreational Drug Use: No - Sexual History Sexual History: Reports: Sexually Active - Living Situation & Occupation Living situation: Reports: with Family Occupation: Unemployed ED ROS GENERAL - Review of Systems Review Of Systems: Comprehensive ROS is negative, except as noted in HPI. ED EXAM, GI/ABD - Physical Exam Exam: See Below Exam Limited By: No Limitations General Appearance: Alert, WD/WN, No Apparent Distress, Obese Eyes: Bilateral: Normal Appearance, EOMI Ears: Normal External Exam, Hearing Grossly Normal Nose: Normal Inspection, Normal Mucosa, No Blood Throat/Mouth: Normal Inspection, Normal Lips, Normal Teeth, Normal Gums, Normal Oropharynx, Normal Voice, No Airway Compromise Head: Atraumatic, Normocephalic Neck: Normal Inspection, Supple, Non-Tender, Full Range of Motion Respiratory/Chest: No Respiratory Distress, Lungs Clear, Normal Breath Sounds, No Accessory Muscle Use, Chest Non-Tender Cardiovascular: Normal Peripheral Pulses, Regular Rate, Rhythm, No Edema, No Gallop, No JVD, No Murmur, No Rub GI/Abdominal Exam: Normal Bowel Sounds, Soft, Tender (RLQ, RUQ) (Female) Exam: Deferred Rectal (Female) Exam: Deferred Back Exam: Normal Inspection, Full Range of Motion. No: CVA Tenderness (R) Extremities: Normal Inspection, Normal Range of Motion, Non-Tender, Normal Capillary Refill, No Pedal Edema Neurological: Alert, Oriented, CN II-XII Intact, Normal Cognition, Normal Gait, Normal Reflexes, No Motor/Sensory Deficits Psychiatric: Normal Affect, Normal Mood Skin Exam: Warm, Dry, Intact, Normal Color, No Rash Lymphatic: No Adenopathy Course - Vital Signs Last Recorded V/S: Last Vital Signs Temp 97 F 04/19/20 18:23 Pulse 101 H 04/19/20 18:23 Resp 18 04/19/20 18:23 BP 124/67 04/19/20 18:23 Pulse Ox 99 04/19/20 18:23 - Orders/Labs/Meds Orders: Active Orders 24 hr Category Date Time Status Peripheral IV Care [RC] . DIRECTED Care 04/19/20 18:24 Active Sodium Chloride 0.9% [Saline Flush] Med 04/19/20 18:23 Active 10 ml FLUSH ASDIRECTED PRN metroNIDAZOLE Med 04/19/20 21:44 Once 500 mg PO ONETIME ONE Peripheral IV Insertion Adult [OM.PC] Stat Oth 04/19/20 18:24 Ordered Medication Orders Sodium Chloride (Saline Flush) 10 ml FLUSH ASDIRECTED PRN PRN Reason: Keep Vein Open Last Admin: 04/19/20 18:42 Dose: 10 ml Documented by: MATHEW Labs: Laboratory Tests 04/19/20 04/19/20 04/19/20 Range/Units 18:35 18:35 18:41 WBC 12.3 H (5.0-10.0) 10^3/uL RBC 4.75 (4.2-5.4) 10^6/uL Hgb 13.3 (12.0-16.0) g/dL Hct 41.2 (37.0-47.0) % MCV 86.7 (80-100) fL MCH 28.0 (27.0-34.0) pg MCHC 32.3 L (33.0-35.0) g/dL Plt Count 355 (150-450) 10^3/uL Neut % (Auto) 68.2 (42.2-75.2) % Lymph % (Auto) 25.2 (20.5-50.1) % Davison % (Auto) 5.5 (2-8) % Eos % (Auto) 0.7 L (1.0-3.0) % Baso % (Auto) 0.4 (0.0-1.0) % Sodium 141 (136-145) mmol/L Potassium 3.7 (3.5-5.1) mmol/L Chloride 103 (98-107) mmol/L Carbon Dioxide 26 (21-32) mmol/L Anion Gap 15.7 H (7-13) mEq/L BUN 10 (7-18) mg/dL Creatinine 0.71 (0.55-1.02) mg/dL Est Cr Clr Drug Dosing 96.63 mL/min Estimated GFR (MDRD) > 60 BUN/Creatinine Ratio 14.1 (No establ ref range) Glucose 95 (74-99) mg/dL Calcium 8.9 (8.5-10.1) mg/dL Total Bilirubin 0.3 (0.2-1.0) mg/dL AST 41 H (15-37) U/L ALT 78 H (14-59) U/L Alkaline Phosphatase 128 H (46-116) U/L Total Protein 7.4 (6.4-8.2) g/dL Albumin 3.4 (3.4-5.0) g/dL Globulin 4.0 Albumin/Globulin Ratio 0.9 Urine Color (YELLOW) Urine Appearance (CLEAR) Urine pH (5.0-9.0) Ur Specific [place] (1.005-1.030) Urine Protein (NEGATIVE) Urine Glucose (UA) (NEGATIVE) Urine Ketones (NEGATIVE) Urine Occult Blood (NEGATIVE) Urine Nitrite (NEGATIVE) Urine Bilirubin (NEGATIVE) Urine Urobilinogen (0.2-1.0) mg/dL Ur Leukocyte Esterase (NEGATIVE) Urine RBC /HPF Urine WBC (0-5/HPF) /HPF Ur Epithelial Cells (NOT SEEN) /HPF Urine Bacteria (0-FEW/HPF) /HPF Urine Other Urine HCG, Qual Negative 04/19/20 Range/Units 18:41 WBC (5.0-10.0) 10^3/uL RBC (4.2-5.4) 10^6/uL Hgb (12.0-16.0) g/dL Hct (37.0-47.0) % MCV (80-100) fL MCH (27.0-34.0) pg MCHC (33.0-35.0) g/dL Plt Count (150-450) 10^3/uL Neut % (Auto) (42.2-75.2) % Lymph % (Auto) (20.5-50.1) % Davison % (Auto) (2-8) % Eos % (Auto) (1.0-3.0) % Baso % (Auto) (0.0-1.0) % Sodium (136-145) mmol/L Potassium (3.5-5.1) mmol/L Chloride (98-107) mmol/L Carbon Dioxide (21-32) mmol/L Anion Gap (7-13) mEq/L BUN (7-18) mg/dL Creatinine (0.55-1.02) mg/dL Est Cr Clr Drug Dosing mL/min Estimated GFR (MDRD) BUN/Creatinine Ratio (No establ ref range) Glucose (74-99) mg/dL Calcium (8.5-10.1) mg/dL Total Bilirubin (0.2-1.0) mg/dL AST (15-37) U/L ALT (14-59) U/L Alkaline Phosphatase (46-116) U/L Total Protein (6.4-8.2) g/dL Albumin (3.4-5.0) g/dL Globulin Albumin/Globulin Ratio Urine Color Yellow (YELLOW) Urine Appearance Slightly cloudy (CLEAR) Urine pH 7.0 (5.0-9.0) Ur Specific [place] 1.025 (1.005-1.030) Urine Protein Negative (NEGATIVE) Urine Glucose (UA) Negative (NEGATIVE) Urine Ketones Negative (NEGATIVE) Urine Occult Blood Trace-intact H (NEGATIVE) Urine Nitrite Negative (NEGATIVE) Urine Bilirubin Negative (NEGATIVE) Urine Urobilinogen 0.2 (0.2-1.0) mg/dL Ur Leukocyte Esterase Negative (NEGATIVE) Urine RBC 0-5 /HPF Urine WBC 5-10 H (0-5/HPF) /HPF Ur Epithelial Cells Moderate H (NOT SEEN) /HPF Urine Bacteria Moderate H (0-FEW/HPF) /HPF Urine Other See note Urine HCG, Qual Meds: Medications Generic Name Dose Route Start Last Admin Trade Name Freq PRN Reason Stop Dose Admin Sodium Chloride 10 ml 04/19/20 18:23 04/19/20 18:42 Saline Flush FLUSH 10 ml ASDIRECTED PRN Administration Keep Vein Open Discontinued Medications Generic Name Dose Route Start Last Admin Trade Name Freq PRN Reason Stop Dose Admin Iopamidol 100 ml 04/19/20 20:33 04/19/20 20:36 Isovue-300 (61%) IVPUSH 04/19/20 20:34 100 ml ONETIME ONE Administration Iopamidol 50 ml 04/19/20 20:33 04/19/20 20:36 Isovue-300 (61%) IVPUSH 04/19/20 20:34 50 ml ONETIME ONE Administration - Radiology Interpretation Free Text/Narrative:: CT Abd/Pelvis with contrast: PROCEDURE INFORMATION: Exam: CT Abdomen And Pelvis With Contrast Exam date and time: 04/19/2020 8:33 PM Age: 24 years old Clinical indication: Other: Iv blew 1/2 way thru; Additional info: Ruq, rlq pain, wbc 12.3, n/v/d TECHNIQUE: Imaging protocol: Computed tomography of the abdomen and pelvis with intravenous contrast. Radiation optimization: All CT scans at this facility use at least one of these dose optimization techniques: automated exposure control; mA and/or kV adjustment per patient size (includes targeted exams where dose is matched to clinical indication); or iterative reconstruction. Contrast material: [id number]; Contrast volume: 150 ml; Contrast route: INTRAVENOUS (IV); COMPARISON: CT Abdomen Pelvis w Cont 08/20/2019 10:29 PM FINDINGS: Limitations: Please note that the IV line malfunctioned and there is no IV contrast appreciated in the abdomen. Lungs: The visualized portions of the lung bases demonstrate no acute disease. Liver: There is marked enlargement of the liver. There is a diffuse decrease in hepatic parenchymal density, consistent with fatty infiltration. Gallbladder and bile ducts: Patient status post cholecystectomy. No biliary ductal dilation. Pancreas: Normal. No ductal dilation. Spleen: Normal. No splenomegaly. Adrenals: Normal. No mass. Kidneys and ureters: Suggestion of left parapelvic renal cysts. Kidneys appear otherwise unremarkable. Stomach and bowel: Unremarkable. No obstruction. No mucosal thickening. Appendix: No evidence of appendicitis. Intraperitoneal space: Unremarkable. No free air. No significant fluid collection. Vasculature: Unremarkable. No abdominal aortic aneurysm. Lymph nodes: Unremarkable. No enlarged lymph nodes. Urinary bladder: Unremarkable as visualized. Reproductive: Unremarkable as visualized. Bones/joints: Unremarkable. No acute fracture. Soft tissues: Unremarkable. IMPRESSION: Negative for acute abdominopelvic pathology. Thank you for allowing us to participate in the care of your patient. Dictated and Authenticated by: Johann Ko MD 04/19/2020 9:26 PM Central Time ([place] & [place]) See rad report Departure - Departure Time of Disposition: 21:44 Disposition: Home, Self-Care 01 Condition: Fair Clinical Impression: Gastroenteritis, Bacterial vaginosis Abdominal pain Qualifiers: Abdominal location: right upper quadrant Qualified Code(s): R10.11 - Right upper quadrant pain - Discharge Information *PRESCRIPTION DRUG MONITORING PROGRAM REVIEWED*: No *COPY OF PRESCRIPTION DRUG MONITORING REPORT IN PATIENT RILEY: No Instructions: Vaginitis, [id number], Viral Gastroenteritis, Adult, [id number], Food Choices to Help Relieve Diarrhea, Adult, Abdominal Pain, Adult, [id number] Forms: ED Department Discharge Additional Instructions: RX: Flagyl DO NOT DRINK ALCOHOL WHILE TAKING THIS MEDICATION Drink plenty of water Follow up with your primary care facility Clear to full liquid diet until feeling better. Advance diet as tolerated Sepsis Event Note (ED) - Evaluation Sepsis Screening Result: No Definite Risk - Focused Exam Vital Signs: Vital Signs Temp Pulse Resp BP Pulse Ox 04/19/20 18:23 97 F 101 H 18 124/67 99 - My Orders Last 24 Hours: My Active Orders 04/19/20 21:44 metroNIDAZOLE 500 mg PO ONETIME ONE - Assessment/Plan Last 24 Hours: My Active Orders 04/19/20 21:44 metroNIDAZOLE 500 mg PO ONETIME ONE
[2020-04-19] MEDS ORDERED: Iopamidol 612 MG/ML 50 ML SDV IVPUSH ONE (20:33)
[2020-04-19] MEDS ORDERED: Iopamidol 612 MG/ML 100 ML Bottle IVPUSH ONE (20:33)
--- NOTE | 2020-04-19 21:26 | CT ---
PROCEDURE INFORMATION: Exam: CT Abdomen And Pelvis With Contrast Exam date and time: 04/19/2020 8:33 PM Age: 24 years old Clinical indication: Other: Iv blew 1/2 way thru; Additional info: Ruq, rlq pain, wbc 12.3, n/v/d TECHNIQUE: Imaging protocol: Computed tomography of the abdomen and pelvis with intravenous contrast. Radiation optimization: All CT scans at this facility use at least one of these dose optimization techniques: automated exposure control; mA and/or kV adjustment per patient size (includes targeted exams where dose is matched to clinical indication); or iterative reconstruction. Contrast material: [id number]; Contrast volume: 150 ml; Contrast route: INTRAVENOUS (IV); COMPARISON: CT Abdomen Pelvis w Cont 08/20/2019 10:29 PM FINDINGS: Limitations: Please note that the IV line malfunctioned and there is no IV contrast appreciated in the abdomen. Lungs: The visualized portions of the lung bases demonstrate no acute disease. Liver: There is marked enlargement of the liver. There is a diffuse decrease in hepatic parenchymal density, consistent with fatty infiltration. Gallbladder and bile ducts: Patient status post cholecystectomy. No biliary ductal dilation. Pancreas: Normal. No ductal dilation. Spleen: Normal. No splenomegaly. Adrenals: Normal. No mass. Kidneys and ureters: Suggestion of left parapelvic renal cysts. Kidneys appear otherwise unremarkable. Stomach and bowel: Unremarkable. No obstruction. No mucosal thickening. Appendix: No evidence of appendicitis. Intraperitoneal space: Unremarkable. No free air. No significant fluid collection. Vasculature: Unremarkable. No abdominal aortic aneurysm. Lymph nodes: Unremarkable. No enlarged lymph nodes. Urinary bladder: Unremarkable as visualized. Reproductive: Unremarkable as visualized. Bones/joints: Unremarkable. No acute fracture. Soft tissues: Unremarkable. IMPRESSION: Negative for acute abdominopelvic pathology.
[2020-04-19] MEDS ORDERED: metroNIDAZOLE 250 MG Tab PO ONE (21:44)
== END 2020-04-19 21:57 | disposition home or self-care (01) ==
LOC: DL.ED 18:11
DX: N76.0 Acute vaginitis (principal); R10.11 Right upper quadrant pain; K52.9 Noninfective gastroenteritis and colitis, unspecified; K21.9 Gastro-esophageal reflux disease without esophagitis; Z79.899 Other long term (current) drug therapy; E66.9 Obesity, unspecified; Z68.44 Body mass index [BMI] 60.0-69.9, adult
CPT/HCPCS: 36415; 74177; 80053; 81001; 81025; 85025; 99284; A9270; Q9967; 99283

== ENCOUNTER 2020-05-20 09:41 | Emergency (ER) | payer MEDICAID ==
[2020-05-20 09:49] VITALS: BP 131/86; PULSE 100
--- NOTE | 2020-05-20 10:19 | EDM.PDOC ---
ED HPI GENERAL MEDICAL PROBLEM - General Chief Complaint: Abdominal Pain Stated Complaint: SEVERE STOMACH PAIN/HEADACHE Time Seen by Provider: 05/20/20 09:55 Source of Information: Reports: Patient, RN, RN Notes Reviewed History Limitations: Reports: No Limitations - History of Present Illness INITIAL COMMENTS - FREE TEXT/NARRATIVE: Patient presents to the ED via personal vehicle with complaints of midepigastric abdominal pain and diarrhea. Per patient report, the abdominal pain and diarrhea started yesterday (05/19/2020) afternoon and has maintained since that time. She describes the pain to her midepigastric area as colicky in nature, and that is "...takes her breath away" at times. She notes the diarrhea began with the pain. She denies chest pain, shortness of breath, palpitations, dysuria, hematuria, melena, hematochezia, fever, shaking chills, or recent illness. She states she has been nausea, but has not experienced an emesis. Additionally, she voices complaints of headache this morning as she has not slept well through the night. She has taken Pepto Bismol x1 dose, Nyquil, and Tylenol, which have not provided her relief of symptoms. She is unsure of the exact date of her LMP, but believes it to be the second week of April. - Related Data Allergies Allergy/AdvReac Type Severity Reaction Status Date / Time No Known Allergies Allergy Verified 04/19/20 18:27 Home Meds: Home Meds Omeprazole 20 mg PO DAILY 04/19/20 [History] Pantoprazole Sodium [Protonix] 20 mg PO DAILY 04/19/20 [History] Past Medical History - Past Health History Medical/Surgical History: Denies Medical/Surgical History HEENT History: Reports: Impaired Vision, Otitis Media Other HEENT History: HAS PRESCRIBED CORRECTIVE LENSES; DOES NOT WEAR THEM Cardiovascular History: Reports: None Respiratory History: Reports: Bronchitis, Recurrent Gastrointestinal History: Reports: Cholelithiasis, Chronic Diarrhea, GERD, Other (See Below) Other Gastrointestinal History: FATTY LIVER. 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 Musculoskeletal History: Reports: Fracture, Other (See Below) Other Musculoskeletal History: HX OF WRIST & ANKLE FRACTURE. history of carpal tunnel - states has had nerve stimulation for this Neurological History: Reports: Headaches, Chronic, Migraines Psychiatric History: Reports: Anxiety Endocrine/Metabolic History: Reports: Obesity/BMI 30+, Other (See Below) Other Endocrine/Metabolic History: HX OF ACIDOSIS Hematologic History: Reports: None Immunologic History: Reports: None Oncologic (Cancer) History: Reports: None Dermatologic History: Reports: None - Infectious Disease History Infectious Disease History: Reports: None - Past Surgical History Head Surgeries/Procedures: Reports: None HEENT Surgical History: Reports: Adenoidectomy, Oral Surgery, Tonsillectomy Other HEENT Surgeries/Procedures: WISDOM TEETH EXTRACTION Cardiovascular Surgical History: Reports: None Respiratory Surgical History: Reports: None GI Surgical History: Reports: Cholecystectomy, Colonoscopy, EGD, Other (See Below) Female Surgical History: Reports: Other (See Below) Other Female Surgeries/Procedures: IUD INSERTION-REMOVED; PATIENT STATES IT WAS EXPELLED FROM BODY Endocrine Surgical History: Reports: None Neurological Surgical History: Reports: None Musculoskeletal Surgical History: Reports: None Oncologic Surgical History: Reports: None Dermatological Surgical History: Reports: None Social & Family History - Family History Family Medical History: Noncontributory - Tobacco Use Tobacco Use Status *Q: Never Tobacco User Second Hand Smoke Exposure: No - Caffeine Use Caffeine Use: Reports: Soda Caffeine Use Comment: 20 oz daily - Recreational Drug Use Recreational Drug Use: No - Sexual History Sexual History: Reports: Sexually Active - Living Situation & Occupation Living situation: Reports: with Family Occupation: Unemployed ED ROS GENERAL - Review of Systems Review Of Systems: Comprehensive ROS is negative, except as noted in HPI. ED EXAM, GI/ABD - Physical Exam Exam: See Below Exam Limited By: No Limitations General Appearance: Alert, WD/WN, No Apparent Distress Respiratory/Chest: No Respiratory Distress, Lungs Clear, Normal Breath Sounds, No Accessory Muscle Use, Chest Non-Tender Cardiovascular: Normal Peripheral Pulses, Regular Rate, Rhythm, No Edema, No Gallop, No JVD, No Murmur, No Rub GI/Abdominal Exam: Soft, Non-Tender (Tender to palpation in the left, mid upper quadrant), No Organomegaly, No Distention, No Mass, Pelvis Stable, Abnormal Bowel Sounds (Hypoactive) (Female) Exam: Deferred Rectal (Female) Exam: Deferred Back Exam: Normal Inspection, Full Range of Motion. No: CVA Tenderness (L), CVA Tenderness (R) Neurological: Alert, Oriented, CN II-XII Intact, Normal Cognition, Normal Gait, No Motor/Sensory Deficits Psychiatric: Normal Affect, Normal Mood Skin Exam: Warm, Dry, Intact, Normal Color, No Rash. No: Ecchymosis, Erythema, Mottled, Pallor, Petechiae, Rash Course - Vital Signs Last Recorded V/S: Last Vital Signs Temp 97.8 F 05/20/20 09:44 Pulse 100 05/20/20 09:44 Resp 18 05/20/20 09:44 BP 131/86 05/20/20 09:44 Pulse Ox 100 05/20/20 09:44 - Orders/Labs/Meds Orders: Active Orders 24 hr Category Date Time Status CULTURE BLOOD [BC] Stat Lab 05/20/20 10:54 Received Meds: Medications Discontinued Medications Generic Name Dose Route Start Last Admin Trade Name Freq PRN Reason Stop Dose Admin Hydromorphone HCl 1 mg 05/20/20 10:42 05/20/20 10:52 Dilaudid IVPUSH 05/20/20 10:43 1 mg ONETIME ONE Administration Ondansetron HCl 4 mg 05/20/20 10:42 05/20/20 10:53 Zofran IVPUSH 05/20/20 10:43 4 mg ONETIME ONE Administration Departure - Departure Time of Disposition: 11:15 Disposition: Home, Self-Care 01 Condition: Good Clinical Impression: Bacterial vaginosis - Discharge Information *PRESCRIPTION DRUG MONITORING PROGRAM REVIEWED*: Not Applicable *COPY OF PRESCRIPTION DRUG MONITORING REPORT IN PATIENT RILEY: Not Applicable Instructions: Bacterial Vaginosis, [id number] Forms: ED Department Discharge Additional Instructions: Rx: Flagyl Take all of your antibiotic until gone. Drink plenty of fluids to stay hydrated. Stop using Phan Letty wipes and spray; Can continue with soap. No douching. Sepsis Event Note (ED) - Evaluation Sepsis Screening Result: No Definite Risk - Focused Exam Vital Signs: Vital Signs Temp Pulse Resp BP Pulse Ox 05/20/20 09:44 97.8 F 100 18 131/86 100 - My Orders Last 24 Hours: My Active Orders 05/20/20 10:54 CULTURE BLOOD [BC] Stat - Assessment/Plan Last 24 Hours: My Active Orders 05/20/20 10:54 CULTURE BLOOD [] Stat
[2020-05-20 10:42] LABS: ANION GAP 16.7 mEq/L (7-13); CHLORIDE,CL 102 mmol/L (98-107); SODIUM,NA 139 mmol/L (136-145)
[2020-05-20] MEDS ORDERED: HYDROmorphone 1 MG/ML Syringe IVPUSH ONE (10:42)
[2020-05-20] MEDS ORDERED: Ondansetron 4 MG/2 ML SDV IVPUSH ONE (10:42)
[2020-05-20] MEDS ORDERED: metroNIDAZOLE 250 MG Tab PO ONE (11:21)
== END 2020-05-20 11:47 | disposition home or self-care (01) ==
LOC: DL.ED 09:41
DX: N76.0 Acute vaginitis (principal); K21.9 Gastro-esophageal reflux disease without esophagitis; E66.9 Obesity, unspecified; Z79.899 Other long term (current) drug therapy; Z68.43 Body mass index [BMI] 50.0-59.9, adult
CPT/HCPCS: 36415; 80053; 81001; 81025; 82150; 83605; 83690; 83735; 85025; 86140; 87040; 96374; 96375; 99284; A9270; J1170; J2405

== ENCOUNTER 2020-05-28 12:26 | Emergency (ER) | payer MEDICAID ==
[2020-05-28 13:10] VITALS: BP 117/74; PULSE 113
--- NOTE | 2020-05-28 14:43 | EDM.PDOC ---
ED HPI GENERAL MEDICAL PROBLEM - General Chief Complaint: Abdominal Pain Stated Complaint: SEVERE PAIN IN RIGHT SIDE, BROKE OUT IN HIVES Time Seen by Provider: 05/28/20 14:37 Source of Information: Reports: Patient, RN, RN Notes Reviewed History Limitations: Reports: No Limitations - History of Present Illness INITIAL COMMENTS - FREE TEXT/NARRATIVE: Patient presents to the ED via personal vehicle with complaints of RLQ abdominal pain and rash. The patient was seen in this facility on 05/20/2020 with complaints of diffuse abdominal pain and was diagnosed with bacterial vaginosis. She was subsequently treated with Flagyl 500mg BID x7 days, she states she still has three days of her course left. She reports her upper abdominal pain has since improved, but she is now experiencing significant pain that is localized in her right lower quadrant. Additionally, she attest to shaking chills and nausea that has progressively worsened with her pain. She states she noticed an increase in this pain at 0200 this morning, as well as a diffuse rash to her abdomen and back. She states at 0400 the rash had spread from her trunk to her upper extremities, face, and bilateral thighs. She denies changes in her diet, lotions, soaps, or medication, with the exception of Flagyl. She states she has taken Benadryl for the rash, but has not noted an improvement in her symptoms. She has not taken any medication for the pain to her RLQ. She denies fever, vomiting, dysuria, hematuria, diarrhea, melena, or hematochezia. - Related Data Allergies Allergy/AdvReac Type Severity Reaction Status Date / Time No Known Allergies Allergy Verified 05/28/20 12:53 Home Meds: Home Meds Pantoprazole Sodium [Protonix] 20 mg PO DAILY 04/19/20 [History] metroNIDAZOLE [Flagyl] 500 mg PO BID 05/28/20 [History] Past Medical History - Past Health History Medical/Surgical History: Denies Medical/Surgical History HEENT History: Reports: Impaired Vision, Otitis Media Other HEENT History: HAS PRESCRIBED CORRECTIVE LENSES; DOES NOT WEAR THEM Cardiovascular History: Reports: None Respiratory History: Reports: Bronchitis, Recurrent Gastrointestinal History: Reports: Cholelithiasis, Chronic Diarrhea, GERD, Other (See Below) Other Gastrointestinal History: FATTY LIVER. RECURRENT BILIARY COLIC Genitourinary History: Reports: Pyelonephritis, STD, UTI, Recurrent, Other (See Below) Other Genitourinary History: CHLAMYDIA. 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 Musculoskeletal History: Reports: Fracture, Other (See Below) Other Musculoskeletal History: HX OF WRIST & ANKLE FRACTURE. history of carpal tunnel - states has had nerve stimulation for this Neurological History: Reports: Headaches, Chronic, Migraines Psychiatric History: Reports: Anxiety Endocrine/Metabolic History: Reports: Obesity/BMI 30+, Other (See Below) Other Endocrine/Metabolic History: HX OF ACIDOSIS Hematologic History: Reports: None Immunologic History: Reports: None Oncologic (Cancer) History: Reports: None Dermatologic History: Reports: None - Infectious Disease History Infectious Disease History: Reports: None - Past Surgical History Head Surgeries/Procedures: Reports: None HEENT Surgical History: Reports: Adenoidectomy, Oral Surgery, Tonsillectomy Other HEENT Surgeries/Procedures: WISDOM TEETH EXTRACTION Cardiovascular Surgical History: Reports: None Respiratory Surgical History: Reports: None GI Surgical History: Reports: Cholecystectomy, Colonoscopy, EGD, Other (See Below) Female Surgical History: Reports: Other (See Below) Other Female Surgeries/Procedures: IUD INSERTION-REMOVED; PATIENT STATES IT WAS EXPELLED FROM BODY Endocrine Surgical History: Reports: None Neurological Surgical History: Reports: None Musculoskeletal Surgical History: Reports: None Oncologic Surgical History: Reports: None Dermatological Surgical History: Reports: None Social & Family History - Family History Family Medical History: No Pertinent Family History - Tobacco Use Tobacco Use Status *Q: Never Tobacco User - Caffeine Use Caffeine Use: Reports: Soda Caffeine Use Comment: 20 oz daily - Sexual History Sexual History: Reports: Sexually Active - Living Situation & Occupation Living situation: Reports: with Family Occupation: Unemployed ED ROS GENERAL - Review of Systems Review Of Systems: Comprehensive ROS is negative, except as noted in HPI. ED EXAM, GI/ABD - Physical Exam Exam: See Below Exam Limited By: No Limitations General Appearance: Alert, WD/WN, No Apparent Distress, Obese Throat/Mouth: Normal Inspection, Normal Voice, No Airway Compromise Head: Atraumatic, Normocephalic Neck: Normal Inspection, Supple, Non-Tender, Full Range of Motion Respiratory/Chest: No Respiratory Distress, Lungs Clear, Normal Breath Sounds, No Accessory Muscle Use, Chest Non-Tender Cardiovascular: Normal Peripheral Pulses, Regular Rate, Rhythm, No Edema, No Gallop, No JVD, No Murmur, No Rub GI/Abdominal Exam: Soft, No Distention, No Mass, Pelvis Stable, Rebound, Tender (To RLQ) Back Exam: Normal Inspection, Full Range of Motion. No: CVA Tenderness (L), CVA Tenderness (R) Extremities: Normal Inspection, Normal Range of Motion, Non-Tender, No Pedal Edema, Normal Capillary Refill Neurological: Alert, Oriented, CN II-XII Intact, Normal Cognition, Normal Gait, No Motor/Sensory Deficits Psychiatric: Normal Affect, Normal Mood Skin Exam: Warm, Dry, Intact, Rash (Diffuse maculopapular rash to abdomen, back, upper extremities, and bilateral thighs) Course - Vital Signs Last Recorded V/S: Last Vital Signs Temp 100.9 F H 05/28/20 12:49 Pulse 113 H 05/28/20 12:49 Resp 24 H 05/28/20 12:49 BP 117/74 05/28/20 12:49 Pulse Ox 98 05/28/20 12:49 - Orders/Labs/Meds Orders: Active Orders 24 hr Category Date Time Status CULTURE BLOOD [BC] Stat Lab 05/28/20 14:25 Received CULTURE URINE [RM] Stat Lab 05/28/20 14:15 Received Labs: Laboratory Tests 05/28/20 05/28/20 05/28/20 Range/Units 14:14 14:15 14:25 WBC 12.8 H (5.0-10.0) 10^3/uL RBC 5.03 (4.2-5.4) 10^6/uL Hgb 14.1 (12.0-16.0) g/dL Hct 43.5 (37.0-47.0) % MCV 86.5 (80-100) fL MCH 28.0 (27.0-34.0) pg MCHC 32.4 L (33.0-35.0) g/dL Plt Count 386 (150-450) 10^3/uL Neut % (Auto) 80.1 H (42.2-75.2) % Lymph % (Auto) 14.8 L (20.5-50.1) % [place] % (Auto) 4.5 (2-8) % Eos % (Auto) 0.4 L (1.0-3.0) % Baso % (Auto) 0.2 (0.0-1.0) % Sodium (136-145) mmol/L Potassium (3.5-5.1) mmol/L Chloride (98-107) mmol/L Carbon Dioxide (21-32) mmol/L Anion Gap (7-13) mEq/L BUN (7-18) mg/dL Creatinine (0.55-1.02) mg/dL Est Cr Clr Drug Dosing Estimated GFR (MDRD) BUN/Creatinine Ratio (No establ ref range) Glucose (74-99) mg/dL Lactic Acid (0.4-2.0) mmol/L Calcium (8.5-10.1) mg/dL Phosphorus (2.6-4.7) mg/dL Magnesium (1.8-2.4) mg/dL Total Bilirubin (0.2-1.0) mg/dL AST (15-37) U/L ALT (14-59) U/L Alkaline Phosphatase (46-116) U/L C-Reactive Protein (0.0-0.9) mg/dL Total Protein (6.4-8.2) g/dL Albumin (3.4-5.0) g/dL Globulin Albumin/Globulin Ratio Urine Color Yellow (YELLOW) Urine Appearance Slightly cloudy (CLEAR) Urine pH 6.0 (5.0-9.0) Ur Specific [place] >= 1.030 (1.005-1.030) Urine Protein Negative (NEGATIVE) Urine Glucose (UA) Negative (NEGATIVE) Urine Ketones Negative (NEGATIVE) Urine Occult Blood Trace-intact H (NEGATIVE) Urine Nitrite Negative (NEGATIVE) Urine Bilirubin Negative (NEGATIVE) Urine Urobilinogen 0.2 (0.2-1.0) mg/dL Ur Leukocyte Esterase Trace H (NEGATIVE) Urine RBC 5-10 H /HPF Urine WBC 20-30 H (0-5/HPF) /HPF Ur Epithelial Cells Moderate H (NOT SEEN) /HPF Amorphous Sediment Few (NOT SEEN) /HPF Urine Bacteria Many H (0-FEW/HPF) /HPF Urine Mucus Occasional (NOT SEEN) /LPF Urine HCG, Qual Negative 05/28/20 05/28/20 Range/Units 14:25 14:25 WBC (5.0-10.0) 10^3/uL RBC (4.2-5.4) 10^6/uL Hgb (12.0-16.0) g/dL Hct (37.0-47.0) % MCV (80-100) fL MCH (27.0-34.0) pg MCHC (33.0-35.0) g/dL Plt Count (150-450) 10^3/uL Neut % (Auto) (42.2-75.2) % Lymph % (Auto) (20.5-50.1) % [place] % (Auto) (2-8) % Eos % (Auto) (1.0-3.0) % Baso % (Auto) (0.0-1.0) % Sodium 139 (136-145) mmol/L Potassium 3.9 (3.5-5.1) mmol/L Chloride 101 (98-107) mmol/L Carbon Dioxide 29 (21-32) mmol/L Anion Gap 12.9 (7-13) mEq/L BUN 10 (7-18) mg/dL Creatinine 0.76 (0.55-1.02) mg/dL Est Cr Clr Drug Dosing TNP Estimated GFR (MDRD) > 60 BUN/Creatinine Ratio 13.2 (No establ ref range) Glucose 105 H (74-99) mg/dL Lactic Acid 1.0 (0.4-2.0) mmol/L Calcium 8.8 (8.5-10.1) mg/dL Phosphorus 3.3 (2.6-4.7) mg/dL Magnesium 2.2 (1.8-2.4) mg/dL Total Bilirubin 0.4 (0.2-1.0) mg/dL AST 45 H (15-37) U/L ALT 82 H (14-59) U/L Alkaline Phosphatase 110 (46-116) U/L C-Reactive Protein 4.3 H (0.0-0.9) mg/dL Total Protein 7.0 (6.4-8.2) g/dL Albumin 3.0 L (3.4-5.0) g/dL Globulin 4.0 Albumin/Globulin Ratio 0.75 Urine Color (YELLOW) Urine Appearance (CLEAR) Urine pH (5.0-9.0) Ur Specific [place] (1.005-1.030) Urine Protein (NEGATIVE) Urine Glucose (UA) (NEGATIVE) Urine Ketones (NEGATIVE) Urine Occult Blood (NEGATIVE) Urine Nitrite (NEGATIVE) Urine Bilirubin (NEGATIVE) Urine Urobilinogen (0.2-1.0) mg/dL Ur Leukocyte Esterase (NEGATIVE) Urine RBC /HPF Urine WBC (0-5/HPF) /HPF Ur Epithelial Cells (NOT SEEN) /HPF Amorphous Sediment (NOT SEEN) /HPF Urine Bacteria (0-FEW/HPF) /HPF Urine Mucus (NOT SEEN) /LPF Urine HCG, Qual Meds: Medications Discontinued Medications Generic Name Dose Route Start Last Admin Trade Name Freq PRN Reason Stop Dose Admin Hydromorphone HCl 1 mg 05/28/20 15:59 05/28/20 16:10 Dilaudid IVPUSH 05/28/20 16:00 1 mg ONETIME ONE Administration Iopamidol 100 ml 05/28/20 15:09 05/28/20 15:41 Isovue-300 (61%) IVPUSH 05/28/20 15:10 100 ml ONETIME ONE Administration Iopamidol 50 ml 05/28/20 15:42 05/28/20 15:44 Isovue-300 (61%) IVPUSH 05/28/20 15:43 50 ml ONETIME ONE Administration - Re-Assessments/Exams Free Text/Narrative Re-Assessment/Exam: 05/28/20 16:46 CT negative for acute processes. Will continue to treat patient for BV with Clindamycin 300mg BID x7 days. Will treat urticaria with Prednisone 40mg QD x 5 days. Patient requesting medication to help with pruritus and sleep - will treat with Hydroxyzine 50mg HS PRN. Counseled patient to not take Hydroxyzine with Benadryl or second generation anti-H1s. Will have patient follow up in clinic is seven days with primary care provider. Departure - Departure Time of Disposition: 16:49 Disposition: Home, Self-Care 01 Condition: Good Clinical Impression: Urticaria, Bacterial vaginosis - Discharge Information *PRESCRIPTION DRUG MONITORING PROGRAM REVIEWED*: Not Applicable *COPY OF PRESCRIPTION DRUG MONITORING REPORT IN PATIENT RILEY: Not Applicable Instructions: Rash, Adult, [id number] Forms: ED Department Discharge Additional Instructions: Rx: Prednisone Rx: Clindamycin Rx: Hydroxyzine Do not take the Hydroxyzine with Benadryl or other antihistamine medications You may take and over the counter antihistamine medication (Naomi, Claritin, or Zyrtec) as rash persists - do not take with Hydroxyzine, as discussed. Drink plenty of fluids to stay hydrated. Follow up with primary care provider in seven days for reassessment of bacterial vaginitis and rash. Sepsis Event Note (ED) - Evaluation Sepsis Screening Result: Possible Sepsis Risk - Focused Exam Vital Signs: Vital Signs Temp Pulse Resp BP Pulse Ox 05/28/20 12:49 100.9 F H 113 H 24 H 117/74 98 - My Orders Last 24 Hours: My Active Orders 05/28/20 14:15 CULTURE URINE [RM] Stat 05/28/20 14:25 CULTURE BLOOD [BC] Stat - Assessment/Plan Last 24 Hours: My Active Orders 05/28/20 14:15 CULTURE URINE [RM] Stat 05/28/20 14:25 CULTURE BLOOD [BC] Stat
[2020-05-28 15:05] LABS: ANION GAP 12.9 mEq/L (7-13); CHLORIDE,CL 101 mmol/L (98-107); SODIUM,NA 139 mmol/L (136-145)
[2020-05-28] MEDS ORDERED: Iopamidol 612 MG/ML 100 ML Bottle IVPUSH ONE (15:09)
[2020-05-28] MEDS ORDERED: Iopamidol 612 MG/ML 50 ML SDV IVPUSH ONE (15:42)
[2020-05-28] MEDS ORDERED: HYDROmorphone 1 MG/ML Syringe IVPUSH ONE (15:59)
--- NOTE | 2020-05-28 16:31 | CT ---
EXAMINATION: Abdomen Pelvis w Cont SEX: Female AGE: 24 years CLINICAL HISTORY: 24-year-old female RLQ pain; Fever; Elevated WBC. COVID positive. Cholecystectomy. CT scan April, "negative for acute abdominal pelvic pathology". Scan technique: Volume acquisition of data from the lower chest, abdomen and pelvis obtained without oral contrast but during the intravenous administration 145 cc nonionic Isovue 300 contrast at 1.8 cc/s via injector while patient was lying supine on the Siemens multi slice scanner [place], [place]. All data archived in the PACS system for storage, reformatting axial/sagittal/coronal planes and study. CT exam April for similar signs and symptoms was "negative". Interpretation: 1. Surgical clips RUQ (cholecystectomy). 2. Morbidly obese patient without evidence of ventral wall hernia or mechanical bowel obstruction. 3. No abdominal or pelvic mass lesion, inflammatory "dirty" peritoneal fat, signs of mechanical bowel obstruction, ascites or free intraperitoneal air. No mesenteric or retroperitoneal lymphadenopathy. 4. Small bowel pattern unremarkable. Normal terminal ileum. No sign of appendicitis. 5. Homogeneously dense fatty liver. No intrahepatic mass lesion or intra/extrahepatic biliary duct dilatation. Normal pancreas. Stomach, spleen and adrenal glands unremarkable. Normal midline uterus and ovaries. 6. Normal reniform size, axis and configuration bilaterally. No renal cortical mass lesion, nephrolithiasis or signs of obstructive uropathy. Unenhanced urinary bladder unremarkable. 7. Normal aorta iliac vessels. Marginal spondylosis lower thoracic spine. Lumbar spine negative. 8. Lung bases are clear. No lower lobe mass, focal lobar infiltrate/atelectasis or peripheral "groundglass" density of the lung. No pericardial or pleural effusions. CONCLUSION: No sign of appendicitis or acute peritonitis. Cholecystectomy. Fatty liver. No abdominal/pelvic mass lesion, lymphadenopathy or mechanical bowel obstruction.
== END 2020-05-28 17:15 | disposition home or self-care (01) ==
LOC: DL.ED 12:26
DX: N76.0 Acute vaginitis (principal); L50.9 Urticaria, unspecified; K21.9 Gastro-esophageal reflux disease without esophagitis; E66.9 Obesity, unspecified
CPT/HCPCS: 36415; 74177; 80053; 81001; 81025; 83605; 83735; 84100; 85025; 86140; 87040; 87086; 87088; 87186; 96374; 99284; J1170; Q9967; 99283

== ENCOUNTER 2020-06-27 19:12 | Emergency (ER) | payer MEDICAID ==
[2020-06-27 19:46] VITALS: BP 126/83; PULSE 106
[2020-06-27] MEDS ORDERED: Promethazine 25 MG/ML SDV IM ONE (19:56)
[2020-06-27] MEDS ORDERED: Ketorolac 30 MG/ML SDV IM ONE (19:56)
--- NOTE | 2020-06-27 20:03 | EDM.PDOC ---
ED HPI GENERAL MEDICAL PROBLEM - General Chief Complaint: Headache Stated Complaint: MIGRAINE Time Seen by Provider: 06/27/20 19:50 Source of Information: Reports: Patient History Limitations: Reports: No Limitations - History of Present Illness INITIAL COMMENTS - FREE TEXT/NARRATIVE: This 24 yo female patient reports to the ED with a 2 day history of migraine headaches. The patient has attempted OTC medications with little to no symptom relief. The patient attempted to get an appointment in the Clinic today, but there were no appointments available until next week. The patient reports she has not been able to find her glasses and believes this may have something to do with her headache. The patient reports she has an eye doctor appointment next week. 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: Acetaminophen, NSAIDS Headache Pain Score (Numeric/FACES): 8 - Related Data Allergies Allergy/AdvReac Type Severity Reaction Status Date / Time No Known Allergies Allergy Verified 05/28/20 12:53 Home Meds: Home Meds Pantoprazole Sodium [Protonix] 20 mg PO DAILY 04/19/20 [History] metroNIDAZOLE [Flagyl] 500 mg PO BID 05/28/20 [History] Past Medical History - Past Health History Medical/Surgical History: Denies Medical/Surgical History HEENT History: Reports: Impaired Vision, Otitis Media Other HEENT History: HAS PRESCRIBED CORRECTIVE LENSES; DOES NOT WEAR THEM Cardiovascular History: Reports: None Respiratory History: Reports: Bronchitis, Recurrent Gastrointestinal History: Reports: Cholelithiasis, Chronic Diarrhea, GERD, Other (See Below) Other Gastrointestinal History: FATTY LIVER. RECURRENT BILIARY COLIC Genitourinary History: Reports: Pyelonephritis, STD, UTI, Recurrent, Other (See Below) Other Genitourinary History: CHLAMYDIA. 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 Musculoskeletal History: Reports: Fracture, Other (See Below) Other Musculoskeletal History: HX OF WRIST & ANKLE FRACTURE. history of carpal tunnel - states has had nerve stimulation for this Neurological History: Reports: Headaches, Chronic, Migraines Psychiatric History: Reports: Anxiety Endocrine/Metabolic History: Reports: Obesity/BMI 30+, Other (See Below) Other Endocrine/Metabolic History: HX OF ACIDOSIS Hematologic History: Reports: None Immunologic History: Reports: None Oncologic (Cancer) History: Reports: None Dermatologic History: Reports: None - Infectious Disease History Infectious Disease History: Reports: None - Past Surgical History Head Surgeries/Procedures: Reports: None HEENT Surgical History: Reports: Adenoidectomy, Oral Surgery, Tonsillectomy Other HEENT Surgeries/Procedures: WISDOM TEETH EXTRACTION Cardiovascular Surgical History: Reports: None Respiratory Surgical History: Reports: None GI Surgical History: Reports: Cholecystectomy, Colonoscopy, EGD, Other (See Below) Female Surgical History: Reports: Other (See Below) Other Female Surgeries/Procedures: IUD INSERTION-REMOVED; PATIENT STATES IT WAS EXPELLED FROM BODY Endocrine Surgical History: Reports: None Neurological Surgical History: Reports: None Musculoskeletal Surgical History: Reports: None Oncologic Surgical History: Reports: None Dermatological Surgical History: Reports: None Social & Family History - Family History Family Medical History: No Pertinent Family History - Tobacco Use Tobacco Use Status *Q: Never Tobacco User Second Hand Smoke Exposure: No - Caffeine Use Caffeine Use: Reports: Soda Caffeine Use Comment: 20 oz daily - Recreational Drug Use Recreational Drug Use: No - Sexual History Sexual History: Reports: Sexually Active - Living Situation & Occupation Living situation: Reports: with Family Occupation: Unemployed ED ROS GENERAL - Review of Systems Review Of Systems: Comprehensive ROS is negative, except as noted in HPI. - Physical Exam Exam: See Below Exam Limited By: No Limitations General Appearance: Alert, WD/WN, Moderate Distress, Obese Eye Exam: Bilateral Eye: EOMI, Normal Inspection, PERRL Ears: Normal External Exam, Normal Canal, Hearing Grossly Normal, Normal TMs Nose: Normal Inspection, Normal Mucosa, No Blood Throat/Mouth: Normal Inspection, Normal Lips, Normal Teeth, Normal Gums, Normal Oropharynx, Normal Voice, No Airway Compromise Head Exam: Atraumatic, Normocephalic Neck: Normal Inspection, Supple, Non-Tender, Full Range of Motion Respiratory/Chest: No Respiratory Distress, Lungs Clear, Normal Breath Sounds, No Accessory Muscle Use, Chest Non-Tender Cardiovascular: Normal Peripheral Pulses, Regular Rate, Rhythm, No Edema, No Gallop, No JVD, No Murmur, No Rub GI/Abdominal: Normal Bowel Sounds, Soft, Non-Tender, No Organomegaly, No Distention, No Abnormal Bruit, No Mass (Female) Exam: Deferred Rectal (Female) Exam: Deferred Neuro Exam (Abbreviated): Alert, Oriented, CN II-XII Intact, Normal Cognition, Normal Gait, Normal Reflexes, No Motor/Sensory Deficits Back Exam: Normal Inspection, Full Range of Motion, NT Extremities: Normal Inspection, Normal Range of Motion, Non-Tender, No Pedal Edema, Normal Capillary Refill Psychiatric: Normal Affect, Normal Mood Skin Exam: Warm, Dry, Intact, Normal Color, No Rash Course - Vital Signs Last Recorded V/S: Last Vital Signs Temp 36.9 C 06/27/20 19:40 Pulse 106 H 06/27/20 19:40 Resp 18 06/27/20 19:40 BP 126/83 06/27/20 19:40 Pulse Ox 98 06/27/20 19:40 - Orders/Labs/Meds Orders: Active Orders 24 hr Category Date Time Status Ketorolac [Toradol] Med 06/27/20 19:56 Once 30 mg IM ONETIME ONE Promethazine [Phenergan] Med 06/27/20 19:56 Once 25 mg IM ONETIME ONE Departure - Departure Time of Disposition: 20:04 Disposition: Home, Self-Care 01 Condition: Fair Clinical Impression: Migraine Qualifiers: Migraine type: without aura Status migrainosus presence: without status migrainosus Intractability: not intractable Qualified Code(s): G43.009 - Migraine without aura, not intractable, without status migrainosus - Discharge Information *PRESCRIPTION DRUG MONITORING PROGRAM REVIEWED*: Not Applicable *COPY OF PRESCRIPTION DRUG MONITORING REPORT IN PATIENT RILEY: Not Applicable Instructions: General Headache Without Cause, [id number] Care Plan Goals: The patient was advised of the examination results during the visit. The patient was given injections of Toradol and Phenergan while in the ED. The patient was encouraged to follow-up with her eye doctor as well as with her primary care facility. If the patient has any additional symptoms or concerns, the patient should either return to the emergency department or visit her primary care facility. Sepsis Event Note (ED) - Evaluation Sepsis Screening Result: No Definite Risk - Focused Exam Vital Signs: Vital Signs Temp Pulse Resp BP Pulse Ox 06/27/20 19:40 36.9 C 106 H 18 126/83 98 - My Orders Last 24 Hours: My Active Orders 06/27/20 19:56 Ketorolac [Toradol] 30 mg IM ONETIME ONE Promethazine [Phenergan] 25 mg IM ONETIME ONE - Assessment/Plan Last 24 Hours: My Active Orders 06/27/20 19:56 Ketorolac [Toradol] 30 mg IM ONETIME ONE Promethazine [Phenergan] 25 mg IM ONETIME ONE
== END 2020-06-27 20:30 | disposition home or self-care (01) ==
LOC: DL.ED 19:12
DX: G43.009 Migraine without aura, not intractable, without status migrainosus (principal); K21.9 Gastro-esophageal reflux disease without esophagitis; E66.9 Obesity, unspecified; Z68.44 Body mass index [BMI] 60.0-69.9, adult; Z79.899 Other long term (current) drug therapy
CPT/HCPCS: 96372; 99283; J1885; J2550

== ENCOUNTER 2020-09-06 08:18 | Emergency (ER) | payer MEDICAID ==
[2020-09-06 08:39] VITALS: BP 117/77; PULSE 80
--- NOTE | 2020-09-06 09:00 | EDM.PDOC ---
ED HPI GENERAL MEDICAL PROBLEM - General Chief Complaint: Abdominal Pain Stated Complaint: PAIN ON BOTH SIDES ABDOMEN, THROWING UP Time Seen by Provider: 09/06/20 08:40 Source of Information: Reports: Patient, RN, RN Notes Reviewed History Limitations: Reports: No Limitations - History of Present Illness INITIAL COMMENTS - FREE TEXT/NARRATIVE: Patient is a 25-year-old female who presents to the ER with complaint of abdominal pain, bilateral at the midsection. Patient states the pain began yesterday on the left side, was dull and did become sharp. States it did move to the right side and was sharp as well. Rates pain 8/10. States she has tried to take a Tylenol but did vomit that up. States she vomited twice yesterday and then has had dry heaves. Gallbladder has been removed, appendix is still intact. States her bowel movements have been loose since she had the gallbladder removed. Patient states for the past couple of days bowel movements have been a little more watery than usual. Denies any urinary symptoms such as frequency, urgency, burning with urination, denies any vaginal discharge. Unsure exactly of LMP, states she thinks it was may be the beginning of July. States her menses are irregular, states she is not trying to prevent and is sexually active. Patient denies any fever, chills, chest pains, shortness of breath, troubles with constipation. 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 Abdomen Pain Score (Numeric/FACES): 7 - Related Data Allergies Allergy/AdvReac Type Severity Reaction Status Date / Time No Known Allergies Allergy Verified 05/28/20 12:53 Home Meds: Home Meds Pantoprazole Sodium [Protonix] 20 mg PO DAILY 04/19/20 [History] metroNIDAZOLE [Flagyl] 500 mg PO BID 05/28/20 [History] Past Medical History - Past Health History Medical/Surgical History: Denies Medical/Surgical History HEENT History: Reports: Impaired Vision, Otitis Media Other HEENT History: HAS PRESCRIBED CORRECTIVE LENSES; DOES NOT WEAR THEM Cardiovascular History: Reports: None Respiratory History: Reports: Bronchitis, Recurrent Gastrointestinal History: Reports: Cholelithiasis, Chronic Diarrhea, GERD, Other (See Below) Other Gastrointestinal History: FATTY LIVER. RECURRENT BILIARY COLIC Genitourinary History: Reports: Pyelonephritis, STD, UTI, Recurrent, Other (See Below) Other Genitourinary History: CHLAMYDIA. Vaginal infection PROPERTY HANDLER History: Reports: , Spontaneous , Other (See Below) Other PROPERTY HANDLER History: 2 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 Musculoskeletal History: Reports: Fracture, Other (See Below) Other Musculoskeletal History: HX OF WRIST & ANKLE FRACTURE. history of carpal tunnel - states has had nerve stimulation for this Neurological History: Reports: Headaches, Chronic, Migraines Psychiatric History: Reports: Anxiety Endocrine/Metabolic History: Reports: Obesity/BMI 30+, Other (See Below) Other Endocrine/Metabolic History: HX OF ACIDOSIS Hematologic History: Reports: None Immunologic History: Reports: None Oncologic (Cancer) History: Reports: None Dermatologic History: Reports: None - Infectious Disease History Infectious Disease History: Reports: None - Past Surgical History Head Surgeries/Procedures: Reports: None HEENT Surgical History: Reports: Adenoidectomy, Oral Surgery, Tonsillectomy Other HEENT Surgeries/Procedures: WISDOM TEETH EXTRACTION Cardiovascular Surgical History: Reports: None Respiratory Surgical History: Reports: None GI Surgical History: Reports: Cholecystectomy, Colonoscopy, EGD, Other (See Below) Other GI Surgeries/Procedures: ATTEMPTED GALLBLADDER REMOVAL Female Surgical History: Reports: Other (See Below) Other Female Surgeries/Procedures: IUD INSERTION-REMOVED; PATIENT STATES IT WAS EXPELLED FROM BODY Endocrine Surgical History: Reports: None Neurological Surgical History: Reports: None Musculoskeletal Surgical History: Reports: None Oncologic Surgical History: Reports: None Dermatological Surgical History: Reports: None Social & Family History - Family History Family Medical History: No Pertinent Family History - Tobacco Use Tobacco Use Status *Q: Never Tobacco User Second Hand Smoke Exposure: No - Caffeine Use Caffeine Use: Reports: Energy Drinks, Tea Caffeine Use Comment: 20 oz daily - Recreational Drug Use Recreational Drug Use: No - Sexual History Sexual History: Reports: Sexually Active - Living Situation & Occupation Living situation: Reports: with Family Occupation: Unemployed ED ROS GENERAL - Review of Systems Review Of Systems: Comprehensive ROS is negative, except as noted in HPI. ED EXAM, GI/ABD - Physical Exam Exam: See Below Exam Limited By: No Limitations General Appearance: Alert, WD/WN, No Apparent Distress, Obese Eyes: Bilateral: Normal Appearance, EOMI Ears: Normal External Exam, Hearing Grossly Normal Nose: Normal Inspection Throat/Mouth: Normal Inspection, Normal Voice, No Airway Compromise Head: Atraumatic, Normocephalic Neck: Normal Inspection, Supple, Non-Tender, Full Range of Motion Respiratory/Chest: No Respiratory Distress, Lungs Clear, Normal Breath Sounds, No Accessory Muscle Use, Chest Non-Tender Cardiovascular: Normal Peripheral Pulses, Regular Rate, Rhythm, No Edema, No Gallop, No JVD, No Murmur, No Rub GI/Abdominal Exam: Normal Bowel Sounds, Soft, Tender (generalized) (Female) Exam: Deferred Rectal (Female) Exam: Deferred Back Exam: Normal Inspection, Full Range of Motion, CVA Tenderness (L) Extremities: Normal Inspection, Normal Range of Motion, Non-Tender, Normal Capillary Refill, No Pedal Edema Neurological: Alert, Oriented, CN II-XII Intact, Normal Cognition, Normal Gait, Normal Reflexes, No Motor/Sensory Deficits Psychiatric: Normal Affect, Normal Mood Skin Exam: Warm, Dry, Intact, Normal Color, No Rash Lymphatic: No Adenopathy Course - Vital Signs Last Recorded V/S: Last Vital Signs Temp 96.5 F L 09/06/20 08:38 Pulse 80 09/06/20 08:38 Resp 20 09/06/20 08:38 BP 117/77 09/06/20 08:38 Pulse Ox 100 09/06/20 08:38 - Orders/Labs/Meds Labs: Laboratory Tests 09/06/20 09/06/20 09/06/20 Range/Units 08:26 08:27 08:36 WBC 12.2 H (5.0-10.0) 10^3/uL RBC 4.81 (4.2-5.4) 10^6/uL Hgb 12.9 (12.0-16.0) g/dL Hct 40.8 (37.0-47.0) % MCV 84.8 (80-100) fL MCH 26.8 L (27.0-34.0) pg MCHC 31.6 L (33.0-35.0) g/dL Plt Count 375 (150-450) 10^3/uL Neut % (Auto) 63.6 (42.2-75.2) % Lymph % (Auto) 29.1 (20.5-50.1) % Cole % (Auto) 5.4 (2-8) % Eos % (Auto) 1.4 (1.0-3.0) % Baso % (Auto) 0.5 (0.0-1.0) % Sodium (136-145) mmol/L Potassium (3.5-5.1) mmol/L Chloride (98-107) mmol/L Carbon Dioxide (21-32) mmol/L Anion Gap (7-13) mEq/L BUN (7-18) mg/dL Creatinine (0.55-1.02) mg/dL Est Cr Clr Drug Dosing mL/min Estimated GFR (MDRD) BUN/Creatinine Ratio (No establ ref range) Glucose (74-99) mg/dL Calcium (8.5-10.1) mg/dL Total Bilirubin (0.2-1.0) mg/dL AST (15-37) U/L ALT (14-59) U/L Alkaline Phosphatase (46-116) U/L Total Protein (6.4-8.2) g/dL Albumin (3.4-5.0) g/dL Globulin Albumin/Globulin Ratio Amylase (25-115) U/L Lipase (73-393) U/L Urine Color Yellow (YELLOW) Urine Appearance Clear (CLEAR) Urine pH 6.5 (5.0-9.0) Ur Specific [place] 1.025 (1.005-1.030) Urine Protein Negative (NEGATIVE) Urine Glucose (UA) Negative (NEGATIVE) Urine Ketones Negative (NEGATIVE) Urine Occult Blood Small H (NEGATIVE) Urine Nitrite Negative (NEGATIVE) Urine Bilirubin Negative (NEGATIVE) Urine Urobilinogen 0.2 (0.2-1.0) mg/dL Ur Leukocyte Esterase Trace H (NEGATIVE) Urine RBC 0-5 /HPF Urine WBC 0-5 (0-5/HPF) /HPF Ur Epithelial Cells Few (NOT SEEN) /HPF Urine Bacteria Moderate H (0-FEW/HPF) /HPF Urine HCG, Qual Negative 09/06/20 Range/Units 08:36 WBC (5.0-10.0) 10^3/uL RBC (4.2-5.4) 10^6/uL Hgb (12.0-16.0) g/dL Hct (37.0-47.0) % MCV (80-100) fL MCH (27.0-34.0) pg MCHC (33.0-35.0) g/dL Plt Count (150-450) 10^3/uL Neut % (Auto) (42.2-75.2) % Lymph % (Auto) (20.5-50.1) % Cole % (Auto) (2-8) % Eos % (Auto) (1.0-3.0) % Baso % (Auto) (0.0-1.0) % Sodium 138 (136-145) mmol/L Potassium 3.7 (3.5-5.1) mmol/L Chloride 99 (98-107) mmol/L Carbon Dioxide 28 (21-32) mmol/L Anion Gap 14.7 H (7-13) mEq/L BUN 12 (7-18) mg/dL Creatinine 0.65 (0.55-1.02) mg/dL Est Cr Clr Drug Dosing 104.64 mL/min Estimated GFR (MDRD) > 60 BUN/Creatinine Ratio 18.5 (No establ ref range) Glucose 100 H (74-99) mg/dL Calcium 8.9 (8.5-10.1) mg/dL Total Bilirubin 0.3 (0.2-1.0) mg/dL AST 21 (15-37) U/L ALT 57 (14-59) U/L Alkaline Phosphatase 102 (46-116) U/L Total Protein 7.3 (6.4-8.2) g/dL Albumin 3.3 L (3.4-5.0) g/dL Globulin 4.0 Albumin/Globulin Ratio 0.83 Amylase 17 L (25-115) U/L Lipase 56 L (73-393) U/L Urine Color (YELLOW) Urine Appearance (CLEAR) Urine pH (5.0-9.0) Ur Specific [place] (1.005-1.030) Urine Protein (NEGATIVE) Urine Glucose (UA) (NEGATIVE) Urine Ketones (NEGATIVE) Urine Occult Blood (NEGATIVE) Urine Nitrite (NEGATIVE) Urine Bilirubin (NEGATIVE) Urine Urobilinogen (0.2-1.0) mg/dL Ur Leukocyte Esterase (NEGATIVE) Urine RBC /HPF Urine WBC (0-5/HPF) /HPF Ur Epithelial Cells (NOT SEEN) /HPF Urine Bacteria (0-FEW/HPF) /HPF Urine HCG, Qual Meds: Medications Discontinued Medications Generic Name Dose Route Start Last Admin Trade Name Freq PRN Reason Stop Dose Admin Sodium Chloride 1,000 mls @ 999 mls/hr 09/06/20 09:38 09/06/20 10:19 Normal Saline IV 09/06/20 10:38 999 mls/hr .BOLUS ONE Administration Iopamidol 100 ml 09/06/20 09:37 09/06/20 10:15 Isovue-300 (61%) IVPUSH 09/06/20 09:38 100 ml ONETIME ONE Administration Iopamidol 50 ml 09/06/20 10:08 09/06/20 10:15 Isovue-300 (61%) IVPUSH 09/06/20 10:09 25 ml ONETIME ONE Administration Ketorolac Tromethamine 30 mg 09/06/20 10:43 09/06/20 10:48 Toradol IVPUSH 09/06/20 10:44 30 mg ONETIME ONE Administration Ondansetron HCl 4 mg 09/06/20 09:38 09/06/20 09:43 Zofran IV 09/06/20 09:39 4 mg ONETIME ONE Administration - Radiology Interpretation Free Text/Narrative:: CT Abdomen/Pelvis with contrast: PROCEDURE INFORMATION: Exam: CT Abdomen And Pelvis With Contrast Exam date and time: 09/06/2020 10:06 AM Age: 25 years old Clinical indication: Abdominal pain; Generalized; Prior surgery; Surgery date: 6+ months; Surgery type: Cholecystectomy; Additional info: Abdominal pain, n/v TECHNIQUE: Imaging protocol: Computed tomography of the abdomen and pelvis with contrast. Radiation optimization: All CT scans at this facility use at least one of these dose optimization techniques: automated exposure control; mA and/or kV adjustment per patient size (includes targeted exams where dose is matched to clinical indication); or iterative reconstruction. Contrast material: ISOVUE 300; Contrast volume: 125 ml; Contrast route: INTRAVENOUS (IV); COMPARISON: CT Abdomen Pelvis w Cont 04/19/2020 8:33 PM FINDINGS: Liver: Diffuse fatty infiltration again noted. No focal lesions. Gallbladder and bile ducts: The gallbladder is again noted to be absent. Pancreas: Normal. No ductal dilation. Spleen: Normal. No splenomegaly. Adrenal glands: Normal. No mass. Kidneys and ureters: Normal. No hydronephrosis. Stomach and bowel: Unremarkable. No obstruction. No mucosal thickening. Appendix: Normal diameter. No inflammation. No evidence for appendicitis. Intraperitoneal space: Unremarkable. No free air. No significant fluid collection. Vasculature: Unremarkable. No abdominal aortic aneurysm. Lymph nodes: Unremarkable. No enlarged lymph nodes. Urinary bladder: Unremarkable as visualized. Reproductive: Normal uterus. No adnexal masses or fluid collections. Bones/joints: Unremarkable. No acute fracture. Soft tissues: Unremarkable. IMPRESSION: No acute findings in the abdomen or pelvis. Thank you for allowing us to participate in the care of your patient. Dictated and Authenticated by: Bandar Sharp MD 09/06/2020 10:32 AM Central Time ([place] & [place]) Departure - Departure Time of Disposition: 10:38 Disposition: Home, Self-Care 01 Condition: Fair Clinical Impression: Gastroenteritis - Discharge Information *PRESCRIPTION DRUG MONITORING PROGRAM REVIEWED*: No *COPY OF PRESCRIPTION DRUG MONITORING REPORT IN PATIENT RILEY: No Instructions: Viral Gastroenteritis, Adult, [id number], Food Choices to Help Relieve Diarrhea, Adult, Nausea and Vomiting, Adult, [id number] Forms: ED Department Discharge Additional Instructions: FLuids as tolerated Tucker diet until nausea and vomiting resolved Follow up with your primary care facility Sepsis Event Note (ED) - Evaluation Sepsis Screening Result: No Definite Risk - Focused Exam Vital Signs: Vital Signs Temp Pulse Resp BP Pulse Ox 09/06/20 08:38 96.5 F L 80 20 117/77 100
[2020-09-06 09:01] LABS: ANION GAP 14.7 mEq/L (7-13); CHLORIDE,CL 99 mmol/L (98-107); SODIUM,NA 138 mmol/L (136-145)
[2020-09-06] MEDS ORDERED: Iopamidol 612 MG/ML 100 ML Bottle IVPUSH ONE (09:37)
[2020-09-06] MEDS ORDERED: Ondansetron 4 MG/2 ML SDV IV ONE (09:38)
[2020-09-06] MEDS ORDERED: Sodium Chloride 0.9% 1,000 ML IV ONE (09:38)
[2020-09-06] MEDS ORDERED: Iopamidol 612 MG/ML 50 ML SDV IVPUSH ONE (10:08)
--- NOTE | 2020-09-06 10:33 | CT ---
PROCEDURE INFORMATION: Exam: CT Abdomen And Pelvis With Contrast Exam date and time: 09/06/2020 10:06 AM Age: 25 years old Clinical indication: Abdominal pain; Generalized; Prior surgery; Surgery date: 6+ months; Surgery type: Cholecystectomy; Additional info: Abdominal pain, n/v TECHNIQUE: Imaging protocol: Computed tomography of the abdomen and pelvis with contrast. Radiation optimization: All CT scans at this facility use at least one of these dose optimization techniques: automated exposure control; mA and/or kV adjustment per patient size (includes targeted exams where dose is matched to clinical indication); or iterative reconstruction. Contrast material: ISOVUE 300; Contrast volume: 125 ml; Contrast route: INTRAVENOUS (IV); COMPARISON: CT Abdomen Pelvis w Cont 04/19/2020 8:33 PM FINDINGS: Liver: Diffuse fatty infiltration again noted. No focal lesions. Gallbladder and bile ducts: The gallbladder is again noted to be absent. Pancreas: Normal. No ductal dilation. Spleen: Normal. No splenomegaly. Adrenal glands: Normal. No mass. Kidneys and ureters: Normal. No hydronephrosis. Stomach and bowel: Unremarkable. No obstruction. No mucosal thickening. Appendix: Normal diameter. No inflammation. No evidence for appendicitis. Intraperitoneal space: Unremarkable. No free air. No significant fluid collection. Vasculature: Unremarkable. No abdominal aortic aneurysm. Lymph nodes: Unremarkable. No enlarged lymph nodes. Urinary bladder: Unremarkable as visualized. Reproductive: Normal uterus. No adnexal masses or fluid collections. Bones/joints: Unremarkable. No acute fracture. Soft tissues: Unremarkable. IMPRESSION: No acute findings in the abdomen or pelvis.
[2020-09-06] MEDS ORDERED: Ketorolac 30 MG/ML SDV IVPUSH ONE (10:43)
== END 2020-09-06 10:59 | disposition home or self-care (01) ==
LOC: DL.ED 08:18
DX: K52.9 Noninfective gastroenteritis and colitis, unspecified (principal); K21.9 Gastro-esophageal reflux disease without esophagitis; E66.9 Obesity, unspecified; Z68.44 Body mass index [BMI] 60.0-69.9, adult; Z79.899 Other long term (current) drug therapy
CPT/HCPCS: 36415; 74177; 80053; 81001; 81025; 82150; 83690; 85025; 96374; 96375; 99284; J1885; J2405; J7030; Q9967; 99283

== ENCOUNTER 2020-10-08 22:10 | Emergency (ER) | payer MEDICAID ==
[2020-10-08 22:36] VITALS: BP 131/70; PULSE 99
[2020-10-08] MEDS ORDERED: Promethazine 25 MG/ML SDV IM ONE (22:38)
[2020-10-08] MEDS ORDERED: Ketorolac 30 MG/ML SDV IM ONE (22:38)
--- NOTE | 2020-10-08 22:50 | EDM.PDOC ---
ED HPI GENERAL MEDICAL PROBLEM - General Chief Complaint: Headache Stated Complaint: MIGRAINE / FORHEAD 4 TO 5 DAYS OF PAIN. Time Seen by Provider: 10/08/20 22:35 Source of Information: Reports: Patient, RN History Limitations: Reports: No Limitations - History of Present Illness INITIAL COMMENTS - FREE TEXT/NARRATIVE: ED with c/o usual migraine headache pain for past 4 days. Tried ibuprofefen tylenol and and excedrin without relief. Pain across forehead area. Sensitive to light. 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, NSAIDS Headache Pain Score (Numeric/FACES): 7 - Related Data Allergies Allergy/AdvReac Type Severity Reaction Status Date / Time No Known Allergies Allergy Verified 10/08/20 22:36 Home Meds: Home Meds Pantoprazole Sodium [Protonix] 20 mg PO DAILY 04/19/20 [History] Gabapentin [Neurontin] 100 mg PO TID 10/08/20 [History] Past Medical History - Past Health History Medical/Surgical History: Denies Medical/Surgical History HEENT History: Reports: Impaired Vision, Otitis Media Other HEENT History: HAS PRESCRIBED CORRECTIVE LENSES; DOES NOT WEAR THEM Cardiovascular History: Reports: None Respiratory History: Reports: Bronchitis, Recurrent Gastrointestinal History: Reports: Cholelithiasis, Chronic Diarrhea, GERD, Other (See Below) Other Gastrointestinal History: FATTY LIVER. RECURRENT BILIARY COLIC Genitourinary History: Reports: Pyelonephritis, STD, UTI, Recurrent Other Genitourinary History: CHLAMYDIA. 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 Musculoskeletal History: Reports: Fracture, Other (See Below) Other Musculoskeletal History: HX OF WRIST & ANKLE FRACTURE. history of carpal tunnel - states has had nerve stimulation for this Neurological History: Reports: Headaches, Chronic, Migraines Psychiatric History: Reports: Anxiety Endocrine/Metabolic History: Reports: Obesity/BMI 30+ Other Endocrine/Metabolic History: HX OF ACIDOSIS Hematologic History: Reports: None Immunologic History: Reports: None Oncologic (Cancer) History: Reports: None Dermatologic History: Reports: None - Infectious Disease History Infectious Disease History: Reports: None - Past Surgical History Head Surgeries/Procedures: Reports: None HEENT Surgical History: Reports: Adenoidectomy, Oral Surgery, Tonsillectomy Other HEENT Surgeries/Procedures: WISDOM TEETH EXTRACTION Cardiovascular Surgical History: Reports: None Respiratory Surgical History: Reports: None GI Surgical History: Reports: Cholecystectomy, Colonoscopy, EGD Endocrine Surgical History: Reports: None Neurological Surgical History: Reports: None Musculoskeletal Surgical History: Reports: None Oncologic Surgical History: Reports: None Dermatological Surgical History: Reports: None Social & Family History - Family History Family Medical History: No Pertinent Family History - Tobacco Use Tobacco Use Status *Q: Unknown Ever Used Tobacco Second Hand Smoke Exposure: Yes - Caffeine Use Caffeine Use: Reports: Energy Drinks, Tea Caffeine Use Comment: 20 oz daily - Recreational Drug Use Recreational Drug Use: No - Sexual History Sexual History: Reports: Sexually Active - Living Situation & Occupation Living situation: Reports: with Family Occupation: Unemployed ED ROS GENERAL - Review of Systems Review Of Systems: Comprehensive ROS is negative, except as noted in HPI. - Physical Exam Exam: See Below Exam Limited By: No Limitations General Appearance: Alert, Mild Distress, Obese Eye Exam: Bilateral Eye: EOMI Ears: Normal External Exam, Hearing Grossly Normal, Normal TMs Nose: Normal Inspection Throat/Mouth: Normal Inspection Head Exam: Atraumatic, Normocephalic Neck: Normal Inspection Respiratory/Chest: No Respiratory Distress Cardiovascular: Normal Peripheral Pulses GI/Abdominal: Normal Bowel Sounds Neuro Exam (Abbreviated): Alert, Oriented, Normal Cognition Back Exam: Normal Inspection Psychiatric: Normal Affect, Normal Mood Skin Exam: Warm, Dry, Intact, Normal Color Course - Vital Signs Last Recorded V/S: Last Vital Signs Temp 98.7 F 10/08/20 22:31 Pulse 99 10/08/20 22:31 Resp 16 10/08/20 22:31 BP 131/70 10/08/20 22:31 Pulse Ox 99 10/08/20 22:31 - Orders/Labs/Meds Meds: Medications Discontinued Medications Generic Name Dose Route Start Last Admin Trade Name Freq PRN Reason Stop Dose Admin Ketorolac Tromethamine 30 mg 10/08/20 22:38 10/08/20 22:58 Ketorolac 30 Mg/Ml Sdv IM 10/08/20 22:39 30 mg ONETIME ONE Administration Promethazine HCl 25 mg 10/08/20 22:38 10/08/20 22:57 Promethazine 25 Mg/Ml Sdv IM 10/08/20 22:39 25 mg ONETIME ONE Administration Departure - Departure Time of Disposition: 22:49 Disposition: Home, Self-Care 01 Condition: Good Clinical Impression: Migraine Qualifiers: Migraine type: without aura Status migrainosus presence: without status migrainosus Intractability: not intractable Qualified Code(s): G43.009 - Migraine without aura, not intractable, without status migrainosus - Discharge Information *PRESCRIPTION DRUG MONITORING PROGRAM REVIEWED*: No *COPY OF PRESCRIPTION DRUG MONITORING REPORT IN PATIENT RILEY: No Instructions: Migraine Headache, [id number] Forms: ED Department Discharge Additional Instructions: clinic follow up up if not improving encourage fluids rest tonight in dark room. Sepsis Event Note (ED) - Evaluation Sepsis Screening Result: No Definite Risk - Focused Exam Vital Signs: Vital Signs Temp Pulse Resp BP Pulse Ox 10/08/20 22:31 98.7 F 99 16 131/70 99
== END 2020-10-08 23:02 | disposition home or self-care (01) ==
LOC: DL.ED 22:10
DX: G43.009 Migraine without aura, not intractable, without status migrainosus (principal); K21.9 Gastro-esophageal reflux disease without esophagitis; E66.9 Obesity, unspecified; Z68.44 Body mass index [BMI] 60.0-69.9, adult; Z77.22 Contact with and (suspected) exposure to environmental tobacco smoke (acute) (chronic); Z79.899 Other long term (current) drug therapy
CPT/HCPCS: 96372; 99283; J1885; J2550

== ENCOUNTER 2020-10-26 16:42 | Emergency (ER) | payer MEDICAID ==
[2020-10-26 16:51] VITALS: BP 134/95; PULSE 112
[2020-10-26] MEDS ORDERED: Ketorolac 30 MG/ML SDV IM ONE (16:53)
[2020-10-26] MEDS ORDERED: Promethazine 25 MG/ML SDV IM ONE (16:53)
[2020-10-26] MEDS ORDERED: Butorphanol 2 MG/ML SDV IM ONE (17:32)
--- NOTE | 2020-10-26 18:00 | EDM.PDOC ---
<Kaushik Funk Lexii - Last Filed: 10/26/20 18:00> ED HPI GENERAL MEDICAL PROBLEM - General Chief Complaint: Headache Stated Complaint: MIGRAINE, FEELS LIKE GLANDS ARE SWOLLEN Time Seen by Provider: 10/26/20 16:54 Source of Information: Reports: Patient History Limitations: Reports: No Limitations - History of Present Illness INITIAL COMMENTS - FREE TEXT/NARRATIVE: Pt states she has had a migraine for 2 days and has tried ibuprofen and tylenol with no relief. Hx of migraine. Has nausea and photophobia. Denies cp, db, abd pn Duration: Day(s): Location: Reports: Head Quality: Reports: Ache Severity: Moderate Head Pain Score (Numeric/FACES): 8 - Related Data Allergies Allergy/AdvReac Type Severity Reaction Status Date / Time No Known Allergies Allergy Verified 10/08/20 22:36 Home Meds: Home Meds Pantoprazole Sodium [Protonix] 20 mg PO DAILY 04/19/20 [History] Gabapentin [Neurontin] 100 mg PO TID 10/08/20 [History] Past Medical History - Past Health History Medical/Surgical History: Denies Medical/Surgical History HEENT History: Reports: Impaired Vision, Otitis Media Other HEENT History: HAS PRESCRIBED CORRECTIVE LENSES; DOES NOT WEAR THEM Cardiovascular History: Reports: None Respiratory History: Reports: Bronchitis, Recurrent Gastrointestinal History: Reports: Cholelithiasis, Chronic Diarrhea, GERD, Other (See Below) Other Gastrointestinal History: FATTY LIVER. RECURRENT BILIARY COLIC Genitourinary History: Reports: Pyelonephritis, STD, UTI, Recurrent Other Genitourinary History: CHLAMYDIA. 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 Musculoskeletal History: Reports: Fracture, Other (See Below) Other Musculoskeletal History: HX OF WRIST & ANKLE FRACTURE. history of carpal tunnel - states has had nerve stimulation for this Neurological History: Reports: Headaches, Chronic, Migraines Psychiatric History: Reports: Anxiety Endocrine/Metabolic History: Reports: Obesity/BMI 30+ Other Endocrine/Metabolic History: HX OF ACIDOSIS Hematologic History: Reports: None Immunologic History: Reports: None Oncologic (Cancer) History: Reports: None Dermatologic History: Reports: None - Infectious Disease History Infectious Disease History: Reports: None - Past Surgical History Head Surgeries/Procedures: Reports: None HEENT Surgical History: Reports: Adenoidectomy, Oral Surgery, Tonsillectomy Other HEENT Surgeries/Procedures: WISDOM TEETH EXTRACTION Cardiovascular Surgical History: Reports: None Respiratory Surgical History: Reports: None GI Surgical History: Reports: Cholecystectomy, Colonoscopy, EGD Other GI Surgeries/Procedures: ATTEMPTED GALLBLADDER REMOVAL Female Surgical History: Reports: Other (See Below) Other Female Surgeries/Procedures: IUD INSERTION-REMOVED; PATIENT STATES IT WAS EXPELLED FROM BODY Endocrine Surgical History: Reports: None Neurological Surgical History: Reports: None Musculoskeletal Surgical History: Reports: None Oncologic Surgical History: Reports: None Dermatological Surgical History: Reports: None Social & Family History - Family History Family Medical History: No Pertinent Family History - Tobacco Use Tobacco Use Status *Q: Never Tobacco User - Caffeine Use Caffeine Use: Reports: Energy Drinks, Tea Caffeine Use Comment: 20 oz daily - Recreational Drug Use Recreational Drug Use: No - Sexual History Sexual History: Reports: Sexually Active - Living Situation & Occupation Living situation: Reports: with Family Occupation: Unemployed ED ROS GENERAL - Review of Systems Review Of Systems: Comprehensive ROS is negative, except as noted in HPI. - Physical Exam Exam: See Below Exam Limited By: No Limitations General Appearance: Alert, No Apparent Distress Eye Exam: Bilateral Eye: PERRL Ears: Normal External Exam, Normal Canal, Hearing Grossly Normal, Normal TMs Nose: Normal Inspection, Normal Mucosa, No Blood Throat/Mouth: Normal Inspection, Normal Lips, Normal Teeth, Normal Gums, Normal Oropharynx, Normal Voice, No Airway Compromise Head Exam: Atraumatic, Normocephalic Neck: Normal Inspection, Supple, Non-Tender, Full Range of Motion Respiratory/Chest: No Respiratory Distress, Lungs Clear, Normal Breath Sounds, No Accessory Muscle Use, Chest Non-Tender Cardiovascular: Normal Peripheral Pulses, Regular Rate, Rhythm, No Edema, No Gallop, No JVD, No Murmur, No Rub Departure - Departure Time of Disposition: 18:00 Disposition: Home, Self-Care 01 Condition: Good Clinical Impression: Migraine Qualifiers: Migraine type: without aura Status migrainosus presence: without status migrainosus Intractability: not intractable Qualified Code(s): G43.009 - Migraine without aura, not intractable, without status migrainosus - Discharge Information *PRESCRIPTION DRUG MONITORING PROGRAM REVIEWED*: Not Applicable *COPY OF PRESCRIPTION DRUG MONITORING REPORT IN PATIENT RILEY: Not Applicable Forms: ED Department Discharge Additional Instructions: use tylenol and motrin for pain. Avoid using your nasal spray for the next few days. If any new symptoms or concerns develop contact your [facility] facility or return to the ER. Sepsis Event Note (ED) - Evaluation Sepsis Screening Result: No Definite Risk <Rasheed Shaverian - Last Filed: 10/26/20 18:06> Course - Vital Signs Last Recorded V/S: Last Vital Signs Temp 98.5 F 10/26/20 16:50 Pulse 112 H 10/26/20 16:50 Resp 16 10/26/20 16:50 BP 134/95 H 10/26/20 16:50 Pulse Ox 94 L 10/26/20 16:50 - Orders/Labs/Meds Meds: Medications Discontinued Medications Generic Name Dose Route Start Last Admin Trade Name Freq PRN Reason Stop Dose Admin Butorphanol Tartrate 2 mg 10/26/20 17:32 10/26/20 17:37 Butorphanol 2 Mg/Ml Sdv IM 10/26/20 17:33 2 mg ONETIME ONE Administration Ketorolac Tromethamine 30 mg 10/26/20 16:53 10/26/20 17:00 Ketorolac 30 Mg/Ml Sdv IM 10/26/20 16:54 30 mg ONETIME ONE Administration Promethazine HCl 25 mg 10/26/20 16:53 10/26/20 17:00 Promethazine 25 Mg/Ml Sdv IM 10/26/20 16:54 25 mg ONETIME ONE Administration - Re-Assessments/Exams Free Text/Narrative Re-Assessment/Exam: 10/26/20 18:06 I personally performed or re-performed the physical examination and medical decision making. I have verified all student documentation or findings, including history, physical exam and/or medical decision making. Sepsis Event Note (ED) - Focused Exam Vital Signs: Vital Signs Temp Pulse Resp BP Pulse Ox 10/26/20 16:50 98.5 F 112 H 16 134/95 H 94 L
== END 2020-10-26 18:43 | disposition home or self-care (01) ==
LOC: DL.ED 16:42
DX: G43.009 Migraine without aura, not intractable, without status migrainosus (principal); K21.9 Gastro-esophageal reflux disease without esophagitis; E66.9 Obesity, unspecified; Z68.44 Body mass index [BMI] 60.0-69.9, adult; Z79.899 Other long term (current) drug therapy
CPT/HCPCS: 96372; 99283; J0595; J1885; J2550

== ENCOUNTER 2020-12-10 14:38 | Emergency (ER) | payer MEDICAID ==
[2020-12-10 15:05] VITALS: BP 130/90; PULSE 98
== END 2020-12-10 15:28 ==
LOC: DL.ED 14:38
DX: Z53.21 Procedure and treatment not carried out due to patient leaving prior to being seen by health care provider (principal)

== ENCOUNTER 2021-01-07 22:39 | Emergency (ER) | payer MEDICAID ==
[2021-01-07 23:10] VITALS: BP 123/54; PULSE 76
--- NOTE | 2021-01-07 23:27 | EDM.PDOC ---
"ED HPI GENERAL MEDICAL PROBLEM - General Chief Complaint: Abdominal Pain Stated Complaint: PAIN IN LOWER RIGHT ADOMIN Time Seen by Provider: 01/07/21 23:15 Source of Information: Reports: Patient History Limitations: Reports: No Limitations - History of Present Illness INITIAL COMMENTS - FREE TEXT/NARRATIVE: This 25 yo female patient reports to the ED with right lower abdominal pain that started 2 days ago. The patient reports she was out of town when her symptoms started, but she has been noticing increased symptoms throughout the day. The patient reports she attempted to get into the clinic to see Dr. Rodriguez, but there were no appointments available. The patient reports she has had her gallbladder removed in the past, but no other abdominal surgeries. The patient reports she did take Tylenol with little to no symptom relief. Onset Date: 01/05/21 Duration: Constant Location: Reports: Abdomen (RLQ) Quality: Reports: Ache, Sharp Severity: Moderate Improves with: Reports: None Worsens with: Reports: None Associated Symptoms: Reports: Nausea/Vomiting (Nausea, but no vomiting) - Related Data Allergies Allergy/AdvReac Type Severity Reaction Status Date / Time No Known Allergies Allergy Verified 10/08/20 22:36 Home Meds: Home Meds Pantoprazole Sodium [Protonix] 20 mg PO DAILY 04/19/20 [History] Gabapentin [Neurontin] 100 mg PO TID 10/08/20 [History] Past Medical History - Past Health History Medical/Surgical History: Denies Medical/Surgical History HEENT History: Reports: Impaired Vision, Otitis Media Other HEENT History: HAS PRESCRIBED CORRECTIVE LENSES; DOES NOT WEAR THEM Cardiovascular History: Reports: None Respiratory History: Reports: Bronchitis, Recurrent Gastrointestinal History: Reports: Cholelithiasis, Chronic Diarrhea, GERD, Other (See Below) Other Gastrointestinal History: FATTY LIVER. RECURRENT BILIARY COLIC Genitourinary History: Reports: Pyelonephritis, STD, UTI, Recurrent Other Genitourinary History: CHLAMYDIA. 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 Musculoskeletal History: Reports: Fracture, Other (See Below) Other Musculoskeletal History: HX OF WRIST & ANKLE FRACTURE. history of carpal tunnel - states has had nerve stimulation for this Neurological History: Reports: Headaches, Chronic, Migraines Psychiatric History: Reports: Anxiety Endocrine/Metabolic History: Reports: Obesity/BMI 30+ Other Endocrine/Metabolic History: HX OF ACIDOSIS Hematologic History: Reports: None Immunologic History: Reports: None Oncologic (Cancer) History: Reports: None Dermatologic History: Reports: None - Infectious Disease History Infectious Disease History: Reports: None - Past Surgical History Head Surgeries/Procedures: Reports: None HEENT Surgical History: Reports: Adenoidectomy, Oral Surgery, Tonsillectomy Other HEENT Surgeries/Procedures: WISDOM TEETH EXTRACTION Cardiovascular Surgical History: Reports: None Respiratory Surgical History: Reports: None GI Surgical History: Reports: Cholecystectomy, Colonoscopy, EGD Other GI Surgeries/Procedures: ATTEMPTED GALLBLADDER REMOVAL Female Surgical History: Reports: Other (See Below) Other Female Surgeries/Procedures: IUD INSERTION-REMOVED; PATIENT STATES IT WAS EXPELLED FROM BODY Endocrine Surgical History: Reports: None Neurological Surgical History: Reports: None Musculoskeletal Surgical History: Reports: None Oncologic Surgical History: Reports: None Dermatological Surgical History: Reports: None Social & Family History - Family History Family Medical History: No Pertinent Family History - Tobacco Use Tobacco Use Status *Q: Never Tobacco User - Caffeine Use Caffeine Use: Reports: None Caffeine Use Comment: 20 oz daily - Recreational Drug Use Recreational Drug Use: No - Sexual History Sexual History: Reports: Sexually Active - Living Situation & Occupation Living situation: Reports: with Family Occupation: Unemployed ED ROS GENERAL - Review of Systems Review Of Systems: Comprehensive ROS is negative, except as noted in HPI. ED EXAM, GI/ABD - Physical Exam Exam: See Below Exam Limited By: No Limitations General Appearance: Alert, WD/WN, Mild Distress, Obese Eyes: Bilateral: Normal Appearance, EOMI Ears: Normal External Exam, Normal Canal, Hearing Grossly Normal, Normal TMs Nose: Normal Inspection, Normal Mucosa, No Blood Throat/Mouth: Normal Inspection, Normal Lips, Normal Teeth, Normal Gums, Normal Oropharynx, Normal Voice, No Airway Compromise Head: Atraumatic, Normocephalic Neck: Normal Inspection, Supple, Non-Tender, Full Range of Motion Respiratory/Chest: No Respiratory Distress, Lungs Clear, Normal Breath Sounds, No Accessory Muscle Use, Chest Non-Tender Cardiovascular: Normal Peripheral Pulses GI/Abdominal Exam: Normal Bowel Sounds, Tender (Right lower quadrant and right middle abdomen), Other (Morbid obesity) (Female) Exam: Deferred Rectal (Female) Exam: Deferred Back Exam: Normal Inspection, Full Range of Motion, NT Extremities: Normal Inspection, Normal Range of Motion, Non-Tender, Normal Capillary Refill, No Pedal Edema Neurological: Alert, Oriented, CN II-XII Intact, Normal Cognition, Normal Gait, Normal Reflexes, No Motor/Sensory Deficits Psychiatric: Normal Affect, Normal Mood Skin Exam: Warm, Dry, Intact, Normal Color, No Rash Lymphatic: No Adenopathy Course - Vital Signs Last Recorded V/S: Last Vital Signs Temp 98.1 F 01/07/21 23:07 Pulse 76 01/07/21 23:07 Resp 14 01/07/21 23:07 BP 123/54 L 01/07/21 23:07 Pulse Ox 100 01/07/21 23:07 - Orders/Labs/Meds Orders: Active Orders 24 hr Category Date Time Status CULTURE BLOOD [BC] Stat Lab 01/07/21 23:16 Ordered CULTURE URINE [RM] Stat Lab 01/07/21 22:50 Received Ciprofloxacin [Ciprofloxacin HCl] Med 01/08/21 01:35 Once 500 mg PO ONETIME ONE diphenhydrAMINE [Benadryl] Med 01/08/21 01:35 Once 25 mg IVPUSH ONETIME ONE Medication Orders Ciprofloxacin (Ciprofloxacin 500 Mg Tab) 500 mg PO ONETIME ONE Stop: 01/08/21 01:36 Diphenhydramine HCl (Diphenhydramine 50 Mg/Ml Sdv) 25 mg IVPUSH ONETIME ONE Stop: 01/08/21 01:36 Labs: Laboratory Tests 01/07/21 01/07/21 01/07/21 Range/Units 22:50 22:50 23:27 WBC 12.4 H (5.0-10.0) 10^3/uL RBC 4.55 (4.2-5.4) 10^6/uL Hgb 12.6 (12.0-16.0) g/dL Hct 38.9 (37.0-47.0) % MCV 85.5 (80-100) fL MCH 27.7 (27.0-34.0) pg MCHC 32.4 L (33.0-35.0) g/dL Plt Count 369 (150-450) 10^3/uL Neut % (Auto) 62.5 (42.2-75.2) % Lymph % (Auto) 30.1 (20.5-50.1) % Day % (Auto) 5.3 (2-8) % Eos % (Auto) 1.7 (1.0-3.0) % Baso % (Auto) 0.4 (0.0-1.0) % Sodium (136-145) mmol/L Potassium (3.5-5.1) mmol/L Chloride (98-107) mmol/L Carbon Dioxide (21-32) mmol/L Anion Gap (7-13) mEq/L BUN (7-18) mg/dL Creatinine (0.55-1.02) mg/dL Est Cr Clr Drug Dosing mL/min Estimated GFR (MDRD) BUN/Creatinine Ratio (No establ ref range) Glucose (70-99) mg/dL Lactic Acid (0.4-2.0) mmol/L Calcium (8.5-10.1) mg/dL Total Bilirubin (0.2-1.0) mg/dL AST (15-37) U/L ALT (14-59) U/L Alkaline Phosphatase (46-116) U/L Total Protein (6.4-8.2) g/dL Albumin (3.4-5.0) g/dL Globulin Albumin/Globulin Ratio Urine Color Yellow (YELLOW) Urine Appearance Cloudy (CLEAR) Urine pH 6.0 (5.0-9.0) Ur Specific [place] >= 1.030 (1.005-1.030) Urine Protein Trace H (NEGATIVE) Urine Glucose (UA) Negative (NEGATIVE) Urine Ketones Negative (NEGATIVE) Urine Occult Blood Trace-intact H (NEGATIVE) Urine Nitrite Negative (NEGATIVE) Urine Bilirubin Negative (NEGATIVE) Urine Urobilinogen 1.0 (0.2-1.0) mg/dL Ur Leukocyte Esterase Small H (NEGATIVE) Urine RBC 10-20 H /HPF Urine WBC 75-100 H (0-5/HPF) /HPF Ur Epithelial Cells Moderate H (NOT SEEN) /HPF Calcium Oxalate Crystal Few H (NOT SEEN) /HPF Amorphous Sediment Few (NOT SEEN) /HPF Urine Bacteria Few (0-FEW/HPF) /HPF Urine Mucus Few H (NOT SEEN) /LPF Urine Other See note Urine HCG, Qual Negative 01/07/21 01/07/21 Range/Units 23:27 23:27 WBC (5.0-10.0) 10^3/uL RBC (4.2-5.4) 10^6/uL Hgb (12.0-16.0) g/dL Hct (37.0-47.0) % MCV (80-100) fL MCH (27.0-34.0) pg MCHC (33.0-35.0) g/dL Plt Count (150-450) 10^3/uL Neut % (Auto) (42.2-75.2) % Lymph % (Auto) (20.5-50.1) % Day % (Auto) (2-8) % Eos % (Auto) (1.0-3.0) % Baso % (Auto) (0.0-1.0) % Sodium 142 (136-145) mmol/L Potassium 3.5 (3.5-5.1) mmol/L Chloride 105 (98-107) mmol/L Carbon Dioxide 28 (21-32) mmol/L Anion Gap 12.5 (7-13) mEq/L BUN 7 (7-18) mg/dL Creatinine 0.96 (0.55-1.02) mg/dL Est Cr Clr Drug Dosing 70.85 mL/min Estimated GFR (MDRD) > 60 BUN/Creatinine Ratio 7.3 (No establ ref range) Glucose 115 H (70-99) mg/dL Lactic Acid 1.2 (0.4-2.0) mmol/L Calcium 8.5 (8.5-10.1) mg/dL Total Bilirubin 0.3 (0.2-1.0) mg/dL AST 23 (15-37) U/L ALT 49 (14-59) U/L Alkaline Phosphatase 118 H (46-116) U/L Total Protein 6.6 (6.4-8.2) g/dL Albumin 3.0 L (3.4-5.0) g/dL Globulin 3.6 Albumin/Globulin Ratio 0.83 Urine Color (YELLOW) Urine Appearance (CLEAR) Urine pH (5.0-9.0) Ur Specific [place] (1.005-1.030) Urine Protein (NEGATIVE) Urine Glucose (UA) (NEGATIVE) Urine Ketones (NEGATIVE) Urine Occult Blood (NEGATIVE) Urine Nitrite (NEGATIVE) Urine Bilirubin (NEGATIVE) Urine Urobilinogen (0.2-1.0) mg/dL Ur Leukocyte Esterase (NEGATIVE) Urine RBC /HPF Urine WBC (0-5/HPF) /HPF Ur Epithelial Cells (NOT SEEN) /HPF Calcium Oxalate Crystal (NOT SEEN) /HPF Amorphous Sediment (NOT SEEN) /HPF Urine Bacteria (0-FEW/HPF) /HPF Urine Mucus (NOT SEEN) /LPF Urine Other Urine HCG, Qual Meds: Medications Generic Name Dose Route Start Last Admin Trade Name Freq PRN Reason Stop Dose Admin Ciprofloxacin 500 mg 01/08/21 01:35 Ciprofloxacin 500 Mg Tab PO 01/08/21 01:36 ONETIME ONE Diphenhydramine HCl 25 mg 01/08/21 01:35 Diphenhydramine 50 Mg/Ml Sdv IVPUSH 01/08/21 01:36 ONETIME ONE Discontinued Medications Generic Name Dose Route Start Last Admin Trade Name Freq PRN Reason Stop Dose Admin Iopamidol 100 ml 01/07/21 23:49 01/08/21 00:26 Iopamidol 612 Mg/Ml 100 Ml Bottle IVPUSH 01/07/21 23:50 100 ml ONETIME ONE Administration - Radiology Interpretation Free Text/Narrative:: [facility] Final Radiology Report Call: [phone] assistance Online chat: [email or web address] Name: ERVIN CHADWICK Age: 25Years F Date: 01/08/2021 SSN: -- : [id number] Study: CT ABDOMEN PELVIS W CONT Requesting Physician: Hitesh Mas Images: [id number] Addl Studies: Provided Clinical History: Right lower quadrant abdominal pain Contrast: With Contrast Medium: Isovue 300 Contrast Amount: 125 mL Contrast Method: Intravenous (IV) Page 1 of 2 PROCEDURE INFORMATION: Exam: CT Abdomen And Pelvis With Contrast Exam date and time: 01/08/2021 12:14 AM Age: 25 years old Clinical indication: Abdominal pain; Localized; Right lower quadrant (rlq); Prior surgery; Surgery date: 6+ months; Surgery type: Cholecystectomy; Additional info: Right lower quadrant abdominal pain TECHNIQUE: Imaging protocol: Computed tomography of the abdomen and pelvis with contrast. Radiation optimization: All CT scans at this facility use at least one of these dose optimization techniques: automated exposure control; mA and/or kV adjustment per patient size (includes targeted exams where dose is matched to clinical indication); or iterative reconstruction. Contrast material: ISOVUE 300; Contrast volume: 125 ml; Contrast route: INTR AVENOUS (IV); COMPARISON: 1. CT Abdomen Pelvis w Cont 09/06/2020 10:[address] Abdomen Pelvis w Cont 04/19/2020 8:33 PM FINDINGS: Lungs: Again seen are a few tiny noncalcified nodules in the lung bases, for example in the peripheral posterior right lower lobe measuring 3 mm on image 2:9. Liver: The liver is mildly enlarged. There is a diffuse decrease in hepatic parenchymal density, consistent with fatty infiltration. Gallbladder and bile ducts: The gallbladder is absent. Pancreas: Normal. No ductal dilation. Spleen: The spleen is mildly enlarged. Adrenal glands: Normal. No mass. ERVIN CHADWICK | Final Radiology Report CONFIDENTIALITY STATEMENT This report is intended only for use by the referring physician, and only in accordance with law. If you received this in error, call [phone]. Page 2 of 2 Kidneys and ureters: Normal. No hydronephrosis. Normal bilateral renal parenchymal enhancement. Stomach and bowel: Unremarkable. No obstruction. No mucosal thickening. Appendix: Normal appendix. No acute appendicitis. Intraperitoneal space: Unremarkable. No free air. No significant fluid collection. Vasculature: Unremarkable. No abdominal aortic aneurysm. Lymph nodes: Unremarkable. No enlarged lymph nodes. Urinary bladder: The bladder is mostly decompressed, limiting assessment. Reproductive: Unremarkable as visualized. Bones/joints: Unremarkable. No acute fracture. Soft tissues: Unremarkable. IMPRESSION: 1. No acute appendicitis. 2. Mild hepatosplenomegaly. Hepatic steatosis. Thank you for allowing us to participate in the care of your patient. Dictated and Authenticated by: Erasmo Roberts MD 01/08/2021 1:33 AM Central Time ([place] & [place]) Departure - Departure Time of Disposition: 01:38 Disposition: Home, Self-Care 01 Condition: Fair Clinical Impression: UTI (urinary tract infection) Qualifiers: Urinary tract infection type: acute cystitis Hematuria presence: with hematuria Qualified Code(s): N30.01 - Acute cystitis with hematuria - Discharge Information *PRESCRIPTION DRUG MONITORING PROGRAM REVIEWED*: Not Applicable *COPY OF PRESCRIPTION DRUG MONITORING REPORT IN PATIENT RILEY: Not Applicable Instructions: Urinary Tract Infection, Adult, [id number] Forms: ED Department Discharge Care Plan Goals: The patient was advised of the examination, lab and CT results during the visit. The patient was given an oral dose of Cipro and an IV dose of Benadryl during the visit. The patient was discharged with a script for Cipro (500 mg) #10 to take 1 by mouth 2 times per day for 5 days. If the patient has any additional symptoms or concerns, the patient should follow-up with her primary care facility or return to the emergency department. Sepsis Event Note (ED) - Evaluation Sepsis Screening Result: No Definite Risk - Focused Exam Vital Signs: Vital Signs Temp Pulse Resp BP Pulse Ox 01/07/21 23:07 98.1 F 76 14 123/54 L 100 - My Orders Last 24 Hours: My Active Orders 01/07/21 22:50 CULTURE URINE [RM] Stat 01/07/21 23:16 CULTURE BLOOD [BC] Stat 01/08/21 01:35 Ciprofloxacin [Ciprofloxacin HCl] 500 mg PO ONETIME ONE diphenhydrAMINE [Benadryl] 25 mg IVPUSH ONETIME ONE - Assessment/Plan Last 24 Hours: My Active Orders 01/07/21 22:50 CULTURE URINE [RM] Stat 01/07/21 23:16 CULTURE BLOOD [BC] Stat 01/08/21 01:35 Ciprofloxacin [Ciprofloxacin HCl] 500 mg PO ONETIME ONE diphenhydrAMINE [Benadryl] 25 mg IVPUSH ONETIME ONE"
[2021-01-07] MEDS ORDERED: Iopamidol 612 MG/ML 100 ML Bottle IVPUSH ONE (23:49)
[2021-01-07] MEDS ORDERED: Iopamidol 612 MG/ML 50 ML SDV IVPUSH ONE (23:49)
[2021-01-07 23:52] LABS: ANION GAP 12.5 mEq/L (7-13); CHLORIDE,CL 105 mmol/L (98-107); SODIUM,NA 142 mmol/L (136-145)
--- NOTE | 2021-01-08 01:33 | CT ---
PROCEDURE INFORMATION: Exam: CT Abdomen And Pelvis With Contrast Exam date and time: 01/08/2021 12:14 AM Age: 25 years old Clinical indication: Abdominal pain; Localized; Right lower quadrant (rlq); Prior surgery; Surgery date: 6+ months; Surgery type: Cholecystectomy; Additional info: Right lower quadrant abdominal pain TECHNIQUE: Imaging protocol: Computed tomography of the abdomen and pelvis with contrast. Radiation optimization: All CT scans at this facility use at least one of these dose optimization techniques: automated exposure control; mA and/or kV adjustment per patient size (includes targeted exams where dose is matched to clinical indication); or iterative reconstruction. Contrast material: ISOVUE 300; Contrast volume: 125 ml; Contrast route: INTRAVENOUS (IV); COMPARISON: 1. CT Abdomen Pelvis w Cont 09/06/2020 10:[address] Abdomen Pelvis w Cont 04/19/2020 8:33 PM FINDINGS: Lungs: Again seen are a few tiny noncalcified nodules in the lung bases, for example in the peripheral posterior right lower lobe measuring 3 mm on image 2:9. Liver: The liver is mildly enlarged. There is a diffuse decrease in hepatic parenchymal density, consistent with fatty infiltration. Gallbladder and bile ducts: The gallbladder is absent. Pancreas: Normal. No ductal dilation. Spleen: The spleen is mildly enlarged. Adrenal glands: Normal. No mass. Kidneys and ureters: Normal. No hydronephrosis. Normal bilateral renal parenchymal enhancement. Stomach and bowel: Unremarkable. No obstruction. No mucosal thickening. Appendix: Normal appendix. No acute appendicitis. Intraperitoneal space: Unremarkable. No free air. No significant fluid collection. Vasculature: Unremarkable. No abdominal aortic aneurysm. Lymph nodes: Unremarkable. No enlarged lymph nodes. Urinary bladder: The bladder is mostly decompressed, limiting assessment. Reproductive: Unremarkable as visualized. Bones/joints: Unremarkable. No acute fracture. Soft tissues: Unremarkable. IMPRESSION: 1. No acute appendicitis. 2. Mild hepatosplenomegaly. Hepatic steatosis.
[2021-01-08] MEDS ORDERED: diphenhydrAMINE 50 MG/ML SDV IVPUSH ONE (01:35)
[2021-01-08] MEDS ORDERED: Ciprofloxacin 500 MG Tab PO ONE (01:35)
== END 2021-01-08 01:47 | disposition home or self-care (01) ==
LOC: DL.ED 22:39
DX: N30.01 Acute cystitis with hematuria (principal); E66.9 Obesity, unspecified; K21.9 Gastro-esophageal reflux disease without esophagitis; Z68.30 Body mass index [BMI] 30.0-30.9, adult; Z79.899 Other long term (current) drug therapy
CPT/HCPCS: 36415; 74177; 80053; 81001; 81025; 83605; 85025; 87040; 87086; 96374; 99283; 99284; A9270; J1200; Q9967

== ENCOUNTER 2021-02-21 12:06 | Emergency (ER) | payer MEDICAID ==
--- NOTE | 2021-02-21 12:14 | EDM.PDOC ---
ED HPI GENERAL MEDICAL PROBLEM - General Chief Complaint: ENT Problem Stated Complaint: EAR ACHE / BROKEN TOOTH Time Seen by Provider: 02/21/21 12:10 Source of Information: Reports: Patient, Old Records, RN, RN Notes Reviewed History Limitations: Reports: No Limitations - History of Present Illness INITIAL COMMENTS - FREE TEXT/NARRATIVE: Patient states she was eating last night and noticed a crunching feeling and realized she had broken off her upper right back molar. She has had her wisdom teeth removed. The tooth happened at about 2300. She woke this morning with pain to her left face and ear, rates at 7-8/10, sharp and dull ache at times. Family members have had possible sinus infections and her son was recently treated for strep. She also noted that she has a knot in her left hand near recent carpal tunnel surgery that came about after a fall keeping her son from falling down some stairs at home. Pt states she has consistent drainage from her ears and there has been no change. Pt attempted to be seen by a dentist but there are no openings today anywhere. Duration: Constant Location: Reports: Head Quality: Reports: Ache Severity: Moderate Improves with: Reports: None Worsens with: Reports: Eating Associated Symptoms: Reports: No Other Symptoms left face Pain Score (Numeric/FACES): 8 - Related Data Allergies Allergy/AdvReac Type Severity Reaction Status Date / Time No Known Allergies Allergy Verified 02/21/21 12:25 Home Meds: Home Meds Pantoprazole Sodium [Protonix] 20 mg PO DAILY 04/19/20 [History] Past Medical History - Past Health History Medical/Surgical History: Denies Medical/Surgical History HEENT History: Reports: Impaired Vision, Otitis Media Other HEENT History: HAS PRESCRIBED CORRECTIVE LENSES; DOES NOT WEAR THEM Cardiovascular History: Reports: None Respiratory History: Reports: Bronchitis, Recurrent Gastrointestinal History: Reports: Cholelithiasis, Chronic Diarrhea, GERD, Other (See Below) Other Gastrointestinal History: FATTY LIVER. RECURRENT BILIARY COLIC Genitourinary History: Reports: Pyelonephritis, STD, UTI, Recurrent Other Genitourinary History: CHLAMYDIA. 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 Musculoskeletal History: Reports: Fracture, Other (See Below) Other Musculoskeletal History: HX OF WRIST & ANKLE FRACTURE. history of carpal tunnel - states has had nerve stimulation for this Neurological History: Reports: Headaches, Chronic, Migraines Psychiatric History: Reports: Anxiety Endocrine/Metabolic History: Reports: Obesity/BMI 30+ Other Endocrine/Metabolic History: HX OF ACIDOSIS Hematologic History: Reports: None Immunologic History: Reports: None Oncologic (Cancer) History: Reports: None Dermatologic History: Reports: None - Infectious Disease History Infectious Disease History: Reports: None - Past Surgical History Head Surgeries/Procedures: Reports: None HEENT Surgical History: Reports: Adenoidectomy, Oral Surgery, Tonsillectomy Other HEENT Surgeries/Procedures: WISDOM TEETH EXTRACTION Cardiovascular Surgical History: Reports: None Respiratory Surgical History: Reports: None GI Surgical History: Reports: Cholecystectomy, Colonoscopy, EGD Other GI Surgeries/Procedures: ATTEMPTED GALLBLADDER REMOVAL Female Surgical History: Reports: Other (See Below) Other Female Surgeries/Procedures: IUD INSERTION-REMOVED; PATIENT STATES IT WAS EXPELLED FROM BODY Endocrine Surgical History: Reports: None Neurological Surgical History: Reports: None Musculoskeletal Surgical History: Reports: None Oncologic Surgical History: Reports: None Dermatological Surgical History: Reports: None Social & Family History - Family History Family Medical History: No Pertinent Family History - Caffeine Use Caffeine Use: Reports: None Caffeine Use Comment: 20 oz daily - Sexual History Sexual History: Reports: Sexually Active - Living Situation & Occupation Living situation: Reports: with Family Occupation: Unemployed ED ROS ENT - Review of Systems Review Of Systems: Comprehensive ROS is negative, except as noted in HPI. ED EXAM, ENT - Physical Exam Exam: See Below Exam Limited By: No Limitations General Appearance: Alert, WD/WN, No Apparent Distress, Obese Ears: Normal External Exam, Normal Canal, Hearing Grossly Normal, TM Dullness (Left), TM Erythema (Left), Other (Right TM normal to exam) Nose: Normal Inspection, Normal Mucousa, No Blood Mouth/Throat: Normal Lips, Normal Oropharynx, Dental Tenderness (avulsion of posterior lateral corner of tooth #2) Head: Atraumatic, Normocephalic Neck: Normal Inspection, Supple, Non-Tender, Full Range of Motion Respiratory/Chest: No Respiratory Distress, Lungs Clear, Normal Breath Sounds, No Accessory Muscle Use, Chest Non-Tender Cardiovascular: Regular Rate, Rhythm Neurological: Alert, Oriented, No Motor/Sensory Deficits Course - Vital Signs Last Recorded V/S: Last Vital Signs Temp 96.3 F L 08/06/21 12:17 Pulse 99 02/21/21 12:17 Resp 20 02/21/21 12:17 BP 124/70 02/21/21 12:17 Pulse Ox 94 L 02/21/21 12:17 - Orders/Labs/Meds Meds: Medications Discontinued Medications Generic Name Dose Route Start Last Admin Trade Name Nurys PRN Reason Stop Dose Admin Lidocaine HCl 15 ml 02/21/21 12:35 Lidocaine 2% Viscous Solution 15 Ml Cup PO 02/21/21 12:36 ONETIME ONE Departure - Departure Time of Disposition: 12:38 Disposition: Home, Self-Care 01 Condition: Good Clinical Impression: Otitis media Qualifiers: Otitis media type: suppurative Chronicity: acute Laterality: left Recurrence: non-recurrent Spontaneous tympanic membrane rupture: without spontaneous rupture Qualified Code(s): H66.002 - Acute suppurative otitis media without spontaneous rupture of ear drum, left ear Avulsion of tooth Qualifiers: Encounter type: initial encounter Qualified Code(s): S03.2XXA - Dislocation of tooth, initial encounter - Discharge Information *PRESCRIPTION DRUG MONITORING PROGRAM REVIEWED*: Not Applicable *COPY OF PRESCRIPTION DRUG MONITORING REPORT IN PATIENT RILEY: Not Applicable Instructions: Otitis Media, Adult, [id number], Tooth Avulsion Forms: ED Department Discharge Additional Instructions: Rx: Amoxicillin 500mg Rx: Viscous Lidocaine 2% Follow up with dentist at first available appointment. Sepsis Event Note (ED) - Focused Exam Vital Signs: Vital Signs Temp Pulse Resp BP Pulse Ox 02/21/21 12:17 96.3 F L 99 20 124/70 94 L
[2021-02-21 12:26] VITALS: BP 124/70; PULSE 99
[2021-02-21] MEDS ORDERED: Lidocaine 2% Viscous Solution 15 ML Cup PO ONE (12:35)
== END 2021-02-21 12:52 | disposition home or self-care (01) ==
LOC: DL.ED 12:06
DX: S03.2XXA Dislocation of tooth, initial encounter (principal); H66.002 Acute suppurative otitis media without spontaneous rupture of ear drum, left ear; K21.9 Gastro-esophageal reflux disease without esophagitis; E66.9 Obesity, unspecified; Z68.44 Body mass index [BMI] 60.0-69.9, adult; Z79.899 Other long term (current) drug therapy; W10.8XXA Fall (on) (from) other stairs and steps, initial encounter; Y92.009 Unspecified place in unspecified non-institutional (private) residence as the place of occurrence of the external cause
CPT/HCPCS: 99282; A9270

== ENCOUNTER 2021-03-02 20:40 | Emergency (ER) | payer MEDICAID ==
[2021-03-02] MEDS ORDERED: Sodium Chloride 0.9% 1,000 ML IV ONE (21:06)
[2021-03-02 21:08] VITALS: BP 141/61; PULSE 88
[2021-03-02 21:42] LABS: ANION GAP 17.7 mEq/L (7-13); CHLORIDE,CL 105 mmol/L (98-107); SODIUM,NA 143 mmol/L (136-145)
--- NOTE | 2021-03-02 22:00 | EDM.PDOC ---
ED HPI GENERAL MEDICAL PROBLEM - General Chief Complaint: Back Pain or Injury Stated Complaint: MUSCLE SPASMS Time Seen by Provider: 03/02/21 21:25 Source of Information: Reports: Patient History Limitations: Reports: No Limitations - History of Present Illness INITIAL COMMENTS - FREE TEXT/NARRATIVE: This 25 yo female patient reports to the ED with a 24 hour history of abdominal and back spasms. The patient reports she was at a concert last night when her symptoms started in her back. The patient reports her muscle spasms have moved from her back to her sides to her abdomen. The patient reports she attempted to drink plenty of water and ate bananas last night. The patient reports she has continued to have intermittent spasms and pain. Onset Date: 03/01/21 Duration: Intermittent Location: Reports: Abdomen, Back Quality: Reports: Ache Severity: Moderate Improves with: Reports: None Worsens with: Reports: None Context: Reports: Other Associated Symptoms: Reports: No Other Symptoms Back Pain Score (Numeric/FACES): 8 - Related Data Allergies Allergy/AdvReac Type Severity Reaction Status Date / Time No Known Allergies Allergy Verified 02/21/21 12:25 Home Meds: Home Meds Pantoprazole Sodium [Protonix] 20 mg PO DAILY 04/19/20 [History] Past Medical History - Past Health History Medical/Surgical History: Denies Medical/Surgical History HEENT History: Reports: Impaired Vision, Otitis Media Other HEENT History: HAS PRESCRIBED CORRECTIVE LENSES; DOES NOT WEAR THEM Cardiovascular History: Reports: None Respiratory History: Reports: Bronchitis, Recurrent Gastrointestinal History: Reports: Cholelithiasis, Chronic Diarrhea, GERD, Other (See Below) Other Gastrointestinal History: FATTY LIVER. RECURRENT BILIARY COLIC Genitourinary History: Reports: Pyelonephritis, STD, UTI, Recurrent Other Genitourinary History: CHLAMYDIA. 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 Musculoskeletal History: Reports: Fracture, Other (See Below) Other Musculoskeletal History: HX OF WRIST & ANKLE FRACTURE. history of carpal tunnel - states has had nerve stimulation for this Neurological History: Reports: Headaches, Chronic, Migraines Psychiatric History: Reports: Anxiety Endocrine/Metabolic History: Reports: Obesity/BMI 30+ Other Endocrine/Metabolic History: HX OF ACIDOSIS Hematologic History: Reports: None Immunologic History: Reports: None Oncologic (Cancer) History: Reports: None Dermatologic History: Reports: None - Infectious Disease History Infectious Disease History: Reports: None - Past Surgical History Head Surgeries/Procedures: Reports: None HEENT Surgical History: Reports: Adenoidectomy, Oral Surgery, Tonsillectomy Other HEENT Surgeries/Procedures: WISDOM TEETH EXTRACTION Cardiovascular Surgical History: Reports: None Respiratory Surgical History: Reports: None GI Surgical History: Reports: Cholecystectomy, Colonoscopy, EGD Other GI Surgeries/Procedures: ATTEMPTED GALLBLADDER REMOVAL Female Surgical History: Reports: Other (See Below) Other Female Surgeries/Procedures: IUD INSERTION-REMOVED; PATIENT STATES IT WAS EXPELLED FROM BODY Endocrine Surgical History: Reports: None Neurological Surgical History: Reports: None Musculoskeletal Surgical History: Reports: None Oncologic Surgical History: Reports: None Dermatological Surgical History: Reports: None Social & Family History - Family History Family Medical History: No Pertinent Family History - Caffeine Use Caffeine Use: Reports: Energy Drinks Caffeine Use Comment: 20 oz daily - Sexual History Sexual History: Reports: Sexually Active - Living Situation & Occupation Living situation: Reports: with Family Occupation: Unemployed ED ROS GENERAL - Review of Systems Review Of Systems: Comprehensive ROS is negative, except as noted in HPI. ED EXAM, GENERAL - Physical Exam Exam: See Below Exam Limited By: No Limitations General Appearance: Alert, WD/WN, Mild Distress, Obese Eye Exam: Bilateral Eye: EOMI, Normal Inspection, PERRL Ears: Normal External Exam, Normal Canal, Hearing Grossly Normal, Normal TMs Nose: Normal Inspection, Normal Mucosa, No Blood Throat/Mouth: Normal Inspection, Normal Lips, Normal Teeth, Normal Gums, Normal Oropharynx, Normal Voice, No Airway Compromise Head: Atraumatic, Normocephalic Neck: Normal Inspection, Supple, Non-Tender, Full Range of Motion Respiratory/Chest: No Respiratory Distress, Lungs Clear, Normal Breath Sounds, No Accessory Muscle Use, Chest Non-Tender Cardiovascular: Normal Peripheral Pulses, Regular Rate, Rhythm, No Edema, No Gallop, No JVD, No Murmur, No Rub GI/Abdominal: Normal Bowel Sounds, Soft, Non-Tender, No Organomegaly, No Distention, No Abnormal Bruit, No Mass (Female) Exam: Deferred Rectal (Female) Exam: Deferred Back Exam: Normal Inspection, Full Range of Motion, NT Extremities: Normal Inspection, Normal Range of Motion, Non-Tender, Normal Capillary Refill, No Pedal Edema Neurological: Alert, Oriented, CN II-XII Intact, Normal Cognition, Normal Gait, Normal Reflexes, No Motor/Sensory Deficits Psychiatric: Normal Affect, Normal Mood Skin Exam: Warm, Dry, Intact, Normal Color, No Rash Lymphatic: No Adenopathy Course - Vital Signs Last Recorded V/S: Last Vital Signs Temp 96.9 F 03/02/21 21:03 Pulse 88 03/02/21 21:03 Resp 20 03/02/21 21:03 BP 141/61 H 03/02/21 21:03 Pulse Ox 99 03/02/21 21:03 - Orders/Labs/Meds Orders: Active Orders 24 hr Category Date Time Status COMPREHENSIVE METABOLIC PN,CMP [CHEM] Stat Lab 03/02/21 21:06 Ordered Sodium Chloride 0.9% [Normal Saline] 1,000 ml Med 03/02/21 21:06 Ordered IV .BOLUS Medication Orders Sodium Chloride (Normal Saline) 1,000 mls @ 999 mls/hr IV .BOLUS ONE Stop: 03/02/21 22:06 Last Admin: 03/02/21 21:32 Dose: 999 mls/hr Documented by: EDWARDO Labs: Laboratory Tests 03/02/21 Range/Units 21:17 WBC 10.9 H (5.0-10.0) 10^3/uL RBC 4.60 (4.2-5.4) 10^6/uL Hgb 12.9 (12.0-16.0) g/dL Hct 40.2 (37.0-47.0) % MCV 87.4 (80-100) fL MCH 28.0 (27.0-34.0) pg MCHC 32.1 L (33.0-35.0) g/dL Plt Count 327 (150-450) 10^3/uL Neut % (Auto) 67.2 (42.2-75.2) % Lymph % (Auto) 25.9 (20.5-50.1) % Davidson % (Auto) 5.1 (2-8) % Eos % (Auto) 1.3 (1.0-3.0) % Baso % (Auto) 0.5 (0.0-1.0) % Meds: Medications Generic Name Dose Route Start Last Admin Trade Name Freq PRN Reason Stop Dose Admin Sodium Chloride 1,000 mls @ 999 mls/hr 03/02/21 21:06 03/02/21 21:32 Normal Saline IV 03/02/21 22:06 999 mls/hr .BOLUS ONE Administration Departure - Departure Time of Disposition: 22:08 Disposition: Home, Self-Care 01 Condition: Fair Clinical Impression: Muscle spasm - Discharge Information *PRESCRIPTION DRUG MONITORING PROGRAM REVIEWED*: Not Applicable *COPY OF PRESCRIPTION DRUG MONITORING REPORT IN PATIENT RILEY: Not Applicable Instructions: Muscle Cramps and Spasms, [id number] Care Plan Goals: The patient was advised of the examination and lab results during the visit. The patient was given a liter of IV fluids during the visit. The patient was also given an oral dose of Flexeril. The patient was discharged with a script for Flexeril (10 mg) #20 to take 1 by mouth every 6 hours as needed for muscle spasms. The patient should not drive while taking this medications. If the patient has any additional symptoms or concerns, the patient should either return to the emergency department or visit her primary care facility. Sepsis Event Note (ED) - Evaluation Sepsis Screening Result: No Definite Risk - Focused Exam Vital Signs: Vital Signs Temp Pulse Resp BP Pulse Ox 03/02/21 21:03 96.9 F 88 20 141/61 H 99 - My Orders Last 24 Hours: My Active Orders 03/02/21 21:06 COMPREHENSIVE METABOLIC PN,CMP [CHEM] Stat Sodium Chloride 0.9% [Normal Saline] 1,000 ml IV .BOLUS - Assessment/Plan Last 24 Hours: My Active Orders 03/02/21 21:06 COMPREHENSIVE METABOLIC PN,CMP [CHEM] Stat Sodium Chloride 0.9% [Normal Saline] 1,000 ml IV .BOLUS
[2021-03-02] MEDS ORDERED: Cyclobenzaprine 10 MG Tab PO ONE (22:07)
== END 2021-03-02 22:25 | disposition home or self-care (01) ==
LOC: DL.ED 20:40
DX: M62.838 Other muscle spasm (principal); K21.9 Gastro-esophageal reflux disease without esophagitis; E66.9 Obesity, unspecified; Z68.44 Body mass index [BMI] 60.0-69.9, adult; Z79.899 Other long term (current) drug therapy
CPT/HCPCS: 36415; 80053; 85025; 99283; A9270; J7030

== ENCOUNTER 2021-03-20 14:15 | Emergency (ER) | payer MEDICAID ==
[2021-03-20 14:45] VITALS: BP 132/69; PULSE 110
--- NOTE | 2021-03-20 15:11 | EDM.PDOC ---
<Rasheed Shaver - Last Filed: 03/20/21 16:26> ED HPI GENERAL MEDICAL PROBLEM - General Chief Complaint: Respiratory Problem Stated Complaint: POSSIBLE RSV Time Seen by Provider: 03/20/21 15:03 - Related Data Allergies Allergy/AdvReac Type Severity Reaction Status Date / Time No Known Allergies Allergy Verified 02/21/21 12:25 Home Meds: Home Meds Pantoprazole Sodium [Protonix] 20 mg PO DAILY 04/19/20 [History] Departure - Departure Time of Disposition: 16:26 Disposition: Home, Self-Care 01 Condition: Good Clinical Impression: Viral URI with cough - Discharge Information *PRESCRIPTION DRUG MONITORING PROGRAM REVIEWED*: Not Applicable *COPY OF PRESCRIPTION DRUG MONITORING REPORT IN PATIENT RILEY: Not Applicable Instructions: Upper Respiratory Infection, Adult Forms: ED Department Discharge Additional Instructions: Negative COVID test. Symptomatic self care with over the counter cough/cold medications as needed. Follow up in clinic if not improved in 7 to 10 days. <Kaushik Funk - Last Filed: 03/20/21 16:30> ED HPI GENERAL MEDICAL PROBLEM - General Source of Information: Reports: Patient History Limitations: Reports: No Limitations - History of Present Illness INITIAL COMMENTS - FREE TEXT/NARRATIVE: 25 y/o F c/o cough sore throat congestion and ear pain for 2 days. Pts child was exposed to RSV [place] 1 [place] ago and she is here now with her 2 kids and friend. Pt wants to be tested for COVID. Pt was seen here several days ago and placed on Amoxicillin by md Shaver for treatment of a tooth pain. She denies fever, chills, drugs, . Has not tried any OTC meds Duration: Day(s): Location: Reports: Head, Chest Quality: Reports: Ache Severity: Mild Improves with: Reports: None Worsens with: Reports: None Past Medical History - Past Health History Medical/Surgical History: Denies Medical/Surgical History HEENT History: Reports: Impaired Vision, Otitis Media Other HEENT History: HAS PRESCRIBED CORRECTIVE LENSES; DOES NOT WEAR THEM Cardiovascular History: Reports: None Respiratory History: Reports: Bronchitis, Recurrent Gastrointestinal History: Reports: Cholelithiasis, Chronic Diarrhea, GERD, Other (See Below) Other Gastrointestinal History: FATTY LIVER. RECURRENT BILIARY COLIC Genitourinary History: Reports: Pyelonephritis, STD, UTI, Recurrent Other Genitourinary History: CHLAMYDIA. 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 Musculoskeletal History: Reports: Fracture, Other (See Below) Other Musculoskeletal History: HX OF WRIST & ANKLE FRACTURE. history of carpal tunnel - states has had nerve stimulation for this Neurological History: Reports: Headaches, Chronic, Migraines Psychiatric History: Reports: Anxiety Endocrine/Metabolic History: Reports: Obesity/BMI 30+ Other Endocrine/Metabolic History: HX OF ACIDOSIS Hematologic History: Reports: None Immunologic History: Reports: None Oncologic (Cancer) History: Reports: None Dermatologic History: Reports: None - Infectious Disease History Infectious Disease History: Reports: None - Past Surgical History Head Surgeries/Procedures: Reports: None HEENT Surgical History: Reports: Adenoidectomy, Oral Surgery, Tonsillectomy Other HEENT Surgeries/Procedures: WISDOM TEETH EXTRACTION Cardiovascular Surgical History: Reports: None Respiratory Surgical History: Reports: None GI Surgical History: Reports: Cholecystectomy, Colonoscopy, EGD Other GI Surgeries/Procedures: ATTEMPTED GALLBLADDER REMOVAL Female Surgical History: Reports: Other (See Below) Other Female Surgeries/Procedures: IUD INSERTION-REMOVED; PATIENT STATES IT WAS EXPELLED FROM BODY Endocrine Surgical History: Reports: None Neurological Surgical History: Reports: None Musculoskeletal Surgical History: Reports: None Oncologic Surgical History: Reports: None Dermatological Surgical History: Reports: None Social & Family History - Family History Family Medical History: No Pertinent Family History - Caffeine Use Caffeine Use: Reports: Energy Drinks Caffeine Use Comment: 20 oz daily - Sexual History Sexual History: Reports: Sexually Active - Living Situation & Occupation Living situation: Reports: with Family Occupation: Unemployed ED ROS GENERAL - Review of Systems Review Of Systems: Comprehensive ROS is negative, except as noted in HPI. ED EXAM, GENERAL - Physical Exam Exam: See Below Exam Limited By: No Limitations General Appearance: Alert, No Apparent Distress Eye Exam: Bilateral Eye: PERRL (conjugate gaze) Ears: Normal External Exam, Normal Canal, Hearing Grossly Normal, Normal TMs Nose: No Blood, Nasal Swelling, Nasal Drainage Throat/Mouth: Normal Inspection, Normal Lips, Normal Teeth, Normal Gums, Normal Oropharynx, Normal Voice, No Airway Compromise Head: Atraumatic, Normocephalic Neck: Supple, Non-Tender Respiratory/Chest: No Respiratory Distress, Lungs Clear Cardiovascular: Normal Peripheral Pulses, Regular Rate, Rhythm GI/Abdominal: Soft, Non-Tender (Female) Exam: Deferred Rectal (Female) Exam: Deferred Back Exam: Normal Inspection, Full Range of Motion Extremities: Normal Inspection, Normal Range of Motion, Non-Tender, Normal Capillary Refill, No Pedal Edema Neurological: Alert, Oriented, Normal Cognition Course - Vital Signs Last Recorded V/S: Last Vital Signs Temp 97.4 F 03/20/21 14:36 Pulse 110 H 03/20/21 14:36 Resp 14 03/20/21 14:36 BP 132/69 03/20/21 14:36 Pulse Ox 99 03/20/21 14:36 - Orders/Labs/Meds Labs: Laboratory Tests 03/20/21 Range/Units 15:15 SARS-CoV-2 RNA (LUCIAN) Negative (NEGATIVE) Sepsis Event Note (ED) - Evaluation Sepsis Screening Result: No Definite Risk - Focused Exam Vital Signs: Vital Signs Temp Pulse Resp BP Pulse Ox 03/20/21 14:36 97.4 F 110 H 14 132/69 99
== END 2021-03-20 16:38 | disposition home or self-care (01) ==
LOC: DL.ED 14:15
DX: J06.9 Acute upper respiratory infection, unspecified (principal); E66.9 Obesity, unspecified; Z68.30 Body mass index [BMI] 30.0-30.9, adult; Z20.822 Contact with and (suspected) exposure to COVID-19; Z68.43 Body mass index [BMI] 50.0-59.9, adult
CPT/HCPCS: 99283; U0002

== ENCOUNTER 2021-04-11 09:27 | Emergency (ER) | payer MEDICAID ==
--- NOTE | 2021-04-11 10:04 | EDM.PDOC ---
ED HPI GENERAL MEDICAL PROBLEM - General Stated Complaint: BACK RIGHT TOOTH INFECTED Time Seen by Provider: 04/11/21 10:04 Source of Information: Reports: Patient, RN, RN Notes Reviewed History Limitations: Reports: No Limitations - History of Present Illness INITIAL COMMENTS - FREE TEXT/NARRATIVE: Patient is a 25-year-old female who presents to ER with complaint of pain in the right upper mouth after dental extraction as well as foul breath. Patient states she did have a right upper molar removed on 04/08/2021. She states she was started on amoxicillin. Patient states the foul breath has been getting worse as has the pain. Patient denies fever chills, denies sore throat. Rates pain 8/10. Onset: Gradual Right Tooth/Teeth Pain Score (Numeric/FACES): 8 - Related Data Allergies Allergy/AdvReac Type Severity Reaction Status Date / Time metronidazole [From Flagyl] Allergy Hives Verified 04/11/21 10:07 Home Meds: Home Meds Pantoprazole Sodium [Protonix] 20 mg PO DAILY 04/19/20 [History] Amoxicillin 500 mg PO TID 04/11/21 [History] Past Medical History - Past Health History Medical/Surgical History: Denies Medical/Surgical History HEENT History: Reports: Impaired Vision, Otitis Media Other HEENT History: HAS PRESCRIBED CORRECTIVE LENSES; DOES NOT WEAR THEM Cardiovascular History: Reports: None Respiratory History: Reports: Bronchitis, Recurrent Gastrointestinal History: Reports: Cholelithiasis, Chronic Diarrhea, GERD, Other (See Below) Other Gastrointestinal History: FATTY LIVER. RECURRENT BILIARY COLIC Genitourinary History: Reports: Pyelonephritis, STD, UTI, Recurrent Other Genitourinary History: CHLAMYDIA. 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 Musculoskeletal History: Reports: Fracture, Other (See Below) Other Musculoskeletal History: HX OF WRIST & ANKLE FRACTURE. history of carpal tunnel - states has had nerve stimulation for this Neurological History: Reports: Headaches, Chronic, Migraines Psychiatric History: Reports: Anxiety Endocrine/Metabolic History: Reports: Obesity/BMI 30+ Other Endocrine/Metabolic History: HX OF ACIDOSIS Hematologic History: Reports: None Immunologic History: Reports: None Oncologic (Cancer) History: Reports: None Dermatologic History: Reports: None - Infectious Disease History Infectious Disease History: Reports: None - Past Surgical History Head Surgeries/Procedures: Reports: None HEENT Surgical History: Reports: Adenoidectomy, Oral Surgery, Tonsillectomy Other HEENT Surgeries/Procedures: WISDOM TEETH EXTRACTION Cardiovascular Surgical History: Reports: None Respiratory Surgical History: Reports: None GI Surgical History: Reports: Cholecystectomy, Colonoscopy, EGD Other GI Surgeries/Procedures: ATTEMPTED GALLBLADDER REMOVAL Female Surgical History: Reports: Other (See Below) Other Female Surgeries/Procedures: IUD INSERTION-REMOVED; PATIENT STATES IT WAS EXPELLED FROM BODY Endocrine Surgical History: Reports: None Neurological Surgical History: Reports: None Musculoskeletal Surgical History: Reports: None Oncologic Surgical History: Reports: None Dermatological Surgical History: Reports: None Social & Family History - Family History Family Medical History: No Pertinent Family History - Caffeine Use Caffeine Use: Reports: Energy Drinks Caffeine Use Comment: 20 oz daily - Sexual History Sexual History: Reports: Sexually Active - Living Situation & Occupation Living situation: Reports: with Family Occupation: Unemployed ED ROS GENERAL - Review of Systems Review Of Systems: Comprehensive ROS is negative, except as noted in HPI. ED EXAM, GENERAL - Physical Exam Exam: See Below Exam Limited By: No Limitations General Appearance: Alert, WD/WN, No Apparent Distress, Obese Eye Exam: Bilateral Eye: EOMI, Normal Inspection Ears: Normal External Exam, Hearing Grossly Normal Nose: Normal Inspection Throat/Mouth: Other (right upper back molar removed, no erythema, drainage, swelling noted) Head: Atraumatic, Normocephalic Neck: Normal Inspection, Supple, Non-Tender, Full Range of Motion Respiratory/Chest: No Respiratory Distress, Lungs Clear, Normal Breath Sounds, No Accessory Muscle Use, Chest Non-Tender Cardiovascular: Normal Peripheral Pulses, Regular Rate, Rhythm, No Edema, No Gallop, No JVD, No Murmur, No Rub Peripheral Pulses: 2+: Radial (L), Radial (R) GI/Abdominal: Normal Bowel Sounds, Soft, Non-Tender (Female) Exam: Deferred Rectal (Female) Exam: Deferred Back Exam: Normal Inspection, Full Range of Motion, NT Extremities: Normal Inspection, Normal Range of Motion, Non-Tender, Normal Capillary Refill, No Pedal Edema Neurological: Alert, Oriented, CN II-XII Intact, Normal Cognition, Normal Gait, Normal Reflexes, No Motor/Sensory Deficits Psychiatric: Normal Affect, Normal Mood Skin Exam: Warm, Dry, Intact, Normal Color, No Rash Lymphatic: No Adenopathy Course - Vital Signs Last Recorded V/S: Last Vital Signs Temp Pulse 93 04/11/21 10:03 Resp 14 04/11/21 10:03 BP 118/89 04/11/21 10:03 Pulse Ox 97 04/11/21 10:03 Departure - Departure Time of Disposition: 10:30 Disposition: Home, Self-Care 01 Condition: Good Clinical Impression: Dry tooth socket, Pain, dental - Discharge Information *PRESCRIPTION DRUG MONITORING PROGRAM REVIEWED*: No *COPY OF PRESCRIPTION DRUG MONITORING REPORT IN PATIENT RILEY: No Instructions: Dental Dry Socket, [id number] Forms: ED Department Discharge Additional Instructions: Rinse and clean the area with salt water frequently to remove food particles May use soft gauze in the socket May use Tylenol and/or ibuprofen as directed for pain Rx: [place] 5/325 1 orally every 4 hours as needed for severe pain, monitor the amount of acetaminophen being taken and as there is acetaminophen in this medication as well. May use ice to the area Avoid drinking carbonated or warm beverages Avoid drinking through a straw Do not smoke until healed Sepsis Event Note (ED) - Focused Exam Vital Signs: Vital Signs Pulse Resp BP Pulse Ox 04/11/21 10:03 93 14 118/89 97
[2021-04-11 10:06] VITALS: BP 118/89; PULSE 93
== END 2021-04-11 10:37 | disposition home or self-care (01) ==
LOC: DL.ED 09:27
DX: M27.3 Alveolitis of jaws (principal); K21.9 Gastro-esophageal reflux disease without esophagitis; E66.9 Obesity, unspecified; Z68.44 Body mass index [BMI] 60.0-69.9, adult; Z88.1 Allergy status to other antibiotic agents; Z79.899 Other long term (current) drug therapy
CPT/HCPCS: 99282

== ENCOUNTER 2021-06-30 18:26 | Emergency (ER) | payer MEDICAID ==
[2021-06-30] MEDS ORDERED: Ondansetron 4 MG Tab.DIS PO ONE (18:27)
[2021-06-30 19:04] VITALS: BP 126/81; PULSE 107
[2021-06-30] MEDS ORDERED: Butorphanol 2 MG/ML SDV IM ONE (19:18)
[2021-06-30] MEDS ORDERED: Promethazine 25 MG/ML SDV IM ONE (19:18)
--- NOTE | 2021-06-30 20:10 | EDM.PDOC ---
ED HPI GENERAL MEDICAL PROBLEM - General Chief Complaint: Headache Stated Complaint: MIGRIANE FOR A WEEK AND ABDOMINAL CRAMPS Time Seen by Provider: 06/30/21 19:05 Source of Information: Reports: Patient History Limitations: Reports: No Limitations - History of Present Illness INITIAL COMMENTS - FREE TEXT/NARRATIVE: ED with usual migraine type headache with nausea and light sensitivity, reports present x one week some increased urination, and intermittent sharp jabbig pain in lower abdomen . No fever, No vomiting, slight nausea from headache. No cough. No vaginal discharge, periods irregular. No vaginal discharge. - Related Data Allergies Allergy/AdvReac Type Severity Reaction Status Date / Time metronidazole [From Flagyl] Allergy Hives Verified 07/02/21 18:00 Home Meds: Home Meds Pantoprazole Sodium [Protonix] 20 mg PO DAILY 04/19/20 [History] clindamycin HCL [Clindamycin HCl] 300 mg PO 07/02/21 [History] Past Medical History - Past Health History Medical/Surgical History: Denies Medical/Surgical History HEENT History: Reports: Impaired Vision, Otitis Media Other HEENT History: HAS PRESCRIBED CORRECTIVE LENSES; DOES NOT WEAR THEM Cardiovascular History: Reports: None Respiratory History: Reports: Bronchitis, Recurrent Gastrointestinal History: Reports: Cholelithiasis, Chronic Diarrhea, GERD, Other (See Below) Other Gastrointestinal History: FATTY LIVER. RECURRENT BILIARY COLIC Genitourinary History: Reports: Pyelonephritis, STD, UTI, Recurrent Other Genitourinary History: CHLAMYDIA. 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 Musculoskeletal History: Reports: Fracture, Other (See Below) Other Musculoskeletal History: HX OF WRIST & ANKLE FRACTURE. history of carpal tunnel - states has had nerve stimulation for this Neurological History: Reports: Headaches, Chronic, Migraines Psychiatric History: Reports: Anxiety Endocrine/Metabolic History: Reports: Obesity/BMI 30+ Other Endocrine/Metabolic History: HX OF ACIDOSIS Hematologic History: Reports: None Immunologic History: Reports: None Oncologic (Cancer) History: Reports: None Dermatologic History: Reports: None - Infectious Disease History Infectious Disease History: Reports: None - Past Surgical History Head Surgeries/Procedures: Reports: None HEENT Surgical History: Reports: Adenoidectomy, Oral Surgery, Tonsillectomy Other HEENT Surgeries/Procedures: WISDOM TEETH EXTRACTION Cardiovascular Surgical History: Reports: None Respiratory Surgical History: Reports: None GI Surgical History: Reports: Cholecystectomy, Colonoscopy, EGD Other GI Surgeries/Procedures: ATTEMPTED GALLBLADDER REMOVAL Female Surgical History: Reports: Other (See Below) Other Female Surgeries/Procedures: IUD INSERTION-REMOVED; PATIENT STATES IT WAS EXPELLED FROM BODY Endocrine Surgical History: Reports: None Neurological Surgical History: Reports: None Musculoskeletal Surgical History: Reports: None Oncologic Surgical History: Reports: None Dermatological Surgical History: Reports: None Social & Family History - Family History Family Medical History: No Pertinent Family History - Tobacco Use Tobacco Use Status *Q: Never Tobacco User - Caffeine Use Caffeine Use: Reports: Energy Drinks Caffeine Use Comment: 20 oz daily - Sexual History Sexual History: Reports: Sexually Active - Living Situation & Occupation Living situation: Reports: with Family Occupation: Unemployed ED ROS GENERAL - Review of Systems Review Of Systems: Comprehensive ROS is negative, except as noted in HPI. - Physical Exam Exam: See Below Exam Limited By: No Limitations General Appearance: Alert, Mild Distress Eye Exam: Bilateral Eye: EOMI, PERRL Ears: Normal External Exam, Hearing Grossly Normal Throat/Mouth: Normal Inspection, Normal Lips, Normal Voice Head Exam: Atraumatic, Normocephalic Neck: Normal Inspection, Full Range of Motion Respiratory/Chest: No Respiratory Distress, Normal Breath Sounds Cardiovascular: Normal Peripheral Pulses, Regular Rate, Rhythm GI/Abdominal: Normal Bowel Sounds, Soft. No: Distended, Guarding, Rebound Neuro Exam (Abbreviated): Alert, Oriented, Normal Cognition Back Exam: Normal Inspection Extremities: Normal Inspection Skin Exam: Warm, Dry, Intact Course - Vital Signs Last Recorded V/S: Last Vital Signs Temp 100 F 06/30/21 19:00 Pulse 107 H 06/30/21 19:00 Resp 18 06/30/21 19:00 BP 126/81 06/30/21 19:00 Pulse Ox 97 06/30/21 19:00 - Orders/Labs/Meds Labs: Laboratory Tests 06/30/21 06/30/21 06/30/21 Range/Units 19:00 19:00 19:55 WBC 12.2 H (5.0-10.0) 10^3/uL RBC 4.64 (4.2-5.4) 10^6/uL Hgb 13.4 (12.0-16.0) g/dL Hct 41.1 (37.0-47.0) % MCV 88.6 (80-100) fL MCH 28.9 (27.0-34.0) pg MCHC 32.6 L (33.0-35.0) g/dL Plt Count 305 (150-450) 10^3/uL Neut % (Auto) 70.8 (42.2-75.2) % Lymph % (Auto) 22.1 (20.5-50.1) % Cotton % (Auto) 5.9 (2-8) % Eos % (Auto) 0.9 L (1.0-3.0) % Baso % (Auto) 0.3 (0.0-1.0) % Sodium (136-145) mmol/L Potassium (3.5-5.1) mmol/L Chloride (98-107) mmol/L Carbon Dioxide (21-32) mmol/L Anion Gap (7-13) mEq/L BUN (7-18) mg/dL Creatinine (0.55-1.02) mg/dL Est Cr Clr Drug Dosing mL/min Estimated GFR (MDRD) BUN/Creatinine Ratio (No establ ref range) Glucose (70-99) mg/dL Calcium (8.5-10.1) mg/dL Total Bilirubin (0.2-1.0) mg/dL AST (15-37) U/L ALT (14-59) U/L Alkaline Phosphatase (46-116) U/L Total Protein (6.4-8.2) g/dL Albumin (3.4-5.0) g/dL Globulin Albumin/Globulin Ratio Urine Color Yellow (YELLOW) Urine Appearance Clear (CLEAR) Urine pH 6.5 (5.0-9.0) Ur Specific [place] >= 1.030 (1.005-1.030) Urine Protein Negative (NEGATIVE) Urine Glucose (UA) Negative (NEGATIVE) Urine Ketones Negative (NEGATIVE) Urine Occult Blood Trace-intact H (NEGATIVE) Urine Nitrite Negative (NEGATIVE) Urine Bilirubin Negative (NEGATIVE) Urine Urobilinogen 0.2 (0.2-1.0) mg/dL Ur Leukocyte Esterase Negative (NEGATIVE) Urine RBC 0-5 (0-5) /HPF Urine WBC 0-5 (0-5/HPF) /HPF Ur Epithelial Cells Moderate H (NOT SEEN) /HPF Urine Bacteria Moderate H (0-FEW/HPF) /HPF Urine Other See note Urine HCG, Qual Negative 06/30/21 Range/Units 19:55 WBC (5.0-10.0) 10^3/uL RBC (4.2-5.4) 10^6/uL Hgb (12.0-16.0) g/dL Hct (37.0-47.0) % MCV (80-100) fL MCH (27.0-34.0) pg MCHC (33.0-35.0) g/dL Plt Count (150-450) 10^3/uL Neut % (Auto) (42.2-75.2) % Lymph % (Auto) (20.5-50.1) % Cotton % (Auto) (2-8) % Eos % (Auto) (1.0-3.0) % Baso % (Auto) (0.0-1.0) % Sodium 140 (136-145) mmol/L Potassium 3.9 (3.5-5.1) mmol/L Chloride 103 (98-107) mmol/L Carbon Dioxide 26 (21-32) mmol/L Anion Gap 14.9 H (7-13) mEq/L BUN 10 (7-18) mg/dL Creatinine 0.90 (0.55-1.02) mg/dL Est Cr Clr Drug Dosing 75.58 mL/min Estimated GFR (MDRD) > 60 BUN/Creatinine Ratio 11.1 (No establ ref range) Glucose 122 H (70-99) mg/dL Calcium 8.5 (8.5-10.1) mg/dL Total Bilirubin 0.3 (0.2-1.0) mg/dL AST 39 H (15-37) U/L ALT 88 H (14-59) U/L Alkaline Phosphatase 109 (46-116) U/L Total Protein 6.9 (6.4-8.2) g/dL Albumin 3.2 L (3.4-5.0) g/dL Globulin 3.7 Albumin/Globulin Ratio 0.86 Urine Color (YELLOW) Urine Appearance (CLEAR) Urine pH (5.0-9.0) Ur Specific [place] (1.005-1.030) Urine Protein (NEGATIVE) Urine Glucose (UA) (NEGATIVE) Urine Ketones (NEGATIVE) Urine Occult Blood (NEGATIVE) Urine Nitrite (NEGATIVE) Urine Bilirubin (NEGATIVE) Urine Urobilinogen (0.2-1.0) mg/dL Ur Leukocyte Esterase (NEGATIVE) Urine RBC (0-5) /HPF Urine WBC (0-5/HPF) /HPF Ur Epithelial Cells (NOT SEEN) /HPF Urine Bacteria (0-FEW/HPF) /HPF Urine Other Urine HCG, Qual Meds: Medications Discontinued Medications Generic Name Dose Route Start Last Admin Trade Name Nobleq PRN Reason Stop Dose Admin Butorphanol Tartrate 2 mg 06/30/21 19:18 06/30/21 19:27 Butorphanol 2 Mg/Ml Sdv IM 06/30/21 19:19 2 mg ONETIME ONE Administration Clindamycin HCl 300 mg 06/30/21 20:50 06/30/21 21:14 Clindamycin Hcl 150 Mg Cap PO 06/30/21 20:51 300 mg ONETIME ONE Administration Ketorolac Tromethamine 30 mg 06/30/21 20:50 06/30/21 21:13 Ketorolac 30 Mg/Ml Sdv IM 06/30/21 20:51 30 mg ONETIME ONE Administration Ondansetron HCl Confirm 06/30/21 20:59 06/30/21 21:17 Ondansetron 4 Mg Tab.Dis Administered 06/30/21 21:00 Not Given Dose 12 mg .ROUTE .STK-MED ONE Ondansetron HCl 4 mg 06/30/21 18:27 Ondansetron 4 Mg Tab.Dis PO 06/30/21 18:28 .STK-MED ONE Promethazine HCl 25 mg 06/30/21 19:18 06/30/21 19:27 Promethazine 25 Mg/Ml Sdv IM 06/30/21 19:19 25 mg ONETIME ONE Administration Departure - Departure Time of Disposition: 20:53 Disposition: Home, Self-Care 01 Condition: Good Clinical Impression: Bacterial vaginosis, Migraine - Discharge Information *PRESCRIPTION DRUG MONITORING PROGRAM REVIEWED*: No *COPY OF PRESCRIPTION DRUG MONITORING REPORT IN PATIENT RILEY: No Instructions: Chronic Migraine Headache, [id number], Vaginitis Forms: ED Department Discharge Additional Instructions: rest increase fluids recheck clinic if not improving clindamycin 300mg twice daily x one week urgent follow up if increaing sevierity of pain afever/ vomiting and localizing to right lower abdomen, and more constant type Sepsis Event Note (ED) - Evaluation Sepsis Screening Result: No Definite Risk
[2021-06-30 20:17] LABS: ANION GAP 14.9 mEq/L (7-13); CHLORIDE,CL 103 mmol/L (98-107); SODIUM,NA 140 mmol/L (136-145)
[2021-06-30] MEDS ORDERED: Ketorolac 30 MG/ML SDV IM ONE (20:50)
[2021-06-30] MEDS ORDERED: Clindamycin HCl 150 MG Cap PO ONE (20:50)
[2021-06-30] MEDS ORDERED: Ondansetron 4 MG Tab.DIS ONE (20:59)
== END 2021-06-30 21:18 | disposition home or self-care (01) ==
LOC: DL.ED 18:26
DX: G43.909 Migraine, unspecified, not intractable, without status migrainosus (principal); N76.0 Acute vaginitis; B96.89 Other specified bacterial agents as the cause of diseases classified elsewhere; K21.9 Gastro-esophageal reflux disease without esophagitis; E66.9 Obesity, unspecified; Z68.44 Body mass index [BMI] 60.0-69.9, adult; Z88.1 Allergy status to other antibiotic agents; Z79.899 Other long term (current) drug therapy
CPT/HCPCS: 36415; 80053; 81001; 81025; 85025; 96372; 99283; A9270; J0595; J1885; J2550

== ENCOUNTER 2021-07-02 16:48 | Emergency (ER) | payer MEDICAID ==
[2021-07-02 18:00] VITALS: BP 135/86; PULSE 91
== END 2021-07-02 19:57 | disposition left against medical advice (07) ==
LOC: DL.ED 16:48
DX: Z53.21 Procedure and treatment not carried out due to patient leaving prior to being seen by health care provider (principal)

== ENCOUNTER 2021-08-13 18:16 | Emergency (ER) | payer MEDICAID ==
[2021-08-13 18:37] VITALS: BP 148/69; PULSE 97
[2021-08-13 19:27] LABS: CORONAVIRUS COVID-19 NAA NEGATIVE (NEGATIVE)
== END 2021-08-13 21:45 | disposition left against medical advice (07) ==
LOC: DL.ED 18:16
DX: R51.9 Headache, unspecified (principal); Z53.21 Procedure and treatment not carried out due to patient leaving prior to being seen by health care provider; Z20.822 Contact with and (suspected) exposure to COVID-19
CPT/HCPCS: 0240U

== ENCOUNTER 2021-10-17 16:16 | Emergency (ER) | payer MEDICAID ==
[2021-10-17] MEDS ORDERED: Ketorolac 30 MG/ML SDV IM ONE (16:26)
[2021-10-17] MEDS ORDERED: Cyclobenzaprine 10 MG Tab PO ONE (16:27)
[2021-10-17 16:29] VITALS: BP 120/74; PULSE 92
== END 2021-10-17 16:45 | disposition home or self-care (01) ==
LOC: DL.ED 16:16
DX: S39.012A Strain of muscle, fascia and tendon of lower back, initial encounter (principal); S80.811A Abrasion, right lower leg, initial encounter; M54.10 Radiculopathy, site unspecified; E66.9 Obesity, unspecified; Z88.8 Allergy status to other drugs, medicaments and biological substances; Z68.42 Body mass index [BMI] 45.0-49.9, adult; W19.XXXA Unspecified fall, initial encounter
CPT/HCPCS: 96372; 99283; A9270-GY; J1885

== ENCOUNTER 2021-11-13 17:33 | Emergency (ER) | payer MEDICAID ==
[2021-11-13] MEDS ORDERED: Cyclobenzaprine 10 MG Tab PO ONE (17:34)
[2021-11-13] MEDS ORDERED: Ketorolac 30 MG/ML SDV IM ONE (19:28)
[2021-11-13] MEDS ORDERED: predniSONE 20 MG Tab PO ONE (19:28)
[2021-11-13 19:58] VITALS: BP 131/86; PULSE 98
[2021-11-13] MEDS ORDERED: Cyclobenzaprine 10 MG Tab ONE (20:47)
== END 2021-11-13 21:05 | disposition home or self-care (01) ==
LOC: DL.ED 17:33
DX: S30.0XXA Contusion of lower back and pelvis, initial encounter (principal); M54.41 Lumbago with sciatica, right side; E66.9 Obesity, unspecified; Z88.1 Allergy status to other antibiotic agents; Z68.44 Body mass index [BMI] 60.0-69.9, adult; W22.09XA Striking against other stationary object, initial encounter
CPT/HCPCS: 72100; 81003; 81025; 96372; 99283-25; 99284; A9270-GY; J1885; J7512

== ENCOUNTER 2021-12-07 12:02 | Emergency (ER) | payer MEDICAID ==
[2021-12-07] MEDS ORDERED: Amoxicillin/Clavulanate K 875-125 MG Tab PO ONE (12:03)
[2021-12-07 12:49] VITALS: BP 108/70; PULSE 96
[2021-12-07] MEDS ORDERED: Amoxicillin/Clavulanate K 875-125 MG Tab ONE (14:22)
== END 2021-12-07 14:33 | disposition home or self-care (01) ==
LOC: DL.ED 12:02
DX: H66.011 Acute suppurative otitis media with spontaneous rupture of ear drum, right ear (principal); H61.23 Impacted cerumen, bilateral; K21.9 Gastro-esophageal reflux disease without esophagitis; E66.9 Obesity, unspecified; Z68.45 Body mass index [BMI] 70 or greater, adult; Z90.49 Acquired absence of other specified parts of digestive tract; Z79.899 Other long term (current) drug therapy; Z88.1 Allergy status to other antibiotic agents
CPT/HCPCS: 87070; 99283; A9270

== ENCOUNTER 2022-01-22 20:03 | Emergency (ER) | payer MEDICAID ==
[2022-01-22] MEDS ORDERED: Acetaminophen/oxyCODONE 325-5 MG Tab PO ONE ×2 (20:04→21:34)
[2022-01-22] MEDS ORDERED: cefTRIAXone 1 GM in Sodium Chloride 0.9% 50 ML IV ONE (20:28)
[2022-01-22] MEDS ORDERED: Sulfamethoxazole/Trimethoprim 800-160 MG Tab PO ONE (20:54)
[2022-01-22] MEDS ORDERED: Ketorolac 30 MG/ML SDV IVPUSH ONE (20:54)
[2022-01-22] MEDS ORDERED: Sulfamethoxazole/Trimethoprim 800-160 MG Tab ONE (21:05)
[2022-01-22 21:32] LABS: ANION GAP 12.1 mEq/L (7-13)
[2022-01-22] MEDS ORDERED: Acetaminophen/oxyCODONE 325-5 MG Tab ONE (21:53)
[2022-01-22 22:36] VITALS: BP 120/82; PULSE 98
== END 2022-01-22 22:15 | disposition home or self-care (01) ==
LOC: DL.ED 20:03
DX: N61.1 Abscess of the breast and nipple (principal); E66.9 Obesity, unspecified; Z68.44 Body mass index [BMI] 60.0-69.9, adult; Z88.1 Allergy status to other antibiotic agents; Z79.899 Other long term (current) drug therapy; Z86.16 Personal history of COVID-19; Z90.49 Acquired absence of other specified parts of digestive tract
CPT/HCPCS: 36415; 80053; 83605; 85025; 87070; 87077; 87186; 87205; 96365; 96375; 99283; A9270; J0696; J1885

== ENCOUNTER 2022-01-23 07:38 | Inpatient (IN) | payer MEDICAID ==
[2022-01-23] MEDS ORDERED: Vancomycin 2.5 GM in Sodium Chloride 0.9% 500 ML IV ONE (08:17)
[2022-01-23] MEDS ORDERED: Acetaminophen 500 MG Tab PO ONE (08:18)
[2022-01-23] MEDS ORDERED: Sodium Chloride 0.9% 1,000 ML IV ONE (08:18)
[2022-01-23] MEDS ORDERED: diphenhydrAMINE 50 MG/ML SDV IVPUSH ONE (08:18)
[2022-01-23] MEDS ORDERED: HYDROmorphone 1 MG/ML Syringe IVPUSH ONE (08:19)
[2022-01-23 09:25] LABS: ANION GAP 13.6 mEq/L (7-13); CHLORIDE,CL 116 mmol/L (98-107); SODIUM,NA 147 mmol/L (136-145)
[2022-01-23 09:29] LABS: ESTIMATED GFR 133 mL/min (>=60)
[2022-01-23] MEDS ORDERED: Potassium Chloride 10% 20 MEQ/15 ML Soln 15 ML UD Cup PO ONE (09:36)
[2022-01-23] MEDS ORDERED: Potassium Chloride 10 MEQ Tab.ER PO ONE ×3 (10:00→20:30)
[2022-01-23] MEDS ORDERED: Ondansetron 4 MG Tab.DIS PO PRN (10:07)
[2022-01-23] MEDS ORDERED: Ondansetron 4 MG/2 ML SDV IVPUSH PRN (10:07)
[2022-01-23] MEDS ORDERED: Albuterol 6.7 GM Inhaler INH PRN (10:15)
[2022-01-23] MEDS ORDERED: cefTRIAXone 1 GM in Sodium Chloride 0.9% 50 ML IV SCH (11:00)
[2022-01-23 11:26] LABS: CORONAVIRUS COVID-19 NAA NEGATIVE (NEGATIVE); RESPIRATORY SYNCYTIAL VIR NAA NEGATIVE (NEGATIVE)
[2022-01-23] MEDS: Acetaminophen/HYDROcodone 325-10 MG Tab PO PRN ×3 (12:09→21:49)
[2022-01-23] MEDS: NS with KCl 40mEq 1,000 ML IV SCH ×2 (12:18→16:53)
[2022-01-23] MEDS: Heparin Sodium 5,000 Units/ML Vial SUBCUT SCH ×2 (12:59→21:54)
[2022-01-23] MEDS: Morphine 2 MG/ML SYRINGE IVPUSH PRN ×3 (16:57→22:41)
[2022-01-23] MEDS: VANCOmycin 1.5 GM/300 ML 1.5 GM in Premix Bag 1 BAG IV SCH (21:48)
[2022-01-23] MEDS: Sodium Chloride 0.9% 10 ML Syringe FLUSH PRN ×2 (21:48→22:47)
[2022-01-23] MEDS: Docusate Sodium 100 MG Cap PO PRN (21:49)
[2022-01-23] MEDS: Melatonin 3 MG Tab PO PRN (21:49)
[2022-01-24] MEDS: Morphine 2 MG/ML SYRINGE IVPUSH PRN ×4 (04:16→20:55)
[2022-01-24] MEDS: Acetaminophen/HYDROcodone 325-10 MG Tab PO PRN ×4 (04:17→22:43)
[2022-01-24] MEDS: Acetaminophen 325 MG Tab PO PRN ×2 (04:17→14:51)
[2022-01-24] MEDS: Heparin Sodium 5,000 Units/ML Vial SUBCUT SCH ×3 (05:23→21:02)
[2022-01-24 06:51] LABS: ANION GAP 13.4 mEq/L (7-13)
[2022-01-24] MEDS: diphenhydrAMINE 50 MG/ML SDV IVPUSH SCH ×2 (08:45→20:49)
[2022-01-24] MEDS: Clindamycin in 0.9 % Sod Chlor 900 MG in Premix Bag 1 BAG IV SCH ×6 (08:48→23:52)
[2022-01-24] MEDS: VANCOmycin 1.5 GM/300 ML 1.5 GM in Premix Bag 1 BAG IV SCH ×2 (09:34→20:55)
[2022-01-24] MEDS: Melatonin 3 MG Tab PO PRN (22:43)
[2022-01-24] MEDS: Docusate Sodium 100 MG Cap PO PRN (22:43)
[2022-01-25] MEDS: Morphine 2 MG/ML SYRINGE IVPUSH PRN ×2 (03:54→13:17)
[2022-01-25] MEDS: Acetaminophen/HYDROcodone 325-10 MG Tab PO PRN ×3 (03:55→13:18)
[2022-01-25] MEDS: Acetaminophen 325 MG Tab PO PRN (05:36)
[2022-01-25] MEDS: Heparin Sodium 5,000 Units/ML Vial SUBCUT SCH ×2 (05:37→14:44)
[2022-01-25] MEDS ORDERED: traMADol 50 MG Tab PO PRN (07:43)
[2022-01-25 07:44] VITALS: BP 122/58; PULSE 104
[2022-01-25] MEDS ORDERED: Acetaminophen/Butalbital/Caffeine 325-50-40 MG Tab PO PRN (08:53)
[2022-01-25] MEDS ORDERED: hydrOXYzine HCl 25 MG Tab PO PRN (08:56)
[2022-01-25] MEDS: diphenhydrAMINE 50 MG/ML SDV IVPUSH SCH (09:00)
[2022-01-25] MEDS: Clindamycin in 0.9 % Sod Chlor 900 MG in Premix Bag 1 BAG IV SCH ×4 (09:01→15:59)
[2022-01-25] MEDS: Sodium Chloride 0.9% 10 ML Syringe FLUSH PRN ×2 (09:02→13:17)
[2022-01-25] MEDS: VANCOmycin 1.5 GM/300 ML 1.5 GM in Premix Bag 1 BAG IV SCH (10:36)
[2022-01-25] MEDS ORDERED: Clindamycin HCl 150 MG Cap PO PRN (14:53)
[2022-01-25] MEDS ORDERED: Clindamycin HCl 150 MG Cap PO ONE (15:15)
== END 2022-01-25 15:35 | DRG 872 ==
LOC: DL.ED 07:38 → DL.MS 10:04
PROVIDERS: ADMIT Hospitalist; ATTEND Hospitalist
DX: A41.9 Sepsis, unspecified organism (principal); Z68.44 Body mass index [BMI] 60.0-69.9, adult; L03.313 Cellulitis of chest wall; E66.01 Morbid (severe) obesity due to excess calories; Z20.822 Contact with and (suspected) exposure to COVID-19; H54.7 Unspecified visual loss; K21.9 Gastro-esophageal reflux disease without esophagitis; K52.9 Noninfective gastroenteritis and colitis, unspecified; Z86.16 Personal history of COVID-19; Z88.8 Allergy status to other drugs, medicaments and biological substances; Z79.51 Long term (current) use of inhaled steroids
CPT/HCPCS: 0241U; 36415; 80048; 80053; 80202; 83605; 84145; 84703; 85025; 86140; 87040; 87070; 96365; 96375; 99284-25; A9270-GY; J0696; J1170; J1200; J1644; J2270; J2405; J3370; J3480; J3490; J7030; J7050

== ENCOUNTER 2022-01-30 13:37 | Emergency (ER) | payer MEDICAID ==
[2022-01-30] MEDS ORDERED: Ondansetron 4 MG/2 ML SDV IVPUSH ONE (13:52)
[2022-01-30] MEDS ORDERED: Ketorolac 30 MG/ML SDV IVPUSH ONE (13:52)
[2022-01-30] MEDS ORDERED: Sodium Chloride 0.9% 10 ML Syringe FLUSH PRN (13:52)
[2022-01-30 14:30] LABS: CHLORIDE,CL 103 mmol/L (98-107); SODIUM,NA 139 mmol/L (136-145)
[2022-01-30 14:35] LABS: ESTIMATED GFR 100 mL/min (>=60)
== END 2022-01-30 16:02 | disposition home or self-care (01) ==
LOC: DL.ED 13:37
DX: L03.313 Cellulitis of chest wall (principal); R11.0 Nausea; E66.9 Obesity, unspecified; Z68.44 Body mass index [BMI] 60.0-69.9, adult; Z88.1 Allergy status to other antibiotic agents; Z79.899 Other long term (current) drug therapy; Z86.16 Personal history of COVID-19; Z90.49 Acquired absence of other specified parts of digestive tract
CPT/HCPCS: 36415; 80053; 83605; 84145; 85025; 86140; 96374; 96375; 99283; J1885; J2405; J3490

== ENCOUNTER 2022-03-14 18:58 | Emergency (ER) | payer MEDICAID ==
[2022-03-14] MEDS ORDERED: Cephalexin 500 MG Cap PO ONE (18:59)
[2022-03-14 19:41] VITALS: BP 110/86; PULSE 80
[2022-03-14 20:11] LABS: ANION GAP 15.8 mEq/L (7-13); CHLORIDE,CL 103 mmol/L (98-107); SODIUM,NA 143 mmol/L (136-145)
[2022-03-14 20:12] LABS: AMPHETAMINES,URINE NEGATIVE (NEGATIVE); BARBITURATES,URINE NEGATIVE (NEGATIVE); BENZODIAZEPINE,URINE NEGATIVE (NEGATIVE); MDMA (ECSTASY), URINE NEGATIVE (NEGATIVE); METHADONE,URINE NEGATIVE (NEGATIVE); METHAMPHETAMINES,URINE NEGATIVE (NEGATIVE); OPIATES,URINE NEGATIVE (NEGATIVE); OXYCODONE,URINE NEGATIVE (NEGATIVE); PHENCYCLIDINE,URINE NEGATIVE (NEGATIVE); TCA,URINE NEGATIVE (NEGATIVE)
[2022-03-14 20:13] LABS: ACETAMINOPHEN 0 ug/mL (10-30 (Therapeutic)); ESTIMATED GFR 104 mL/min (>=60)
[2022-03-14] MEDS ORDERED: Iopamidol 612 MG/ML 100 ML Bottle IVPUSH ONE (20:31)
[2022-03-14] MEDS ORDERED: cefTRIAXone 1 GM in Sodium Chloride 0.9% 50 ML IV ONE (21:52)
[2022-03-14] MEDS ORDERED: Cephalexin 500 MG Cap ONE (22:12)
== END 2022-03-14 23:00 | disposition home or self-care (01) ==
LOC: DL.ED 18:58
DX: N30.01 Acute cystitis with hematuria (principal); K21.9 Gastro-esophageal reflux disease without esophagitis; E66.01 Morbid (severe) obesity due to excess calories; Z68.44 Body mass index [BMI] 60.0-69.9, adult; Z88.1 Allergy status to other antibiotic agents; Z88.8 Allergy status to other drugs, medicaments and biological substances; Z79.899 Other long term (current) drug therapy; Z86.16 Personal history of COVID-19
CPT/HCPCS: 36415; 74177; 80053; 80143; 80305-QW; 80307; 81001; 81025; 82140; 82150; 83605; 83690; 83735; 85025; 85610; 87040; 96365; 99284; 99284-25; A9270-GY; J0696; Q9967

== ENCOUNTER 2022-07-05 21:13 | Emergency (ER) | payer MEDICAID ==
[2022-07-05] MEDS ORDERED: traZODone 50 MG Tab PO ONE (21:14)
[2022-07-05] MEDS ORDERED: Sodium Chloride 0.9% 10 ML Syringe FLUSH PRN (21:53)
[2022-07-05 22:40] LABS: ANION GAP 11.6 mEq/L (7-13)
[2022-07-05] MEDS ORDERED: cefTRIAXone 2 GM Vial IVPUSH ONE (23:21)
[2022-07-05] MEDS ORDERED: traZODone 50 MG Tab ONE (23:44)
[2022-07-05 23:55] VITALS: BP 134/83; PULSE 88
== END 2022-07-05 23:53 | disposition home or self-care (01) ==
LOC: DL.ED 21:13
DX: L03.032 Cellulitis of left toe (principal); K21.9 Gastro-esophageal reflux disease without esophagitis; E66.9 Obesity, unspecified; Z68.44 Body mass index [BMI] 60.0-69.9, adult; Z88.8 Allergy status to other drugs, medicaments and biological substances; Z88.1 Allergy status to other antibiotic agents; Z79.899 Other long term (current) drug therapy
CPT/HCPCS: 36415; 73660; 80053; 83605; 85025; 87040; 96374; 99283; A9270; J0696; J3490

== ENCOUNTER 2022-07-15 19:34 | Emergency (ER) | payer MEDICAID ==
[2022-07-15] MEDS ORDERED: Bacitracin Oint 1 GM U/D Packet TOP ONE (19:53)
[2022-07-15 20:00] VITALS: BP 153/100; PULSE 99
[2022-07-15 20:51] LABS: CORONAVIRUS COVID-19 NAA NEGATIVE (NEGATIVE)
== END 2022-07-15 21:20 | disposition home or self-care (01) ==
LOC: DL.ED 19:34
DX: L03.032 Cellulitis of left toe (principal); K21.9 Gastro-esophageal reflux disease without esophagitis; E66.9 Obesity, unspecified; Z88.1 Allergy status to other antibiotic agents; Z88.8 Allergy status to other drugs, medicaments and biological substances; Z79.899 Other long term (current) drug therapy; Z20.822 Contact with and (suspected) exposure to COVID-19; Z68.44 Body mass index [BMI] 60.0-69.9, adult
CPT/HCPCS: 0240U; 99283

== ENCOUNTER 2022-08-21 12:31 | Emergency (ER) | payer MEDICAID ==
[2022-08-21 14:16] VITALS: BP 131/84; PULSE 90
[2022-08-21] MEDS ORDERED: Ketorolac 30 MG/ML SDV IM ONE (17:02)
== END 2022-08-21 17:46 | disposition home or self-care (01) ==
LOC: DL.ED 12:31
DX: B35.3 Tinea pedis (principal); E66.9 Obesity, unspecified; Z68.44 Body mass index [BMI] 60.0-69.9, adult; Z88.1 Allergy status to other antibiotic agents; Z88.8 Allergy status to other drugs, medicaments and biological substances; Z79.899 Other long term (current) drug therapy; Z86.16 Personal history of COVID-19
CPT/HCPCS: 36415; 73700; 84703; 85025; 86140; 87220; 96372; 99284; J1885

== ENCOUNTER 2022-12-05 17:56 | Emergency (ER) | payer MEDICAID ==
[2022-12-05] MEDS ORDERED: SUMAtriptan 6 MG/0.5 ML SDV SUBCUT ONE (19:36)
[2022-12-05] MEDS ORDERED: Ondansetron 4 MG Tab.DIS PO ONE (20:03)
[2022-12-05 21:24] VITALS: BP 131/112; PULSE 87
== END 2022-12-05 21:15 | disposition home or self-care (01) ==
LOC: DL.ED 17:56
DX: G43.909 Migraine, unspecified, not intractable, without status migrainosus (principal); E66.9 Obesity, unspecified; K21.9 Gastro-esophageal reflux disease without esophagitis; Z79.899 Other long term (current) drug therapy; Z88.8 Allergy status to other drugs, medicaments and biological substances; Z68.44 Body mass index [BMI] 60.0-69.9, adult
CPT/HCPCS: 96372; 99283; A9270; J3030

== ENCOUNTER 2023-03-31 07:10 | Emergency (ER) | payer MEDICAID ==
[2023-03-31 07:36] VITALS: BP 137/101; PULSE 71
[2023-03-31] MEDS ORDERED: Albuterol 0.083% 2.5 MG/3 ML Neb Soln NEB ONE (07:36)
[2023-03-31] MEDS ORDERED: Benzonatate 100 MG Cap PO ONE (07:36)
== END 2023-03-31 08:54 | disposition home or self-care (01) ==
LOC: DL.ED 07:10
DX: J06.9 Acute upper respiratory infection, unspecified (principal); Z20.822 Contact with and (suspected) exposure to COVID-19; Z86.16 Personal history of COVID-19; K21.9 Gastro-esophageal reflux disease without esophagitis; E66.9 Obesity, unspecified; Z79.899 Other long term (current) drug therapy; Z88.8 Allergy status to other drugs, medicaments and biological substances; Z88.1 Allergy status to other antibiotic agents
CPT/HCPCS: 87081; 87430; 87635; 87804; 99283; A9270; J7613-GY; U0002

== ENCOUNTER 2023-06-17 14:37 | Emergency (ER) | payer MEDICAID ==
[2023-06-17 14:59] VITALS: BP 124/87; PULSE 110
[2023-06-17] MEDS ORDERED: Dexamethasone 4 MG/ML SDV IM ONE (15:09)
== END 2023-06-17 15:30 | disposition home or self-care (01) ==
LOC: DL.ED 14:37
DX: M54.50 Low back pain, unspecified (principal); E66.9 Obesity, unspecified; K21.9 Gastro-esophageal reflux disease without esophagitis; Z68.44 Body mass index [BMI] 60.0-69.9, adult; Z86.16 Personal history of COVID-19; Z88.1 Allergy status to other antibiotic agents; Z88.8 Allergy status to other drugs, medicaments and biological substances; Z79.899 Other long term (current) drug therapy
CPT/HCPCS: 96372; 99283; J1100

== ENCOUNTER 2024-02-02 06:39 | Emergency (ER) | payer MEDICAID ==
[2024-02-02 07:18] VITALS: BP 162/88; PULSE 80
[2024-02-02 07:21] LABS: APPEARANCE,URINE CLEAR (CLEAR); BILIRUBIN,URINE NEGATIVE (NEGATIVE); COLOR,URINE YELLOW (YELLOW); GLUCOSE,URINE NEGATIVE (NEGATIVE); KETONES,URINE NEGATIVE (NEGATIVE); LEUKOCYTE ESTERASE,URINE NEGATIVE (NEGATIVE); NITRITE,URINE NEGATIVE (NEGATIVE); OCCULT BLOOD,URINE NEGATIVE (NEGATIVE); PH,URINE 6.5 (5.0-9.0); PROTEIN,URINE NEGATIVE (NEGATIVE); UROBILINOGEN,URINE 0.2 mg/dL (0.2-1.0)
[2024-02-02 08:28] LABS: BASOPHILS PERCENT AUTO 0.4 % (0.0-1.0); EOSINOPHILS PERCENT AUTO 1.5 % (1.0-3.0); HEMATOCRIT 41.1 % (37.0-47.0); HEMOGLOBIN 13.4 g/dL (12.0-16.0); LYMPHOCYTES PERCENT AUTO 40.7 % (20.5-50.1); MEAN CORPUSCULAR HEMOGLOBIN 29.5 pg (27.0-34.0); MEAN CORPUSCULAR HGB CONC 32.6 g/dL (33.0-35.0); MEAN CORPUSCULAR VOLUME 90.5 fL (80-100); MONOCYTES PERCENT AUTO 6.3 % (2-8); NEUTROPHILS PERCENT AUTO 51.1 % (42.2-75.2); PLATELET COUNT,PLT 312 10^3/uL (150-450); RED BLOOD CELL COUNT 4.54 10^6/uL (4.2-5.4); WHITE BLOOD CELL COUNT,WBC 8.2 10^3/uL (5.0-10.0)
[2024-02-02 08:46] LABS: A/G RATIO 0.9; ALBUMIN 3.4 g/dL (3.4-5.0); ANION GAP 14.9 mEq/L (7-13); BILIRUBIN TOTAL 0.4 mg/dL (0.2-1.0); BUN/CREATININE RATIO 11.7 (No establ ref range); CALCIUM 9.1 mg/dL (8.5-10.1); CREATININE 0.77 mg/dL (0.55-1.02); EST CRCL DRUG DOSING (CG) 86.03 mL/min; POTASSIUM,K 3.9 mmol/L (3.5-5.1); PROTEIN TOTAL,TP 7.1 g/dL (6.4-8.2)
== END 2024-02-02 09:49 | disposition home or self-care (01) ==
LOC: DL.ED 06:39
DX: M54.50 Low back pain, unspecified (principal); G89.29 Other chronic pain; K21.9 Gastro-esophageal reflux disease without esophagitis; E66.9 Obesity, unspecified; Z88.8 Allergy status to other drugs, medicaments and biological substances; Z79.899 Other long term (current) drug therapy; Z86.16 Personal history of COVID-19; Z90.49 Acquired absence of other specified parts of digestive tract; Z68.44 Body mass index [BMI] 60.0-69.9, adult
CPT/HCPCS: 36415; 72131; 80053; 81003; 85025; 99284

== ENCOUNTER 2025-01-17 14:05 | Observation (INO) | payer MEDICAID ==
[2025-01-17] MEDS: Lactated Ringers 1,000 ML IV ONE (16:00)
[2025-01-17] MEDS ORDERED: 50% Dextrose in Water 50 ML Syringe IVPUSH PRN (17:22)
[2025-01-17] MEDS: Insulin Glarg,Human.Rec.Analog 100 Unit/ML 10 ML Vial SUBCUT SCH (20:34)
[2025-01-18 09:00] VITALS: BP 128/77; PULSE 95
== END 2025-01-18 09:30 | disposition home or self-care (01) ==
LOC: DL.OBCHECK 14:05 → DL.OB 18:16
PROVIDERS: ADMIT Student in an Organized Health Care Education/Training Program; ATTEND Student in an Organized Health Care Education/Training Program
DX: O14.93 Unspecified pre-eclampsia, third trimester (principal); O99.213 Obesity complicating pregnancy, third trimester; E66.813 Obesity, class 3; O24.414 Gestational diabetes mellitus in pregnancy, insulin controlled; R51.9 Headache, unspecified; Z88.8 Allergy status to other drugs, medicaments and biological substances; Z68.44 Body mass index [BMI] 60.0-69.9, adult; Z3A.35 35 weeks gestation of pregnancy; Z79.899 Other long term (current) drug therapy
CPT/HCPCS: 59025; 76819; 82947; A9270; J1815; J7120